=== PATIENT | female | born 1995 | race Caucasian/White ===

== ENCOUNTER → 2023-02-12 | Outpatient (CLI) | payer SELFPAY ==
[2023-02-15 07:08] LABS: Chlamydia By Nucleic Acid AMP Negative (Negative); Gonococcus By Nucleic Acid AMP Negative (Negative)
[2023-02-16 18:15] LABS: HPV Reflexed? NOT INDICATED
== END | disposition home or self-care (01) ==
LOC: LABSPEC 16:51
PROVIDERS: Referring Provider Obstetrics & Gynecology; Visit Provider Obstetrics & Gynecology
DX: Z34.90 Encounter for supervision of normal pregnancy, unspecified, unspecified trimester (principal)
CPT/HCPCS: 87086; 87491; 87591; 88175; G0145

== ENCOUNTER → 2023-03-12 | Outpatient (CLI) | payer OTHER, SELFPAY ==
[2023-03-12 15:38] LABS: Absolute Lymphocyte Count 2.58 X10^3/uL (0.83-4.51); Absolute Neutrophil Count 7.9 X10^3/uL (2.0-7.7); Basophil# 0.04 X10^3/uL; Basophil% 0.4 % (0-1); Eosinophil# 0.06 X10^3/uL; Eosinophils% 0.5 % (0-5); Hematocrit 39.5 % (37-47); Hemoglobin 12.2 g/dL (12.0-15.0); Lymphocyte # 2.58 X10^3/ul (0.83-4.51); Lymphocyte % 22.8 % (19-41); Mean Corp Hgb Conc 30.9 g/dL (32-36); Mean Corpuscular Hgb 27.2 pg (27.0-32.0); Monocyte# 0.75 X10^3/uL; Monocyte% 6.6 % (0-10); NRBC Flagged by Analyzer 0 % (0-5); Neutrophil # 7.85 X10^3/uL (2.7-7.7); Neutrophil % 69.3 % (47-70); Platelet Count 292 K/mm3 (150-450); RBC Distribution Width CV 13.4 % (11.6-14.6); RBC Distribution Width SD 43.5 fl (35.1-43.9); Red Blood Count 4.49 M/mm3 (4.2-5.4); White Blood Count 11.3 K/mm3 (4.4-11.0)
[2023-03-12 15:50] LABS: Glucose Challenge Gest 1H 50g 74 mg/dL (70-140)
[2023-03-12 17:15] LABS: HIV - WCH Non-Reactive (Nonreactive); Hepatitis B Surface Antigen Non-Reactive (Nonreactive); Hepatitis C Antibody Non-Reactive (Nonreactive); Rubella IgG Reactive (Nonreactive); Syphilis Antibodies Non-reactive
== END | disposition home or self-care (01) ==
PROVIDERS: PCP Family Medicine; Referring Provider Obstetrics & Gynecology; Visit Provider Obstetrics & Gynecology
DX: Z34.90 Encounter for supervision of normal pregnancy, unspecified, unspecified trimester (principal)
CPT/HCPCS: 36415; 82950; 85025; 86703; 86762; 86780; 86803; 86850; 86900; 86901; 87340

== ENCOUNTER → 2023-05-07 | Outpatient (CLI) | payer OTHER, SELFPAY ==
--- NOTE | 2023-05-07 15:15 | US_ITS ---
STUDY: SECOND AND THIRD TRIMESTER OBSTETRICAL ULTRASOUND REASON FOR EXAM: Female, 27 years old 20 wk anatomy LMP: Unknown. TECHNIQUE: Transabdominal TECHNICAL QUALITY: Adequate. PRIOR ULTRASOUND: None. FINDINGS: There is a single intrauterine fetus. The fetus is in a breech presentation. There is demonstrated cardiac activity with a heart rate of 141 bpm. There is a normal amniotic fluid volume. The largest amniotic fluid pocket measures 5.9 cm. The placenta is anterior in location and is not low lying. There are Grade 0 placental changes. The cervix measures 5.4 cm in length. The cervix is closed. The bilateral adnexal regions are normal. BIOMETRY: BPD: 5.01 cm: 21 weeks, 1 days HC: 18.67 cm: 21 weeks, 0 days AC: 17.24 cm: 22 weeks, 1 days FL: 3.3 cm: 20 weeks, 2 days CI: 77.02 FL/BPD: 65.85 FL/HC: 17.67 FL/AC: 19.13 HC/AC: 1.08 age by current US: 21 weeks, 2 days. MARIANA by current US: 09/17/2023. Estimated weight: 420 grams, +/- 63 grams, 72 %. age by prior US: No prior ultrasound. Age by LMP: 20 weeks, 6 days. MARIANA by LMP: 09/18/2023. ANATOMY: Gender: Male Cranium: Normal lateral ventricles. Normal choroid plexus. Normal cerebellum. Normal cisterna magna. Normal face, nose and lips. Chest: Normal 4-chamber heart. Abdomen/Pelvis: Normal diaphragm. Normal stomach. Normal abdominal wall. Normal cord insertion. Normal 3 vessel cord. Normal kidneys. Normal bladder. Spine: Limited visualization of the spine in axial plane with no gross dysraphism seen. Extremities: Normal visualized bilateral upper extremities. Normal visualized bilateral lower extremities. US/OB Anatomy Scan IMPRESSION: Single intrauterine with ultrasound age of 21 weeks and 2 days and estimated date of delivery of 09/17/2023. Breech presentation. Anterior placenta with no previa. Normal amniotic fluid. Normal cardiac activity. Limited anatomy with no gross anomaly. Electronically Signed: Heather Briscoe MD at 23:28 EST ,
== END | disposition home or self-care (01) ==
LOC: OPUS 15:14
PROVIDERS: PCP Family Medicine; Referring Provider Obstetrics & Gynecology; Visit Provider Obstetrics & Gynecology
DX: O32.1XX0 Maternal care for breech presentation, not applicable or unspecified (principal); Z3A.17 17 weeks gestation of pregnancy
CPT/HCPCS: 76805

== ENCOUNTER → 2023-05-14 | Outpatient (CLI) | payer OTHER, SELFPAY | END | disposition home or self-care (01) | PROVIDERS: PCP Family Medicine; Referring Provider Registered Nurse; Visit Provider Registered Nurse | DX: Z34.90 Encounter for supervision of normal pregnancy, unspecified, unspecified trimester (principal) | CPT/HCPCS: 36415 ==

== ENCOUNTER → 2023-06-12 | Outpatient (CLI) | payer BC, SELFPAY | END | disposition home or self-care (01) | PROVIDERS: PCP Family Medicine; Visit Provider Nurse Practitioner Women's Health | DX: O26.839 Pregnancy related renal disease, unspecified trimester (principal); N20.0 Calculus of kidney; O99.891 Other specified diseases and conditions complicating pregnancy; Z3A.00 Weeks of gestation of pregnancy not specified | CPT/HCPCS: 87086; 87088 ==

== ENCOUNTER → 2023-06-21 | Outpatient (CLI) | payer BC, SELFPAY ==
--- NOTE | 2023-06-21 12:25 | US_ITS ---
EXAM: US RETROPERITONEAL LIMITED, RENAL CLINICAL INDICATION: history of kidney stone TECHNIQUE: Limited grayscale and color Doppler sonographic evaluation of the retroperitoneum was performed. COMPARISON: No relevant prior studies available. FINDINGS: RIGHT KIDNEY: The right kidney measures 12.4 cm in length. No hydronephrosis. No shadowing calculus. No perinephric collection is demonstrated. LEFT KIDNEY: The left kidney measures 11.9 cm in length. No hydronephrosis. No shadowing calculus. No perinephric collection is demonstrated. BLADDER: The bilateral ureteral jets are visualized. US/Kidney and Bladder IMPRESSION: No acute renal pathology is identified. No nephrolithiasis is identified. Electronically Signed: Geovanny Cobb DO at 17:28 EST ,
--- OUTSIDE RECORDS SUMMARY | 2023-06-21 12:43 | XMS RPT_ITS | CCD ---
Author Name Unknown Address [address] [place] [address] Organization [facility] Care Team Providers Care Dump Operator Name Role Phone Veda Philip Unavailable Blanco Jeronimo O Unavailable Unavailable Blanco Jeronimo O Unavailable Unavailable Veda Philip Primary Care Provider Unavaila Veda Escobar Primary Care Provider Veda Philip Primary Care Provider [phone] Veda Philip Primary Care Provider [phone] Makayla Juarez Heather Unavailable Tamera PORTER, Veda Case Primary Care Provider Larry HUGHES, Makayla Heather Unavailable Veda Philip MD Primary Care Provider [phone] Larry HUGHES, Makayla Heather Unavailable VEDA PHILIP Primary Care Unavailabl e PHILIP, VEDA URSZULA Primary Care Unavailabl e LETA AYALA Admitting Unavailable LETA AYALA Referring Unavailable VEDA PHILIP URSZULA Primary Care Unavailabl e PHILIP, VEDA URSZULA Primary Care Unavailabl e PHILIP, VEDA URSZULA Primary Care Unavailabl e PHILIP, VEDA URSZULA Primary Care Unavailabl e PHILIP, VEDARICARDO ALTAMIRANOE Primary Care Unavailabl e PHILIP, VEDA URSZULA Primary Care Unavailabl e PHILIP, VEDA URSZULA Primary Care Unavailabl e PHILIP, [facility] Primary Care Unavailabl e PHILIP, [facility] Primary Care Unavailabl e PHILIP, [facility] Primary Care Unavailabl e PHILIP, [facility] Primary Care Unavailabl e PHILIP, [facility] Primary Care Unavailabl e PHILIP, [facility] Primary Care Unavailabl e PHILIP, [facility] Primary Care Unavailabl e PHILIP, [facility] Primary Care Unavailabl e CARMEN, BRIDGETTE Admitting Unavailable CARMEN, BRIDGETTE Referring Unavailable PHILIP, [facility] Primary Care Unavailabl e CARMEN, BRIDGETTE Admitting Unavailable CARMEN, BRIDGETTE Referring Unavailable PHILIP, [facility] Primary Care Unavailabl e CARMEN, BRIDGETTE Referring Unavailable PHILIP, [facility] Primary Care Unavailabl e CARMEN, BRIDGETTE Admitting Unavailable PHILIP, [facility] Primary Care Unavailabl e PHILIP, [facility] Primary Care Unavailabl e PHILIP, [facility] Primary Care Unavailabl e PHILIP, [facility] Primary Care Unavailabl e PHILIP, [facility] Primary Care Unavailabl e CROUCH, RHONDA VELASQUEZ Admitting Unavailab le CRORHONDA CAMPO Referring Unavailab le PHILIP, [facility] Unavailabl e UMANG THURMAN Attending Unavailable TAMERA, [facility] Primary Care Unavailabl e JEREMY VARGAS Attending Unavailabl e Tamera PORTER, [facility] Primary Care Provider Tamera PORTER, [facility] Primary Care Provider [facility], [facility] Heather Unavailable TAMERA [facility] Primary Care Unavailabl e ISA MESSIAlejandro HOLDER Attending Unavailable Tamera PORTER, [facility] Primary Care Provider Tamera PORTER, [facility] Primary Care Provider [facility], [facility] Heather Unavailable TAMERA [facility] Unavailabl e MYLA FALK. Attending Unavailable Tamera PORTER, [facility] Primary Care Provider MYLA HOPPER Attending Unavailable MYLA HOPPER Referring Unavailable TAMERA [facility] Primary Care Unavailable JAYITMYLA Admitting Unavailable SELF, SELF Referring Unavailable TAMERA VEDA Zhu Primary Care Unavailable VEDA PHILIP Attending Unavailable Allergies Allergy Classification Reported Allergen(s) Allergy Type Date of Onset Reaction(s) Facility Bee/Wasp/Ant Venom (4 sources) bee venom Substance Allergy Swelling [facility] (20 sources) BEE VENOM PROTEIN (HONEY BEE); Translations: [BEE VENOM PROTEIN (HONEY BEE)] Propensity to adverse reactions to drug Swelling [facility] Work Phone: Medications Current Medications Medication Drug Class(es) Dates Sig (Normalized) Sig (Original) [id number] 200 actuat albuterol 0.09 mg/actuat metered dose inhaler (3 sources) beta2-Adrenergic Agonist Start: 11-27-2021 End: 12-04-2021 take 2 puff(s) by inhalation four times daily albuterol 90 mcg/actuation inhaler Indications: Bronchitis Inhale 2 (two) puffs 4 (four) times a day for 7 days . 18 g 0 11/27/2021 Active amoxicillin 875 mg / clavulanate 125 mg oral tablet (5 sources) Penicillin-class Antibacterial Start: 08-04-2019 End: 08-14-2019 take 1 tablet by mouth twice daily amoxicillin-clavu lanate (Augmentin) 875-125 mg per tablet Indications: Acute frontal sinusitis, recurrence not specified , Lower respiratory infection (e.g., bronchitis, pneumonia, pneumonitis, pulmonitis) Take 1 (one) tablet by mouth 2 (two) times a day for 10 days . 20 tablet 0 08/04/2019 08/14/2019 Active Completed/Discontinued Medications Medication Drug Class(es) Dates Sig (Normalized) Sig (Original) acetaminophen 325 mg oral tablet (5 sources) Start: 03-20-2019 End: 03-20-2019 acetaminophen (TYLENOL) 325 MG tablet - ADS Override Pull Problems Active Problems Problem Classification Problem Date Documented Date Episodic/Chronic Abdominal pain (2 sources) Right lower quadrant pain; Translations: [Right lower quadrant pain] Episodic Acute and chronic tonsillitis (1 source) Chronic disease of tonsils AND/OR adenoids Chronic Anxiety disorders (20 sources) Generalized anxiety disorder; Translations: [Generalized anxiety disorder] Onset: 05-26-2019 06-20-2019 Chronic Chronic obstructive pulmonary disease and bronchiectasis (2 sources) Bronchitis; Translations: [Bronchitis, not specified as acute or chronic] Episodic Fever of unknown origin (4 sources) Fever; Translations: [Fever, unspecified] Onset: 06-03-2023 06-03-2023 Episodic Headache; including migraine (20 sources) Migraine without aura, not refractory ; Translations: [Refractory migraine with aura] Onset: 12-23-2019 12-23-2019 Chronic Headache; including migraine (1 source) Acute headache; Translations: [Acute nonintractable headache, unspecified headache type] Episodic Immunizations and screening for infectious disease (11 sources) Patient encounter status; Translations: [Encounter for screening for infectious and parasitic diseases, unspecified] Episodic Influenza (1 source) Influenza; Translations: [Influenza] Episodic Malaise and fatigue (1 source) Fatigue; Translations: [Other fatigue] Episodic Nutritional deficiencies (1 source) Vitamin D deficiency; Translations: [Vitamin D deficiency, unspecified] Chronic Other connective tissue disease (7 sources) Pain in left foot; Translations: [Pain in left foot] 01-16-2017 Other lower respiratory disease (1 source) Lower respiratory tract infection; Translations: [Lower respiratory infection (e.g., bronchitis, pneumonia, pneumonitis, pulmonitis)] Episodic Other lower respiratory disease (1 source) Dyspnea; Translations: [Shortness of breath] Episodic Other nervous system disorders (1 source) Acute postoperative pain; Translations: [Acute post-operative pain] Episodic Other nervous system disorders (1 source) Loss of sense of smell; Translations: [Anosmia] Episodic Other nutritional; endocrine; and metabolic disorders (20 sources) Morbid obesity; Translations: [Morbid (severe) obesity due to excess calories] Onset: 05-05-2021 01-16-2017 Chronic Other nutritional; endocrine; and metabolic disorders (1 source) Body mass index 40+ - severely obese; Translations: [BMI 45.0-49.9, adult] Chronic Other nutritional; endocrine; and metabolic disorders (2 sources) Obesity caused by energy imbalance; Translations: [Morbid (severe) obesity due to excess calories] Onset: 05-05-2021 05-05-2021 Chronic Other upper respiratory infections (6 sources) Viral upper respiratory tract infection; Translations: [Acute frontal sinusitis] Onset: 06-03-2023 Episodic Residual codes; unclassified (1 source) Influenza-like symptoms; Translations: [Flu-like symptoms] Episodic Residual codes; unclassified (1 source) Needs influenza immunization; Translations: [Need for influenza vaccination] Episodic Residual codes; unclassified (1 source) Generalized aches and pains; Translations: [Pain, unspecified] Episodic Spondylosis; intervertebral disc disorders; other back problems (2 sources) Backache; Translations: [Back Pain] Onset: 06-06-2023 Episodic Unclassified (1 source) Contusion of left foot; Translations: [Contusion of left foot, initial encounter] Unclassified (1 source) Injury of toe of left foot; Translations: [Injury of toe on left foot, initial encounter] Unclassified (1 source) Injury of left foot; Translations: [Injury of left foot, subsequent encounter] Unclassified (1 source) Contact with and (suspected) exposure to covid-19; Translations: [Contact with and (suspected) exposure to covid-19] Onset: 06-03-2023 Past or Other Problems Problem Classification Problem Date Documented Date Episodic/Chronic Calculus of urinary tract (20 sources) Calculus of kidney and ureter ; Translations: [Calculus of kidney with calculus of ureter] Onset: 03-11-2018 03-18-2018 Episodic Complications of surgical procedures or medical care (12 sources) Dehiscence of wound of skin; Translations: [Other complications of procedures, not elsewhere classified, initial encounter] Onset: 04-03-2019 04-03-2019 Episodic Genitourinary symptoms and ill-defined conditions (20 sources) Increased frequency of urination; Translations: [Frequency of micturition] Onset: 05-05-2021 01-16-2017 Episodic Miscellaneous mental health disorders (20 sources) depression; Translations: [Other mental disorders complicating the puerperium] Onset: 05-14-2019 06-20-2019 Episodic Other connective tissue disease (17 sources) Pain in left foot; Translations: [Pain in left foot] Onset: 05-05-2021 01-16-2017 Episodic Other injuries and conditions due to external causes (1 source) Open wound; Translations: [Wound drainage] Episodic Other lower respiratory disease (1 source) Snoring Episodic Other lower respiratory disease (13 sources) Cough; Translations: [Cough] Onset: 08-04-2019 08-04-2019 Episodic Other non-traumatic joint disorders (20 sources) Arthralgia of the ankle and/or foot; Translations: [Pain in left ankle and joints of left foot] Onset: 05-05-2021 01-16-2017 Episodic Poisoning by nonmedicinal substances (20 sources) Toxic reaction to hornets, wasps and bees; Translations: [Poisoning due to insect venom] Onset: 05-05-2021 01-16-2017 Episodic Residual codes; unclassified (15 sources) Gestation period, 39 weeks; Translations: [39 weeks gestation of ] Onset: 03-20-2019 03-20-2019 Episodic Unclassified (1 source) Enlarged tonsils Unclassified (1 source) Contact with and (suspected) exposure to covid-19; Translations: [Contact with and (suspected) exposure to covid-19] Onset: 06-03-2023 NEGATED: Highlighted row has been ruled out!Unclassified (5 sources) No known active problems Results Test Name Value Interpretation Reference Range Facil ity Vital Signs Date Time Vital Sign Value Performing Clinician Facility 06-06-2023 01:40-0500 Body temperature 96.91 [degF] Myla Hopper MD Work Phone: [facility] 06-06-2023 01:40-0500 Diastolic blood pressure 70 mm[Hg] Myla Hopper MD Work Phone: [facility] 06-06-2023 01:40-0500 Heart rate 93 /min Myla Hopper MD Work Phone: [facility] 06-06-2023 01:40-0500 Respiratory rate 22 /min Myla Hopper MD Work Phone: [facility] 06-06-2023 01:40-0500 SaO2% (BldA) [Mass fraction] 98 % Myla Hopper MD Work Phone: [facility] 06-06-2023 01:40-0500 Systolic blood pressure 122 mm[Hg] Myla Hopper MD Work Phone: [facility] 06-06-2023 01:32-0500 Body height 160 cm Myla Hopper MD Work Phone: [facility] 06-06-2023 01:32-0500 Body mass index (BMI) [Ratio] 52.82 kg/m2 Myla Hopper MD Work Phone: [facility] 06-06-2023 01:32-0500 Body weight 135.26 kg Myla Hopper MD Work Phone: [facility] 06-03-2023 20:16-0500 Body height 162.6 cm Myla Falk DO Work Phone: [facility] 06-03-2023 20:16-0500 Body mass index (BMI) [Ratio] 50.64 kg/m2 Myla Falk DO Work Phone: [facility] 06-03-2023 20:16-0500 Body temperature 98.1 [degF] Myla Falk DO Work Phone: [facility] 06-03-2023 20:16-0500 Body weight 133.81 kg Myla Falk DO Work Phone: [facility] 06-03-2023 20:16-0500 Diastolic blood pressure 79 mm[Hg] Myla Falk DO Work Phone: [facility] 06-03-2023 20:16-0500 Heart rate 99 /min Myla Falk DO Work Phone: [facility] 06-03-2023 20:16-0500 Respiratory rate 18 /min Myla Falk DO Work Phone: [facility] 06-03-2023 20:16-0500 SaO2% (BldA) [Mass fraction] 98 % Myla Mckenziegiovanni DO Work Phone: [facility] 06-03-2023 20:16-0500 Systolic blood pressure 116 mm[Hg] Myla Falk DO Work Phone: [facility] 04-03-2022 09:34-0400 Body height 160 cm Cathy Gunderson 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 Work Phone: [facility] 04-03-2022 09:34-0400 Body mass index (BMI) [Ratio] 51 kg/m2 Cathy Gunderson APRN-INSTRUMENTATION CONTROLS ENGINEER Work Phone: [facility] [facility] 04-03-2022 09:34-0400 Body weight 130.59 kg Cathy Gunderson APRN-INSTRUMENTATION CONTROLS ENGINEER Work Phone: [facility] 04-03-2022 09:34-0400 Diastolic blood pressure 78 mm[Hg] Cathy Gunderson APRN-INSTRUMENTATION CONTROLS ENGINEER Work Phone: [facility] 04-03-2022 09:34-0400 Heart rate 98 /min Cathy Gunderson APRN-INSTRUMENTATION CONTROLS ENGINEER Work Phone: [facility] 04-03-2022 09:34-0400 Systolic blood pressure 114 mm[Hg] Cathy Gunderson APRN-INSTRUMENTATION CONTROLS ENGINEER Work Phone: [facility] 11-27-2021 16:30-0400 Body height 160 cm Myla Falk Work Phone: [facility] 11-27-2021 16:30-0400 Body mass index (BMI) [Ratio] 48.18 kg/m2 Myla Falk Work Phone: [facility] 11-27-2021 16:30-0400 Body temperature 98.4 [degF] Myla Falk DO Work Phone: [facility] 11-27-2021 16:30-0400 Body weight 123.38 kg Myla Falk Work Phone: [facility] 11-27-2021 16:30-0400 Diastolic blood pressure 87 mm[Hg] Myla Falk DO Work Phone: [facility] 11-27-2021 16:30-0400 Heart rate 95 /min Myla Falk DO Work Phone: [facility] 11-27-2021 16:30-0400 Respiratory rate 20 /min Myla Falk DO Work Phone: [facility] 11-27-2021 16:30-0400 SaO2% (BldA) [Mass fraction] 98 % Myla Falk DO Work Phone: [facility] 11-27-2021 16:30-0400 Systolic blood pressure 121 mm[Hg] Myla Falk DO Work Phone: [facility] 08-25-2021 11:06-0500 Body mass index (BMI) [Ratio] 49.7 kg/m2 Veda Philip MD Work Phone: [facility] 08-25-2021 11:06-0500 Body weight 130.77 kg Veda Philip MD Work Phone: [facility] 08-25-2021 11:06-0500 Diastolic blood pressure 80 mm[Hg] Veda Philip MD Work Phone: [facility] 08-25-2021 11:06-0500 Heart rate 64 /min Veda Philip MD Work Phone: [facility] 08-25-2021 11:06-0500 SaO2% (BldA) [Mass fraction] 98 % Veda Philip MD Work Phone: [facility] 08-25-2021 11:06-0500 Systolic blood pressure 118 mm[Hg] Veda Philip MD Work Phone: [facility] 05-05-2021 09:55-0500 Body height 160 cm Germania Lamport PA-C Work Phone: [facility] 05-05-2021 09:55-0500 Body mass index (BMI) [Ratio] 51.37 kg/m2 Germania Lamport PA-C Work Phone: [facility] 05-05-2021 09:55-0500 Body temperature 97.59 [degF] Germania Lamport PA-C Work Phone: [facility] 05-05-2021 09:55-0500 Body weight 131.54 kg Germania Lamport PA-C Work Phone: [facility] 05-05-2021 09:55-0500 Diastolic blood pressure 85 mm[Hg] Germania Lamport PA-C Work Phone: [facility] 05-05-2021 09:55-0500 Heart rate 93 /min Germania Lamport PA-C Work Phone: [facility] 05-05-2021 09:55-0500 Respiratory rate 18 /min Germania Lamport PA-C Work Phone: [facility] 05-05-2021 09:55-0500 SaO2% (BldA) [Mass fraction] 98 % Germania Lamport PA-C Work Phone: [facility] 05-05-2021 09:55-0500 Systolic blood pressure 122 mm[Hg] Germania Lamport PA-C Work Phone: [facility] 02-04-2021 09:11-0400 Body mass index (BMI) [Ratio] 49.67 kg/m2 Veda Philip MD Work Phone: [facility] 02-04-2021 09:11-0400 Body weight 130.68 kg Veda Philip MD Work Phone: [facility] 02-04-2021 09:11-0400 Diastolic blood pressure 68 mm[Hg] Veda Philip MD Work Phone: [facility] 02-04-2021 09:11-0400 Heart rate 77 /min Veda Philip MD Work Phone: [facility] 02-04-2021 09:11-0400 SaO2% (BldA) [Mass fraction] 98 % Veda Philip MD Work Phone: [employer] [facility] 02-04-2021 09:11-0400 Systolic blood pressure 106 mm[Hg] Veda Philip MD Work Phone: [facility] 12-30-2020 11:00-0400 Body height 162.2 cm Pinky PADILLA Work Phone: [facility] 12-30-2020 11:00-0400 Body mass index (BMI) [Ratio] 48.48 kg/m2 Pinky Resendezt 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 Work Phone: [facility] 12-30-2020 11:00-0400 Body weight 127.55 kg Pinky Portillo 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 Work Phone: [facility] 12-30-2020 11:00-0400 Diastolic blood pressure 74 mm[Hg] Pinky Janghart 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 Work Phone: [facility] 12-30-2020 11:00-0400 Heart rate 88 /min Pinky Resendezt 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 Work Phone: [facility] 12-30-2020 11:00-0400 SaO2% (BldA) [Mass fraction] 98 % Pinky Portillo 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 Work Phone: [facility] 12-30-2020 11:00-0400 Systolic blood pressure 118 mm[Hg] Pinky Janghart 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 Work Phone: [facility] 11-25-2020 09:32-0400 Body height 162.2 cm Veda Philip MD Work Phone: [facility] 11-25-2020 09:32-0400 Body mass index (BMI) [Ratio] 49.05 kg/m2 Veda Philip MD Work Phone: [facility] 11-25-2020 09:32-0400 Body weight 129.05 kg Veda Philip MD Work Phone: [facility] 11-25-2020 09:32-0400 Diastolic blood pressure 57 mm[Hg] Veda Philip MD Work Phone: [facility] 11-25-2020 09:32-0400 Heart rate 65 /min Vead Philip MD Work Phone: [facility] 11-25-2020 09:32-0400 Systolic blood pressure 99 mm[Hg] Veda Philip MD Work Phone: [facility] 08-20-2020 10:52-0500 BMI (Body Mass Index) 49.66 kg/m2 Veda [facility] 08-20-2020 10:52-0500 Body weight 131.23 kg Veda [facility] 08-20-2020 10:52-0500 BP Diastolic 77 mm[Hg] Veda [facility] 08-20-2020 10:52-0500 BP Systolic 122 mm[Hg] [facility] 08-20-2020 10:52-0500 Height 162.6 cm Veda [facility] 08-20-2020 10:52-0500 Pulse (Heart Rate) 63 /min [facility] 08-16-2020 21:22-0500 BMI (Body Mass Index) 48.75 kg/m2 [facility] 08-16-2020 21:22-0500 Body weight 128.82 kg [facility] 08-16-2020 21:22-0500 Height 162.6 cm [facility] 08-16-2020 21:19-0500 Body Temperature 98.1 [degF] [facility] 08-16-2020 21:19-0500 BP Diastolic 74 mm[Hg] [facility] 08-16-2020 21:19-0500 BP Systolic 171 mm[Hg] [facility] 08-16-2020 21:19-0500 Pulse (Heart Rate) 77 /min [facility] 08-16-2020 21:19-0500 Pulse Oximetry 97 % [facility] 08-16-2020 21:19-0500 Respiratory Rate 18 /min [facility] 05-17-2020 13:43-0500 BMI (Body Mass Index) 49.86 kg/m2 [facility] 05-17-2020 13:43-0500 Body weight 131.[address] [facility] 05-17-2020 13:43-0500 BP Diastolic 78 mm[Hg] [facility] 05-17-2020 13:43-0500 BP Systolic 133 mm[Hg] [facility] 05-17-2020 13:43-[address] [facility] 05-17-2020 13:43-0500 Pulse (Heart Rate) 71 /min [facility] 04-22-2020 13:14-0400 BMI (Body Mass Index) 49.74 kg/m2 [facility] 04-22-2020 13:14-0400 Body weight 131.[address] [facility] 04-22-2020 13:14-0400 BP Diastolic 80 mm[Hg] [facility] 04-22-2020 13:14-0400 BP Systolic 125 mm[Hg] [facility] 04-22-2020 13:14-[address] [facility] 04-22-2020 13:14-0400 Pulse (Heart Rate) 79 /min [facility] 12-23-2019 14:53-0400 BMI (Body Mass Index) 48.65 kg/m2 [facility] 12-23-2019 14:53-0400 Body weight 128.55 kg [facility] 12-23-2019 14:53-0400 BP Diastolic 61 mm[Hg] [facility] 12-23-2019 14:53-0400 BP Systolic 121 mm[Hg] [facility] 12-23-2019 14:53-0400 Height 162.6 cm [facility] 12-23-2019 14:53-0400 Pulse (Heart Rate) 78 /min [facility] 12-23-2019 14:53-0400 Pulse Oximetry 97 % [facility] 12-23-2019 14:53-0400 Respiratory Rate 18 /min [facility] 12-19-2019 13:20-0400 Body height 162.6 cm Veda Philip MD Work Phone: [facility] 12-19-2019 13:20-0400 Body mass index (BMI) [Ratio] 48.44 kg/m2 Veda Philip MD Work Phone: [facility] [employer] 12-19-2019 13:20-0400 Body weight 128 kg Veda Philip MD Work Phone: [facility] 12-19-2019 13:20-0400 Diastolic blood pressure 76 mm[Hg] Veda Philip MD Work Phone: [facility] 12-19-2019 13:20-0400 Heart rate 69 /min Veda Philip MD [facility] 12-19-2019 13:20-0400 Systolic blood pressure 108 mm[Hg] Veda Philip MD Work Phone: [facility] 08-04-2019 15:05-0500 Pulse (Heart Rate) 102 /min Agustina Simms [facility] Encounters Encounter Date Encounter Type Care Provider Facility Start: 06-06-2023 End: 06-06-2023 ambulatory MYLA HOPPER [facility] Start: 06-06-2023 End: 06-06-2023 Subsequent hospital visit by physician Myla Hopper MD Work Phone: [facility] Start: 06-03-2023 End: 06-03-2023 ambulatory VEDA PHILIP [facility] Start: 06-03-2023 End: 06-03-2023 Office outpatient visit 15 minutes Myla Falk DO Work Phone: [facility] Procedures Date Procedure Procedure Detail Performing Clinician Start: 06-06-2023 Culture bacterial qu anttative colony count urine Myla Hopper MD Work Phone: Start: 06-06-2023 Urinalysis, reagent strip without microscopy Myla Hopper MD Work Phone: Start: 06-03-2023 Infectious agent dna /rna influenza 1st 2 types Myla Falk DO Work Phone: Start: 06-03-2023 Sars-cov-2 detection by dna/rna Myla Falk DO Work Phone: Start: 11-27-2021 Sars-cov-2 detection by dna/rna Myla Falk DO Work Phone: Start: 05-05-2021 Sars-cov-2 detection by dna/rna Germaniamarjorie Vargas PA-C Work Phone: Start: 12-08-2020 Skin test tuberculos is intradermal Veda Philip MD Work Phone: Start: 11-29-2020 Skin test tuberculos is intradermal Veda Philip MD Work Phone: Start: 08-16-2020 X-ray of left foot Manjula Blackman Work Phone: Start: 01-13-2020 Microscopic observat ion [Identifier] in Cervix by Cyto stain Messi Blackman Start: 08-04-2019 Standard chest X-ray Heber Simms Work Phone: Start: 08-04-2019 Influenza virus B an tigen assay Agustina Simms Work Phone: Start: 08-04-2019 Influenza virus A an tigen assay Agustina Simms Work Phone: Start: 03-30-2019 Ct abdomen & pelvis w/contrast material Hank Mark Work Phone: Start: 03-29-2019 Urinalysis Hank Suareze l Work Phone: Start: 03-29-2019 Basic metabolic 2000 panel - Serum or Plasma Hank Fowler Work Phone: Start: 03-29-2019 Complete blood count with white cell differential, automated Hank Fowler Work Phone: Start: 03-29-2019 Complete blood count with white cell differential, manual Hank Fowler Work Phone: Start: 03-22-2019 Complete blood count (hemogram) panel - Blood by Automated count Irais Rucker Work Phone: Start: 03-21-2019 End: 03-21-2019 section Irais Linda Chaim Work Phone: Start: 03-19-2019 Blood group typing Yumiko Rucker Work Phone: Start: 03-19-2019 Blood type and Indir ect antibody screen panel - Blood Irais Rucker Work Phone: Start: 03-19-2019 Complete blood count (hemogram) panel - Blood by Automated count Irais Mckeon Chaim Work Phone: Start: 03-10-2019 Activated partial thromboplastin time ratio Irais Rucker Work Phone: Start: 03-10-2019 aPTT in Blood by Coa gulation assay Irais Rucker Work Phone: Start: 03-10-2019 Complete blood count with white cell differential, automated Irais Rucker Work Phone: Start: 03-10-2019 Complete blood count with white cell differential, manual Irais Rucker Work Phone: Start: 03-10-2019 Comprehensive metabo lic 2000 panel - Serum or Plasma Irais Rucker Work Phone: Start: 03-10-2019 D-dimer assay, quantitative Irais Mckeon Chaim Work Phone: Start: 03-10-2019 Fibrinogen [Mass/vol ume] in Platelet poor plasma by Coagulation assay Irais Rucker Work Phone: Start: 03-10-2019 INR in Platelet poor plasma by Coagulation assay rIais Mckeon Chaim Work Phone: Start: 03-10-2019 Urate [Mass/volume] in Serum or Plasma Irais Rucker Work Phone: Start: 03-10-2019 Urinalysis Irais espinoza Chaim Work Phone: Start: 03-07-2019 Protein/Creatinine [ Ratio] in Urine Mike Logan Work Phone: Start: 03-07-2019 Urinalysis Mike Logan Work Phone: Start: 03-07-2019 aPTT in Blood by Coa gulation assay Mike Logan Work Phone: Start: 03-07-2019 Complete blood count (hemogram) panel - Blood by Automated count Mike Logan Work Phone: Start: 03-07-2019 Comprehensive metabo lic 2000 panel - Serum or Plasma Mike Logan Work Phone: Start: 03-07-2019 D-dimer assay, quantitative Mike Logan Work Phone: Start: 03-07-2019 Fibrinogen [Mass/vol ume] in Platelet poor plasma by Coagulation assay Mike Logan Work Phone: Start: 03-07-2019 INR in Platelet poor plasma by Coagulation assay Mike Logan Work Phone: Start: 03-07-2019 Urate [Mass/volume] in Serum or Plasma Mike Logan Work Phone: Start: 01-20-2019 Ultrasonography of retroperitoneum Mike Logan Work Phone: Start: 01-20-2019 Complete blood count with white cell differential, automated Mike Logan Work Phone: Start: 01-20-2019 Complete blood count with white cell differential, manual Mike Logan Work Phone: Start: 01-20-2019 Urinalysis Mike Logan Work Phone: Start: 01-20-2019 ULTRASOUND (OUTSIDE) Ut patric Philip Work Phone: Start: 12-16-2018 Microscopic observat ion [Identifier] in Cervix by Cyto stain Mike Logan Start: 09-13-2018 Blood type and Indir ect antibody screen panel - Blood Historical Provider Start: 09-13-2018 Hepatitis B surface antigen measurement Historical Provider Start: 09-13-2018 Human immunodeficien cy virus test Historical Provider Start: 09-13-2018 Rubella IgG measurement Historical Provider Plan of Treatment Date Care Activity Detail Author Start: 09-29-2024 Tetanus vaccination [facility] Start: 09-28-2024 Tetanus vaccination [facility] Work Phone: Start: 02-23-2023 COVID-19 Vaccine ( season) COVID-19 Vaccine () [facility] Start: 01-12-2023 Screening for malignant neoplasm of cervix Pap Smear [facility] Start: 09-12-2022 End: 09-12-2022 Patient encounter procedure 09/12/2022 Office Visit Family Medicine Veda Philip MD [address] [place] [id number] [facility] Start: 02-21-2022 End: 02-21-2022 Patient encounter procedure 02/21/2022 Office Visit Family Medicine Veda Philip MD [address] [place] [id number] [facility] Start: 12-20-2021 COVID-19 Vaccine (3 - Booster for Pfizer series) COVID-19 Vaccine (3 - Booster for Pfizer series) [facility] Start: 12-16-2021 Screening for malignant neoplasm of cervix PAP SMEAR [facility] Start: 11-25-2021 GONORRHEA SCREEN GONORRHEA SCREEN [facility] Start: 11-25-2021 History and physical examination, annual for health maintenance Wellness Visit [facility] Start: 11-25-2021 Screening for Chlamydia trachomatis CHLAMYDIA SCREEN [facility] Start: 11-19-2021 COVID-19 VACCINE (3 - Booster for Pfizer series) COVID-19 VACCINE (3 - Booster for Pfizer series) [facility] Start: 08-16-2021 COVID-19 VACCINE (3 - Booster for Pfizer series) COVID-19 VACCINE (3 - Booster for Pfizer series) [facility] Start: 06-21-2021 End: 06-21-2021 ambulatory 06/21/2021 Immunization Primary Care CrandallRhonda MD [address] [place] [address] [facility] [place] [facility] Start: 06-18-2021 COVID-19 Vaccine (2 - Pfizer 2-dose series) COVID-19 Vaccine (2 - Pfizer 2-dose series) [facility] Start: 05-16-2021 End: 05-16-2021 Patient encounter procedure 05/16/2021 Office Visit Obstetrics and Gynecology Irais Rucker MD [address] [place] [id number] [facility] STEP FINISHER - [facility] Start: 03-30-2021 End: 03-30-2021 Patient encounter procedure 03/30/2021 Office Visit Obstetrics and Gynecology Mike Logan MD [address] [facility] [address] [address] [facility] Start: 03-29-2021 End: 03-29-2021 Patient encounter procedure 03/29/2021 Office Visit Family Medicine Veda Philip MD [address] [place] [phone] [facility] Start: 02-23-2021 Influenza vaccination [facility] Start: 01-12-2021 History and physical examination, annual for health maintenance Wellness Visit [facility] Start: 12-10-2020 End: 12-21-2020 POCT PPD READING POCT PPD READING Point of Care Testing Routine Need for tuberculosis vaccination Expected: 12/10/2020, Expires: 12/21/2020 [facility] Immunizations Immunization Date Immunization Notes Care Provider Mary mercyone [facility] 03-20-2022 influenza, injectabl e, quadrivalent, preservative free Cathy Gunderson 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 Work Phone: [facility] 06-21-2021 Pfizer SARS-CoV-2 Vaccination Umang Thurman RN [facility] 05-28-2021 Pfizer SARS-CoV-2 Vaccination Jeremy Vargas RN [facility] 03-29-2021 influenza, injectabl e, quadrivalent, contains preservative Myla Falk DO Work Phone: [facility] 03-29-2021 influenza, injectabl e, quadrivalent, preservative free Germania Lamport PA-C Work Phone: [facility] 12-08-2020 PPD (Mantoux Test) Darren Philip [facility] 12-08-2020 tuberculin skin test ; purified protein derivative solution, intradermal Germania Lamport PA-C Work Phone: [facility] 11-29-2020 PPD (Mantoux Test) Darren Philip [facility] 11-29-2020 tuberculin skin test ; purified protein derivative solution, intradermal Germania Lamport PA-C Work Phone: [facility] 04-22-2020 influenza, injectabl e, quadrivalent, contains preservative Myla Falk DO Work Phone: [facility] 04-22-2020 influenza, injectabl e, quadrivalent, preservative free [facility] 04-22-2020 influenza quad vacci ne 0.5 ML Suspension Prefilled Syringe [facility] 04-22-2020 influenza virus vaccine, unspecified formulation; Translations: [HC INFLUENZA VIRUS VACCINE QUADRIVALENT SPLIT VIRUS PRESERVATIVE FREE 3+ YEARS INTRAMUSCULAR] [facility] 03-23-2019 influenza, injectabl e, quadrivalent, preservative free [facility] 03-21-2019 varicella zoster imm une globulin [facility] 03-21-2019 diphtheria, tetanus toxoids and acellular pertussis vaccine, unspecified formulation [facility] 03-21-2019 measles, mumps and rubella virus vaccine [facility] 04-29-2015 influenza, injectabl e, quadrivalent, contains preservative Ronda Payan [facility] Work Phone: 04-29-2015 influenza, injectabl e, quadrivalent, preservative free Agustina Simms [facility] 04-29-2015 meningococcal ACWY vaccine, unspecified formulation Agustina Simms [facility] 04-29-2015 influenza virus vaccine, unspecified formulation Ronda Payan [facility] Work Phone: 09-29-2014 tetanus toxoid, redu charles diphtheria toxoid, and acellular pertussis vaccine, adsorbed Agustina Simms [facility] 09-28-2014 tetanus toxoid, redu charles diphtheria toxoid, and acellular pertussis vaccine, adsorbed [facility] Payers Date Payer Category Payer Unknown [id number] 2022 Private Health Insurance AETNA AETNA [id number] 2022-Present [address] [id number] 2022 Private Health Insurance [id number] 2018 Unknown [id number] [id number] .7.3.661435.315 2018 Unknown [id number] 2018 Unknown [id number]. 1.13.385.2 .7.3.238438.315 2018 Unknown [employer] M [employer] xxxxxxxxxxxx 2018-Present [id number] [id number] .7.3.244986.315 2017 Unknown xxxxxxxxx 1.2.840.569623.1.13.385.2 .7.3.054080.315 1994 Unknown [id number] 2.16.840.1.065770.3.579.2 .356 1994 Unknown [id number] 2.16.840.1.032551.3.579.2 .900 1994 Unknown [id number] 2.16.840.1.022556.3.579.2 .900 1994 Unknown [id number] 2.16.840.1.467173.3.579.2 .1994 Unknown [id number] 2.16.840.1.296070.3.579.2 .900 1994 Unknown [id number] 2.16.840.1.923010.3.579.2 .1994 Unknown [id number] 2.16.840.1.983741.3.579.2 .1994 Unknown [id number] 2.16.840.1.020927.3.579.2 .1994 Unknown [id number] 2.16.840.1.804037.3.579.2 .1994 Unknown [id number] 2.16.840.1.450211.3.579.2 .1994 Unknown [id number] 2.16.840.1.400879.3.579.2 .1994 Unknown [id number] 2.16.840.1.684513.3.579.2 .1994 Unknown [id number] 2.16.840.1.311492.3.579.2 .1994 Unknown [id number] 2.16.840.1.438436.3.579.2 .1994 Unknown [id number] 2.16.840.1.728301.3.579.2 .1994 Unknown [id number] 2.16.840.1.481641.3.579.2 .1994 Unknown [id number] 2.16.840.1.325553.3.579.2 .900 1994 Unknown [id number] 2.16.840.1.898255.3.579.2 .1994 Unknown [id number] 2.16.840.1.931880.3.579.2 .1994 Unknown [id number] 2.16.840.1.853574.3.579.2 .1994 Unknown [id number] 2.16.840.1.598394.3.579.2 .900 1994 Unknown [id number] 2.16.840.1.664436.3.579.2 .900 1994 Unknown [id number] 2.16.840.1.750544.3.579.2 .900 1994 Unknown [id number] 2.16.840.1.173667.3.579.2 .900 1994 Unknown [id number] 2.16.840.1.035272.3.579.2 .900 1994 Unknown [id number] 2.16.840.1.831719.3.579.2 .900 1994 Unknown [id number] 2.16.840.1.455457.3.579.2 .903 1994 Unknown [id number] 2.16.840.1.496426.3.579.2 .903 1994 Unknown [id number] 2.16.840.1.121140.3.579.2 .903 1994 Unknown [id number] 2.16.840.1.353626.3.579.2 .903 1994 Unknown [id number] 2.16.840.1.110450.3.579.2 .983 Unknown [id number] 2.16.840.1.591287.3.249.1 3 Unknown [id number] Social History Date Type Detail Facility Start: 10-10-2017 End: 04-03-2022 Tobacco smoking status KSIS Never smoker [employer] Work Phone: Start: 1995 Sex Assigned At Not on file [employer] Work Phone: Start: 07-03-2018 [facility] Start: 01-16-2017 Alcohol Comment Occasionally [facility] [employer] Start: 02-21-2019 End: 06-03-2023 Alcohol intake Ex-drinker (finding) [facility] Start: 06-20-2019 End: 06-06-2023 Alcohol intake Current drinker of alcohol (finding) [facility] Start: 04-22-2020 End: 04-03-2022 Tobacco use and exposure Never used [facility] Start: 08-15-2021 End: 04-03-2022 Exposure to SARS-CoV-2 (event) Not sure [facility] Start: 01-16-2017 Alcohol Comment Occasionally [facility] Start: 11-17-2021 End: 11-27-2021 Exposure to SARS-CoV-2 (event) Yes [facility] Start: 11-27-2021 End: 06-06-2023 Cigarette pack-years [facility] Start: 06-03-2023 End: 06-06-2023 Tobacco use panel [facility] PHQ-2 Score 23 [facility] Start: 01-15-2017 Gender identity Identifies as female gender (finding) [facility] Start: 08-27-2017 Sexual orientation Heterosexual (finding) [facility] Clinical Notes 12-19-2019 to 06-06-2023 Nursing Notes - Josué Mcginnis RN - 06/06/2023 2:55 AM ESTNursing Notes - Josué Mcginnis RN - 06/06/2023 2:44 AM ESTNursing Notes - Josué Mcginnis RN - 06/06/2023 2:30 AM ESTAttachments Note Date & Type Note Facility 06-06-2023 Miscellaneous Notes Formattin g of this note might be different from the original. Pt and significant other ambulate off of unit, undelivered. Consult to urology placed. AVS printed and given to pt. Denies any questions at this time. Dr Hopper called unit, updated on pt complaints and UA results. Dr Hopper states to have pt follow up with urology, take tylenol and hydrate with lots of water. Pt can be discharged at this time. Dr Hopper called at this time. Left voicemail Heat packs provided for pt comfort Urine obtained via straight cath and sent to lab. Pt arrives to triage via wheelchair and significant other with complaints of back pain, difficulty urinating and burning with urination. Pt is experiencing nausea due to being in so much pain. Rating pain 9/10. Constant pain, nothing relieves pain. Pt states she has been taking mucinex for a week due to upper respiratory symptoms. documented in this encounter [facility] 06-06-2023 Nurse Note Pt and significant other ambulate off of unit, undelivered. [facility] 06-06-2023 Nurse Note Consult to urology placed. AVS printed and given to pt. Denies any questions at this time. [facility] 06-06-2023 Hospital Discharg e instructions Josué Mcginnis RN - 06/06/2023 2:38 AM EST Follow up with urology. Hydrate- LOTS OF WATER! Tylenol as needed. Consult to urology: Dr Pierre [phone] The following attachments cannot be sent through Care Everywhere.Preventing Kidney Stones ([facility]) (Citizen Of [place])Preventing Kidney Stones with Fluids and Citric Acid ([facility]) (Citizen Of [place])documented in this encounter [facility] 06-06-[address] Hopper called unit, updated on pt complaints and UA results. Dr Hopper states to have pt follow up with urology, take tylenol and hydrate with lots of water. Pt can be discharged at this time. [facility] 06-06-[address] Hopper called at this time. Left voicemail [facility] 06-06-2023 Nurse Note Heat packs provided for pt comfort [facility] 06-06-2023 Nurse Note Urine obtained via straight cath and sent to lab. [facility] 06-06-2023 Nurse Note Pt arrives to triage via wheelchair and significant other with complaints of back pain, difficulty urinating and burning with urination. Pt is experiencing nausea due to being in so much pain. Rating pain 9/10. Constant pain, nothing relieves pain. Pt states she has been taking mucinex for a week due to upper respiratory symptoms. [facility] 06-03-2023 Instructions Myla Falk DO - 06/03/2023 9:20 PM EST You may continue plain Mucinex and add dextromethorphan. Dextromethorphan can be found in isolated form and a product made by [employer]. Generics are also available. Make sure that you are not taking a combination product that contains phenylephrine or pseudoephedrine. The following attachments cannot be sent through Care Everywhere.URI (Upper Respiratory Infection) (Citizen Of [place])documented in this encounter [facility] 06-03-2023 History of Presen t illness Narrative PATIENT NAME: Vishal Child [facility] [id number] [facility] [id number] DATE OF VISIT: 06/03/2023 DATE OF : 1995 SS: [id number] PROVIDER: Myla Falk DO SUBJECTIVE 27 y.o. female to the clinic for complaint of Chief Complaint Patient presents with URI C/O cough, fever, diarrhea, fatigue and weakness x 3 weeks. Pt reports 24 weeks HPI: To clarify the above history, the current symptoms been present for 1 week. She had a previous respiratory illness 2 weeks prior which just about resolved completely before the onset of the current symptoms. Current symptoms include prominent cough, headache, myalgia, rhinorrhea, fatigue, generalized weakness. Loose stool started today only. For a few days, she has been awakening at night (including last night) with sweats and has might be having fevers. She is 24 weeks . ROS: Constitutional: See HPI above. Head/Ear/Nose/Throat: Denies ear pain or sore throat. Respiratory: Denies shortness of breath. Cardiovascular: Denies chest pain. Gastrointestinal: Denies abdominal pain, nausea, vomiting. Musculoskeletal: Admits to generalized myalgia. Neurological: Denies focal neuro symptoms. Social History Socioeconomic History Marital status: Tobacco Use Smoking status: Never Smokeless tobacco: Never Vaping Use Vaping Use: Never used Substance and Sexual Activity Alcohol use: Not Currently Drug use: Never Sexual activity: Yes Partners: Male Past Medical History: Diagnosis Date Calculus of kidney with calculus of ureter 03/11/2018 Mental disorder anxiety Migraines Family History Problem Relation Age of Onset Meniere's disease Mother Cancer Maternal Grandmother Diabetes Maternal Grandmother Hyperlipidemia Maternal Grandmother Hypertension Maternal Grandfather Diabetes Maternal Grandfather Hyperlipidemia Maternal Grandfather COPD Maternal Grandfather Heart disease Maternal Grandfather Diabetes Paternal Grandfather Current Outpatient Medications on File Prior to Visit Medication Sig Dispense Refill busPIRone (BUSPAR) 5 MG tablet Take 1 (one) tablet (5 mg total) by mouth 3 (three) times a day . citalopram (CELEXA) 20 MG tablet Take 1 (one) tablet (20 mg total) by mouth . ondansetron (ZOFRAN) 4 MG tablet 1 po q 8 hours prn nausea albuterol 90 mcg/actuation inhaler Inhale 2 (two) puffs 4 (four) times a day for 7 days . 18 g 0 cyanocobalamin (B-12) 100 MCG tablet Take 100 mcg by mouth daily . desvenlafaxine succinate (PRISTIQ) 50 MG 24 hr tablet Take 50 mg by mouth daily . desvenlafaxine succinate (PRISTIQ) 50 MG 24 hr tablet Emgality Pen 120 mg/mL Pen INJECT 120MG BY SUBCUTANEOUS ROUTE EVERY 30 DAYS, START 30 DAYS AFTER LOADING DOSE OF 240 MG etonogestrel (NEXPLANON) 68 mg Impl subdermal implant 68 mg by Subdermal route once . folic acid (FOLVITE) 1 MG tablet Take 1 mg by mouth daily . magnesium 30 mg tablet Take 30 mg by mouth 2 (two) times a day . magnesium oxide (MAG-OX) 400 mg (241.3 mg magnesium) tablet Take 400 mg by mouth daily . mecobalamin (B12 ACTIVE ORAL) Take by mouth . norethindrone-ethinyl estradiol-iron (MICROGESTIN FE1.5/30) 1.5 mg-30 mcg (21)/75 mg (7) tablet Take 1 (one) tablet by mouth daily . 28 tablet 11 rizatriptan (MAXALT) 10 MG tablet No current facility-administered medications on file prior to visit. Allergies Allergen Reactions Bee Venom Protein (Honey Bee) Swelling EXAM: BP 116/79 (BP Location: Right arm, Patient Position: Sitting, BP Cuff Size: X-large Adult) Pulse 99 Temp 98.1 F (36.7 C) (Oral) Resp 18 Ht 5' 4 Wt 133.8 kg (295 lb) SpO2 98% BMI 50.64 kg/m Constitutional: Vital signs reviewed. Well-appearing. No distress. Psychiatric: Mental status is appropriate. Normal affect. Skin: Warm and dry. No rash noted. Eyes: Conjunctiva clear. No photophobia. HENT: No hoarseness, drooling, trismus or stridor. No tonsil enlargement or exudate. No abscess. Tympanic membranes are normal. Thorax/ Respiratory: Respiratory effort non-labored. Speaks in full sentences without dyspnea. Lungs are clear to auscultation. Frequent nonproductive cough noted during exam. Cardiovascular: Good peripheral circulation. H RRR with no murmurs or ectopy. Musculoskeletal: No gross abnormalities. Neck has normal ROM without hesitation or pain response. Neurologic: Alert and appropriately conversant. No ataxia. No dysarthria. No gross facial motor asymmetry. PROCEDURE Procedures RESULTS Recent Results (from the past 168 hour(s)) POC Influenza A/B, Molecular Collection Time: 06/03/23 8:51 PM Result Value Ref Range Influenza A, Molecular Negative Negative Influenza B, Molecular Negative Negative COVID-19, Molecular Collection Time: 06/03/23 8:51 PM Specimen: Nasopharyngeal; Swab Result Value Ref Range SARS-CoV-2 Not Detected Not Detected Diagnosis: The primary encounter diagnosis was Acute nasopharyngitis. Diagnoses of Suspected COVID-19 virus infection and Fever, unspecified fever cause were also pertinent to this visit. Plan: 1. Acute nasopharyngitis 2. Suspected COVID-19 virus infection COVID-19, Molecular 3. Fever, unspecified fever cause POC Influenza A/B, Molecular No follow-ups on file. ADDITIONAL CLINICAL COMMENTS / MEDICAL DECISION MAKING / PLAN: Test for COVID-19 and influenza were negative. Discussed probability of self-limiting viral upper respiratory infection that has been present for a week. Clarified that her previous illness is likely unrelated to the current illness. Counseled on nonprescription medications that she can take in the context of her current . Provided appropriate work note. ORDERS PLACED THIS VISIT Orders Placed This Encounter Procedures POC Influenza A/B, Molecular COVID-19, Molecular MEDICATION LIST AT END OF VISIT Current Outpatient Medications Medication Sig Dispense Refill busPIRone (BUSPAR) 5 MG tablet Take 1 (one) tablet (5 mg total) by mouth 3 (three) times a day . citalopram (CELEXA) 20 MG tablet Take 1 (one) tablet (20 mg total) by mouth . ondansetron (ZOFRAN) 4 MG tablet 1 po q 8 hours prn nausea albuterol 90 mcg/actuation inhaler Inhale 2 (two) puffs 4 (four) times a day for 7 days . 18 g 0 cyanocobalamin (B-12) 100 MCG tablet Take 100 mcg by mouth daily . desvenlafaxine succinate (PRISTIQ) 50 MG 24 hr tablet Take 50 mg by mouth daily . desvenlafaxine succinate (PRISTIQ) 50 MG 24 hr tablet Emgality Pen 120 mg/mL Pen INJECT 120MG BY SUBCUTANEOUS ROUTE EVERY 30 DAYS, START 30 DAYS AFTER LOADING DOSE OF 240 MG etonogestrel (NEXPLANON) 68 mg Impl subdermal implant 68 mg by Subdermal route once . folic acid (FOLVITE) 1 MG tablet Take 1 mg by mouth daily . magnesium 30 mg tablet Take 30 mg by mouth 2 (two) times a day . magnesium oxide (MAG-OX) 400 mg (241.3 mg magnesium) tablet Take 400 mg by mouth daily . mecobalamin (B12 ACTIVE ORAL) Take by mouth . norethindrone-ethinyl estradiol-iron (MICROGESTIN FE1.5/30) 1.5 mg-30 mcg (21)/75 mg (7) tablet Take 1 (one) tablet by mouth daily . 28 tablet 11 rizatriptan (MAXALT) 10 MG tablet No current facility-administered medications for this visit. Myla Falk documented in this encounter [facility] 04-03-2022 History of Presen t illness Narrative Nurse Note: Review of Systems Constitutional: Positive for fatigue and fever. HENT: Positive for sore throat. Negative for congestion and ear pain. Eyes: Negative for pain and redness. Respiratory: Negative for cough and shortness of breath. Cardiovascular: Negative for chest pain and palpitations. Gastrointestinal: Positive for abdominal pain, nausea and vomiting. Negative for constipation and diarrhea. Genitourinary: Negative for difficulty urinating and dysuria. Musculoskeletal: Positive for myalgias. Negative for arthralgias. Skin: Positive for rash. Negative for wound. Neurological: Positive for dizziness, weakness and light-headedness. Negative for headaches. All other systems reviewed and are negative. Chief Complaint Patient presents with Fatigue Patients states that all of her symptoms started about a week ago, been taking Zofran for migraines along with tylenol but ends up vomiting everything back up. Abdominal Pain Pain starts in the center of abdomin then goes down, very dull feeling. Vomiting Nausea Patient states that when she eats anything her pain becomes worse, ends up becoming sick. Pt states she has hardly had anything to eat in the past three days. Fever Low grade fever, never got past 100 Dizziness Patient states while standing she becomes light headed frequently. She's not dizzy all the time but especially when she stands too quickly it's worse. Rash Pt states a few days ago she had a bad rash under her right eye, she's been using eye drop and it seems to have cleared up. Urinary Frequency Patient says she has the urgency but when she tries to go she can't, more of a trickle. HPI: Regarding Abominal Pain: Suleiman pineda 26 y.o. female who presents today for complaints of Abdominal Pain. Location - upper abdomen then travels to lower abdomen. Duration - one week ago. Quality of pain - dull starting in the upper abdomen and then travels to lower abdomen. Treatments tried - cold medicine and Tums without relief. Exacerbating/Alleviating Factors- eating makes the discomfort worse and then leads to N/V. Has there been similar problems in the past - No Significant Medical Conditions- see list. She was started on buspirone on 03/20, however, states she has only taken this medication once total. Took it yesterday and it helped with her anxiety and did not make abdominal pain symptoms worse. For females, last menstrual period or status - took test this week and was negative Fever - Yes: low grade around 99. Stool black or bloody - no Vomiting blood or coffee grounds - no Persistent nausea, vomiting, or diarrhea - No; N/V only after eating. Mental status changes - no Additional comments: dizziness/light headedness in the past week. She is s/p cholecystectomy. She reports a + h/o kidney stones. Regarding Urinary Frequency: Denies dysuria, however, states she has been trying to urinate frequently with little output. Denies blood in urine, dark color or foul odor. 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 No worse than usual. ROS: Constitutional: Positive for fatigue and fever. HENT: Positive for sore throat (she believes due to vomiting). Negative for congestion and ear pain. Eyes: Negative for pain and redness. Respiratory: Negative for cough and shortness of breath. Cardiovascular: Negative for chest pain and palpitations. Gastrointestinal: Positive for abdominal pain, nausea and vomiting. Negative for constipation and diarrhea. Genitourinary: Negative for difficulty urinating and dysuria. Musculoskeletal: Positive for myalgias. Negative for arthralgias. Skin: Positive for rash. Negative for wound. Neurological: Positive for dizziness, weakness and light-headedness. Negative for headaches. All other systems reviewed and are negative. Physical Exam: BP 114/78 Pulse 98 Ht 1.6 m (5' 3 ) Wt 130.6 kg (287 lb 14.4 oz) BMI 51.00 kg/m Smoking Status Never Body mass index is 51 kg/m . Physical Exam Vitals and nursing note reviewed. Constitutional: General: She is not in acute distress. Appearance: Normal appearance. She is obese. HENT: Head: Normocephalic and atraumatic. Right Ear: Tympanic membrane, ear canal and external ear normal. Left Ear: Tympanic membrane, ear canal and external ear normal. Nose: Right Sinus: No maxillary sinus tenderness or frontal sinus tenderness. Left Sinus: No maxillary sinus tenderness or frontal sinus tenderness. Mouth/Throat: Lips: [place]. Mouth: Mucous membranes are moist. Pharynx: Oropharynx is clear. Eyes: Pupils: Pupils are equal, round, and reactive to light. Cardiovascular: Rate and Rhythm: Normal rate and regular rhythm. Heart sounds: Normal heart sounds. Pulmonary: Effort: Pulmonary effort is normal. Breath sounds: Normal breath sounds. Abdominal: General: Bowel sounds are decreased. There is no distension. Palpations: Abdomen is soft. Tenderness: There is abdominal tenderness in the right upper quadrant. There is no guarding or rebound. Musculoskeletal: General: Normal range of motion. Cervical back: Normal range of motion. Lymphadenopathy: Cervical: No cervical adenopathy. Skin: General: Skin is warm and dry. Neurological: Mental Status: She is alert and oriented to person, place, and time. Psychiatric: Mood and Affect: Mood normal. Behavior: Behavior normal. Assessment/Plan: 1. Right lower quadrant abdominal pain -Urine is normal today. -Take omeprazole daily x 2-4 weeks. -Stick to bland foods and small portion sizes presently. -Continue zofran as needed. -Update CBC to rule out infectious process and abdominal xrays to evaluate for renal stones and bowel status. - POCT URINALYSIS DIPSTICK NON AUTOMATED - CBC, EDIF, PLATELET; Future - XR ACUTE ABDOMINAL SERIES; Future - omeprazole [address] capsule; Take 1 capsule by mouth daily. Dispense: 30 capsule; Refill: 0 - COMPREHENSIVE METABOLIC PANEL; Future 2. Vitamin D deficiency -Update labs as last vitamin D result was 12. - VITAMIN D (25-HYDROXY,TOTAL); Future Orders and follow up as documented in patient record; Patient was advised to call with any questions or concerns. If symptoms worsen patient was advised to follow up in our office or the Emergency Dept. Benefits, Risks, Contraindications, and Complications of recommended treatments were explained the patient understands and agrees to proceed with plan. RANDY Partida 04/03/2022 documented in this encounter [facility] 04-03-2022 Instructions RANDY Partida - 04/03/2022 9:20 AM EDT Update labs today. Abd xray. Start omeprazole daily x 2 weeks up to one month. Patient was advised to call with any questions or concerns. If symptoms worsen patient was advised to follow up in our office or the Emergency Dept. Benefits, Risks, Contraindications, and Complications of recommended treatments were explained the patient understands and agrees to proceed with plan. documented in this encounter [facility] 11-27-2021 Instructions Myla Falk DO - 11/27/2021 6:20 PM EDT As we discussed, you have bronchospasm from acute bronchitis. I have prescribed albuterol and prednisone for that condition. If you feel that you are significantly more short of breath, he should go to emergency department for further evaluation and treatment. There is a possibility that you are in early phases of bacterial pneumonia. It is too early to check with chest x-ray. Seek reevaluation in 2 to 3 days if not improving. In addition of the Tessalon Perles to help reduce cough, you may use a product that contains dextromethorphan-test such as Delsym or Mucinex DM. The following attachments cannot be sent through Care Everywhere.Bronchitis (Citizen Of [place])documented in this encounter [facility] 11-27-2021 History of Presen t illness Narrative PATIENT NAME: Vishal Child [facility]: [id number] [facility] [id number] DATE OF VISIT: 11/27/2021 DATE OF : 1995 SS: [id number] PROVIDER: Myla Falk DO SUBJECTIVE 26 y.o. female to the clinic for complaint of Chief Complaint Patient presents with Shortness of Breath C/o SOB, chest tightness and congestion since HPI: 3-day history of nasal congestion, rhinorrhea, postnasal drainage, cough, dyspnea, chest tightness. Cough has been productive at times. She has also had febrile symptoms of being intermittently cold and warm and sweaty. She had a negative home COVID test today. 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 All of her exposures have been partially protected with masks. No loss of taste or smell. She has never had bronchospasm before and has never required use of inhaler. Answers submitted by the patient for this visit: Shortness of Breath Questionnaire (Submitted on 11/27/2021) Chief Complaint: Shortness of breath Chronicity: new Onset: in the past 7 days Frequency: every few minutes Progression since onset: waxing and waning Episode duration: 10 minutes abdominal pain: Yes chest pain: Yes claudication: No coryza: Yes ear pain: Yes fever: Yes headaches: No hemoptysis: No leg pain: No leg swelling: No neck pain: No orthopnea: Yes PND: No rash: No rhinorrhea: Yes sore throat: Yes sputum production: Yes swollen glands: Yes syncope: No vomiting: No wheezing: Yes Aggravating factors: emotional upset, smoke, exercise, URIs, any activity, eating, lying flat ROS: Constitutional: She has not measured temperature. Febrile symptoms as described above. Head/Ear/Nose/Throat: See HPI above. Respiratory: See HPI above. Cardiovascular: Denies chest pain. Gastrointestinal: Denies diarrhea, abdominal pain, nausea, vomiting. Musculoskeletal: Denies arthralgia, myalgia. Neurological: Denies focal neuro symptoms. Social History Socioeconomic History Marital status: Tobacco Use Smoking status: Never Smokeless tobacco: Never Vaping Use Vaping Use: Never used Substance and Sexual Activity Alcohol use: Not Currently Drug use: Never Sexual activity: Yes Partners: Male Past Medical History: Diagnosis Date Calculus of kidney with calculus of ureter 03/11/2018 Mental disorder anxiety Migraines Family History Problem Relation Age of Onset Meniere's disease Mother Cancer Maternal Grandmother Diabetes Maternal Grandmother Hyperlipidemia Maternal Grandmother Hypertension Maternal Grandfather Diabetes Maternal Grandfather Hyperlipidemia Maternal Grandfather COPD Maternal Grandfather Heart disease Maternal Grandfather Diabetes Paternal Grandfather Current Outpatient Medications on File Prior to Visit Medication Sig Dispense Refill cyanocobalamin (B-12) 100 MCG tablet Take 100 mcg by mouth daily . desvenlafaxine succinate (PRISTIQ) 50 MG 24 hr tablet Take 50 mg by mouth daily . desvenlafaxine succinate (PRISTIQ) 50 MG 24 hr tablet Emgality Pen 120 mg/mL Pen INJECT 120MG BY SUBCUTANEOUS ROUTE EVERY 30 DAYS, START 30 DAYS AFTER LOADING DOSE OF 240 MG folic acid (FOLVITE) 1 MG tablet Take 1 mg by mouth daily . magnesium 30 mg tablet Take 30 mg by mouth 2 (two) times a day . magnesium oxide (MAG-OX) 400 mg (241.3 mg magnesium) tablet Take 400 mg by mouth daily . mecobalamin (B12 ACTIVE ORAL) Take by mouth . norethindrone-ethinyl estradiol-iron (MICROGESTIN FE1.5/30) 1.5 mg-30 mcg (21)/75 mg (7) tablet Take 1 (one) tablet by mouth daily . 28 tablet 11 ondansetron (ZOFRAN) 4 MG tablet 1 po q 8 hours prn nausea rizatriptan (MAXALT) 10 MG tablet etonogestrel (NEXPLANON) 68 mg Impl subdermal implant 68 mg by Subdermal route once . No current facility-administered medications on file prior to visit. Allergies Allergen Reactions Bee Venom Protein (Honey Bee) Swelling EXAM: BP 121/87 Pulse 95 Temp 98.4 F (36.9 C) (Infrared) Resp (!) 20 Ht 5' 3 Wt 123.4 kg (272 lb) LMP 11/13/2021 SpO2 98% BMI 48.18 kg/m Constitutional: Vital signs reviewed. Well-appearing. No distress. Psychiatric: Mental status is appropriate. Normal affect. Skin: Warm and dry. No rash noted. Eyes: Conjunctiva clear. No photophobia. HENT: No hoarseness, drooling, trismus or stridor. No tonsil enlargement or exudate. No abscess. Postnasal drainage is present. Tympanic membranes are normal. Thorax/ Respiratory: Respiratory effort slightly labored. Speaks in full sentences with slight urgency. Lungs are clear to auscultation, however breath sounds are diminished and she feels that she is not getting a full breath when she tries to breathe deeply. Cardiovascular: Good peripheral circulation. H RRR with no murmurs or ectopy. Musculoskeletal: No gross abnormalities. Neck has normal ROM without hesitation or pain response. Neurologic: Alert and appropriately conversant. No ataxia. No dysarthria. No gross facial motor asymmetry. PROCEDURE Procedures RESULTS Recent Results (from the past 168 hour(s)) COVID-19, Molecular Collection Time: 11/27/21 5:21 PM Specimen: Nasopharyngeal; Swab Result Value Ref Range SARS-CoV-2 Not Detected Not Detected Diagnosis: The primary encounter diagnosis was Bronchitis. A diagnosis of Suspected COVID-19 virus infection was also pertinent to this visit. Plan: 1. Bronchitis ipratropium-albuteroL (DUO-NEB) 0.5-2.5 mg/3 ml nebulizer solution 3 mL COVID-19, Molecular albuterol 90 mcg/actuation inhaler benzonatate (Tessalon Perles) 100 MG capsule predniSONE (DELTASONE) 20 MG tablet 2. Suspected COVID-19 virus infection COVID-19, Molecular No follow-ups on file. ADDITIONAL CLINICAL COMMENTS / MEDICAL DECISION MAKING / PLAN: COVID-19 test was negative in urgent care today. Differential diagnosis also includes acute bronchitis possibly early pneumonia. Influenza with complication of bronchospasm is a possibility also. We are no longer testing for influenza and the febrile symptoms of not been quite as intense as 1 would expect. With only 3 days of symptoms, it is likely too early for a bacterial pneumonia to show up on chest x-ray and I have lower suspicion of that disease. I did tell Vishal about possibility of her having early pneumonia. Advised her to go to emergency department if she feels that her dyspnea is worse. Advised to be reevaluated in 2 to 3 days if not improving. Chest x-ray may be indicated later depending on clinical course. She was treated with DuoNeb aerosol treatment in the emergency department. She felt somewhat better and her air movement was improved following the treatment. She has access to nebulizer and albuterol at home. I prescribed inhaler for her to use when she is not home. Provided note for being off work for the next few days. ORDERS PLACED THIS VISIT Orders Placed This Encounter Procedures COVID-19, Molecular MEDICATION LIST AT END OF VISIT Current Outpatient Medications Medication Sig Dispense Refill cyanocobalamin (B-12) 100 MCG tablet Take 100 mcg by mouth daily . desvenlafaxine succinate (PRISTIQ) 50 MG 24 hr tablet Take 50 mg by mouth daily . desvenlafaxine succinate (PRISTIQ) 50 MG 24 hr tablet Emgality Pen 120 mg/mL Pen INJECT 120MG BY SUBCUTANEOUS ROUTE EVERY 30 DAYS, START 30 DAYS AFTER LOADING DOSE OF 240 MG folic acid (FOLVITE) 1 MG tablet Take 1 mg by mouth daily . magnesium 30 mg tablet Take 30 mg by mouth 2 (two) times a day . magnesium oxide (MAG-OX) 400 mg (241.3 mg magnesium) tablet Take 400 mg by mouth daily . mecobalamin (B12 ACTIVE ORAL) Take by mouth . norethindrone-ethinyl estradiol-iron (MICROGESTIN FE1.5/30) 1.5 mg-30 mcg (21)/75 mg (7) tablet Take 1 (one) tablet by mouth daily . 28 tablet 11 ondansetron (ZOFRAN) 4 MG tablet 1 po q 8 hours prn nausea rizatriptan (MAXALT) 10 MG tablet albuterol 90 mcg/actuation inhaler Inhale 2 (two) puffs 4 (four) times a day for 7 days . 18 g 0 benzonatate (Tessalon Perles) 100 MG capsule Take 1 (one) capsule (100 mg total) by mouth every 6 (six) hours as needed for cough . 30 capsule 1 etonogestrel (NEXPLANON) 68 mg Impl subdermal implant 68 mg by Subdermal route once . predniSONE (DELTASONE) 20 MG tablet Take 2 (two) tablets (40 mg total) by mouth daily for 5 days . 10 tablet 0 No current facility-administered medications for this visit. Myla Falk documented in this encounter [facility] 08-25-2021 History of Presen t illness Narrative Chief Complaint Patient presents with Migraine Anxiety HPI: Regarding Anxiety/Depression: Vishal presents with the complaint of anxiety/depression which is currently under good control. She reports the following triggers: stress, Other symptoms include: no concerns Current treatment includes: Pristiq Significant medical conditions: see problem list Migraine: has been off of medication for a period of time due to financial constraints. ROS: Review of Systems Nurse Note: Review of Systems Constitutional: Negative for chills, fatigue, fever and unexpected weight change. HENT: Negative for congestion, ear pain, sinus pressure, sinus pain and sore throat. Eyes: Negative for pain, redness and itching. Respiratory: Negative for cough, chest tightness, shortness of breath and wheezing. Cardiovascular: Negative for chest pain, palpitations and leg swelling. Gastrointestinal: Negative for abdominal pain, constipation, diarrhea, nausea and vomiting. Genitourinary: Negative for difficulty urinating, frequency and urgency. Musculoskeletal: Negative for back pain and neck pain. Skin: Negative for rash and wound. Allergic/Immunologic: Negative for environmental allergies. Neurological: Negative for dizziness, weakness, light-headedness and headaches. Psychiatric/Behavioral: Negative for confusion and sleep disturbance. The patient is not nervous/anxious. All other systems reviewed and are negative. Past medical/family/social history: reviewed and updated, see documented in patient's chart. Physical Exam: BP 118/80 (BP Location: Left arm, BP Position: Sitting) Pulse 64 Wt 130.8 kg (288 lb 4.8 oz) SpO2 98% BMI 49.70 kg/m Smoking Status Never Smoker Body mass index is 49.7 kg/m . Physical Exam Assessment/Plan: 1. Generalized anxiety disorder Chronic stable, continue same therapy - Desvenlafaxine Succinate (Pristiq) 100 MG Tab SR 24 HR; Take 1 tablet by mouth daily. Dispense: 90 tablet; Refill: 1 2. Intractable migraine with aura with status migrainosus Restart Emgality - ondansetron 4 MG tablet; 1 po q 8 hours prn nausea Dispense: 15 tablet; Refill: 2 - Galcanezumab-gnlm (Emgality) 120 MG/ML Solution Auto-injector; Inject 240 mg under the skin every 30 days. Dispense: 3 mL; Refill: 1 Orders and follow up as documented in patient record; Medications Discontinued During This Encounter Medication Reason ondansetron 4 MG tablet Reorder Galcanezumab-gnlm (Emgality) 120 MG/ML Solution Auto-injector Reorder Desvenlafaxine Succinate (Pristiq) 100 MG Tab SR 24 HR Reorder Requested Prescriptions Signed Prescriptions Disp Refills Desvenlafaxine Succinate (Pristiq) 100 MG Tab SR 24 HR 90 tablet 1 Sig: Take 1 tablet by mouth daily. ondansetron 4 MG tablet 15 tablet 2 Si po q 8 hours prn nausea Galcanezumab-gnlm (Emgality) 120 MG/ML Solution Auto-injector 3 mL 1 Sig: Inject 240 mg under the skin every 30 days. Patient was advised to call with any questions or concerns. If symptoms worsen patient was advised to follow up in our office or the Emergency Dept. Benefits, Risks, Contraindications, and Complications of recommended treatments were explained the patient understands and agrees to proceed with plan. Veda Philip MD 08/25/2021 Nurse Note: Review of Systems Constitutional: Negative for chills, fatigue, fever and unexpected weight change. HENT: Negative for congestion, ear pain, sinus pressure, sinus pain and sore throat. Eyes: Negative for pain, redness and itching. Respiratory: Negative for cough, chest tightness, shortness of breath and wheezing. Cardiovascular: Negative for chest pain, palpitations and leg swelling. Gastrointestinal: Negative for abdominal pain, constipation, diarrhea, nausea and vomiting. Genitourinary: Negative for difficulty urinating, frequency and urgency. Musculoskeletal: Negative for back pain and neck pain. Skin: Negative for rash and wound. Allergic/Immunologic: Negative for environmental allergies. Neurological: Negative for dizziness, weakness, light-headedness and headaches. Psychiatric/Behavioral: Negative for confusion and sleep disturbance. The patient is not nervous/anxious. All other systems reviewed and are negative. documented in this encounter [facility] 05-05-2021 Instructions Germania Vargas PA-C - 05/05/2021 10:50 AM EST Vishal, Thank you for choosing [facility] for your healthcare needs today. [facility] COVID-19 Post-swabbing Instructions Your rapid covid test is NEG today. Follow-up with your primary provider (or return to clinic if your do not have a primary care provider) if not better in 5 to 7 days or earlier if condition worsens. OTC COLD/COUGH MEDS, HONEY, FLUIDS, REST. VIT D3, C, ZINC encouraged. GRAB A HOME TEST AND REPEAT TEST IN 3-5 DAYS UNLESS [facility] WANTS A PCR. FOLLOW THEIR INSTRUCTIONS ON TESTING FROM HERE. If you test NEGATIVE for COVID-19: Symptomatic for COVID-19 If you have COVID-19 symptoms (symptomatic) and you are under a 14 day quarantine because of significant exposure (which is defined as close contact with someone that has a laboratory confirmed infection from COVID-19 or a person that was diagnosed by a medical professional), then a negative COVID-19 test does not clear you from the 14 day quarantine. You were likely not clinically infectious at the time of the test. This does not mean that you will not get sick and develop symptoms. It is possible that you were in the early phase of the infection at the time of your test and you could be positive later. For these reasons: 1) If the test was due to having symptoms WITH significant exposure, you should remain in quarantine: - for the full 14 days AND - you have been without a fever (100.4 F) for at least 24 hours without the use of fever reducing medication AND - your symptoms are improving If you are unable to separate yourself completely from the COVID-19 positive person (i.e. parent caring for a child), CDC guidelines recommend you quarantine for 24 days (10 days from symptom onset of the COVID positive person PLUS 14 additional days). 2) If the test was due to symptoms WITHOUT significant exposure, you may return to work/school if: - you have been without a fever (100.4 F) for at least 24 hours without the use of fever reducing medication AND - your symptoms are improving Asymptomatic for COVID-19 If you do not have any COVID-19 symptoms (asymptomatic): 1) you and your provider may have decided together not to do asymptomatic COVID-19 testing at this time (or your test is still pending). Your quarantine may end after 10 days if: - you remain without symptoms (without symptoms reducing medications) for the full 10 days since your last exposure to a known COVID-19 positive person - you continue to monitor symptoms for the full 14 days after exposure. If symptoms develop at any time during these 14 days, please self-isolate and contact your health care provider for further instructions as you may need further testing. 2) you and your provider may have decided together to do asymptomatic COVID-19 testing at this time. Your quarantine may end after 7 days if: - your COVID-19 test is done after day 5 (post exposure) - your COVID-19 test is negative (not detected) - you remain without symptoms (without symptom reducing medications) during your quarantine - you continue to monitor symptoms for the full 14 days after exposure. If symptoms develop at any time during these 14 days, please self-isolate and contact your health care provider for further instructions as you may need further testing. When Do I Self-Quarantine? You should quarantine if you have had a significant exposure which is defined as having been in close contact (as defined below) with someone that has a laboratory confirmed infection from COVID-19 or that person was diagnosed by a medical professional. This includes contact within 48 hours prior to when the COVID-19 positive person developed symptoms. - Quarantine is used to keep someone who might have been exposed to COVID-19 away from others. - Quarantine helps prevent spread of disease that can occur before a person knows they are sick or if they are infected with the virus without feeling symptoms. - People in quarantine should stay home, separate themselves from others, monitor their health, and follow directions from their state or local health department. What counts as close contact? - You were within 6 feet of someone who has COVID-19 for at least 15 minutes - You provided care at home to someone who is sick with COVID-19 - You had direct physical contact with the person (touched, hugged, or kissed them) - You shared eating or drinking utensils - They sneezed, coughed, or somehow got respiratory droplets on you When and How Will I Get Results? Tests performed in the clinic will be available within 15-20 minutes from initiation of test. If your test was sent out to the lab for testing, it could take anywhere from 1-5 days after your specimen is collected. The provider/practice who placed the order for your test will notify you of your results. - If you have an active [employer] account, and your COVID-19 test is negative (not detected), then you will be notified through your [employer] account. You should call the urgent care if you have any further questions. - If your COVID-19 test is positive (detected), you will receive a phone call to discuss your results and answer any questions you might have at that time. Please make sure [facility] has your updated phone number so we can contact you. [facility] will notify the [place] [facility] of any positive results to comply with state regulations. What Happens After I Get Tested if I Develop Worsening COVID-19 Symptoms? All patients should self-quarantine at home until they receive their test results. While self-quarantining, contact your PCP or return to the urgent care if you develop any of the following: - A fever of 103 degrees F (39.4 C) or higher - A fever that lasts more than 3 days without medication - A fever that returns after being gone for more than 24 hours - Chest pain or difficulty breathing - A worsening of current symptoms For work concerns, please contact your employer's HR department. How Do I Self-Quarantine? - Stay home until 14 days after last exposure and maintain social distance (at least 6 feet) from others at all times - Avoid contact with people at higher risk for severe illness from COVID-19 - Self-monitor for symptoms: - Check temperature twice a day - Watch for fever (100.4F or higher), cough, shortness of breath, or other CDC recognized symptoms of COVID-19 If I test positive, what about those with which I have had close contact (household members, partners, close friends, etc)? Anyone with close contact (as defined above) within 48 hours prior to when the COVID-19 positive person developed symptoms should self-quarantine. This includes during the 10 day quarantine period. So, if your family is unable to isolate from you - they must wait your 10 days, plus additional quarantine as described below. If they develop symptoms - they should quarantine for the entire 14 days from their exposure to you. A negative test, while having symptoms, does not change this recommendation. If they do not develop symptoms and are no longer exposed to you: Without testing, quarantine can end after 10 days from the last exposure to a known positive COVID person. If they test negative, and their test was done at least 5 days from their last known COVID exposure, their quarantine can end after 7 days. They must continue to monitor symptoms daily for all 14 days. However, if at any time during those 14 days they develop symptoms you must self-isolate and follow up for further evaluation. What Do I Do If I am Sick? Stay Home: If you are sick, stay home from work, school, public places, and social gatherings Social Distance: maintain 6 feet of distance from other people. Monitor Your Symptoms: If you develop fever, shortness of breath, confusion, or any respiratory symptoms, please notify your doctor immediately Cover Your Cough: Cough and sneeze into your shirt sleeve or inner elbow. Do not cough into your hands or into the air. If available, cough into a tissue and throw it into a trash can. Wash Your Hands: Wash hands often with soap and warm water and/or alcohol based hand political organizer, scrubbing your hands for at least 20 seconds. Wash your hands after sneezing or coughing, after going to the bathroom, and before eating or drinking. Wear a Mask: Wear a face mask when around others. Always wear a face mask (if able) if you have to leave your home Don't Touch: avoid touching your eyes, nose, and mouth Don't Share: avoid sharing items with others as they can spread infection Call First: If you do need to seek urgent medical care, call the facility first to let them know you are on your way If you test positive to COVID and have mild to moderate symptoms and you meet certain criteria - you may qualify for monoclonal antibody therapy. To learn more, go to the [facility] website: [email or web address]. If you still have questions about monoclonal antibody infusion treatment, you can call , Sunday - Sunday 8 am - 4 pm. -400 Other COVID Questions? CDC - https://www.cdc.gov/coronavirus/ncov/index.html - https://www.cdc.gov/coronavirus/nco/ci-hxf-ovq-sick/quarantine .html [facility] [place] [facility] - Website: https://coronavirus.[place].gov/wps/p ortal/gov/covid-19/home - Hotline: 389-5-NFA-OD (675-557-3262) [facility]: [email or web address]-[email or web address]/ documented in this encounter [facility] 05-05-2021 History of Presen t illness Narrative Images from the original note were not included. 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 Suspected COVID-19 virus infection COVID-19, Molecular 2. Lab test negative for COVID-19 virus 3. Acute nonintractable headache, unspecified headache type 4. Body aches 5. Fatigue, unspecified type 6. Loss of smell 7. Upper respiratory tract infection, unspecified type 8. Cough No follow-ups on file. 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 Any worsening symptoms, return for recheck or go to the ER if we are closed. Exposure to Sx onset 05/04; pos yesterday with home test Works for [employer] Advised to repeat poc test in 3-5 days; take home test when leaving from [place]. Still under 14 day quarantine from 05/03/2021 due to pos direct contact/exp Pt is nontoxic, afebrile, w/o ams and verbalized good understanding and agreement. Flu vaccine completed 03/29/21 Additional Clinical Comments Discussed over the counter medications for symptomatic management and side effects of medications. Recommended taking all medications with food and to stop medications if they develop any signs of an allergic reaction. Educated patient and/or guardian about signs and symptoms that would warrant further immediate evaluation. Recommended that they should return to urgent care, make an appointment with their family physician, or go to the emergency room if symptoms persist or get acutely worse. Recommended follow up within the next week with their PCP or to get established with a PCP soon in order to follow up appropriately. Subjective 25 y.o. 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[employer]) HPI Review Of Systems Review of Systems Medical History Past Medical History: Diagnosis Date Calculus of kidney with calculus of ureter 03/11/2018 Mental disorder anxiety Migraines Past Surgical History: Procedure Laterality Date ADENOIDECTOMY 06/19/2017 SECTION N/A 03/20/2019 Procedure: SECTION; Surgeon: Irais Rucker MD; Location: [facility] OR; Service: OBGYN CHOLECYSTECTOMY CHOLECYSTECTOMY COLPOSCOPY TONSILLECTOMY 06/19/2017 TYMPANOSTOMY TUBE PLACEMENT WISDOM TOOTH EXTRACTION Patient Active Problem List Diagnosis 39 weeks gestation of Delayed surgical wound healing Post depression Generalized anxiety disorder Cough Calculus of kidney with calculus of ureter Frequency of micturition Intractable migraine with aura with status migrainosus Morbid (severe) obesity due to excess calories (HCC) Pain in left ankle and joints of left foot Pain in left foot Sting from hornet, wasp, or bee Social History Social History Tobacco Use Smoking status: Never Smoker Smokeless tobacco: Never Used Vaping Use Vaping Use: Never used Substance Use Topics Alcohol use: Not Currently Drug use: Never Family History Family History Problem Relation Age of Onset Meniere's disease Mother Cancer Maternal Grandmother Diabetes Maternal Grandmother Hyperlipidemia Maternal Grandmother Hypertension Maternal Grandfather Diabetes Maternal Grandfather Hyperlipidemia Maternal Grandfather COPD Maternal Grandfather Heart disease Maternal Grandfather Diabetes Paternal Grandfather Objective Physical Exam BP 122/85 (BP Location: Left arm, Patient Position: Sitting, BP Cuff Size: Adult) Pulse 93 Temp 97.6 F (36.4 C) (Infrared) Resp 18 Ht 5' 3 Wt 131.5 kg (290 lb) SpO2 98% No BMI 51.37 kg/m Vision/Hearing Exam:No exam data present Physical Exam Vitals and nursing note reviewed. Constitutional: General: She is not in acute distress. Appearance: Normal appearance. She is ill-appearing. She is not toxic-appearing or diaphoretic. HENT: Head: Normocephalic and atraumatic. Right Ear: Hearing, ear canal and external ear normal. A middle ear effusion is present. There is no impacted cerumen. Left Ear: Hearing, ear canal and external ear normal. A middle ear effusion is present. There is no impacted cerumen. Nose: Septal deviation, mucosal edema, congestion and rhinorrhea present. Right Nostril: No foreign body, epistaxis, septal hematoma or occlusion. Left Nostril: No foreign body, epistaxis, septal hematoma or occlusion. Right Turbinates: Enlarged and swollen. Not pale. Left Turbinates: Enlarged and swollen. Not pale. Right Sinus: Maxillary sinus tenderness present. No frontal sinus tenderness. Left Sinus: Maxillary sinus tenderness present. No frontal sinus tenderness. Mouth/Throat: Lips: [place]. No lesions. Mouth: Mucous membranes are moist. No injury, lacerations, oral lesions or angioedema. Dentition: Normal dentition. Does not have dentures. No dental tenderness, gingival swelling, dental caries, dental abscesses or gum lesions. Tongue: No lesions. Tongue does not deviate from midline. Palate: No mass and lesions. Pharynx: Uvula midline. Posterior oropharyngeal erythema present. No pharyngeal swelling, oropharyngeal exudate or uvula swelling. Tonsils: No tonsillar exudate or tonsillar abscesses. Comments: The patient handles her own oral secretions well; no drooling, tripoding, stridor, trismus, speech dyspnea, painful or abnormal respirations. Uvula and tongue are midline without edema. Lips and fingertips acyanotic. Eyes: General: No scleral icterus. Right eye: No discharge. Left eye: No discharge. Extraocular Movements: Extraocular movements intact. Conjunctiva/sclera: Conjunctivae normal. Cardiovascular: Rate and Rhythm: Normal rate and regular rhythm. Pulses: Normal pulses. Heart sounds: Normal heart sounds. No murmur heard. No friction rub. No gallop. Pulmonary: Effort: Pulmonary effort is normal. No respiratory distress. Breath sounds: Normal breath sounds. No stridor. No wheezing, rhonchi or rales. Comments: NO CHEST WALL TTP OR CREPITUS. NO PAINFUL OR ABNL RESPS. Chest: Chest wall: No tenderness. Abdominal: General: Bowel sounds are normal. There is no distension. Palpations: Abdomen is soft. Tenderness: There is no abdominal tenderness. There is no guarding. Musculoskeletal: General: No swelling, tenderness, deformity or signs of injury. Normal range of motion. Cervical back: Normal range of motion and neck supple. No rigidity. No muscular tenderness. Right lower leg: No edema. Left lower leg: No edema. Lymphadenopathy: Cervical: No cervical adenopathy. Skin: General: Skin is warm and dry. Capillary Refill: Capillary refill takes 2 to 3 seconds. Coloration: Skin is not jaundiced or pale. Findings: No bruising, erythema, lesion or rash. Neurological: General: No focal deficit present. Mental Status: She is alert and oriented to person, place, and time. Mental status is at baseline. Cranial Nerves: No cranial nerve deficit. Motor: No weakness. Gait: Gait normal. Psychiatric: Mood and Affect: Mood normal. Behavior: Behavior normal. Thought Content: Thought content normal. Judgment: Judgment normal. Procedure Notes Procedures Results Recent Results (from the past 168 hour(s)) COVID-19, Molecular Collection Time: 04/28/21 2:06 PM Specimen: Oropharyngeal; Swab Result Value Ref Range SARS-CoV-2 RNA Not Detected Not Detected COVID-19, Molecular Collection Time: 05/05/21 10:17 AM Specimen: Nasopharyngeal; Swab Result Value Ref Range SARS-CoV-2 Not Detected Not Detected No orders to display Orders Placed This Visit Orders Placed This Encounter Procedures COVID-19, Molecular Medication List At End Of Visit Current Outpatient Medications Medication Sig Dispense Refill desvenlafaxine succinate (PRISTIQ) 50 MG 24 hr tablet Take 50 mg by mouth daily . folic acid (FOLVITE) 1 MG tablet Take 1 mg by mouth daily . magnesium 30 mg tablet Take 30 mg by mouth 2 (two) times a day . mecobalamin (B12 ACTIVE ORAL) Take by mouth . norethindrone-ethinyl estradiol-iron (MICROGESTIN FE1.5/30) 1.5 mg-30 mcg (21)/75 mg (7) tablet Take 1 (one) tablet by mouth daily . 28 tablet 11 etonogestrel (NEXPLANON) 68 mg Impl subdermal implant 68 mg by Subdermal route once . No current facility-administered medications for this visit. Patient Instructions Vishal, Thank you for choosing [facility] for your healthcare needs today. [facility] COVID-19 Post-swabbing Instructions Your rapid covid test is NEG today. Follow-up with your primary provider (or return to clinic if your do not have a primary care provider) if not better in 5 to 7 days or earlier if condition worsens. OTC COLD/COUGH MEDS, HONEY, FLUIDS, REST. VIT D3, C, ZINC encouraged. GRAB A HOME TEST AND REPEAT TEST IN 3-5 DAYS UNLESS [facility] WANTS A PCR. FOLLOW THEIR INSTRUCTIONS ON TESTING FROM HERE. If you test NEGATIVE for COVID-19: Symptomatic for COVID-19 If you have COVID-19 symptoms (symptomatic) and you are under a 14 day quarantine because of significant exposure (which is defined as close contact with someone that has a laboratory confirmed infection from COVID-19 or a person that was diagnosed by a medical professional), then a negative COVID-19 test does not clear you from the 14 day quarantine. You were likely not clinically infectious at the time of the test. This does not mean that you will not get sick and develop symptoms. It is possible that you were in the early phase of the infection at the time of your test and you could be positive later. For these reasons: 1) If the test was due to having symptoms WITH significant exposure, you should remain in quarantine: - for the full 14 days AND - you have been without a fever (100.4 F) for at least 24 hours without the use of fever reducing medication AND - your symptoms are improving If you are unable to separate yourself completely from the COVID-19 positive person (i.e. parent caring for a child), CDC guidelines recommend you quarantine for 24 days (10 days from symptom onset of the COVID positive person PLUS 14 additional days). 2) If the test was due to symptoms WITHOUT significant exposure, you may return to work/school if: - you have been without a fever (100.4 F) for at least 24 hours without the use of fever reducing medication AND - your symptoms are improving Asymptomatic for COVID-19 If you do not have any COVID-19 symptoms (asymptomatic): 1) you and your provider may have decided together not to do asymptomatic COVID-19 testing at this time (or your test is still pending). Your quarantine may end after 10 days if: - you remain without symptoms (without symptoms reducing medications) for the full 10 days since your last exposure to a known COVID-19 positive person - you continue to monitor symptoms for the full 14 days after exposure. If symptoms develop at any time during these 14 days, please self-isolate and contact your health care provider for further instructions as you may need further testing. 2) you and your provider may have decided together to do asymptomatic COVID-19 testing at this time. Your quarantine may end after 7 days if: - your COVID-19 test is done after day 5 (post exposure) - your COVID-19 test is negative (not detected) - you remain without symptoms (without symptom reducing medications) during your quarantine - you continue to monitor symptoms for the full 14 days after exposure. If symptoms develop at any time during these 14 days, please self-isolate and contact your health care provider for further instructions as you may need further testing. When Do I Self-Quarantine? You should quarantine if you have had a significant exposure which is defined as having been in close contact (as defined below) with someone that has a laboratory confirmed infection from COVID-19 or that person was diagnosed by a medical professional. This includes contact within 48 hours prior to when the COVID-19 positive person developed symptoms. - Quarantine is used to keep someone who might have been exposed to COVID-19 away from others. - Quarantine helps prevent spread of disease that can occur before a person knows they are sick or if they are infected with the virus without feeling symptoms. - People in quarantine should stay home, separate themselves from others, monitor their health, and follow directions from their state or local health department. What counts as close contact? - You were within 6 feet of someone who has COVID-19 for at least 15 minutes - You provided care at home to someone who is sick with COVID-19 - You had direct physical contact with the person (touched, hugged, or kissed them) - You shared eating or drinking utensils - They sneezed, coughed, or somehow got respiratory droplets on you When and How Will I Get Results? Tests performed in the clinic will be available within 15-20 minutes from initiation of test. If your test was sent out to the lab for testing, it could take anywhere from 1-5 days after your specimen is collected. The provider/practice who placed the order for your test will notify you of your results. - If you have an active [employer] account, and your COVID-19 test is negative (not detected), then you will be notified through your [employer] account. You should call the urgent care if you have any further questions. - If your COVID-19 test is positive (detected), you will receive a phone call to discuss your results and answer any questions you might have at that time. Please make sure [facility] has your updated phone number so we can contact you. [facility] will notify the [place] [facility] of any positive results to comply with state regulations. What Happens After I Get Tested if I Develop Worsening COVID-19 Symptoms? All patients should self-quarantine at home until they receive their test results. While self-quarantining, contact your PCP or return to the urgent care if you develop any of the following: - A fever of 103 degrees F (39.4 C) or higher - A fever that lasts more than 3 days without medication - A fever that returns after being gone for more than 24 hours - Chest pain or difficulty breathing - A worsening of current symptoms For work concerns, please contact your employer's HR department. How Do I Self-Quarantine? - Stay home until 14 days after last exposure and maintain social distance (at least 6 feet) from others at all times - Avoid contact with people at higher risk for severe illness from COVID-19 - Self-monitor for symptoms: - Check temperature twice a day - Watch for fever (100.4F or higher), cough, shortness of breath, or other CDC recognized symptoms of COVID-19 If I test positive, what about those with which I have had close contact (household members, partners, close friends, etc)? Anyone with close contact (as defined above) within 48 hours prior to when the COVID-19 positive person developed symptoms should self-quarantine. This includes during the 10 day quarantine period. So, if your family is unable to isolate from you - they must wait your 10 days, plus additional quarantine as described below. If they develop symptoms - they should quarantine for the entire 14 days from their exposure to you. A negative test, while having symptoms, does not change this recommendation. If they do not develop symptoms and are no longer exposed to you: Without testing, quarantine can end after 10 days from the last exposure to a known positive COVID person. If they test negative, and their test was done at least 5 days from their last known COVID exposure, their quarantine can end after 7 days. They must continue to monitor symptoms daily for all 14 days. However, if at any time during those 14 days they develop symptoms you must self-isolate and follow up for further evaluation. What Do I Do If I am Sick? Stay Home: If you are sick, stay home from work, school, public places, and social gatherings Social Distance: maintain 6 feet of distance from other people. Monitor Your Symptoms: If you develop fever, shortness of breath, confusion, or any respiratory symptoms, please notify your doctor immediately Cover Your Cough: Cough and sneeze into your shirt sleeve or inner elbow. Do not cough into your hands or into the air. If available, cough into a tissue and throw it into a trash can. Wash Your Hands: Wash hands often with soap and warm water and/or alcohol based hand political organizer, scrubbing your hands for at least 20 seconds. Wash your hands after sneezing or coughing, after going to the bathroom, and before eating or drinking. Wear a Mask: Wear a face mask when around others. Always wear a face mask (if able) if you have to leave your home Don't Touch: avoid touching your eyes, nose, and mouth Don't Share: avoid sharing items with others as they can spread infection Call First: If you do need to seek urgent medical care, call the facility first to let them know you are on your way If you test positive to COVID and have mild to moderate symptoms and you meet certain criteria - you may qualify for monoclonal antibody therapy. To learn more, go to the [facility] website: [email or web address]. If you still have questions about monoclonal antibody infusion treatment, you can call , Sunday - Sunday 8 am - 4 pm. -400 Other COVID Questions? 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 She is not reporting any symptoms. documented in this encounter [facility] 03-14-2021 History of Presen t illness Narrative COVID testing for job. documented in this encounter [facility] 02-04-2021 History of Presen t illness Narrative Chief Complaint Patient presents with Depression States anxiety has been getting worse. States she had a panic attack for the first time the other day. Migraine Patient states Topiramate helps only a small bit. HPI: Regarding Anxiety/Depression: Vishal presents with the complaint of anxiety/depression which is currently under suboptimal control. She reports the following triggers: stress, Other symptoms include: panic attack the other day, tearful, increased anxiety recently, Current treatment includes: Pristiq Significant medical conditions: see problem list Migraines: still gets some headaches, 15 days of the month she has a headache but it is dull, Maxalt does help the headache pain but causes sedation. She has never attempted to increase the topiramate. She is on magnesium and B complex. ROS: Review of Systems Nurse Note: Review of Systems Constitutional: Negative for fatigue and fever. HENT: Negative for congestion, ear pain and sore throat. Eyes: Negative for pain and redness. Respiratory: Negative for cough and shortness of breath. Cardiovascular: Negative for chest pain and palpitations. Gastrointestinal: Negative for abdominal pain, constipation, diarrhea, nausea and vomiting. Genitourinary: Negative for difficulty urinating and dysuria. Musculoskeletal: Negative for arthralgias and myalgias. Skin: Negative for rash and wound. Neurological: Positive for headaches. Negative for dizziness. All other systems reviewed and are negative. Past medical/family/social history: reviewed and updated, see documented in patient's chart. Physical Exam: BP 106/68 Pulse 77 Wt 130.7 kg (288 lb 1.6 oz) SpO2 98% BMI 49.67 kg/m Smoking Status Never Smoker Body mass index is 49.67 kg/m . Physical Exam Assessment/Plan: 1. Post depression Increase dose - desvenlafaxine succinate (Pristiq) 50 MG Tab SR 24 HR; Take 1 tablet by mouth daily. Dispense: 30 tablet; Refill: 5 2. Intractable migraine with aura with status migrainosus Titrate up the dose to max of 100mg BID - topiramate 25 MG tablet; Take 1 tablet by mouth 2 times daily. Dispense: 60 tablet; Refill: 2 Orders and follow up as documented in patient record; Medications Discontinued During This Encounter Medication Reason tuberculin 5 UNIT/0.1ML Solution dexAMETHasone 2 MG tablet Requested Prescriptions Pending Prescriptions Disp Refills Desvenlafaxine Succinate (Pristiq) 100 MG Tab SR 24 HR 30 tablet 1 Sig: Take 1 tablet by mouth daily. topiramate 25 MG tablet 360 tablet 2 Sig: Take 1 tablet by mouth 2 times daily. Patient to titrate dose weekly to goal of 100mg BID Patient was advised to call with any questions or concerns. If symptoms worsen patient was advised to follow up in our office or the Emergency Dept. Benefits, Risks, Contraindications, and Complications of recommended treatments were explained the patient understands and agrees to proceed with plan. Veda Philip MD 02/04/2021 Nurse Note: Review of Systems Constitutional: Negative for fatigue and fever. HENT: Negative for congestion, ear pain and sore throat. Eyes: Negative for pain and redness. Respiratory: Negative for cough and shortness of breath. Cardiovascular: Negative for chest pain and palpitations. Gastrointestinal: Negative for abdominal pain, constipation, diarrhea, nausea and vomiting. Genitourinary: Negative for difficulty urinating and dysuria. Musculoskeletal: Negative for arthralgias and myalgias. Skin: Negative for rash and wound. Neurological: Positive for headaches. Negative for dizziness. All other systems reviewed and are negative. documented in this encounter [facility] 12-30-2020 History of Presen t illness Narrative Chief Complaint Patient presents with Cough Chest Congestion HPI: Cough/chest congestion: symptoms started five days ago with cough, she has been coughing up yellow phlegm, shortness of breath, rhinorrhea, congestion, nausea, has been throwing up about 3 times a day, has been taking zofran for this which is helping, also with diarrhea, headaches but this is normal for her, fatigue, sinus pressure/pain, is not vaccinated for Covid but gets tested for Covid weekly through work and it was negative on Sunday, her son also has the same symptoms and had a send out done and tested negative for Covid, she was running fevers for a couple of days but stopped checking herself, she has been chilling like she has fevers though, shortness of breath is the biggest issue, cannot walk down her hallway without getting winded. ROS: Constitutional: Positive for fatigue and fever. HENT: Positive for congestion, postnasal drip, sinus pressure, sinus pain, sneezing and sore throat. Negative for ear pain. Eyes: Positive for pain. Negative for redness. Respiratory: Positive for cough, chest tightness and shortness of breath. Negative for wheezing. Cardiovascular: Positive for chest pain. Negative for palpitations. Gastrointestinal: Positive for diarrhea and nausea. Negative for abdominal pain and constipation. Genitourinary: Negative for difficulty urinating and dysuria. Musculoskeletal: Negative for arthralgias and myalgias. Skin: Negative for rash and wound. Neurological: Positive for dizziness. Negative for headaches. All other systems reviewed and are negative. Past medical/family/social history: reviewed and updated, see documented in patient's chart. Physical Exam: BP 118/74 (BP Location: Right arm) Pulse 88 Ht 1.622 m (5' 3.86 ) Wt 127.6 kg (281 lb 3.2 oz) SpO2 98% BMI 48.48 kg/m Smoking Status Never Smoker Body mass index is 48.48 kg/m . Physical Exam HENT: Head: Normocephalic and atraumatic. Eyes: Conjunctiva/sclera: Conjunctivae normal. Pupils: Pupils are equal, round, and reactive to light. Cardiovascular: Rate and Rhythm: Normal rate and regular rhythm. Heart sounds: Normal heart sounds. No murmur heard. Pulmonary: Effort: Pulmonary effort is normal. Breath sounds: Examination of the right-lower field reveals decreased breath sounds. Examination of the left-lower field reveals decreased breath sounds. Decreased breath sounds present. Musculoskeletal: Cervical back: Normal range of motion and neck supple. Skin: General: Skin is warm and dry. Neurological: Mental Status: She is alert and oriented to person, place, and time. Assessment/Plan: 1. Screening for viral disease Update. - NOVEL CORONAVIRUS; Future 2. Shortness of breath Obtain x-ray to rule out disease process, start steroid for shortness of breath, continue with symptom management, will send antibiotics if indicated. - XR CHEST PA AND LATERAL; Future - dexAMETHasone 2 MG tablet; Take 3 tablets by mouth daily for 5 days. Dispense: 15 tablet; Refill: 0 Orders and follow up as documented in patient record; We reviewed medications and possible side effects. All questions were answered; Patient was advised to call with any questions or concerns. If symptoms worsen patient was advised to follow up in our office or the Emergency Dept. Benefits, Risks, Contraindications, and Complications of recommended treatments were explained the patient understands and agrees to proceed with plan. RANDY Nicolas 12/30/2020 Nurse Note: Review of Systems Constitutional: Positive for fatigue and fever. HENT: Positive for congestion, postnasal drip, sinus pressure, sinus pain, sneezing and sore throat. Negative for ear pain. Eyes: Positive for pain. Negative for redness. Respiratory: Positive for cough, chest tightness and shortness of breath. Negative for wheezing. Cardiovascular: Positive for chest pain. Negative for palpitations. Gastrointestinal: Positive for diarrhea and nausea. Negative for abdominal pain and constipation. Genitourinary: Negative for difficulty urinating and dysuria. Musculoskeletal: Negative for arthralgias and myalgias. Skin: Negative for rash and wound. Neurological: Positive for dizziness. Negative for headaches. All other systems reviewed and are negative. documented in this encounter [facility] 11-25-2020 History of Presen t illness Narrative Chief Complaint Patient presents with Physical What are your overall health/wellness concerns: none Diet/Exercise Habits: improving, using GBOMBS, small meals, walking 30 minutes per day Regular use of seatbelt: Yes History of cardiovascular disease: No Family history of early onset cardiovascular disease: No Respiratory symptoms/concerns: No Change in bowel habits: Yes, has IBS-has improved with eating better Colonoscopy up to date (if indicated): Yes-normal, 2016 [place] Urinary concerns: No Sexually active: Yes Concerns: No menses are heavy on OCPs History of physical/emotional or sexual abuse: No Normal Amount of stress: Yes Normal amount of sleep: Yes Memory concerns: No Health Maintenance: vaccines, screening testing up to date: Yes Nurse Note: Review of Systems Constitutional: Negative for fatigue and fever. HENT: Negative for congestion, ear pain and sore throat. Eyes: Negative for pain and redness. Respiratory: Negative for cough and shortness of breath. Cardiovascular: Negative for chest pain and palpitations. Gastrointestinal: Negative for abdominal pain, constipation, diarrhea, nausea and vomiting. Genitourinary: Negative for difficulty urinating and dysuria. Musculoskeletal: Negative for arthralgias and myalgias. Skin: Negative for rash and wound. Neurological: Negative for dizziness and headaches. All other systems reviewed and are negative. Physical Exam Blood pressure 99/57, pulse 65, height 1.622 m (5' 3.86 ), weight 129 kg (284 lb 8 oz), not currently . Body mass index is 49.05 kg/m . Physical Exam Constitutional: Appearance: She is morbidly obese. HENT: Head: Normocephalic and atraumatic. Eyes: Pupils: Pupils are equal, round, and reactive to light. Cardiovascular: Rate and Rhythm: Normal rate and regular rhythm. Heart sounds: Normal heart sounds. Pulmonary: Effort: Pulmonary effort is normal. Breath sounds: Normal breath sounds. Abdominal: Palpations: Abdomen is soft. Musculoskeletal: Cervical back: Normal range of motion and neck supple. Skin: General: Skin is warm and dry. Neurological: Mental Status: She is alert and oriented to person, place, and time. 1. Encounter for well adult exam without abnormal findings begin progressive daily aerobic exercise program, attempt to lose weight and return for routine annual checkups Veda Philip MD 11/25/2020 Nurse Note: Review of Systems Constitutional: Negative for fatigue and fever. HENT: Negative for congestion, ear pain and sore throat. Eyes: Negative for pain and redness. Respiratory: Negative for cough and shortness of breath. Cardiovascular: Negative for chest pain and palpitations. Gastrointestinal: Negative for abdominal pain, constipation, diarrhea, nausea and vomiting. Genitourinary: Negative for difficulty urinating and dysuria. Musculoskeletal: Negative for arthralgias and myalgias. Skin: Negative for rash and wound. Neurological: Negative for dizziness and headaches. All other systems reviewed and are negative. 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 She is not reporting any symptoms. documented in this encounter [facility] 12-19-2019 History of Presen t illness Narrative Patient given one sample of Emgality 120mg/ml lot#[id number] exp 01/12. Chief Complaint Patient presents with Migraine States medication is not working. Sumatripton caused dizziness and vomitting. HPI: Migraine headache: has been on therapy for topiramate and Imitrex for her headaches. Imitrex caused nausea and she felt terrible after taking it, she tried it twice. She has continued the topiramate but is getting migraines 3-4 times per week. ROS: Review of Systems Nurse Note: Review of Systems Constitutional: Negative for fatigue and fever. HENT: Negative for congestion, ear pain and sore throat. Eyes: Negative for pain and redness. Respiratory: Negative for cough and shortness of breath. Cardiovascular: Negative for chest pain and palpitations. Gastrointestinal: Negative for abdominal pain, constipation, diarrhea, nausea and vomiting. Genitourinary: Negative for difficulty urinating and dysuria. Musculoskeletal: Negative for arthralgias and myalgias. Skin: Negative for rash and wound. Neurological: Positive for headaches. Negative for dizziness. All other systems reviewed and are negative. Past medical/family/social history: reviewed and updated, see documented in patient's chart. Physical Exam: BP 108/76 Pulse 69 Ht 1.626 m (5' 4 ) Wt 128 kg (282 lb 3.2 oz) BMI 48.44 kg/m Smoking Status Never Smoker Body mass index is 48.44 kg/m . Physical Exam Constitutional: Appearance: She is morbidly obese. HENT: Head: Normocephalic and atraumatic. Eyes: Pupils: Pupils are equal, round, and reactive to light. Neck: Musculoskeletal: Normal range of motion and neck supple. Cardiovascular: Rate and Rhythm: Normal rate and regular rhythm. Heart sounds: Normal heart sounds. Pulmonary: Effort: Pulmonary effort is normal. Breath sounds: Normal breath sounds. Abdominal: Palpations: Abdomen is soft. Skin: General: Skin is warm and dry. Neurological: Mental Status: She is alert and oriented to person, place, and time. Assessment/Plan: 1. Migraine without aura and without status migrainosus, not intractable Samples given for Emgality, advised patient to try it and if effective can discuss with neuro - Galcanezumab-gnlm (Emgality) 120 MG/ML Solution Auto-injector; Inject 240 mg under the skin every 30 days. Dispense: 2 mL; Refill: 0 Orders and follow up as documented in patient record; There are no discontinued medications. Requested Prescriptions Signed Prescriptions Disp Refills Galcanezumab-gnlm (Emgality) 120 MG/ML Solution Auto-injector 2 mL 0 Sig: Inject 240 mg under the skin every 30 days. Patient was advised to call with any questions or concerns. If symptoms worsen patient was advised to follow up in our office or the Emergency Dept. Benefits, Risks, Contraindications, and Complications of recommended treatments were explained the patient understands and agrees to proceed with plan. Veda Philip MD 12/19/2019 Nurse Note: Review of Systems Constitutional: Negative for fatigue and fever. HENT: Negative for congestion, ear pain and sore throat. Eyes: Negative for pain and redness. Respiratory: Negative for cough and shortness of breath. Cardiovascular: Negative for chest pain and palpitations. Gastrointestinal: Negative for abdominal pain, constipation, diarrhea, nausea and vomiting. Genitourinary: Negative for difficulty urinating and dysuria. Musculoskeletal: Negative for arthralgias and myalgias. Skin: Negative for rash and wound. Neurological: Positive for headaches. Negative for dizziness. All other systems reviewed and are negative. documented in this encounter [facility] Encounter for well adult exam without abnormal findings- Primary [facility] Need for tuberculosis vaccination- Primary Need for prophylactic vaccination with tuberculosis (BCG) vaccine [facility] [place] [facility] Diagnosis Need for tuberculosis vaccination- Primary Need for prophylactic vaccination with tuberculosis (BCG) vaccine [facility] [place] [facility] Diagnosis Screening for viral disease- Primary Special screening examination for unspecified viral disease Shortness of breath [facility] [place] [facility]* Diagnosis Screening examination for infectious disease- Primary Screening examination for unspecified infectious disease [facility] Diagnosis Screening examination for infectious disease- Primary Screening examination for unspecified infectious disease [facility] Diagnosis Suspected COVID-19 virus infection- Primary Lab test negative for COVID-19 virus Acute nonintractable headache, unspecified headache type Body aches Generalized pain Fatigue, unspecified type Loss of smell Disturbances of sensation of smell and taste Upper respiratory tract infection, unspecified type Cough [facility] Diagnosis Migraine without aura and without status migrainosus, not intractable Migraine without aura, without mention of intractable migraine without mention of status migrainosus documented in this encounter [facility]* Diagnosis Generalized anxiety disorder Intractable migraine with aura with status migrainosus Migraine with aura, with intractable migraine, so stated, with status migrainosus [facility] this [facility] [place] [facility]* 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, complicating , childbirth, or the puerperium, unspecified as to episode of care Intractable migraine with aura with status migrainosus Migraine with aura, with intractable migraine, so stated, with status migrainosus [facility] [place] [facility] Diagnosis Bronchitis- Primary Bronchitis, not specified as acute or chronic Suspected COVID-19 virus infection [facility] Diagnosis Right lower quadrant abdominal pain Abdominal pain, right lower quadrant [facility] [place] [facility] Diagnosis Right lower quadrant abdominal pain- Primary Abdominal pain, right lower quadrant Vitamin D deficiency Unspecified vitamin D deficiency Right lower quadrant abdominal pain Abdominal pain, right lower quadrant [facility] [place] [facility] Diagnosis Acute nasopharyngitis- Primary Acute nasopharyngitis (common cold) Suspected COVID-19 virus infection Fever, unspecified fever cause documented [facility] this [facility] Diagnosis S/P tonsillectomy and adenoi dectomy - Primary Other postprocedural status Sleep-disordered breathing Other sleep disturbances Diagnosis S/P tonsillectomy and adenoi dectomy - Primary Other postprocedural status Diagnosis Chronic tonsillitis and taylor oiditis - Primary Sleep-disordered breathing Other sleep disturbances Diagnosis Viral URI with cough- Primary Acute upper respiratory infections of unspecified site Diagnosis Chronic tonsillitis and taylro oiditis - Primary Enlarged tonsils Hypertrophy of tonsils alone Snoring Other dyspnea and respiratory abnormality Diagnosis Acute post-operative pain- Primary Postoperative dehiscence of skin wound, initial encounter Diagnosis Post depression- Primary Mental disorders of mother, complicating , childbirth, or the puerperium, unspecified as to episode of care Migraine without aura and without status migrainosus, not intractable Migraine without aura, without mention of intractable migraine without mention of status migrainosus 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, complicating , childbirth, or the puerperium, unspecified as to episode of care Migraine without aura and without status migrainosus, not intractable Migraine without aura, without mention of intractable migraine without mention of status migrainosus Diagnosis Flu-like symptoms Influenza Influenza with other respiratory manifestations Cough Fever, unspecified fever cause Acute frontal sinusitis, recurrence not specified Lower respiratory infection (e.g., bronchitis, pneumonia, pneumonitis, pulmonitis) Diagnosis Need for influenza vaccination- Primary Need for prophylactic vaccination and inoculation against influenza Post depression Mental disorders of mother, complicating , childbirth, or the puerperium, unspecified as to episode of care Intractable migraine with aura with status migrainosus Migraine with aura, with intractable migraine, so stated, with status migrainosus Diagnosis Intractable migraine with aura with status migrainosus Migraine with aura, with intractable migraine, so stated, with status migrainosus Diagnosis Contusion of left foot, initial encounter- Primary Injury of toe on left foot, initial encounter Diagnosis Intractable migraine with aura with status migrainosus- Primary Migraine with aura, with intractable migraine, so stated, with status migrainosus Post depression Mental disorders of mother, complicating , childbirth, or the puerperium, unspecified as to episode of care Injury of left foot, subsequent encounter BMI 45.0-49.9, adult Body Mass Index 45.0-49.9, adult Diagnosis 39 weeks gestation of - Primary Diagnosis Wound drainage- Primary Diagnosis Generalized anxiety disorder Intractable migraine with aura with status migrainosus Migraine with aura, with intractable migraine, so stated, with status migrainosus Instructions * Patient Instructions - Jeronimo Simeon MD - 06/08/2017 6:54 PM EST Tonsillectomy: Before Your Surgery What is a tonsillectomy? A tonsillectomy is surgery to remove the tonsils. Sometimes the doctor will also take out the adenoids. These are above the tonsils and behind the nose. Your doctor will do the surgery through your mouth. You will be asleep. Most people go home that same day. Follow-up care is a ren part of your treatment and safety. Be sure to make and go to all appointments, and call your doctor if you are having problems. It's also a good idea to know your test resultsand keep a list of the medicines you take. What happens before surgery? Surgery can be stressful. This information will help you understand what you can expect. And it will help you safely prepare for surgery. Preparing for surgery Understand exactly what surgery is planned, along with the risks, benefits, and other options. Tell your doctors ALL the medicines, vitamins, supplements, and herbal remedies you take. Some of these can increase the risk of bleeding or interact with anesthesia. If you take blood thinners, such as warfarin (Coumadin), clopidogrel (Plavix), or aspirin, be sure to talk to your doctor. He or she will tell you if you should stop taking these medicines before your surgery. Make sure that you understand exactly what your doctor wants you to do. Your doctor will tell you which medicines to take or stop before your surgery. You may need to stoptaking certain medicines a week or more before surgery. So talk to your doctor as soon as you can. If you have an advance directive, let your doctor know. It may include a living will and a durable power of document review attorney for health care. Bring a copy to the hospital. If you don't have one, you may wantto prepare one. It lets your doctor and loved ones know your health care wishes. Doctors advise that everyone prepare these papers before any type of surgery or procedure. What happens on the day of surgery? Follow the instructions exactly about when to stop eating and drinking. If you don't, your surgery may be canceled. If your doctor told you to take your medicines on the day of surgery, take them with only a sip of water. Take a bath or shower before you come in for your surgery. Do not apply lotions, perfumes, deodorants, or nail kenyan. Take off all jewelry and piercings. And take out contact lenses, if you wear them. At the hospital or surgery center Bring a picture ID. The area for surgery is often marked to make sure there are no errors. You will be kept comfortable and safe by your anesthesia provider. You will be asleep during the surgery. The surgery will take less than an hour. Going home Be sure you have someone to drive you home. Anesthesia and pain medicine make it unsafe for you to drive. You will be given more specific instructions about recovering from your surgery. They will cover things like diet, wound care, follow-up care, driving, and getting back to your normal routine. When should you call your doctor? You have questions or concerns. You don't understand how to prepare for your surgery. You become ill before the surgery (such as fever, flu, or a cold). You need to reschedule or have changed your mind about having the surgery. Where can you learn more? Log into your personal health record on https://Knomot.[employer]iquity and enter S633 in the Education box to learn more about Tonsillectomy: Before Your Surgery. Current as of: January 21, 2016 Content Version: 11.2 0103-7717 [employer]. Care instructions adapted under license by your healthcare professional. If you have questions about a medical condition or this instruction, always ask your healthcare professional. [employer] disclaims any warranty or liability for your use of this information. in this encounter* Patient Instructions - Ronda Payan, CHRISTEN - 07/15/2018 11:35 AM EST Continue Dayquil & conservative treatments Start antibiotic in 48 hours if not improving, worsening symptoms or continued fever greater than 100. Continue all other medications as previously prescribed by other providers. Follow-up with Primary Care Provider or return to clinic in 5-7 days if not improving or worsening of symptoms Go to the nearest Emergency Department for any Chest Pain or Shortness of Breath Viral Upper Respiratory Illness (Adult) You have a viral upper respiratory illness (URI), which is another term for the common cold. This illness is contagious during the first few days. It is spread through the air by coughing and sneezing. It may also be spread by direct contact (touching the sick person and then touching your own eyes, nose, or mouth). Frequent handwashing will decrease risk of spread. Most viral illnesses go away within 7 to 10 days with rest and simple home remedies. Sometimes the illness may last for several weeks. Antibiotics will not kill a virus, and they are generally not prescribed for this condition. Home care If symptoms are severe, rest at home for the first 2 to 3 days. When you resume activity, don't letyourself get too tired. Avoid being exposed to cigarette smoke (yours or others ). You may use acetaminophen or ibuprofen to control pain and fever, unless another medicine was prescribed. If you have chronic liver or kidney disease, have ever had a stomach ulcer or gastrointestinal bleeding, or are taking blood-thinning medicines, talk with your healthcare provider before using these medicines. Aspirin should never be given to anyone under 18 years of age who is ill with a viral infection or fever. It may cause severe liver or brain damage. Your appetite may be poor, so a light diet is fine. Avoid dehydration by drinking 6 to 8 glasses offluids per day (water, soft drinks, juices, tea, or soup). Extra fluids will help loosen secretionsin the nose and lungs. Hugw-elr-jxqpegd cold medicines will not shorten the length of time you re sick, but they may be helpful for the following symptoms: cough, sore throat, and nasal and sinus congestion. (Note: Do not use decongestants if you have high blood pressure.) Follow-up care Follow up with your healthcare provider, or as advised. When to seek medical advice Call your healthcare provider right away if any of these occur: Cough with lots of colored sputum (mucus) Severe headache; face, neck, or ear pain Difficulty swallowing due to throat pain Fever of 100.4 F (38 C) or higher, or as directed by your healthcare provider Call 911 Call 911 if any of these occur: Chest pain, shortness of breath, wheezing, or difficulty breathing Coughing up blood Inability to swallow due to throat pain Date Last Reviewed: 03/07/201519991613-7652 [employer]. [address] [place] [address], [place] [address]. All rights reserved. This information is not intended as a substitute for professional medical care. Always follow yourhealthcare professional's instructions. in this encounter* Patient Instructions - Jeronimo Simeon MD - 03/07/2017 1:36 PM EDT Tonsillectomy: Before Your Surgery What is a tonsillectomy? A tonsillectomy is surgery to remove the tonsils. Sometimes the doctor will also take out the adenoids. These are above the tonsils and behind the nose. Your doctor will do the surgery through your mouth. You will be asleep. Most people go home that same day. Follow-up care is a ren part of your treatment and safety. Be sure to make and go to all appointments, and call your doctor if you are having problems. It's also a good idea to know your test resultsand keep a list of the medicines you take. What happens before surgery? Surgery can be stressful. This information will help you understand what you can expect. And it will help you safely prepare for surgery. Preparing for surgery Understand exactly what surgery is planned, along with the risks, benefits, and other options. Tell your doctors ALL the medicines, vitamins, supplements, and herbal remedies you take. Some of these can increase the risk of bleeding or interact with anesthesia. If you take blood thinners, such as warfarin (Coumadin), clopidogrel (Plavix), or aspirin, be sure to talk to your doctor. He or she will tell you if you should stop taking these medicines before your surgery. Make sure that you understand exactly what your doctor wants you to do. Your doctor will tell you which medicines to take or stop before your surgery. You may need to stoptaking certain medicines a week or more before surgery. So talk to your doctor as soon as you can. If you have an advance directive, let your doctor know. It may include a living will and a durable power of document review attorney for health care. Bring a copy to the hospital. If you don't have one, you may wantto prepare one. It lets your doctor and loved ones know your health care wishes. Doctors advise that everyone prepare these papers before any type of surgery or procedure. What happens on the day of surgery? Follow the instructions exactly about when to stop eating and drinking. If you don't, your surgery may be canceled. If your doctor told you to take your medicines on the day of surgery, take them with only a sip of water. Take a bath or shower before you come in for your surgery. Do not apply lotions, perfumes, deodorants, or nail kenyan. Take off all jewelry and piercings. And take out contact lenses, if you wear them. At the hospital or surgery center Bring a picture ID. The area for surgery is often marked to make sure there are no errors. You will be kept comfortable and safe by your anesthesia provider. You will be asleep during the surgery. The surgery will take less than an hour. Going home Be sure you have someone to drive you home. Anesthesia and pain medicine make it unsafe for you to drive. You will be given more specific instructions about recovering from your surgery. They will cover things like diet, wound care, follow-up care, driving, and getting back to your normal routine. When should you call your doctor? You have questions or concerns. You don't understand how to prepare for your surgery. You become ill before the surgery (such as fever, flu, or a cold). You need to reschedule or have changed your mind about having the surgery. Where can you learn more? Log into your personal health record on [email or web address]://Knomot.[employer] and enter S633 in the Education box to learn more about Tonsillectomy: Before Your Surgery. Current as of: January 21, 2016 Content Version: 11.2 9127-7901 [employer]. Care instructions adapted under license by your healthcare professional. If you have questions about a medical condition or this instruction, always ask your healthcare professional. [employer] disclaims any warranty or liability for your use of this information. in this encounter* Patient Instructions - Jeronimo Simeon MD - 03/07/2017 1:36 PM EDT Tonsillectomy: Before Your Surgery What is a tonsillectomy? A tonsillectomy is surgery to remove the tonsils. Sometimes the doctor will also take out the adenoids. These are above the tonsils and behind the nose. Your doctor will do the surgery through your mouth. You will be asleep. Most people go home that same day. Follow-up care is a ren part of your treatment and safety. Be sure to make and go to all appointments, and call your doctor if you are having problems. It's also a good idea to know your test resultsand keep a list of the medicines you take. What happens before surgery? Surgery can be stressful. This information will help you understand what you can expect. And it will help you safely prepare for surgery. Preparing for surgery Understand exactly what surgery is planned, along with the risks, benefits, and other options. Tell your doctors ALL the medicines, vitamins, supplements, and herbal remedies you take. Some of these can increase the risk of bleeding or interact with anesthesia. If you take blood thinners, such as warfarin (Coumadin), clopidogrel (Plavix), or aspirin, be sure to talk to your doctor. He or she will tell you if you should stop taking these medicines before your surgery. Make sure that you understand exactly what your doctor wants you to do. Your doctor will tell you which medicines to take or stop before your surgery. You may need to stoptaking certain medicines a week or more before surgery. So talk to your doctor as soon as you can. If you have an advance directive, let your doctor know. It may include a living will and a durable power of document review attorney for health care. Bring a copy to the hospital. If you don't have one, you may wantto prepare one. It lets your doctor and loved ones know your health care wishes. Doctors advise that everyone prepare these papers before any type of surgery or procedure. What happens on the day of surgery? Follow the instructions exactly about when to stop eating and drinking. If you don't, your surgery may be canceled. If your doctor told you to take your medicines on the day of surgery, take them with only a sip of water. Take a bath or shower before you come in for your surgery. Do not apply lotions, perfumes, deodorants, or nail kenyan. Take off all jewelry and piercings. And take out contact lenses, if you wear them. At the hospital or surgery center Bring a picture ID. The area for surgery is often marked to make sure there are no errors. You will be kept comfortable and safe by your anesthesia provider. You will be asleep during the surgery. The surgery will take less than an hour. Going home Be sure you have someone to drive you home. Anesthesia and pain medicine make it unsafe for you to drive. You will be given more specific instructions about recovering from your surgery. They will cover things like diet, wound care, follow-up care, driving, and getting back to your normal routine. When should you call your doctor? You have questions or concerns. You don't understand how to prepare for your surgery. You become ill before the surgery (such as fever, flu, or a cold). You need to reschedule or have changed your mind about having the surgery. Where can you learn more? Log into your personal health record on https://Vizimax.[employer] and enter S633 in the Education box to learn more about Tonsillectomy: Before Your Surgery. Current as of: January 21, 2016 Content Version: 11.2 4104-1022 [employer]. Care instructions adapted under license by your healthcare professional. If you have questions about a medical condition or this instruction, always ask your healthcare professional. [employer] disclaims any warranty or liability for your use of this information. in this encounter* Patient Instructions* Cathy Gunderson APRN-CNP - 07/16/2019 10:45 AM EST *Refills on Pristiq and Topamax.* Patient was advised to call with any questions or concerns. If symptoms worsen patient was advised to follow up in our office or the Emergency Dept. Benefits, Risks, Contraindications, and Complications of recommended treatments were explained the patient understands and agrees to proceed with plan. documented in this encounter* Patient Instructions* Agustina Simms CNP - 08/04/2019 3:09 PM EST We are treating you for the flu based on your symptoms. In addition we will treat you for a lower respiratory infection and sinusitis. Any difficulty breathing, go to the emergency room. Follow-up with your primary provider if not better in 4 to 5 days or earlier if condition worsens. Influenza (Flu): Care Instructions Your Care Instructions Influenza (flu) is an infection in the lungs and breathing passages. It is caused by the influenza virus. There are different strains, or types, of the flu virus from year to year. Unlike the common cold, the flu comes on suddenly and the symptoms, such as a cough, congestion, fever, chills, fatigue, aches, and pains, are more severe. These symptoms may last up to 10 days. Although the flu can make you feel very sick, it usually doesn't cause serious health problems. Home treatment is usually all you need for flu symptoms. But your doctor may prescribe antiviral medicine to prevent other health problems, such as pneumonia, from developing. Older people and those who have a long-term health condition, such as lung disease, are most at risk for having pneumonia or other health problems. Follow-up care is a ren part of your treatment and safety. Be sure to make and go to all appointments, and call your doctor if you are having problems. It's also a good idea to know your test resultsand keep a list of the medicines you take. How can you care for yourself at home? Get plenty of rest. Drink plenty of fluids, enough so that your urine is light yellow or clear like water. If you have kidney, heart, or liver disease and have to limit fluids, talk with your doctor before you increase the amount of fluids you drink. Take an vqvn-ntf-trzyimq pain medicine if needed, such as acetaminophen (Tylenol), ibuprofen (Advil, Motrin), or naproxen (Aleve), to relieve fever, headache, and muscle aches. Read and follow all instructions on the label. No one younger than 20 should take aspirin. It has been linked to Kathryn syndrome, a serious illness. Do not smoke. Smoking can make the flu worse. If you need help quitting, talk to your doctor about stop-smoking programs and medicines. These can increase your chances of quitting for good. Breathe moist air from a hot shower or from a sink filled with hot water to help clear a stuffy nose. Before you use cough and cold medicines, check the label. These medicines may not be safe for youngchildren or for people with certain health problems. If the skin around your nose and lips becomes sore, put some petroleum jelly on the area. To ease coughing: ? Drink fluids to soothe a scratchy throat. ? Suck on cough drops or plain hard candy. ? Take an rvwm-dko-jetoipl cough medicine that contains dextromethorphan to help you get some sleep. Read and follow all instructions on the label. ? Raise your head at night with an extra pillow. This may help you rest if coughing keeps you awake. Take any prescribed medicine exactly as directed. Call your doctor if you think you are having a problem with your medicine. To avoid spreading the flu Wash your hands regularly, and keep your hands away from your face. Stay home from school, work, and other public places until you are feeling better and your fever has been gone for at least 24 hours. The fever needs to have gone away on its own without the help of medicine. Ask people living with you to talk to their doctors about preventing the flu. They may get antiviral medicine to keep from getting the flu from you. To prevent the flu in the future, get a flu vaccine every fall. Encourage people living with you toget the vaccine. Cover your mouth when you cough or sneeze. When should you call for help? Call 911 anytime you think you may need emergency care. For example, call if: You have severe trouble breathing. Call your doctor now or seek immediate medical care if: You have new or worse trouble breathing. You seem to be getting much sicker. You feel very sleepy or confused. You have a new or higher fever. You get a new rash. Watch closely for changes in your health, and be sure to contact your doctor if: You begin to get better and then get worse. You are not getting better after 1 week. Where can you learn more? Log into your personal health record on https://Knomot.[employer] and enter L652 in the Education box to learn more about Influenza (Flu): Care Instructions. Current as of: December 01, 2018 Content Version: 12.3 1707-5787 [employer]. Care instructions adapted under license by your healthcare professional. If you have questions about a medical condition or this instruction, always ask your healthcare professional. [employer] disclaims any warranty or liability for your use of this information. documented in this encounter* Patient Instructions* Ruthie Archibald DO - 12/23/2019 2:20 PM EDT Magnesium and riboflavin Emgality 120 mg once a month Rizatriptan 10 mg 1/2 or 1 for a migraine Rebound- decrease OTC- only 2 x a week Walk 30 minutes a day Follow up 5 months Decrease to 1 cup of coffee a day Not better consider MRI documented in this encounter Summary Purpose Family History No Family History Records FoundNo Family History Records FoundNo Family History Records FoundNo Family History Records FoundNo Family History Records FoundNo Family History Records FoundNo Family History Records FoundNo Family History Records Found Advance Directives No Advanced Directives Records FoundDocuments on File Type Date Recorded Patient Nanotechnology Engineering Technologist Expl anation Advance Directives and Livin g Will 01/20/2019 3:56 PM Latest Code Status on File Code Status Date Activated Date Inactivated Comments Full Code 01/20/2019 3:53 PM Documents on File Type Date Recorded Patient Nanotechnology Engineering Technologist Expl anation Advance Directives and Livin g Will 02/21/2019 5:01 PM Latest Code Status on File Code Status Date Activated Date Inactivated Comments Full Code 01/20/2019 3:53 PM 02/21/2019 4:13 PM Documents on File Type Date Recorded Patient Nanotechnology Engineering Technologist Expl anation Advance Directives and Livin g Will 03/10/2019 5:09 PM Latest Code Status on File Code Status Date Activated Date Inactivated Comments Full Code 03/10/2019 4:56 PM Full Code 01/20/2019 3:53 PM 02/21/2019 4:13 PM Documents on File Type Date Recorded Patient Nanotechnology Engineering Technologist Expl anation Advance Directives and Livin g Will 03/29/2019 7:37 PM Latest Code Status on File Code Status Date Activated Date Inactivated Comments Full Code 03/21/2019 2:38 AM 03/29/2019 7:09 PM Full Code 03/20/2019 3:07 AM 03/21/2019 2:38 AM Full Code 03/19/2019 5:18 PM 03/20/2019 3:07 AM Full Code 03/10/2019 4:56 PM 03/19/2019 5:01 PM Documents on File Type Date Recorded Patient Nanotechnology Engineering Technologist Expl anation Advance Directives and Livin g Will 03/30/2019 9:20 PM Documents on File Type Date Recorded Patient Nanotechnology Engineering Technologist Expl anation Advance Directives and Livin g Will 08/16/2020 9:33 PM Documents on File Type Date Recorded Patient Nanotechnology Engineering Technologist Expl anation Advance Directives and Livin g Will 03/19/2019 5:14 PM Latest Code Status on File Code Status Date Activated Date Inactivated Comments Full Code 03/21/2019 2:38 AM Documents on File Type Date Recorded Patient Nanotechnology Engineering Technologist Expl anation Advance Directives and Livin g Will 03/07/2019 1:33 PM Latest Code Status on File Code Status Date Activated Date Inactivated Comments Full Code 03/21/2019 2:38 AM 03/29/2019 7:09 PM Code Status History Code Status Date Activated Date Inactivated Comments Full Code 03/20/2019 3:07 AM 03/21/2019 2:38 AM Full Code 03/19/2019 5:18 PM 03/20/2019 3:07 AM Full Code 03/10/2019 4:56 PM 03/19/2019 5:01 PM Full Code 01/20/2019 3:53 PM 02/21/2019 4:13 PM History of Present Illness * Ronda Payan, INSTRUMENTATION CONTROLS ENGINEER - 07/15/2018 11:20 AM EST Formatting of this note may be different from the original. URGENT CARE eNCOUnter CHIEF COMPLAINT Cough and Sinus Congestion HPI Vishal Seals is a 23 y.o. female who presents today for sinus congestion, cough, fever x 3 days that she is taking Dayquil for. She is a non smoker & denies hx of asthma. She states that her employer recommended that she be seen. She denies rash or ill contacts. She did receive her Flu Vacc this season REVIEW OF SYSTEMS Review of Systems Constitutional: Positive for fever. HENT: Positive for congestion and sore throat. Negative for ear pain. Respiratory: Positive for cough. Cardiovascular: Negative for chest pain. Skin: Negative for rash. Neurological: Negative for headaches. PAST MEDICAL HISTORY Past Medical History: Diagnosis Date Frequency of micturition Morbid (severe) obesity due to excess calories Pain in left ankle and joints of left foot Pain in left foot Sting from hornet, wasp, or bee SURGICAL HISTORY Past Surgical History: Procedure Laterality Date TONSILLECTOMY 06/19/2017 WISDOM TEETH EXTRACTION 11/2016 GALL BLADDER SURGERY 10/2013 INSERTION EAR TUBE 18 Months old CURRENT MEDICATIONS Current Outpatient Prescriptions Medication Sig Dispense Refill Norgestimate-Ethinyl Estradiol 0.18/0.215/0.25 MG-35 MCG Tab tablet Take 1 tablet by mouth daily. 28 tablet 11 topiramate 25 MG Tab tablet Take 1 tablet by mouth daily. 90 tablet 1 No current facility-administered medications for this visit. ALLERGIES Allergies Allergen Reactions Bee Venom Swelling FAMILY HISTORY Family History Problem Relation Age of Onset Depression Mother Arthritis - Osteo Father Cataract Father Depression Brother SOCIAL HISTORY Social History Social History Marital status: Single Spouse name: N/A Number of children: N/A Years of education: N/A Occupational History Not on file. Social History Main Topics Smoking status: Never Smoker Smokeless tobacco: Never Used Alcohol use Yes Comment: Occasionally Drug use: No Sexual activity: Yes Partners: Male control/ protection: Pill Other Topics Concern Domestic Violence No Social History Narrative No narrative on file PHYSICAL EXAM Blood pressure 141/80, pulse 100, temperature 99.3 F (37.4 C), temperature source Temporal, resp. rate 16, height 1.626 m (5' 4 ), weight 120.7 kg (266 lb 3.2 oz), SpO2 98 %, not currently . Physical Exam Constitutional: She is oriented to person, place, and time. She appears well- developed and well-nourished. HENT: Right Ear: Tympanic membrane normal. Left Ear: Tympanic membrane normal. Mouth/Throat: Oropharynx is clear and moist. Neck: Normal range of motion. Cardiovascular: Normal rate and regular rhythm. Murmur heard. Pulmonary/Chest: Effort normal and breath sounds normal. Moist cough Neurological: She is alert and oriented to person, place, and time. Skin: Skin is warm and dry. Psychiatric: She has a normal mood and affect. Her behavior is normal. Nursing note and vitals reviewed. Diagnosis, Assessment & Plan: Vishal was seen today for cough and sinus congestion. Diagnoses and all orders for this visit: Viral URI with cough Continue Dayquil & conservative treatments Start antibiotic in 48 hours if not improving, worsening symptoms or continued fever greater than 100. Continue all other medications as previously prescribed by other providers. Follow-up with Primary Care Provider or return to clinic in 5-7 days if not improving or worsening of symptoms Go to the nearest Emergency Department for any Chest Pain or Shortness of Breath Ronda Payan CNP 07/15/2018 in this encounter* Jeronimo Simeon MD - 03/07/2017 1:36 PM EDT Formatting of this note may be different from the original. Subjective: Patient ID: Vishal Seals is a 21 y.o. female. 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 Reportedly, she continued to be symptomatic with constant sore throat regional lymphadenopathy, halitosis, snoring with without witnessed evidence of obstructive sleep apnea despite of adequate medical management by primary care physician. Patient was offered tonsillectomy and adenoidectomy since childhood and is willing to proceed with surgery The following portions of the patient's history were reviewed and updated as appropriate: allergies, current medications, past family history, past medical history, past social history, past surgicalhistory and problem list. Review of Systems Constitutional: Positive for activity change, appetite change and fatigue. Negative for chills, diaphoresis, fever and unexpected weight change. HENT: Positive for congestion, ear pain, sore throat and trouble swallowing. Negative for dental problem, drooling, ear discharge, facial swelling, hearing loss, mouth sores, nosebleeds, postnasal drip, rhinorrhea, sinus pressure, sneezing, tinnitus and voice change. Respiratory: Positive for apnea, cough and choking. Negative for chest tightness, shortness of breath, wheezing and stridor. Objective:BP 114/82 Pulse (!) 100 Wt (!) 163 kg (359 lb 6.4 oz) SpO2 99% Physical Exam Constitutional: She appears well-developed and well-nourished. No distress. HENT: Head: Normocephalic and atraumatic. Right Ear: Hearing, tympanic membrane, external ear and ear canal normal. Left Ear: Hearing, tympanic membrane, external ear and ear canal normal. Nose: Mucosal edema and rhinorrhea present. No nose lacerations, sinus tenderness, nasal deformity,septal deviation or nasal septal hematoma. No epistaxis. No foreign bodies. Right sinus exhibits nomaxillary sinus tenderness and no frontal sinus tenderness. Left sinus exhibits no maxillary sinus t enderness and no frontal sinus tenderness. Mouth/Throat: Uvula is midline and mucous membranes are normal. She does not have dentures. No orallesions. No trismus in the jaw. Normal dentition. No dental abscesses, uvula swelling, lacerations or dental caries. Oropharyngeal exudate, posterior oropharyngeal edema and posterior oropharyngeal erythema present. No tonsillar abscesses (Symmetric palatine tonsils stage 3+ hypertrophy with tonsillar stones in the criptic pockets). Eyes: Conjunctivae and EOM are normal. Pupils are equal, round, and reactive to light. Neck: Trachea normal and normal range of motion. Neck supple. No JVD present. No tracheal deviationpresent. No thyroid mass present. Pulmonary/Chest: No stridor. Lymphadenopathy: Head (right side): Tonsillar adenopathy present. No submental, no submandibular, no preauricular, no posterior auricular and no occipital adenopathy present. Head (left side): Tonsillar adenopathy present. No submental, no submandibular, no preauricular, noposterior auricular and no occipital adenopathy present. She has cervical adenopathy. Skin: She is not diaphoretic. Assessment/Plan: Consider tonsillectomy possible adenoidectomy if no improvement on suggested management with oral hygiene and [id number] nasal steroids. SNOMED CT(R) 1. Chronic tonsillitis and adenoiditis CHRONIC DISEASE OF TONSILS AND/OR ADENOIDS 2. Enlarged tonsils ENLARGED TONSIL Ambulatory referral to ENT 3. Snoring SNORING Ambulatory referral to ENT No orders of the defined types were placed in this encounter. in this encounter* Jeronimo Simeon MD - 03/07/2017 1:36 PM EDT Formatting of this note may be different from the original. Subjective: Patient ID: Vishal Seals is a 21 y.o. female. 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 Reportedly, she continued to be symptomatic with constant sore throat regional lymphadenopathy, halitosis, snoring with without witnessed evidence of obstructive sleep apnea despite of adequate medical management by primary care physician. Patient was offered tonsillectomy and adenoidectomy since childhood and is willing to proceed with surgery The following portions of the patient's history were reviewed and updated as appropriate: allergies, current medications, past family history, past medical history, past social history, past surgicalhistory and problem list. Review of Systems Constitutional: Positive for activity change, appetite change and fatigue. Negative for chills, diaphoresis, fever and unexpected weight change. HENT: Positive for congestion, ear pain, sore throat and trouble swallowing. Negative for dental problem, drooling, ear discharge, facial swelling, hearing loss, mouth sores, nosebleeds, postnasal drip, rhinorrhea, sinus pressure, sneezing, tinnitus and voice change. Respiratory: Positive for apnea, cough and choking. Negative for chest tightness, shortness of breath, wheezing and stridor. Objective:BP 114/82 Pulse (!) 100 Wt (!) 163 kg (359 lb 6.4 oz) SpO2 99% Physical Exam Constitutional: She appears well-developed and well-nourished. No distress. HENT: Head: Normocephalic and atraumatic. Right Ear: Hearing, tympanic membrane, external ear and ear canal normal. Left Ear: Hearing, tympanic membrane, external ear and ear canal normal. Nose: Mucosal edema and rhinorrhea present. No nose lacerations, sinus tenderness, nasal deformity,septal deviation or nasal septal hematoma. No epistaxis. No foreign bodies. Right sinus exhibits nomaxillary sinus tenderness and no frontal sinus tenderness. Left sinus exhibits no maxillary sinus t enderness and no frontal sinus tenderness. Mouth/Throat: Uvula is midline and mucous membranes are normal. She does not have dentures. No orallesions. No trismus in the jaw. Normal dentition. No dental abscesses, uvula swelling, lacerations or dental caries. Oropharyngeal exudate, posterior oropharyngeal edema and posterior oropharyngeal erythema present. No tonsillar abscesses (Symmetric palatine tonsils stage 3+ hypertrophy with tonsillar stones in the criptic pockets). Eyes: Conjunctivae and EOM are normal. Pupils are equal, round, and reactive to light. Neck: Trachea normal and normal range of motion. Neck supple. No JVD present. No tracheal deviationpresent. No thyroid mass present. Pulmonary/Chest: No stridor. Lymphadenopathy: Head (right side): Tonsillar adenopathy present. No submental, no submandibular, no preauricular, no posterior auricular and no occipital adenopathy present. Head (left side): Tonsillar adenopathy present. No submental, no submandibular, no preauricular, noposterior auricular and no occipital adenopathy present. She has cervical adenopathy. Skin: She is not diaphoretic. Assessment/Plan: Consider tonsillectomy possible adenoidectomy if no improvement on suggested management with oral hygiene and [id number]-[id number] nasal steroids. SNOMED CT(R) 1. Chronic tonsillitis and adenoiditis CHRONIC DISEASE OF TONSILS AND/OR ADENOIDS 2. Enlarged tonsils ENLARGED TONSIL Ambulatory referral to ENT 3. Snoring SNORING Ambulatory referral to ENT No orders of the defined types were placed in this encounter. in this encounter* Paul Dodd MD - 01/21/2019 12:58 PM EDT Overall it appears that the patient is doing better today. She was coming by with Tylenol. Discussed with the patient later on with Dr. Logan. We will keep her n.p.o. for work we will proceed with placement of the stent today as she is improving. Patient can have something to eat tonight and then be n.p.o. after midnight. Reevaluate tomorrow regarding possible discharge. If she gets worse we canstill place a stent tomorrow. documented in this encounter* Veda Philip MD - 06/20/2019 9:45 AM EST Chief Complaint Patient presents with Anxiety Was put on Zoloft by OBGYN. Having hallcinations, Some dizziness and nausea with it. Migraine Since baby was born she had some topiramate tablets left and they don't seem to help as good as they did before baby. Hallucinations HPI: Regarding Anxiety/Depression: Vishal presents with the complaint of anxiety/depression which is currently under suboptimal control. She reports the following triggers: stress, Other symptoms include: post- depression, was started on Zoloft by assembler wet wash, having hallucinations, dizziness, Current treatment includes: Zoloft, has not been on anything else, she was referred for counseling.Seeing [facility]. Significant medical conditions: see problem list Headaches: topiramate worked prior to but she has restarted the med and it isn't working as well now. ROS: Review of Systems Nurse Note: Review of Systems Constitutional: Positive for fatigue. Negative for fever. HENT: Negative for congestion, ear pain and sinus pain. Eyes: Negative for pain and redness. Respiratory: Positive for cough. Negative for shortness of breath. Cardiovascular: Negative for chest pain and palpitations. Gastrointestinal: Positive for abdominal pain, constipation, diarrhea and nausea. Negative for vomiting. Genitourinary: Negative for difficulty urinating, dysuria and frequency. Musculoskeletal: Positive for back pain. Negative for arthralgias and myalgias. Skin: Negative for rash and wound. Neurological: Positive for dizziness, light-headedness and headaches. Psychiatric/Behavioral: Positive for hallucinations. The patient is nervous/anxious. All other systems reviewed and are negative. Past medical/family/social history: reviewed and updated, see documented in patient's chart. Physical Exam: Blood pressure 108/72, pulse 66, height 1.626 m (5' 4 ), weight 115.6 kg (254 lb 14.4 oz), not currently . Body mass index is 43.75 kg/m . Physical Exam Assessment/Plan: 1. Post depression Start Pristiq, discussed stress reducing techniques, discussed communication with her , - desvenlafaxine succinate (PRISTIQ) 50 MG Tab SR 24 HR; Take 1 tablet by mouth daily. Dispense: 30tablet; Refill: 1 2. Migraine without aura and without status migrainosus, not intractable Will hold off on changing medication until we see how her headaches do with anti-depressant change Greater than 25 minutes was spent with the patient, greater than 50% discussing her care, counseling her on the appropriate decisions in her care,etc. All of her questions were answered to her satisfaction. Orders and follow up as documented in patient record; Patient was advised to call with any questions or concerns. If symptoms worsen patient was advised to follow up in our office or the Emergency Dept. Benefits, Risks, Contraindications, and Complications of recommended treatments were explained the patient understands and agrees to proceed with plan. Veda Philip MD 06/20/2019 * Vishal Martin - 06/20/2019 9:45 AM EST Nurse Note: Review of Systems Constitutional: Positive for fatigue. Negative for fever. HENT: Negative for congestion, ear pain and sinus pain. Eyes: Negative for pain and redness. Respiratory: Positive for cough. Negative for shortness of breath. Cardiovascular: Negative for chest pain and palpitations. Gastrointestinal: Positive for abdominal pain, constipation, diarrhea and nausea. Negative for vomiting. Genitourinary: Negative for difficulty urinating, dysuria and frequency. Musculoskeletal: Positive for back pain. Negative for arthralgias and myalgias. Skin: Negative for rash and wound. Neurological: Positive for dizziness, light-headedness and headaches. Psychiatric/Behavioral: Positive for hallucinations. The patient is nervous/anxious. All other systems reviewed and are negative. documented in this encounter* Misa Kruse - 07/16/2019 10:45 AM EST Nurse Note: Review of Systems Constitutional: Negative for fatigue and fever. HENT: Positive for congestion. Negative for ear pain and sore throat. Eyes: Negative for pain and redness. Respiratory: Negative for cough and shortness of breath. Cardiovascular: Negative for chest pain and palpitations. Gastrointestinal: Negative for abdominal pain, constipation, diarrhea, nausea and vomiting. Genitourinary: Negative for difficulty urinating and dysuria. Musculoskeletal: Negative for arthralgias and myalgias. Skin: Negative for rash and wound. Neurological: Positive for dizziness and headaches. All other systems reviewed and are negative. * Cathy Gunderson APRN-INSTRUMENTATION CONTROLS ENGINEER - 07/16/2019 10:45 AM EST Chief Complaint Patient presents with Depression Pt states she is liking Pristiq. Pt states it helps her sleep so she takes it at night time Migraine HPI: Regarding Anxiety/Depression: Vishal presents with the complaint of anxiety/depression which is currently under improving. She reports the following triggers: stress, Feels improvement with Pristiq and is able to better communicate with her . Sleeping better and able to wake up without problems if her baby awakens. Other symptoms include: post- depression, was started on Zoloft by assembler wet wash, had hallucinations, dizziness. Current treatment includes: Pristiq at bedtime. Previous treatment: Zoloft, has not been on anything else, she was referred for counseling. Seeing [facility]. Significant medical conditions: see problem list Headaches: topiramate worked prior to . States she takes ibuprofen and/or tylenol everydayto help with headache relief. Now that anxiety is better controlled, she would like to try low dosetopiramate again. ROS: Constitutional: Negative for fatigue and fever. HENT: Positive for congestion. Negative for ear pain and sore throat. Eyes: Negative for pain and redness. Respiratory: Negative for cough and shortness of breath. Cardiovascular: Negative for chest pain and palpitations. Gastrointestinal: Negative for abdominal pain, constipation, diarrhea, nausea and vomiting. Genitourinary: Negative for difficulty urinating and dysuria. Musculoskeletal: Negative for arthralgias and myalgias. Skin: Negative for rash and wound. Neurological: Positive for dizziness and headaches. All other systems reviewed and are negative. Physical Exam: Blood pressure 124/77, pulse 83, height 1.626 m (5' 4 ), weight 120.4 kg (265 lb 6.4 oz), not currently . Body mass index is 45.56 kg/m . Physical Exam Constitutional: Appearance: Normal appearance. She is obese. Eyes: Conjunctiva/sclera: Conjunctivae normal. Pupils: Pupils are equal, round, and reactive to light. Neck: Musculoskeletal: Normal range of motion. Pulmonary: Effort: Pulmonary effort is normal. Musculoskeletal: Normal range of motion. Neurological: Mental Status: She is alert and oriented to person, place, and time. Psychiatric: Mood and Affect: Mood normal. Behavior: Behavior normal. Thought Content: Thought content normal. Judgment: Judgment normal. Assessment/Plan: 1. Post depression Continue Pristiq. Pt is doing much better on this medication. - desvenlafaxine succinate (PRISTIQ) 50 MG Tab SR 24 HR; Take 1 tablet by mouth daily. Dispense: 30tablet; Refill: 1 2. Migraine without aura and without status migrainosus, not intractable Start back on low dose topiramate. Pt had been on BID dosing in the past and had tingling of her hands and feet. -Will evaluate effectiveness in 3 months. *Follow up in 3 months.* Orders and follow up as documented in patient record; Patient was advised to call with any questions or concerns. If symptoms worsen patient was advised to follow up in our office or the Emergency Dept. Benefits, Risks, Contraindications, and Complications of recommended treatments were explained the patient understands and agrees to proceed with plan. RANDY Partida 07/16/2019 documented in this encounter* Agustina Simms CNP - 08/04/2019 2:32 PM EST PATIENT NAME: Vishal Child [facility] [address] [facility] [id number] : 1995 DATE OF VISIT: 08/04/2019 #: [id number] PROVIDER: Agustina Simms CNP Chief Complaint Patient presents with Cough cough since May, worse x 2 days. Pain in back with breathing, SOB and fever SUBJECTIVE 24 y.o. female presents Cough (cough since May, worse x 2 days. Pain in back with breathing, SOB and fever ) Has had a slight cough since May. It went away and then got worse. Son had the flu in May. Hard to get a deep breath and gets sharp pains in the middle of back on both sides. Get short ofbreath just talking. Fever 100.5 at work today and was sent home, having muscles aches everything hurts . 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 Cough This is a new problem. Episode onset: 5 days. The problem has been rapidly worsening. The problem occurs every few minutes. The cough is productive of sputum. Associated symptoms include chest pain, a fever (started today), headaches (has migraines), myalgias, nasal congestion, a sore throat and ana maria rtness of breath. Pertinent negatives include no chills, ear pain, rash, rhinorrhea or wheezing. Exacerbated by: walking and talking. Risk factors: no recent travel. Treatments tried: tyelnol. The treatment provided mild relief. There is no history of asthma, bronchitis, environmental allergies or pneumonia. MEDICAL ISSUES Past Medical History: Diagnosis Date Mental disorder anxiety Migraines Patient Active Problem List Diagnosis 39 weeks gestation of Delayed surgical wound healing Post depression Generalized anxiety disorder Cough SOCIAL HISTORY Social History Socioeconomic History Marital status: Spouse name: Not on file Number of children: Not on file Years of education: Not on file Highest education level: Not on file Occupational History Not on file Social Needs Financial resource strain: Not on file Food insecurity Worry: Not on file Inability: Not on file Transportation needs Medical: Not on file Non-medical: Not on file Tobacco Use Smoking status: Never Smoker Smokeless tobacco: Never Used Substance and Sexual Activity Alcohol use: Not Currently Drug use: Never Sexual activity: Yes Partners: Male Lifestyle Physical activity Days per week: Not on file Minutes per session: Not on file Stress: Not on file Relationships Social connections Talks on phone: Not on file Gets together: Not on file Attends restoration service: Not on file Active member of club or organization: Not on file Attends meetings of clubs or organizations: Not on file Relationship status: Not on file Other Topics Concern Not on file Social History Narrative Not on file FAMILY HISTORY Family History Problem Relation Age of Onset Meniere's disease Mother Cancer Maternal Grandmother Diabetes Maternal Grandmother Hyperlipidemia Maternal Grandmother Hypertension Maternal Grandfather Diabetes Maternal Grandfather Hyperlipidemia Maternal Grandfather COPD Maternal Grandfather Heart disease Maternal Grandfather Diabetes Paternal Grandfather REVIEW OF SYSTEMS Review of Systems Constitutional: Positive for fever (started today). Negative for chills. HENT: Positive for sore throat. Negative for congestion, ear pain, rhinorrhea, sinus pressure and sinus pain. Eyes: Negative for discharge and itching. Respiratory: Positive for cough and shortness of breath. Negative for wheezing. Cardiovascular: Positive for chest pain. Negative for palpitations. Gastrointestinal: Positive for nausea. Negative for abdominal pain, diarrhea and vomiting. Musculoskeletal: Positive for myalgias. Skin: Negative for rash. Allergic/Immunologic: Negative for environmental allergies. Neurological: Positive for headaches (has migraines). MEDICATIONS PRIOR TO VISIT Current Outpatient Medications on File Prior to Visit Medication Sig Dispense Refill desvenlafaxine succinate (PRISTIQ) 50 MG 24 hr tablet Take 50 mg by mouth daily . etonogestrel (NEXPLANON) 68 mg Impl subdermal implant 68 mg by Subdermal route once . folic acid (FOLVITE) 1 MG tablet Take 1 mg by mouth daily . topiramate (TOPAMAX) 25 MG tablet Take 25 mg by mouth daily . sertraline (Zoloft) 100 MG tablet Take 1 (one) tablet (100 mg total) by mouth daily . (Patient not taking: Reported on 08/04/2019 .) 30 tablet 2 No current facility-administered medications on file prior to visit. ALLERGIES/INTOLERANCES Allergies Allergen Reactions Bee Venom Protein (Honey Bee) Swelling OBJECTIVE Vitals: 08/04/19 1424 08/04/19 1505 BP: 126/84 Temp: 98.8 F (37.1 C) Pulse: (!) 110 (!) 102 Resp: (!) 22 (!) 19 SpO2: 99% 99% Body mass index is 45.83 kg/m . 121.1 kg (267 lb) 5' 4 No LMP recorded. Patient has had an implant. The patient is not currently . Physical Exam Constitutional: She is oriented to person, place, and time. She appears well- developed and well-nourished. HENT: Right Ear: Tympanic membrane and ear canal normal. Left Ear: Tympanic membrane and ear canal normal. Nose: No mucosal edema or rhinorrhea. Right sinus exhibits frontal sinus tenderness. Right sinus exhibits no maxillary sinus tenderness. Left sinus exhibits frontal sinus tenderness. Left sinus exhibits no maxillary sinus tenderness. Mouth/Throat: Oropharynx is clear and moist and mucous membranes are normal. No posterior oropharyngeal edema or posterior oropharyngeal erythema. Eyes: Conjunctivae are normal. Cardiovascular: Normal rate and regular rhythm. Pulmonary/Chest: Effort normal and breath sounds normal. No accessory muscle usage. No respiratory distress. Musculoskeletal: Arms: Comments: Mid back pain. Lymphadenopathy: She has no cervical adenopathy. Neurological: She is alert and oriented to person, place, and time. Skin: Skin is warm and dry. Psychiatric: She has a normal mood and affect. Nursing note and vitals reviewed. PROCEDURE Procedures Results Recent Results (from the past 168 hour(s)) POC Influenza A Collection Time: 08/04/19 3:02 PM Result Value Ref Range Rapid Influenza A Ag Negative Negative POC Influenza B Collection Time: 08/04/19 3:03 PM Result Value Ref Range Rapid Influenza B Ag Negative Negative ASSESSMENT/PLAN (expressed as patient instructions): 1. Lower respiratory infection (e.g., bronchitis, pneumonia, pneumonitis, pulmonitis) amoxicillin-clavulanate (Augmentin) 875-125 mg per tablet predniSONE (DELTASONE) 20 MG tablet 2. Flu-like symptoms POC Influenza A POC Influenza B 3. Influenza oseltamivir (Tamiflu) 75 MG capsule 4. Cough XR Chest AP/PA and LAT 5. Fever, unspecified fever cause XR Chest AP/PA and LAT 6. Acute frontal sinusitis, recurrence not specified amoxicillin-clavulanate (Augmentin) 875-125 mgper tablet predniSONE (DELTASONE) 20 MG tablet No follow-ups on file. ADDITIONAL CLINICAL COMMENTS Chest x-ray is read as normal. Questionable right side infiltrates. Has had cough since May. She presents very much flu like although her flu tests were negative. 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 Would like to be covered for the flu. I am going to treat her for a lower resp infection/sinusitis as well. ORDERS PLACED THIS VISIT Orders Placed This Encounter Procedures XR Chest AP/PA and LAT POC Influenza A POC Influenza B MEDICATION LIST AT END OF VISIT Current Outpatient Medications Medication Sig Dispense Refill desvenlafaxine succinate (PRISTIQ) 50 MG 24 hr tablet Take 50 mg by mouth daily . etonogestrel (NEXPLANON) 68 mg Impl subdermal implant 68 mg by Subdermal route once . folic acid (FOLVITE) 1 MG tablet Take 1 mg by mouth daily . topiramate (TOPAMAX) 25 MG tablet Take 25 mg by mouth daily . amoxicillin-clavulanate (Augmentin) 875-125 mg per tablet Take 1 (one) tablet by mouth 2 (two) times a day for 10 days . 20 tablet 0 oseltamivir (Tamiflu) 75 MG capsule Take 1 (one) capsule (75 mg total) by mouth 2 (two) times a dayfor 5 days . 10 capsule 0 predniSONE (DELTASONE) 20 MG tablet Take 2 tabs daily x 5 days . 10 tablet 0 sertraline (Zoloft) 100 MG tablet Take 1 (one) tablet (100 mg total) by mouth daily . (Patient not taking: Reported on 08/04/2019 .) 30 tablet 2 No current facility-administered medications for this visit. documented in this encounter* Veda Philip MD - 04/22/2020 1:30 PM EDT Chief Complaint Patient presents with Depression Migraine Patient states she is not having luck with Migraine medicine. Dr. Archibald sent in Emgality and her insurance wont cover it. Fatigue Patient states since being taken off Topamax she gained 20lbs, hasn't been able to sleep HPI: Migraine: she is having a lot of headache trouble and hasn't been able to get her medication. Regarding Anxiety/Depression: Vishal presents with the complaint of anxiety/depression which is currently under good control. She reports the following triggers: stress, Other symptoms include: none Current treatment includes: Pristiq Significant medical conditions: see problem list ROS: Review of Systems fluarNurse Note: Review of Systems Constitutional: Negative for fatigue and fever. HENT: Negative for congestion, ear pain and sore throat. Eyes: Negative for pain and redness. Respiratory: Negative for cough and shortness of breath. Cardiovascular: Negative for chest pain and palpitations. Gastrointestinal: Negative for abdominal pain, constipation, diarrhea, nausea and vomiting. Genitourinary: Negative for difficulty urinating and dysuria. Musculoskeletal: Negative for arthralgias and myalgias. Skin: Negative for rash and wound. Neurological: Positive for headaches. Negative for dizziness. All other systems reviewed and are negative. Past medical/family/social history: reviewed and updated, see documented in patient's chart. Physical Exam: BP 125/80 Pulse 79 Ht 1.626 m (5' 4 ) Wt 131.5 kg (289 lb 12.8 oz) BMI 49.74 kg/m SmokingStatus Never Smoker Body mass index is 49.74 kg/m . Physical Exam Constitutional: Appearance: She is morbidly obese. HENT: Head: Normocephalic and atraumatic. Eyes: Pupils: Pupils are equal, round, and reactive to light. Neck: Musculoskeletal: Normal range of motion and neck supple. Cardiovascular: Rate and Rhythm: Normal rate and regular rhythm. Heart sounds: Normal heart sounds. Pulmonary: Effort: Pulmonary effort is normal. Breath sounds: Normal breath sounds. Abdominal: Palpations: Abdomen is soft. Skin: General: Skin is warm and dry. Neurological: Mental Status: She is alert and oriented to person, place, and time. Assessment/Plan: 1. Post depression Chronic stable, continue same therapy - desvenlafaxine succinate (Pristiq) 50 MG Tab SR 24 HR; Take 1 tablet by mouth daily. Dispense: 30tablet; Refill: 5 2. Need for influenza vaccination update - influenza quad vaccine 0.5 ML Suspension Prefilled Syringe; Inject 0.5 mL intramuscularly Once (In Clinic) for 1 dose. Dispense: 0.5 mL; Refill: 0 - FLU VACCINE SINGLE DOSE QUADRIVALENT 3. Intractable migraine with aura with status migrainosus Restart topiramate and add beta william - topiramate 25 MG tablet; Take 1 tablet by mouth 2 times daily. Dispense: 60 tablet; Refill: 2 - propranolol 10 MG tablet; Take 1 tablet by mouth 3 times daily. Dispense: 90 tablet; Refill: 0 Orders and follow up as documented in patient record; We reviewed diet, exercise and weight control; Medications Discontinued During This Encounter Medication Reason topiramate 25 MG tablet Galcanezumab-gnlm (Emgality) 120 MG/ML Solution Auto-injector Galcanezumab-gnlm (Emgality) 120 MG/ML Solution Auto-injector Requested Prescriptions Pending Prescriptions Disp Refills desvenlafaxine succinate (Pristiq) 50 MG Tab SR 24 HR 30 tablet 5 Sig: Take 1 tablet by mouth daily. influenza quad vaccine 0.5 ML Suspension Prefilled Syringe 0.5 mL 0 Sig: Inject 0.5 mL intramuscularly Once (In Clinic) for 1 dose. Patient was advised to call with any questions or concerns. If symptoms worsen patient was advised to follow up in our office or the Emergency Dept. Benefits, Risks, Contraindications, and Complications of recommended treatments were explained the patient understands and agrees to proceed with plan. Veda Philip MD 04/22/2020 * Misa Kruse - 04/22/2020 1:30 PM EDT fluarNurse Note: Review of Systems Constitutional: Negative for fatigue and fever. HENT: Negative for congestion, ear pain and sore throat. Eyes: Negative for pain and redness. Respiratory: Negative for cough and shortness of breath. Cardiovascular: Negative for chest pain and palpitations. Gastrointestinal: Negative for abdominal pain, constipation, diarrhea, nausea and vomiting. Genitourinary: Negative for difficulty urinating and dysuria. Musculoskeletal: Negative for arthralgias and myalgias. Skin: Negative for rash and wound. Neurological: Positive for headaches. Negative for dizziness. All other systems reviewed and are negative. documented in this encounter* Veda Philip MD - 05/17/2020 1:45 PM EST Chief Complaint Patient presents with Migraine Patient states she was put on topiramate and propranonlol and last visit and states the migraines are the same. HPI: Migraine headache: has been on therapy for topiramate and Imitrex for her headaches. Imitrex causednausea and she felt terrible after taking it, she tried it twice. She has continued the topiramate but is getting migraines 3-4 times per week. Kept a headache log this last month and had 15 days with headache, had to take the Maxalt 12 times which works for pain but makes her sleepy, ROS: Review of Systems Nurse Note: Review of Systems Constitutional: Negative for fatigue and fever. HENT: Negative for congestion, ear pain and sore throat. Eyes: Negative for pain and redness. Respiratory: Positive for cough. Negative for shortness of breath. Cardiovascular: Negative for chest pain and palpitations. Gastrointestinal: Negative for abdominal pain, constipation, diarrhea, nausea and vomiting. Genitourinary: Negative for difficulty urinating and dysuria. Musculoskeletal: Negative for arthralgias and myalgias. Skin: Negative for rash and wound. Neurological: Positive for headaches. Negative for dizziness. All other systems reviewed and are negative. Past medical/family/social history: reviewed and updated, see documented in patient's chart. Physical Exam: BP 133/78 Pulse 71 Ht 1.626 m (5' 4 ) Wt 131.8 kg (290 lb 8 oz) BMI 49.86 kg/m Smoking Status Never Smoker Body mass index is 49.86 kg/m . Physical Exam Constitutional: Appearance: She is morbidly obese. HENT: Head: Normocephalic and atraumatic. Eyes: Pupils: Pupils are equal, round, and reactive to light. Neck: Musculoskeletal: Normal range of motion and neck supple. Cardiovascular: Rate and Rhythm: Normal rate and regular rhythm. Heart sounds: Normal heart sounds. Pulmonary: Effort: Pulmonary effort is normal. Breath sounds: Normal breath sounds. Abdominal: Palpations: Abdomen is soft. Skin: General: Skin is warm and dry. Neurological: Mental Status: She is alert and oriented to person, place, and time. Assessment/Plan: 1. Intractable migraine with aura with status migrainosus Will attempt to get patient Emgality through insurance again - propranolol 10 MG tablet; Take 1 tablet by mouth 3 times daily. Dispense: 90 tablet; Refill: 2 - Galcanezumab-gnlm (Emgality) 120 MG/ML Solution Auto-injector; Inject 1 Syringe under the skin every 30 days. Dispense: 1 mL; Refill: 2 Orders and follow up as documented in patient record; Medications Discontinued During This Encounter Medication Reason propranolol 10 MG tablet Reorder Requested Prescriptions Signed Prescriptions Disp Refills propranolol 10 MG tablet 90 tablet 2 Sig: Take 1 tablet by mouth 3 times daily. Galcanezumab-gnlm (Emgality) 120 MG/ML Solution Auto-injector 1 mL 2 Sig: Inject 1 Syringe under the skin every 30 days. Patient was advised to call with any questions or concerns. If symptoms worsen patient was advised to follow up in our office or the Emergency Dept. Benefits, Risks, Contraindications, and Complications of recommended treatments were explained the patient understands and agrees to proceed with plan. Veda Philip MD 05/17/2020 * Misa Kruse - 05/17/2020 1:45 PM EST Nurse Note: Review of Systems Constitutional: Negative for fatigue and fever. HENT: Negative for congestion, ear pain and sore throat. Eyes: Negative for pain and redness. Respiratory: Positive for cough. Negative for shortness of breath. Cardiovascular: Negative for chest pain and palpitations. Gastrointestinal: Negative for abdominal pain, constipation, diarrhea, nausea and vomiting. Genitourinary: Negative for difficulty urinating and dysuria. Musculoskeletal: Negative for arthralgias and myalgias. Skin: Negative for rash and wound. Neurological: Positive for headaches. Negative for dizziness. All other systems reviewed and are negative. documented in this encounter* Veda Philip MD - 08/20/2020 10:15 AM EST Chief Complaint Patient presents with Migraine Normally gets samples from Dr. Payan's office due to insurance not covering it Aimovig and hasn't made it over to [facility] Foot Injury Dropped a 5 lb weight on foot. ER doc wanted pt to see PCP to see if she can go back to work or if any f/u XR are needed Weight Gain Would like to go see a Staffing Account Manager. HPI: Migraines: she was getting samples of Aimovig, insurance won't cover it, she has been using Maxalt and Nurtec, she was on imitrex in the past but did not tolerated it due to side effects, She does tolerate the maxalt. She wants to go back on the topiramate because the insurance fight is exhausting and she continues to get her headaches. She states the Aimovig did work much better for her but she just wants something to help reduce her headaches some. Regarding Anxiety/Depression: Vishal presents with the complaint of anxiety/depression which is currently under good control. She reports the following triggers: stress, Other symptoms include: occasional anxiety Current treatment includes: Pristiq Significant medical conditions: see problem list Foot injury: dropped a kettle ball on her foot, hit the lateral edge of her foot but the xray was read as an injury to the great toe and second toe so they were corinna taped together, she states this has caused them to be more sore. She has no swelling and she also reports plantar fasciitis symptomsin this foot for the past month. Weight gain: she has made some diet changes and hasn't lost, she started some exercise in the past month. She is interested in seeing a counter tacker, following an kenny on her phone, following calories, stopped caffeine, walking 1 mile three times per week. She is eating 2000 calories per day, most of the time she is more likely to do [id number]. Eating a lot of steamed veggies, grilled chicken, shelikes pasta a lot, she has been going by serving sizes and going by carb count, trying to stay lessthan 100 per day. She started all of this 2 months ago. She has lost 7 lbs. ROS: Review of Systems Nurse Note: Review of Systems Constitutional: Negative for fatigue and fever. HENT: Negative for congestion, ear pain and sinus pain. Eyes: Negative for pain and redness. Respiratory: Negative for cough and shortness of breath. Cardiovascular: Negative for chest pain and palpitations. Gastrointestinal: Negative for abdominal pain, constipation, diarrhea, nausea and vomiting. Genitourinary: Negative for difficulty urinating and dysuria. Musculoskeletal: Negative for arthralgias and myalgias. Skin: Negative for rash and wound. Neurological: Positive for headaches. Negative for dizziness. All other systems reviewed and are negative. Past medical/family/social history: reviewed and updated, see documented in patient's chart. Physical Exam: BP 122/77 Pulse 63 Ht 1.626 m (5' 4 ) Wt 131.2 kg (289 lb 4.8 oz) BMI 49.66 kg/m Smoking Status Never Smoker Body mass index is 49.66 kg/m . Physical Exam Constitutional: Appearance: She is morbidly obese. HENT: Head: Normocephalic and atraumatic. Eyes: Pupils: Pupils are equal, round, and reactive to light. Cardiovascular: Rate and Rhythm: Normal rate and regular rhythm. Heart sounds: Normal heart sounds. Pulmonary: Effort: Pulmonary effort is normal. Breath sounds: Normal breath sounds. Abdominal: Palpations: Abdomen is soft. Musculoskeletal: Cervical back: Normal range of motion and neck supple. Feet: Skin: General: Skin is warm and dry. Neurological: Mental Status: She is alert and oriented to person, place, and time. Assessment/Plan: 1. Intractable migraine with aura with status migrainosus Continue topiramate, can discuss adjustment in therapy if headaches worsen or abortive medications are not effective - topiramate 25 MG tablet; Take 1 tablet by mouth 2 times daily. Dispense: 60 tablet; Refill: 2 2. Post depression Chronic stable, continue same therapy - desvenlafaxine succinate (Pristiq) 50 MG Tab SR 24 HR; Take 1 tablet by mouth daily. Dispense: 30tablet; Refill: 5 3. Injury of left foot, subsequent encounter Recommend supportive shoe, activity as tolerated 4. BMI 45.0-49.9, adult Reviewed diet changes, activity level, recommend GBOMBS, Orders and follow up as documented in patient record; Time spent: 30 (LVL3=20, LVL4=30, LVL5=40) On preparation for patient visit (reviewing previous chart, current medical records, previous history, exam, testing, procedures, and medications). Face to face encounter obtaining history from patient/family/caregiver, independent interpreting of results (tests, labs, procedures, imaging), and communicating and explaining results. Coordination of care, preparing and printing discharge instructions, and any educational material. Documenting clinical information in the electronic health record, reviewing OARRS as needed. Medications Discontinued During This Encounter Medication Reason desvenlafaxine succinate (Pristiq) 50 MG Tab SR 24 HR Reorder topiramate 25 MG tablet Reorder Requested Prescriptions Signed Prescriptions Disp Refills topiramate 25 MG tablet 60 tablet 2 Sig: Take 1 tablet by mouth 2 times daily. desvenlafaxine succinate (Pristiq) 50 MG Tab SR 24 HR 30 tablet 5 Sig: Take 1 tablet by mouth daily. Patient was advised to call with any questions or concerns. If symptoms worsen patient was advised to follow up in our office or the Emergency Dept. Benefits, Risks, Contraindications, and Complications of recommended treatments were explained the patient understands and agrees to proceed with plan. Veda Philip MD 08/21/2020 * Vishal Martin - 08/20/2020 10:15 AM EST Nurse Note: Review of Systems Constitutional: Negative for fatigue and fever. HENT: Negative for congestion, ear pain and sinus pain. Eyes: Negative for pain and redness. Respiratory: Negative for cough and shortness of breath. Cardiovascular: Negative for chest pain and palpitations. Gastrointestinal: Negative for abdominal pain, constipation, diarrhea, nausea and vomiting. Genitourinary: Negative for difficulty urinating and dysuria. Musculoskeletal: Negative for arthralgias and myalgias. Skin: Negative for rash and wound. Neurological: Positive for headaches. Negative for dizziness. All other systems reviewed and are negative. documented in this encounter* Irais Rucker MD - 03/23/2019 9:28 AM EDT Section Progress Note Assessment/Plan: Status post section: Doing well postoperatively. Discharge home with standard precautions and return to office in 4-6 weeks. Subjective: Day 3: Delivery The patient feels well. The patient denies emotional concerns. Pain is well controlled with currentmedications. Urinary output is adequate. The patient is ambulating well. The patient is tolerating a normal diet. Patient reports flatus yes. The baby is well Baby is feeding via Information for the patient's : Codie Seals [[id number]] Feeding Type: Formula Objective: Vital signs in last 24 hours: Temp: [97.4 F (36.3 C)-98.7 F (37.1 C)] 97.5 F (36.4 C) Heart Rate: [72-85] 73 Resp: [14] 14 BP: (109-131)/(57-84) 123/81 General: alert, appears stated age and cooperative Cardiac Eval: regular rate and rhythm Lung Eval: lungs clear to auscultation Bowel Sounds: active Lochia: appropriate Uterine Fundus: firm Incision: healing well, no significant drainage, no dehiscence, no significant erythema DVT Evaluation: No evidence of DVT seen on physical exam. * Irais Rucker MD - 03/22/2019 8:48 AM EDT Section Progress Note Assessment/Plan: Status post section: Doing well postoperatively. Continue current care. Subjective: Day 2: Delivery The patient feels well. The patient denies emotional concerns. Pain is well controlled with currentmedications. Urinary output is adequate. The patient is ambulating well. The patient is tolerating a normal diet. Patient reports flatus yes. The baby is well Baby is feeding via Information for the patient's : Codie Seals [[id number]] Feeding Type: Formula Objective: Vital signs in last 24 hours: Temp: [97.4 F (36.3 C)-97.8 F (36.6 C)] 97.7 F (36.5 C) Heart Rate: [76-98] 98 Resp: [14-18] 14 BP: (105-117)/(69-76) 115/76 General: alert, appears stated age and cooperative Cardiac Eval: regular rate and rhythm Lung Eval: lungs clear to auscultation Bowel Sounds: active Lochia: appropriate Uterine Fundus: firm Incision: healing well, no significant drainage, no dehiscence, no significant erythema DVT Evaluation: No evidence of DVT seen on physical exam. * Irais Rucker MD - 03/21/2019 7:56 AM EDT Section Progress Note Assessment/Plan: Status post section: Doing well postoperatively. Continue current care. Subjective: Day 1: Delivery The patient feels well. The patient denies emotional concerns. Pain is well controlled with currentmedications. Urinary output is adequate. The patient is ambulating well. The patient is tolerating a normal diet. Patient reports flatus yes. The baby is well Baby is feeding via Information for the patient's : Codie Seals [[id number]] Feeding Type: Formula Objective: Vital signs in last 24 hours: Temp: [97.7 F (36.5 C)-101.3 F (38.5 C)] 97.8 F (36.6 C) Heart Rate: [49-160] 49 Resp: [14-18] 14 BP: (100-146)/(47-97) 118/78 General: alert, appears stated age and cooperative Cardiac Eval: regular rate and rhythm Lung Eval: lungs clear to auscultation Bowel Sounds: active Lochia: appropriate Uterine Fundus: firm Incision: healing well, no significant drainage, no dehiscence, no significant erythema DVT Evaluation: No evidence of DVT seen on physical exam. * Jo Carlos RN - 03/21/2019 2:41 AM EDT Admit from birthing suite via bed in stable condition. Review POC for pm shift. White board updatedand IP phone number provided. Oriented to room and call light. Instructed to not get out of bed, verbalizes understanding. Ice water provided. Infant placed in crib at bedside to allow mom a nap. Call light in reach. documented in this encounter* Ruthie Archibald Bertha, DO - 12/23/2019 2:20 PM EDT Vishal Child 24 y.o. female CHIEF COMPLAINT: Headache HISTORY OF PRESENT ILLNESS: Vishal was evaluated on 12/23/2019. Thank you for your referral on this pleasant 24-year-old right-handed woman with chronic migraine with aura. Her headaches began at age 17, and there is a family history of migraine. Her headaches increased in frequency and severity over the years, and exacerbated . Topamax helped her headaches initially, however the effect wore off. She did experience some side effects ofparesthesia. She had a loading dose of Emgality 240 mg 5 days ago and has been headache free. Age at headache onset:17 Family history of headache: mom Duration/Location of headache: right side and holocranial / 6 hours Frequency of headache: were 5/ week Aura: 20 minutes Miss work/activities:stays at work Triggers: tool little sleep Nausea/Vomiting/Photo/Sono:+/-/+/+ Neuro symptoms associated:none OTC medication frequency: Tylenol and Ibuprofen 3+3 and could stay at work Prescribed preventive meds:tried Topamax /tried Emgality x 1 month / Prescribed abortive meds:sumatriptan -nausea and dizzy Evaluation(scans): Laboratory investigations:lab in March normal CBC and lytes PMHx: depression-kidney stones are listed on her chart thought she denies PSHx: hernan Medications:Emgality x 1 month-see list, Nexplanon has not increased the frequency of her headaches. Pristiq has not affected the frequency of her headaches. 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 REVIEW OF SYSTEMS: [employer] school Baby 9 months old Sleep:not very good Caffeine:3 cups of coffee Head trauma: none Water consumption: gallon Missed meals: Exercise:none Depression: 6 months /zoloft first / ALLERGIES: Allergies Allergen Reactions Bee Venom Swelling PAST MEDICAL HISTORY: Past Medical History: Diagnosis Date Anxiety Frequency of micturition Morbid (severe) obesity due to excess calories Pain in left ankle and joints of left foot Pain in left foot Post depression Sting from hornet, wasp, or bee SOCIAL HISTORY: Social History Socioeconomic History Marital status: Spouse name: Not on file Number of children: Not on file Years of education: Not on file Highest education level: Not on file Occupational History Not on file Social Needs Financial resource strain: Not on file Food insecurity Worry: Not on file Inability: Not on file Transportation needs Medical: Not on file Non-medical: Not on file Tobacco Use Smoking status: Never Smoker Smokeless tobacco: Never Used Substance and Sexual Activity Alcohol use: Yes Comment: Occasionally Drug use: No Sexual activity: Yes Partners: Male control/protection: Pill Lifestyle Physical activity Days per week: Not on file Minutes per session: Not on file Stress: Not on file Relationships Social connections Talks on phone: Not on file Gets together: Not on file Attends restoration service: Not on file Active member of club or organization: Not on file Attends meetings of clubs or organizations: Not on file Relationship status: Not on file Intimate partner violence Fear of current or ex partner: Not on file Emotionally abused: Not on file Physically abused: Not on file Forced sexual activity: Not on file Other Topics Concern Service Not Asked Blood Transfusions Not Asked Caffeine Concern Not Asked Occupational Exposure Not Asked Hobby Hazards Not Asked Sleep Concern Not Asked Stress Concern Not Asked Weight Concern Not Asked Special Diet Not Asked Back Care Not Asked Exercise Not Asked Bike Helmet Not Asked Seat Belt Not Asked Domestic Violence No Social History Narrative Not on file 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 [place] OUTPATIENT MEDICATIONS PRIOR TO VISIT: Current Outpatient Medications: desvenlafaxine succinate (Pristiq) 50 MG Tab SR 24 HR, Take 1 tablet by mouth daily., Disp: 30 tablet, Rfl: 5 Etonogestrel 68 MG SC implant, Inject 68 mg under the skin., Disp: , Rfl: folic acid 1 MG tablet, Take 1 mg by mouth daily., Disp: , Rfl: Galcanezumab-gnlm (Emgality) 120 MG/ML Solution Auto-injector, Inject 240 mg under the skin every 30 days., Disp: 2 mL, Rfl: 0 Galcanezumab-gnlm (Emgality) 120 MG/ML Solution Auto-injector, 1 sub q dos monthly, Disp: 1 mL, Rfl: 6 rizatriptan (Maxalt) 10 MG tablet, 1/2 - 1 for a migraineMay repeat in 2 hours if needed, Disp: 12 tablet, Rfl: 3 topiramate 25 MG tablet, Take 1 tablet by mouth 2 times daily. (Patient not taking: Reported on 12/23/2019), Disp: 60 tablet, Rfl: 1 PHYSICAL EXAM: Blood pressure 121/61, pulse 78, resp. rate 18, height 1.626 m (5' 4 ), weight 128.5 kg (283 lb 6.4oz), SpO2 97 %, not currently . Body mass index is 48.65 kg/m . Her speech is fluent without dysarthria or dysphasia. Pupils are round reactive to light and accommodation. Extract her muscles are full. Disc margins are sharp and flat with spontaneous venous pulsations. Devlin are full. There is no evidence of TMD. Hearing intact bilaterally to spoken word. Minimal tenderness in the occipital and posterior cervical region. Deep tendon reflexes are 2+ and symmetric. Gait and station normal. Romberg testing negative. No evidence of tremor. Heart regular rate rhythm without murmur or ectopy. Lungs clear to auscultation without rales or rhonchi. No bruits auscultated carotids. ASSESSMENT/IMPRESSION: Problem List Items Addressed This Visit Cardiovascular Intractable migraine with aura with status migrainosus Behavioral Health Generalized anxiety disorder - Primary PLAN: She will taper topiramate Emgality 120 mg subcutaneous monthly side effects discussed with patient and the fact that long-term side effects are unknown, she knows not to become on this medication Rizatriptan 10 mg for moderate headache Continue magnesium and riboflavin If headaches persist, consideration imaging studies Laboratory investigations have been complete Thank you very much for allowing me to participate in the care of your patient Ruthie Archibald DO documented in this encounter Reason for Referral Status Reason Specialty Diagnoses / Procedures Referred By Contact Referred To Contact Closed Otolaryngology Diagnoses Enlarged tonsils Snoring Veda Philip MD [address] [place] [address] Jeronimo Simeon MD [address] [address] Hospital Course * Lucho Tamayo MD - 01/22/2019 9:02 AM EDT DISCHARGE SUMMARY Patient: Vishal Seals Date of : 1995 Site: [facility] Family Provider: Veda Philip MD Admit Date: 01/20/2019 Discharge Date/Time: 01/22/2019 Disposition: home Clinical Summary Hospital Course: Vishal Seals is a 23 y.o. female patient of Veda Philip MD with a history of Right flank pain with Rt hydronephrosis noted on U/S. No distinct obstruction identified. Discharge Diagnoses: Rt flank pain w/ Rt hydronephrosis 31 wk gestation. Surgeries: None Consults: Procedures Inpatient consult to Urology Allergies: Bee venom protein (honey bee) Discharge Diet: Condition: stable Discharge Medications: Current Discharge Medication List CONTINUE these medications which have NOT CHANGED Details PNV no.95/ferrous fum/folic ac ( ORAL) Take by mouth . busPIRone (BUSPAR) 5 MG tablet Take 5 mg by mouth as needed (MAY TAKE UP TO 3X A DAY) . STOP taking these medications topiramate (TOPAMAX) 25 MG tablet Comments: Reason for Stopping: Physician(s) Family Provider: Veda Philip MD, Address: [address] [place] [id number] Follow Up: Veda Philip MD [address] [place], [place] [id number] Additional Information: Pt's pain symptoms much improved this AM. Will d/c home, encourage copious fluids and f/u with office visit per routine. Patient instructions, including activity, were given to the patient/family at discharge. Please seethe After Visit Summary in the electronic medical record for details. Time spent on discharge: < 30 minutes Completed by: Lucho Tamayo MD on 01/22/19, 9:02 AM documented in this encounter* Irais Rucker MD - 03/23/2019 9:26 AM EDT DISCHARGE SUMMARY Patient: Vishal Seals Date of : 1995 Site: [facility] Provider: Veda Philip MD Admit Date: 03/19/2019 Discharge Date/Time: 03/23/19 Morning Disposition: Home Clinical Summary Hospital Course: Vishal Seals is a 23 y.o. female patient of Veda Philip MD with a history of macrosomia s/p primary for arrest in second stage. Discharge Diagnoses: S/p primary section Surgeries: 03/20/19 SECTION Consults: No orders of the defined types were placed in this encounter. Allergies: Bee venom protein (honey bee) Discharge Diet: Resume home diet Condition: Good Discharge Medications: Current Discharge Medication List START taking these medications Details HYDROcodone-acetaminophen (NORCO) 5-325 mg per tablet Take 1 (one) tablet to 2 (two) tablets by mouth every 4 (four) hours as needed (Days supply per fill: 5) . Qty: 30 tablet, Refills: 0 Associated Diagnoses: 39 weeks gestation of ibuprofen (ADVIL,MOTRIN) 800 MG tablet Take 1 (one) tablet (800 mg total) by mouth every 6 (six) hours as needed for pain . Qty: 30 tablet, Refills: 0 CONTINUE these medications which have NOT CHANGED Details ferrous sulfate (IRON ORAL) Take by mouth . PNV no.95/ferrous fum/folic ac ( ORAL) Take by mouth . Physician(s) Family Provider: Veda Philip MD, Address: [address] [place], [place] [id number] Follow Up: Irais Rucker MD [address] [place], [place] [address]pedro luis [place] [id number] Follow up in 1 week(s) Additional Information: instructions given regarding fever, incisional care, activity and bleeding.Rx given for Motrin and Emmett. F/U 1 week for incision check Patient instructions, including activity, were given to the patient/family at discharge. Please seethe After Visit Summary in the electronic medical record for details. Time spent on discharge: < 30 minutes Completed by: Irais Rucker MD on 03/23/19, 9:26 AM documented in this encounter Discharge Instructions * Attachments The following attachments cannot be sent through Care Everywhere. * Hydronephrosis: General Info (Citizen Of [place]) documented in this encounter* Attachments The following attachments cannot be sent through Care Everywhere. * : [place] Chong Contractions (Citizen [place]) * : Weeks 34 to 36 (Citizen Of [place]) * : When to Call (After 20 Weeks): General Info (Citizen [place]) documented in this encounter* Attachments The following attachments cannot be sent through Care Everywhere. * : High Blood Pressure (Citizen Of [place]) * : Kick Counts (Citizen Of [place]) * : Week 37 (Citizen [place]) * : When to Call (After 20 Weeks): General Info (Citizen [place]) documented in this encounter* Attachments The following attachments cannot be sent through Care Everywhere. * Cellulitis (Citizen [place]) documented in this encounter* Attachments The following attachments cannot be sent through Care Everywhere. * Contusion (Citizen Of [place]) * Toe Fracture (Citizen [place]) documented in this encounter* Discharge Instr - Other Orders* Pelaez, Bere, RN - 03/23/2019 9:41 AM EDT A guide to Caring for Yourself and Your Baby was given to and reviewed with patient. Patient encouraged to reference book when she gets home. * Additional Instructions* Bere Pelaez RN - 03/20/2019 Post Instructions After delivery you may experience some symptoms which may cause concern but are not serious. Some examples include: nausea, abdominal discomfort, breast tenderness or engorgement, vaginal discharge or spotting, fatigue, swelling or blues. You should contact our office however if you experience any of the following: - Fever >100.5 F - Persistent vomiting - Pain/redness with swelling in either leg - Worsening abdominal pain - Difficulty breathing or chest pain - Heavy vaginal bleeding - Difficulty urinating - Severe depression - Localized breast pain/redness - Persistent constipation - Foul smelling vaginal discharge - Swelling, redness, or fluid leakage from an incision - Separation of skin edges with drainage or excessive bleeding from a tubal ligation or incision. Some points to keep in mind: - Take a nap while the baby is sleeping. Get as much rest as possible! - You should place nothing in the vagina for a least 6 weeks. - No tub bathing or swimming for 4 weeks. - You may climb stairs cautiously! - Walking is great exercise within limits! - Avoid constipation maintain a regular diet with plenty of fiber and fluids. Use a stool softener and Milk of Mag if you need a laxative. - Continue taking your vitamins for at least 3 months - Use [id number] meds for pain. You may have been prescribed medications to use if necessary. If you had a vaginal delivery: - Use the sitz bath frequently for comfort. Cleanse the vagina/perineum with plain water after urinating/bowel movements, using the squirt bottle. If you had a section: - Do not lift anything in excess of 20 lbs for the first 2 weeks post operatively. - Do not drive for at least 2 weeks - Wash the incision daily while showering. After showering, the incision should be thoroughly driedand kept dry. Use a mathematics department chair (on cool) after showing if necessary Call soon to schedule an office follow up visit in 5 to 7 days to remove external chichi. If you don t have visible chichi, schedule a follow up appointment in 7 to 10 days post operatively for an incision check. Remove steri-strips one week post operatively after showering. Feel free to call the office at any time with questions. documented in this encounter* Instructions* Leta Morgan RN - 03/07/2019 Keep next office appt. Use count the kick sheet, return if any further problems * Attachments The following attachments cannot be sent through Care Everywhere. * : KICK COUNTS ([place]) * : HIGH BLOOD PRESSURE ([place]DI[place]) documented in this encounter Additional Source Comments INFORMATION SOURCE (unrecogn ized section and content) DATE CREATED AUTHOR AUTHOR'S ORGANIZ ATION 09/15/2018 [facility] DATE CREATED AUTHOR AUTHOR'S ORGANIZ ATION 11/13/2018 [facility] DATE CREATED AUTHOR AUTHOR'S ORGANIZ ATION 05/24/2021 [facility] DATE CREATED AUTHOR AUTHOR'S ORGANIZ ATION 06/21/2021 [facility] DATE CREATED AUTHOR AUTHOR'S ORGANIZ ATION 11/27/2021 [facility] DATE CREATED AUTHOR AUTHOR'S ORGANIZ ATION 06/05/2023 [facility] DATE CREATED AUTHOR AUTHOR'S ORGANIZ ATION 06/12/2023 [facility] Reason for Visit (unrecogniz ed section and content) Reason Comments Sore Throat NEW PATIENT-enlarged tonsils and snoring Status Reason Specialty Diagnoses / Procedures Referred By Contact Referred To Contact Closed Otolaryngology Diagnoses Enlarged tonsils Snoring Veda Philip MD [address] [place] [address] Jeronimo Simeon MD [address] [place] [id number] Reason Comments Morning Sickness pt vomiting since 02 00 Reason Comments Abdominal Cramping Reason Comments Hypertension increased BP at offi ce, feeling dizzy and seeing spots at work. Headache Reason Comments Wound Check Reason Comments Anxiety Was put on Zoloft by OBGYN. Having hallcinations, Some dizziness and nausea with it. Migraine Since baby was born she had some topiramate tablets left and they don't seem to help as good as they did before baby. Hallucinations Reason Comments Depression Pt states she is lik ing Pristiq. Pt states it helps her sleep so she takes it at night time Migraine Reason Comments Cough cough since May , worse x 2 days. Pain in back with breathing, SOB and fever Reason Comments Depression Migraine Patient states she i s not having luck with Migraine medicine. Dr. Archibald sent in Emgality and her insurance wont cover it. Fatigue Patient states since being taken off Topamax she gained 20lbs, hasn't been able to sleep Reason Comments Migraine Patient states she w as put on topiramate and propranonlol and last visit and states the migraines are the same. Reason Comments Foot Injury Reason Comments Migraine Normally gets sample s from Dr. Payan's office due to insurance not covering it [employer] and hasn't made it over to [facility] Foot Injury Dropped a 5 lb weigh t on foot. ER doc wanted pt to see PCP to see if she can go back to work or if any f/u XR are needed Weight Gain Would like to go see a Staffing Account Manager. 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 Sumatripton caused dizziness and vomitting. Reason Comments Migraine Anxiety Reason Comments Depression States anxiety has b een getting worse. States she had a panic attack for the first time the other day. Migraine Patient states Topir amate helps only a small bit. Reason Comments Shortness of Breath C/o SOB, chest tight ness and congestion since Reason Comments Fatigue Patients states that all of her symptoms started about a week ago, been taking Zofran for migraines along with tylenol but ends up vomiting everything back up. Abdominal Pain Pain starts in the c enter of abdomin then goes down, very dull feeling. Vomiting Nausea Patient states that when she eats anything her pain becomes worse, ends up becoming sick. Pt states she has hardly had anything to eat in the past three days. Fever Low grade fever, nev er got past 100 Dizziness Patient states while standing she becomes light headed frequently. She's not dizzy all the time but especially when she stands too quickly it's worse. Urinary Frequency Patient says she has the urgency but when she tries to go she can't, more of a trickle. Reason Comments URI C/O cough, fever, di arrhea, fatigue and weakness x 3 weeks. Pt reports 24 weeks Reason Comments Back Pain Left lower back pain Mike Logan MD - 01/21/2019 2:46 PM PAULINETChIrais posada MD - 03/20/2019 10:51 PM EDT H&P Notes (unrecognized sect ion and content) Obstetrics Inpatient H&P 01/21/2019 Mike Logan MD [facility] Patient: Vishal Seals Date of : 1995 (23 y.o.) PCP: Veda Philip MD ASSESSMENT/PLAN: Vishal Seals 23 y.o. female 1 para 0 who presented through triage in labor and delivery with extreme back pain. She was having nausea and vomiting and an ultrasound revealed partial hydronephrosis on the right side. She was given antiemetics and pain medication. She was admitted for urologic consultation and possible placement of a stent. SUBJECTIVE: Chief Complaint/Reason for Visit: Severe back pain with nausea and vomiting History of Present Illness: Vishal Seals is a 23 y.o. female 1 para 0. She is now at approximately 31 weeks gestation. She presented through triage in labor and delivery with extreme back pain nausea and vomiting. Urinalysis revealed many red blood cells and an ultrasound was done for obstruction versus kidney stone. Stone was not visualized however there was some obstruction on the right. Stent placement was offered by Dr. Lobo who was consulted however the patient decided to wait and see if she would get better over the course of the morning. Review of Systems: Unremarkable Past Medical History: Diagnosis Date Migraines Past Surgical History: Procedure Laterality Date ADENOIDECTOMY 06/19/2017 CHOLECYSTECTOMY CHOLECYSTECTOMY TONSILLECTOMY 06/19/2017 TYMPANOSTOMY TUBE PLACEMENT WISDOM TOOTH EXTRACTION Family History Problem Relation Age of Onset Meniere's disease Mother Cancer Maternal Grandmother Diabetes Maternal Grandmother Hypertension Maternal Grandfather Social History Tobacco Use Smoking Status Never Smoker Smokeless Tobacco Never Used Additional History Comments: None Allergies: Bee venom protein (honey bee) vitamins OBJECTIVE: Physical Examination: BP 103/64 (BP Location: Left arm, Patient Position: Lying) Pulse 68 Temp 97.8 F (36.6 C) (Oral) Resp 14 Ht 5' 4 Wt 121.1 kg (267 lb) LMP 06/19/2018 SpO2 96% BMI 45.83 kg/m Laboratory and Additional Data Reviewed: Reviewed 01/21/19 2:46 PM: Urinalysis revealed moderate blood with 110 RBCs and rare bacteria. The ultrasound of her kidneys revealed partial obstruction on the right side. documented in this encounter HISTORY AND PHYSICAL Assessment/Plan: Active Problems: 39 weeks gestation of Risks, benefits, alternatives and possible complications have been discussed in detail with the patient. Pre-admission, admission, and post admission procedures and expectations were discussed in detail. All questions answered, all appropriate consents will be signed at the Hospital. Admission is for Anticipate vaginal delivery.. Subjective: Chief Complaint Patient presents with Scheduled Induction Vishal Seals is a 23 y.o. female with Estimated Date of Delivery: 03/26/19 at 39w1d gestation who is being admitted for induction of labor. Her current obstetrical history is significant for macrosomic fetus . Patient reports no complaints. Movement: normal. History: Past Medical History: Diagnosis Date Mental disorder anxiety Migraines Past Surgical History: Procedure Laterality Date ADENOIDECTOMY 06/19/2017 CHOLECYSTECTOMY CHOLECYSTECTOMY COLPOSCOPY TONSILLECTOMY 06/19/2017 TYMPANOSTOMY TUBE PLACEMENT WISDOM TOOTH EXTRACTION Family History Problem Relation Age of Onset Meniere's disease Mother Cancer Maternal Grandmother Diabetes Maternal Grandmother Hyperlipidemia Maternal Grandmother Hypertension Maternal Grandfather Diabetes Maternal Grandfather Hyperlipidemia Maternal Grandfather COPD Maternal Grandfather Heart disease Maternal Grandfather Diabetes Paternal Grandfather Social History Socioeconomic History Marital status: Spouse name: Not on file Number of children: Not on file Years of education: Not on file Highest education level: Not on file Occupational History Not on file Social Needs Financial resource strain: Not on file Food insecurity: Worry: Not on file Inability: Not on file Transportation needs: Medical: Not on file Non-medical: Not on file Tobacco Use Smoking status: Never Smoker Smokeless tobacco: Never Used Substance and Sexual Activity Alcohol use: Not Currently Drug use: Never Sexual activity: Yes Partners: Male Lifestyle Physical activity: Days per week: Not on file Minutes per session: Not on file Stress: Not on file Relationships Social connections: Talks on phone: Not on file Gets together: Not on file Attends restoration service: Not on file Active member of club or organization: Not on file Attends meetings of clubs or organizations: Not on file Relationship status: Not on file Other Topics Concern Not on file Social History Narrative Not on file Allergy Information: I have reviewed the patient's allergies. Bee venom protein (honey bee) Home Medications: Outpatient Medications as of 03/20/2019 Medication Sig PNV no.95/ferrous fum/folic ac ( ORAL) Take by mouth . Objective: Vital signs in last 24 hours: Temp: [97.9 F (36.6 C)-101.3 F (38.5 C)] 100.8 F (38.2 C) Heart Rate: [67-160] 137 Resp: [16-18] 16 BP: (76-157)/(39-97) 136/70 Abdomen: gravid Pelvis: closed, soft, post FHT: 140 BPM Uterine Size: size greater than dates Consistency: firm Laboratory and Additional Data Reviewed: Laboratory 03/20/19 10:52 PM documented in this encounter Paul Dodd MD - 01/20/2019 7:38 PM EDT Consult Notes (unrecognized section and content) PATIENT NAME: Vishal Seals : 1995 ADMITTED: [id number] CSN: [id number] REFERRING PROVIDER: Mike Logan MD PCP Veda Philip MD REASON FOR CONSULTATION : R flank pain PAST UROLOGIC HISTORY: Kidney stone spontaneous passage couple years ago Past Medical History: Diagnosis Date Migraines Past Surgical History: Procedure Laterality Date ADENOIDECTOMY 06/19/2017 CHOLECYSTECTOMY CHOLECYSTECTOMY TONSILLECTOMY 06/19/2017 TYMPANOSTOMY TUBE PLACEMENT WISDOM TOOTH EXTRACTION Family History Problem Relation Age of Onset Meniere's disease Mother Cancer Maternal Grandmother Diabetes Maternal Grandmother Hypertension Maternal Grandfather Social History Socioeconomic History Marital status: Spouse name: Not on file Number of children: Not on file Years of education: Not on file Highest education level: Not on file Occupational History Not on file Social Needs Financial resource strain: Not on file Food insecurity: Worry: Not on file Inability: Not on file Transportation needs: Medical: Not on file Non-medical: Not on file Tobacco Use Smoking status: Never Smoker Smokeless tobacco: Never Used Substance and Sexual Activity Alcohol use: Not Currently Drug use: Never Sexual activity: Yes Partners: Male Lifestyle Physical activity: Days per week: Not on file Minutes per session: Not on file Stress: Not on file Relationships Social connections: Talks on phone: Not on file Gets together: Not on file Attends restoration service: Not on file Active member of club or organization: Not on file Attends meetings of clubs or organizations: Not on file Relationship status: Not on file Other Topics Concern Not on file Social History Narrative Not on file SOCIAL HISTORY: Reviewed. Nothing relevant to the current urologic problem ALLERGIES: Allergies reviewed Bee venom protein (honey bee) HOME MEDICATIONS: Outpatient Medications as of 01/20/2019 Medication Sig PNV no.95/ferrous fum/folic ac ( ORAL) Take by mouth . topiramate (TOPAMAX) 25 MG tablet Take 25 mg by mouth . REVIEW OF SYSTEMS: Reviewed. Nothing relevant to the current urologic problem VITAL SIGNS: BP 118/79 Pulse 79 Temp 97 F (36.1 C) Resp 16 Ht 5' 4 Wt 121.1 kg (267 lb) LMP 06/19/2018 SpO2 97% BMI 45.83 kg/m PHYSICAL EXAMINATION: General Appearance: Alert and oriented x 3, In no apparent distress HEENT: Head: Normocephalic, no lesions, without obvious abnormality. Neck: full range of motion Respiratory: clear to auscultation bilaterally, no wheezes or crackles, no tachypnea or accessory muscle use Cardiovascular: regular rate and rhythm, no murmur, brisk capillary refill Abdominal: soft, nontender, nondistended, no hepatosplenomegaly, no mass, normal bowel sounds Skin: no rashes, no jaundice. Normal coloration and turgor. No rashes. Neurological: Grossly normal motor and sensory exam. No focal deficits. Musculoskeletal: No joint tenderness, deformity or swelling. Psychiatric: Alert, oriented x 3. Normal mood and affect. REVIEW OF IMAGING STUDIES / LABORATORY DATA: Ultrasound exam have been reviewed noting definitively suggestive of stone in the kidney ureteral stone could not be ruled out. Mild hydronephrosis on the right side could be related to the itself. ASSESSMENT AND RECOMMENDATIONS: Vishal Seals is a 23 y.o. y/o female presenting with with right flank pain. Patient has history of urinary calculi of spontaneous passage. Urologic consultation was requested to address the issue of the right flank pain with consideration of placement of the double-J stent. Findings have been discussed with the patient. She had right-sided flank pain however it is not clear if this is secondary to the dilatation of the ureter secondary to the or stone. There is no firm evidence of the presence of the stone. I told the patient theoretically is a possible to place right ureteral stent however the stents also have their side effects and possible complications. My recommendation right now is to continue with observation. If her symptoms are getting better I will definitively not put the stent. On the other hand if her symptoms are worse we may place the stent to relieve the pain either because of obstructive stone which we cannot clearly identified or relief of hydronephrosis related to the . Numerous questions have been answered. Patient is agreeable we will keep her n.p.o. and reevaluate tomorrow. PAUL DODD MD Veda Philip MD documented in this encounter Quick Note - Perlita Boston RN - 01/22/2019 10:35 AM EDTPlan of Care - Perlita Boston RN - 01/22/2019 8:33 AM EDTQuick Note - Raquel Delgado RN - 01/21/2019 7:45 PM EDT Miscellaneous Notes (unrecog nized section and content) Discharge instructions given. Discharged to car with support person. POC updated Pt inquiring about diet. Primary RN notified, states pt is to be NPO starting at midnight. Pt updated. Understanding verbalized. POC updated Pt resting quietly in bed, up to void, medicated with IV demerol per dr baird d/t NPO status. Pt had 2 emesis within 10 min of admin, cool washcloth provided for comfort. Significant other at bedside, attentive to pt. Denies needs. documented in this encounter Ambulatory to car. Patient discharged to home with Baby boy. Reviewed discharge instructions with patient. Prescriptions given. Patient denies questions. Patient preparing babe for discharge Plan of care reviewed. Discharge education complete. Patient afebrile without signs and symptoms of infection. Pain well controlled with Vicodin and Motrin. Patient caring for self and babe independently. Patient plans to be discharged to home with babe today. POC reviewed. Pain goal and plan set with patient. Pt taking motrin and vicodin for pain management. Pt involved in infant care. Education ongoing. POC Reviewed Problem: Infection - Risk of, Surgical Site Infection Goal: Absence of infection signs and symptoms Outcome: Partially Met Problem: Pain Goal: Manage acute pain Outcome: Partially Met Problem: Plan for Discharge Goal: Knowledge of discharge plan and instructions Outcome: Partially Met Review and continue POC. . and self teaching ongoing. PO motrin and vicodin effective for pain. No signs or symptoms of abd incisional infection, afebrile. Tolerating regular diet well. Progressing well toward discharge home. Problem: Pain Goal: Reduced pain sensation Outcome: Partially Met Problem: Infection - Risk of, Surgical Site Infection Goal: Absence of infection signs and symptoms Outcome: Partially Met Problem: Plan for Discharge Goal: Knowledge of discharge plan and instructions Outcome: Partially Met Initiate POC and discharge education. . and self teaching ongoing. Duramorph and IV toradol effective for pain. No signs or symptoms of abd incisional infection, afebrile. Brief Post Operative Note Patient Name: Vishal Seals : 1995 (23 y.o.) Date of Service: 03/20/2019 - 03/21/2019 CSN: [id number] Procedure(s): SECTION Pre-Operative Diagnoses: * Failure to progress in labor [O62.2] Post-Operative Diagnoses: * Failure to progress in labor [O62.2] Surgeon(s) and Role: * Irais Rucker MD - Primary * Alexander Lind MD CERAMIST: Kike Morgan CRNA Tour Operator: Dede Nuñez RN Scrub Person: Raquel Delgado RN; Annette Dunbar LPN Nursery Nurse: Carmen Damon RN Operative findings: viable male Intra and immediate post-operative complications: none Type of anesthesia used: Epidural Estimated blood loss: 500 mL Estimated urine output: 100 mL Specimen(s): * No specimens in log * Implant(s): * No implants in log * Drain(s): Urethral Catheter Non-latex 16 Fr. (Active) Reassessment Unchd 03/20/2019 7:00 PM Site Assessment Clean;Intact 03/20/2019 8:00 AM Collection Container Standard drainage bag 03/20/2019 8:00 AM Reason for Continuing Urinary Catheterization past POD [address] 03/20/2019 8:00 AM Output (mL) 1000 mL 03/20/2019 2:00 PM Wound(s): * No LDAs found * Irais Rucker MD 03/21/2019 12:15 AM Section Delivery Note Diagnosis: Active Problems: 39 weeks gestation of Codie Seals [[id number]] Delivery Anesthesia Method: Epidural Operative Delivery Forceps attempted?: No [place] Presentation Presentation: Vertex [place] Information date/time: 03/20/19 234 Gender: Male Delivery type: , Low Transverse Delivery location: OB Unit Initial disposition: NICU/SCN Details: categorization: Primary priority: Unscheduled Delivery Providers Delivering clinician: Irais Rucker MD Other personnel: Provider Role Covering Attending Resident Healthcare Administrator Delivery Nurse Registered Nurse Delivery Assist Nurse Practitioner Cord No data filed Placenta No data filed [place] Apgars No data filed [place] Measurements Weight: 8 lb 14.9 oz (4050 g) Length: 20.866 Head Circumference: 14.37 Lacerations No data filed Other Procedures No data filed documented in this encounter Vasiliy Ochoa - 03/29/2019 9:18 PM Germania Taylor RN - 03/29/2019 9:05 PM Germania Taylor RN - 03/29/2019 9:01 PM Germania Taylor RN - 03/29/2019 8:50 PM EDT ED Notes (unrecognized secti on and content) PAGED DR. LOGAN. DR. FOWLER SPEAKING TO HIM NOW. Updated on POC, aware of timeframe for CT results. Denies further needs at this time, call light in reach, at side. Return to room from CT To CT via cart Denies needs at this time, call light in reach. Urine specimen collected per KHALIDA France, sent to lab [facility] ED Attending Note: NAME: Vishal Child 23 y.o. CSN: [id number] PCP: Veda Philip MD History: Chief Complaint: Wound Check HPI: The history was obtained from the patient. Vishal is a 23 y.o. female who presents with a chief complaint of Wound Check. Patient was on 03/20/2019, doing well, but yesterday removed Steri- Strips, and since then she has been having increasing sticky mixed colored drainage, along with some worsening abdominal pain, and mild redness around the wound. No fevers or chills, no nausea vomiting or diarrhea, Called her STEP FINISHER who recommended she come in for Steri-Strip replacement PMHx: Past Medical History: Diagnosis Date Mental disorder anxiety Migraines PMSx: Past Surgical History: Procedure Laterality Date ADENOIDECTOMY 06/19/2017 SECTION N/A 03/20/2019 Procedure: SECTION; Surgeon: Irais Rucker MD; Location: OB OR; Service: OBGYN CHOLECYSTECTOMY CHOLECYSTECTOMY COLPOSCOPY TONSILLECTOMY 06/19/2017 TYMPANOSTOMY TUBE PLACEMENT WISDOM TOOTH EXTRACTION FAM. Hx: Family History Problem Relation Age of Onset Meniere's disease Mother Cancer Maternal Grandmother Diabetes Maternal Grandmother Hyperlipidemia Maternal Grandmother Hypertension Maternal Grandfather Diabetes Maternal Grandfather Hyperlipidemia Maternal Grandfather COPD Maternal Grandfather Heart disease Maternal Grandfather Diabetes Paternal Grandfather SOC. Hx: Social History Socioeconomic History Marital status: Spouse name: Not on file Number of children: Not on file Years of education: Not on file Highest education level: Not on file Occupational History Not on file Social Needs Financial resource strain: Not on file Food insecurity: Worry: Not on file Inability: Not on file Transportation needs: Medical: Not on file Non-medical: Not on file Tobacco Use Smoking status: Never Smoker Smokeless tobacco: Never Used Substance and Sexual Activity Alcohol use: Not Currently Drug use: Never Sexual activity: Yes Partners: Male Lifestyle Physical activity: Days per week: Not on file Minutes per session: Not on file Stress: Not on file Relationships Social connections: Talks on phone: Not on file Gets together: Not on file Attends restoration service: Not on file Active member of club or organization: Not on file Attends meetings of clubs or organizations: Not on file Relationship status: Not on file Other Topics Concern Not on file Social History Narrative Not on file MEDs: Previous Medications Medication Sig ferrous sulfate (IRON ORAL) Take by mouth . HYDROcodone-acetaminophen (NORCO) 5-325 mg per tablet Take 1 (one) tablet to 2 (two) tablets by mouth every 4 (four) hours as needed (Days supply per fill: 5) . ibuprofen (ADVIL,MOTRIN) 800 MG tablet Take 1 (one) tablet (800 mg total) by mouth every 6 (six) hours as needed for pain . PNV no.95/ferrous fum/folic ac ( ORAL) Take by mouth . ALL: Allergies Allergen Reactions Bee Venom Protein (Honey Bee) Swelling PACU Vitals 03/29/19 2106 BP: 128/65 Pulse: 63 Resp: 14 Temp: SpO2: 99% Review of Systems Constitutional: Negative for activity change and appetite change. HENT: Negative for congestion and sinus pain. Eyes: Negative for pain and visual disturbance. Respiratory: Negative for cough, chest tightness, shortness of breath and wheezing. Cardiovascular: Negative for chest pain and leg swelling. Gastrointestinal: Positive for abdominal pain. Negative for diarrhea, nausea and vomiting. Genitourinary: Negative for dysuria. Musculoskeletal: Negative for joint swelling. Skin: Negative for rash. Neurological: Negative for dizziness, weakness and numbness. All other systems reviewed and are negative. Physical Exam Constitutional: Appearance: Normal appearance. She is not diaphoretic. HENT: Head: Normocephalic and atraumatic. Right Ear: External ear normal. Left Ear: External ear normal. Nose: Nose normal. Mouth/Throat: Mouth: Mucous membranes are moist. Eyes: General: No scleral icterus. Extraocular Movements: Extraocular movements intact. Pupils: Pupils are equal, round, and reactive to light. Neck: Musculoskeletal: Neck supple. Cardiovascular: Rate and Rhythm: Normal rate. Pulses: Normal pulses. Heart sounds: Normal heart sounds. No murmur. No gallop. Pulmonary: Effort: Pulmonary effort is normal. No respiratory distress. Breath sounds: No stridor. No wheezing or rales. Abdominal: Comments: The remainder the abdomen is soft and nontender without guarding Musculoskeletal: Normal range of motion. Skin: General: Skin is warm. Neurological: General: No focal deficit present. Mental Status: She is alert and oriented to person, place, and time. Mental status is at baseline. Psychiatric: Mood and Affect: Mood normal. Laboratory & Radiological Imaging (if done): Recent Results (from the past 24 hour(s)) BMP Collection Time: 03/29/19 7:26 PM Result Value Ref Range Sodium 140 135 - 145 mmol/L Potassium 3.9 3.5 - 5.1 mmol/L Chloride 108 98 - 108 mmol/L Bicarbonate 25 21 - 32 mmol/L Anion Gap 11 10 - 20 mmol/L Glucose 89 65 - 99 mg/dL BUN 19 8 - 25 mg/dL Creatinine 0.89 0.40 - 1.10 mg/dL eGFR 91 >=60 mL/min/1.73 m2 BUN/Creatinine Ratio 21.3 (H) 10.0 - 20.0 Calcium 8.5 8.4 - 10.2 mg/dL CBC Auto Differential Collection Time: 03/29/19 7:26 PM Result Value Ref Range WBC 11.34 (H) 4.50 - 11.00 K/mcL RBC 4.28 4.00 - 5.20 M/mcL Hemoglobin 11.2 (L) 12.0 - 16.0 g/dL Hematocrit 35.5 (L) 36.0 - 46.0 % MCV 82.9 80.0 - 100.0 fL MCH 26.2 26.0 - 34.0 pg MCHC 31.5 31.0 - 37.0 g/dL Platelets 385 150 - 400 K/mcL RDW - CV 15.4 (H) 11.6 - 14.8 % MPV 9.0 9.0 - 15.5 fL Neutrophils 67.3 % Lymphocytes 24.8 % Monocytes 6.3 % Eosinophils 0.7 % Basophils 0.4 % IG Percent 0.50 % Neutrophils Abs 7.63 (H) 1.70 - 7.00 K/mcL Lymphocytes Abs 2.81 0.90 - 4.00 K/mcL Monocytes Abs 0.72 0.30 - 0.90 K/mcL Eosinophils Abs 0.08 0.00 - 0.50 K/mcL Basophils Abs 0.04 0.00 - 0.30 K/mcL IG Absolute 0.06 0.00 - 0.30 K/mcL Nucleated RBC 0.0 % Nucleated RBC Abs 0.00 0.00 - 0.00 K/mcL Urinalysis Collection Time: 03/29/19 7:52 PM Result Value Ref Range Color, Urine Yellow Colorless, Yellow Clarity, Urine Hazy (A) Clear Specific [place] 1.023 1.005 - 1.025 pH, Urine 6.0 5.0 - 7.0 Protein, Urine Negative Negative mg/dL Glucose, Urine Negative Negative mg/dL Ketones, Urine Negative Negative mg/dL Bilirubin, Urine Negative Negative Urobilinogen, Urine <2.0 <2.0 mg/dL Blood, Urine Large (A) Negative Nitrite, Urine Negative Negative Leukocyte Esterase, Urine Large (A) Negative WBCs, Urine 55 (H) 0 - 5 /hpf RBCs, Urine 16 (H) 0 - 3 /hpf Bacteria, Urine Rare (A) None Seen /hpf Squamous Epithelial 1 0 - 4 /hpf Mucus, Urine Few (A) None Seen, Rare /lpf CT Abdomen Pelvis With IV Contrast Only Preliminary Result Anterior abdominal wall fluid collection noted measuring up to 20 x 2 x 2 cm on image 121, series 2. Consider seroma versus developing abscess. Additional fluid collection noted on image 113, series 2, favoring seroma at this time. Recommend close clinical and imaging followup until resolution. Fluid collection also noted at the anterior aspect of the uterus which may represent resolving hematoma. Attention on the followup exam. Cystitis of the urinary bladder. uterus. This can be further evaluated with pelvic ultrasound exam. Indeterminate hepatic lesions can be further evaluated with outpatient contrast-enhanced MRI. [employer] Workstation ID: [id number] ED Course / Medical Decision Making: Patient with increased abdominal pain 1-1/2 weeks after initial surgery, with some erythema around wound site. Will get CT abdomen pelvis lab work, urinalysis Urinalysis was mildly elevated white blood cell count, but improved from prior, CT scan shows 20 x 2 x 2 seroma versus abscess, and urine has some blood plus white blood cells. Spoke with Dr. Ross regarding exam and CT findings, and he recommended Augmentin twice daily and follow-up on Sunday for repeat exam. Given that the patient's vitals are stable, she overall appears well, this appears appropriate, I will give her strict return precautions, but otherwise she is safe for discharge. Suspect more likely mild soft tissue infection rather than abscess at this time Clinical Impression: 1. Acute post-operative pain 2. Postoperative dehiscence of skin wound, initial encounter Hank Fowler MD [facility] (Please note that portions of this note have been completed with a voice recognition software. Efforts were made to correct any errors, but occasionally words are mis-transcribed.) Hank Fowler MD 03/29/192121 Hank Fowler MD 03/29/192124 States has C Section approx 1 1/2 weeks ago. Steri strips came off last PM, states increase in drainage and pain to abdomen. States pain is sharp stabbing like. documented in this encounter APPLIED CORINNA TAPE TO L BIG TOE AND SECOND TOE, POSTOP SHOE APPLIED, PT TOLERATED WELL, STATED NEEDS MET, AT BEDSIDE [facility] PCP - Veda Philip MD Please excuse grammar and misspelling secondary to Dragon dictation use Chief Complaint Patient presents with Foot Injury HPI Chief complaint I dropped a weight on my foot This is a 25-year-old female who states that she has some bruising and tenderness on her foot when she dropped her dumbbell/weight onto her left foot. Patient denies any loss of consciousness no nausea or vomiting no numbness tingling patient did take ibuprofen prior to arrival she is able ambulate pain is worse with weightbearing. Patient denies any additional injuries. There is no associated injury to the toe no laceration pain is on the left foot occurring at home around 815 MEDICAL DECISION MAKING This is a 25-year-old female who dropped a weight onto her foot x-ray is negative for acute metatarsal fracture however there was concern for toe injuries potential fracture of the first and second toe. Clinically she is only mildly tender in this area. I do not suspect acute fracture however she is recommended corinna taping and repeat x-ray in 10 days if she is still sore and painful over the toe. 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 Return if worsening problems other concerns. The patient has been informed that they may have pre-hypertension or hypertension based on a blood pressure reading in the Emergency Department. I recommend that the patient call the primary care provider listed on their discharge instructions or a physician of their choice as soon as possible to arrange follow-up in the next 4 weeks for further evaluation of possible pre-hypertension or hypertension. . No results found for this visit on 08/16/20. Radiographic Imaging (if any) During ED Visit All Radiographic Imaging (if any) were read by Radiologist and reviewed and viewed by myself I have also reviewed narcotic score prior to giving any narcotic pain medications XR Foot Left 3+ Views (Standard) Final Result 1. Possible nondisplaced fractures involving the heads of the proximal 1st and 2nd phalanges as above. Recommend correlation for point tenderness. Workstation ID: [id number] Medications Ordered/Given During ED Visit Medications - No data to display Procedures Review of Systems Review of Systems Constitutional: Negative for appetite change, chills and fever. HENT: Negative for ear pain and sore throat. Eyes: Negative for visual disturbance. Respiratory: Negative for shortness of breath. Cardiovascular: Negative for chest pain, palpitations and leg swelling. Gastrointestinal: Negative for abdominal pain, constipation, diarrhea, nausea and vomiting. Endocrine: Negative for polyuria. Genitourinary: Negative for difficulty urinating and dysuria. Musculoskeletal: Negative for arthralgias, back pain, myalgias and neck stiffness. Skin: Negative for color change and rash. Neurological: Negative for dizziness, weakness and light-headedness. Psychiatric/Behavioral: Negative for confusion, hallucinations and suicidal ideas. The patient is not nervous/anxious. All other systems reviewed and are negative. All systems reviewed negative except as mentioned above. Physical Exam Vital Signs During ED Visit (as charted by nursing) Patient Vitals for the past 24 hrs: BP Temp Pulse Resp SpO2 Height Weight 08/16/20 2122 5' 4 128.8 kg (284 lb) 08/16/202118 (!) 171/74 98.1 F (36.7 C) 77 18 97 % Physical Exam HENT: Head: Normocephalic and atraumatic. Nose: Nose normal. Cardiovascular: Rate and Rhythm: Normal rate. Rhythm irregular. Musculoskeletal: Left ankle: Normal. Feet: Comments: Tenderness noted on palpation dorsum foot no bony tenderness 1+ dorsalis and posterior tibial pulses. Patient first and second toe specifically has no bruising swelling no evidence of trauma some minor tenderness on palpation no crepitance or deformity of the first and second toe Skin: Capillary Refill: Capillary refill takes less than 2 seconds. Neurological: Mental Status: She is alert and oriented to person, place, and time. Past Medical History Past Medical History: Diagnosis Date Mental disorder anxiety Migraines Past Surgical History Past Surgical History: Procedure Laterality Date ADENOIDECTOMY 06/19/2017 SECTION N/A 03/20/2019 Procedure: SECTION; Surgeon: Irais Rucker MD; Location: [facility] OR; Service: OBGYN CHOLECYSTECTOMY CHOLECYSTECTOMY COLPOSCOPY TONSILLECTOMY 06/19/2017 TYMPANOSTOMY TUBE PLACEMENT WISDOM TOOTH EXTRACTION Family History Family History Problem Relation Age of Onset Meniere's disease Mother Cancer Maternal Grandmother Diabetes Maternal Grandmother Hyperlipidemia Maternal Grandmother Hypertension Maternal Grandfather Diabetes Maternal Grandfather Hyperlipidemia Maternal Grandfather COPD Maternal Grandfather Heart disease Maternal Grandfather Diabetes Paternal Grandfather Social History Social History Socioeconomic History Marital status: Spouse name: Not on file Number of children: Not on file Years of education: Not on file Highest education level: Not on file Occupational History Not on file Social Needs Financial resource strain: Not on file Food insecurity Worry: Not on file Inability: Not on file Transportation needs Medical: Not on file Non-medical: Not on file Tobacco Use Smoking status: Never Smoker Smokeless tobacco: Never Used Substance and Sexual Activity Alcohol use: Not Currently Drug use: Never Sexual activity: Yes Partners: Male Lifestyle Physical activity Days per week: Not on file Minutes per session: Not on file Stress: Not on file Relationships Social connections Talks on phone: Not on file Gets together: Not on file Attends restoration service: Not on file Active member of club or organization: Not on file Attends meetings of clubs or organizations: Not on file Relationship status: Not on file Other Topics Concern Not on file Social History Narrative Not on file Allergies Allergies Allergen Reactions Bee Venom Protein (Honey Bee) Swelling Medications Patient's Medications New Prescriptions No medications on file Previous Medications DESVENLAFAXINE SUCCINATE (PRISTIQ) 50 MG 24 HR TABLET Take 50 mg by mouth daily . ETONOGESTREL (NEXPLANON) 68 MG IMPL SUBDERMAL IMPLANT 68 mg by Subdermal route once . FOLIC ACID (FOLVITE) 1 MG TABLET Take 1 mg by mouth daily . MAGNESIUM 30 MG TABLET Take 30 mg by mouth 2 (two) times a day . MECOBALAMIN (B12 ACTIVE ORAL) Take by mouth . Modified Medications No medications on file Discontinued Medications GALCANEZUMAB-GNLM (EMGALITY SYRINGE) 120 MG/ML SYRG Inject 120 mg under the skin every 28 days . Messi Blackman MD 08/16/202213 Xray cartside PATIENT STATES SHE WAS PICKING UP A 5 LB KETTLE KEE AND IT DROPPED ON L FOOT, PT STATES TINGLING AND NUMBNESS TO TOES Bed: 33 Expected date: Expected time: Means of arrival: Comments: NEXT PT documented in this encounter This RN applied antibiotic ointment and ABD pad to patient's incision site. Bleeding is controlled. Minimal sanguinous drainage noted. Patient given extra ABD pads, antibiotic ointment, and tape to go home with per Dr. Fowler. [facility] ED Attending Note: NAME: Vishal Child 23 y.o. CSN: [id number] PCP: Veda Philip MD History: Chief Complaint: Post-op Problem HPI: The history was obtained from the patient. Vishal is a 23 y.o. female who presents with a chief complaint of Post-op Problem. Presents for wound check. Patient's wound has reopened today, I saw her yesterday, wound, with questionable infection, started on antibiotics, the area of dehiscence that previously was seen is opened up and started draining serous bloody fluid. Spoke with patient's STEP FINISHER Phan on-call who sent the patient in prior to me seeing her. He recommended packing the wound PMHx: Past Medical History: Diagnosis Date Mental disorder anxiety Migraines PMSx: Past Surgical History: Procedure Laterality Date ADENOIDECTOMY 06/19/2017 SECTION N/A 03/20/2019 Procedure: SECTION; Surgeon: Irais Rucker MD; Location: [facility] OR; Service: OBGYN CHOLECYSTECTOMY CHOLECYSTECTOMY COLPOSCOPY TONSILLECTOMY 06/19/2017 TYMPANOSTOMY TUBE PLACEMENT WISDOM TOOTH EXTRACTION FAM. Hx: Family History Problem Relation Age of Onset Meniere's disease Mother Cancer Maternal Grandmother Diabetes Maternal Grandmother Hyperlipidemia Maternal Grandmother Hypertension Maternal Grandfather Diabetes Maternal Grandfather Hyperlipidemia Maternal Grandfather COPD Maternal Grandfather Heart disease Maternal Grandfather Diabetes Paternal Grandfather SOC. Hx: Social History Socioeconomic History Marital status: Spouse name: Not on file Number of children: Not on file Years of education: Not on file Highest education level: Not on file Occupational History Not on file Social Needs Financial resource strain: Not on file Food insecurity: Worry: Not on file Inability: Not on file Transportation needs: Medical: Not on file Non-medical: Not on file Tobacco Use Smoking status: Never Smoker Smokeless tobacco: Never Used Substance and Sexual Activity Alcohol use: Not Currently Drug use: Never Sexual activity: Yes Partners: Male Lifestyle Physical activity: Days per week: Not on file Minutes per session: Not on file Stress: Not on file Relationships Social connections: Talks on phone: Not on file Gets together: Not on file Attends restoration service: Not on file Active member of club or organization: Not on file Attends meetings of clubs or organizations: Not on file Relationship status: Not on file Other Topics Concern Not on file Social History Narrative Not on file MEDs: Previous Medications Medication Sig amoxicillin-clavulanate (AUGMENTIN) 875-125 mg per tablet Take 1 (one) tablet by mouth 2 (two) times a day for 7 days . ferrous sulfate (IRON ORAL) Take by mouth . HYDROcodone-acetaminophen (NORCO) 5-325 mg per tablet Take 1 (one) tablet to 2 (two) tablets by mouth every 4 (four) hours as needed (Days supply per fill: 5) . ibuprofen (ADVIL,MOTRIN) 800 MG tablet Take 1 (one) tablet (800 mg total) by mouth every 6 (six) hours as needed for pain . PNV no.95/ferrous fum/folic ac ( ORAL) Take by mouth . ALL: Allergies Allergen Reactions Bee Venom Protein (Honey Bee) Swelling PACU Vitals 03/30/199 BP: 139/68 Pulse: 66 Resp: 16 Temp: 97.6 F (36.4 C) SpO2: 99% Review of Systems Constitutional: Negative for activity change and appetite change. HENT: Negative for congestion and sinus pain. Eyes: Negative for pain and visual disturbance. Respiratory: Negative for cough, chest tightness, shortness of breath and wheezing. Cardiovascular: Negative for chest pain and leg swelling. Gastrointestinal: Positive for abdominal pain. Negative for diarrhea, nausea and vomiting. Genitourinary: Negative for dysuria. Musculoskeletal: Negative for joint swelling. Skin: Positive for wound. Negative for rash. Neurological: Negative for dizziness, weakness and numbness. All other systems reviewed and are negative. Physical Exam Vitals signs and nursing note reviewed. Constitutional: Appearance: Normal appearance. She is not diaphoretic. HENT: Head: Normocephalic and atraumatic. Right Ear: External ear normal. Left Ear: External ear normal. Nose: Nose normal. Mouth/Throat: Mouth: Mucous membranes are moist. Eyes: General: No scleral icterus. Extraocular Movements: Extraocular movements intact. Pupils: Pupils are equal, round, and reactive to light. Neck: Musculoskeletal: Neck supple. Cardiovascular: Rate and Rhythm: Normal rate. Pulses: Normal pulses. Heart sounds: Normal heart sounds. No murmur. No gallop. Pulmonary: Effort: Pulmonary effort is normal. No respiratory distress. Breath sounds: No stridor. No wheezing or rales. Abdominal: General: There is no distension. Tenderness: There is tenderness. Comments: wound, with 1 cm area, with mild bloody serous drainage, minimal surrounding erythema, mild tenderness palpation Musculoskeletal: Normal range of motion. Skin: General: Skin is warm. Neurological: General: No focal deficit present. Mental Status: She is alert and oriented to person, place, and time. Mental status is at baseline. Psychiatric: Mood and Affect: Mood normal. ED Course / Medical Decision Making: Patient with small amount of wound dehiscence, draining serous bloody fluid. Packed with iodoform gauze, to keep wound open per instructions from [facility], otherwise safe for discharge, will discharge home, abdominal pads given, she is to follow-up with her STEP FINISHER tomorrow, they are expecting her Clinical Impression: 1. Wound drainage Hank Fowler MD [facility] (Please note that portions of this note have been completed with a voice recognition software. Efforts were made to correct any errors, but occasionally words are mis-transcribed.) Hank Fowler MD 03/30/192127 Patient states, I had a 10 days ago. I came in yesterday with drainage and pain. Patient states, I was told of I have a UTI and an infection in my incision site and was prescribed antibiotics. Patient states, I came back in today because my incision has opened up more and it's draining and going down my legs. Patient states, the drainage doesn't have a smell to it, but it looks bloody. Patient was advised by Dr. Logan to come to have incision site re-evaluated. Bed: 16 Expected date: Expected time: Means of arrival: Comments: Next Pt. 1 documented in this encounter Care Teams (unrecognized sec tion and content) Dump Operator Relationship Specialty Start Date End Date Veda Philip MD [address] [place] [address] PCP - General Family Medicine 01/23/17 Makayla Juarez, ELLEN [address] [place] [address] Healthcare Administrator Obstetrics/Gynecology 05/30/19 Dump Operator Relationship Specialty Start Date End Date Veda Philip MD [address] [place] [address], [place] [address] PCP - General Family Medicine 01/23/17 Makayla Juarez, [facility] [address] [place] [address] Healthcare Administrator Obstetrics/Gynecology 05/30/19 Dump Operator Relationship Specialty Start Date End Date Veda Philip MD [address] [place] [address], [place] [address] PCP - General Family Medicine 01/23/17 Makayla Juarez, EUGENE [address] [place] [address] Healthcare Administrator Obstetrics/Gynecology 05/30/19 Dump Operator Relationship Specialty Start Date End Date Veda Philip MD PCP - General Family Medicine 01/23/17 Dump Operator Relationship Specialty Start Date End Date Veda Philip MD PCP - General Family Medicine 01/23/17 Dump Operator Relationship Specialty Start Date End Date Veda Philip MD [address] [place] [address], [place] [address] PCP - General Family Medicine 01/23/17 Makayla Juarez, EUGENE [address] [place] [address] Healthcare Administrator Obstetrics/Gynecology 05/30/19 Dump Operator Relationship Specialty Start Date End Date Veda Philip MD PCP - General Family Medicine 01/23/17 Dump Operator Relationship Specialty Start Date End Date Veda Philip MD PCP - General Family Medicine 01/23/17 Dump Operator Relationship Specialty Start Date End Date Veda Philip MD [address] [place] [address] PCP - General Family Medicine 01/23/17 Makayla Juarez CNM [address] [place] [address] [address] Healthcare Administrator Obstetrics/Gynecology 05/30/19 Dump Operator Relationship Specialty Start Date End Date Veda Philip MD PCP - General Family Medicine 01/23/17 FOR RECORDS PERTAINING TO PATIENTS WHO ARE OR HAVE BEEN ENROLLED IN A CHEMICAL DEPENDENCY/SUBSTANCEABUSE PROGRAM, SOME INFORMATION MAY BE OMITTED. This clinical summary was aggregated from multiple sources. Caution should be exercised in using it in the provision of clinical care. This summary normalizes information from multiple sources, and as a consequence, information in this document may materially change the coding, format and clinical context of patient data. In addition, data may be omitted in some cases. CLINICAL DECISIONS SHOULD BE BASED ON THE PRIMARY CLINICAL RECORDS. [employer] provides no warranty or guarantee of the accuracy or completeness of information in this document.
== END | disposition home or self-care (01) ==
LOC: US 12:25
PROVIDERS: PCP Family Medicine; Referring Provider Nurse Practitioner Women's Health; Visit Provider Nurse Practitioner Women's Health
DX: O26.839 Pregnancy related renal disease, unspecified trimester (principal); N20.0 Calculus of kidney; Z3A.00 Weeks of gestation of pregnancy not specified
CPT/HCPCS: 76770

== ENCOUNTER → 2023-06-28 | Outpatient (CLI) | payer BC, SELFPAY ==
[2023-06-28 11:41] LABS: Absolute Lymphocyte Count 1.93 X10^3/uL (0.83-4.51); Absolute Neutrophil Count 10.4 X10^3/uL (2.0-7.7); Basophil# 0.02 X10^3/uL; Basophil% 0.2 % (0-1); Eosinophil# 0.05 X10^3/uL; Eosinophils% 0.4 % (0-5); Hemoglobin 11.2 g/dL (12.0-15.0); Lymphocyte # 1.93 X10^3/ul (0.83-4.51); Lymphocyte % 14.8 % (19-41); Mean Corp Hgb Conc 31.1 g/dL (32-36); Mean Corpuscular Hgb 26.9 pg (27.0-32.0); Mean Corpuscular Volume 86.3 fL (81-99); Mean Platelet Vol. 9.4 fl (6.2-12.0); Monocyte# 0.51 X10^3/uL; Monocyte% 3.9 % (0-10); NRBC Flagged by Analyzer 0 % (0-5); Neutrophil # 10.43 X10^3/uL (2.7-7.7); Neutrophil % 80.1 % (47-70); Platelet Count 302 K/mm3 (150-450); RBC Distribution Width CV 13.4 % (11.6-14.6); RBC Distribution Width SD 41.9 fl (35.1-43.9); Red Blood Count 4.17 M/mm3 (4.2-5.4)
[2023-06-28 11:52] LABS: Glucose Challenge Gest 1H 50g 117 mg/dL (70-140)
[2023-06-28 12:27] LABS: HIV - WCH Non-Reactive (Nonreactive); Syphilis Antibodies Non-reactive
== END | disposition home or self-care (01) ==
PROVIDERS: PCP Family Medicine; Referring Provider Obstetrics & Gynecology; Visit Provider Obstetrics & Gynecology
DX: Z34.92 Encounter for supervision of normal pregnancy, unspecified, second trimester (principal)
CPT/HCPCS: 36415; 82950; 85025; 86703; 86780

== ENCOUNTER → 2023-07-23 | Outpatient (CLI) | payer OTHER, SELFPAY ==
--- NOTE | 2023-07-23 18:36 | US_ITS ---
EXAM: US , LIMITED CLINICAL INDICATION: GROWTH TECHNIQUE: Real-time limited ultrasound of the maternal uterus with image documentation. COMPARISON: 05/07/2023. FINDINGS: FETUS: Estimated age: 32 weeks, 5 days versus 31 weeks, 6 days by LMP. MARIANA: 09/12/2023. EFW: Estimated weight: 2022 g (65%). BPD: 8.30 cm. HC: 31.87 cm. AC: 29.18 cm. FL: 5.94 cm. POSITION: Breech presentation. HEART RATE: heart rate is 127 bpm. PLACENTA: Anterior placenta. AMNIOTIC FLUID: Amniotic fluid volume is 15.5 cm with largest pocket 5.7 cm. CERVIX: The cervix is closed measuring 3.8 cm. US/OB Limited With Biometrics IMPRESSION: Viable IUP measuring approximately 32 weeks, 5 days with a weight of 2022 g (65%). No acute findings with limited anatomic assessment due to the gestational age. Electronically Signed: Geovanny Cobb DO at 23:09 EST ,
--- OUTSIDE RECORDS SUMMARY | 2023-07-23 18:39 | XMS RPT_ITS | CCD ---
Author Name Unknown Address [address] [facility] [address] [place] [address] Organization [facility] Care Team Providers Care Acid Plant Helper Name Role Phone Veda Philip Unavailable Prykhodko, Jeronimo O Unavailable Unavailable Markykhoroscoe, Jeronimo O Unavailable Unavailable Veda Philip Primary Care Provider Unavaila Veda Escobar Primary Care Provider Veda Philip Primary Care Provider [phone] Veda Philip Primary Care Provider [phone] Larry, Makayla Heather Unavailable Veda Philip MD Primary Care Provider Larry CN, Makayla Heather Unavailable Veda Philip MD Primary Care Provider Larry CN, Makayla Heather Unavailable RHONDA QUICK Admitting Unavailab RHONDA Sow Referring Unavailab VEDA Graham Primary Care Unavailabl UMANG Nance Attending Unavailable VEDA PHILIP Primary Care UnavailJEREMY Irizarry Attending Unavailenid Philip MD, Veda Zhu Primary Care Provider [phone] Veda Philip MD Primary Care Provider Larry HUGHES, Makayla Heather Unavailable VEDA PHILIP Primary Care UnavailMESSI Dumont Attending Unavailable Veda Philip MD Primary Care Provider [phone] Veda Philip MD Primary Care Provider LarryKelsy espinoza CNMbasil Romero Unavailable Veda Philip MD Primary Care Provider KONG, MYLA Hartley Attending Unavailable JAYIT, MYLA Hartley Referring Unavailable VEDA PHILIP Primary Care Unavailable MYLA HOPPER Admitting Unavailable SELF, SELF Referring Unavailable VEDA PHILIP Primary Care Unavailable VEDA PHILIP Attending Unavailable VEDA PHILIP Primary Care UnavailCHINYERE Day Attending Unavail able VEDA PHILIP Primary [facility] UnavailANTONIO Matias Attending Unavail able VEDA PHILIP Primary [facility] UnavailMYLA Marie. Attending Unavailable Allergies Allergy Classification Reported Allergen(s) Allergy Type Date of Onset Reaction(s) Facility Bee/Wasp/Ant Venom (4 sources) bee venom Substance Allergy Swelling [facility] (20 sources) BEE VENOM PROTEIN (HONEY BEE); Translations: [BEE VENOM PROTEIN (HONEY BEE)] Propensity to adverse reactions to drug Swelling [facility] Work Phone: Medications Current Medications Medication Drug Class(es) Dates Sig (Normalized) Sig (Original) [id number] actuat albuterol 0.09 mg/actuat metered dose inhaler (5 sources) beta2-Adrenergic Agonist Start: 07-21-2023 take 2 puff(s) by inhalation every six hours as needed albuterol 90 mcg/actuation inhaler Indications: SOB (shortness of breath) Inhale 2 (two) puffs every 6 (six) hours as needed . 6.7 g 0 07/21/2023 Active Completed/Discontinued Medications Medication Drug Class(es) Dates [...] pneumonitis, pulmonitis)] Episodic Other lower respiratory disease (15 sources) Cough; Translations: [Cough] Onset: 08-04-2019 08-04-2019 Episodic Other lower respiratory disease (3 sources) Dyspnea; Translations: [Shortness of breath] Onset: 07-21-2023 Episodic Other lower respiratory disease (1 source) Shortness of breath; Translations: [Shortness of breath] Onset: 07-21-2023 Episodic Other nervous system disorders (1 source) [...] Chronic Other nutritional; endocrine; and metabolic disorders (3 sources) Obesity caused by energy imbalance; Translations: [...] left foot, subsequent encounter] Unclassified (1 source) Acute cough; Translations: [Acute cough] Onset: 08-04-2019 Unclassified (1 source) Contact with and (suspected) exposure to covid-19; Translations: [Contact with and (suspected) exposure to covid-19] Onset: 06-03-2023 Past or Other Problems Problem Classification Problem Date Documented Date Episodic/Chronic Calculus of urinary tract (20 sources) Calculus of kidney and ureter ; Translations: [Calculus of kidney with calculus of ureter] Onset: 03-11-2018 03-18-2018 Episodic Complications of surgical procedures or medical care (13 sources) Dehiscence of wound of skin; Translations: [Other complications of procedures, not elsewhere classified, initial encounter] Onset: 04-03-2019 04-03-2019 Episodic Genitourinary symptoms and ill-defined conditions (20 sources) Increased frequency of urination; Translations: [Frequency of micturition] Onset: 05-05-2021 01-16-2017 Episodic Miscellaneous mental health disorders (20 sources) depression; Translations: [Other mental disorders complicating the puerperium] Onset: 05-14-2019 06-20-2019 Episodic Other connective tissue disease (18 sources) Pain in left foot; Translations: [Pain in left foot] Onset: 05-05-2021 01-16-2017 Episodic Other injuries and conditions due to external causes (1 source) Open wound; Translations: [Wound drainage] Episodic Other lower respiratory disease (1 source) Snoring Episodic Other non-traumatic joint disorders (20 sources) Arthralgia of the ankle and/or foot; Translations: [Pain in left ankle and joints of left foot] Onset: 05-05-2021 01-16-2017 Episodic Poisoning by nonmedicinal substances (20 sources) Toxic reaction to hornets, wasps and bees; Translations: [Poisoning due to insect venom] Onset: 05-05-2021 01-16-2017 Episodic Residual codes; unclassified (16 sources) Gestation period, 39 weeks; Translations: [39 weeks gestation of ] Onset: 03-20-2019 03-20-2019 Episodic Unclassified (1 source) Enlarged tonsils Unclassified (1 source) Acute cough; Translations: [Acute cough] Onset: 07-21-2023 Unclassified (1 source) Contact with and (suspected) exposure to covid-19; Translations: [Contact with and (suspected) exposure to covid-19] Onset: 06-03-2023 NEGATED: Highlighted row has been ruled out!Unclassified (5 sources) No known active problems Results Test Name Value Interpretation Reference Range Facil ity Vital Signs Date Time Vital Sign Value Performing Clinician Facility 07-21-2023 20:31-0500 Body height 162.6 cm Antonio Dru [facility] Work Phone: [facility] 07-21-2023 20:31-0500 Body mass index (BMI) [Ratio] 51.49 kg/m2 Antonio Gonsales [facility] Work Phone: [facility] 07-21-2023 20:31-0500 Body temperature 97.7 [degF] Antonio Gonsales [facility] Work Phone: [facility] 07-21-2023 20:31-0500 Body weight 136.08 kg Antonio Gonsales FURNACE OPERATOR [employer] Work Phone: [facility] 07-21-2023 20:31-0500 Diastolic blood pressure 83 mm[Hg] Antonio Gonsales FURNACE OPERATOR [employer] Work Phone: [facility] 07-21-2023 20:31-0500 Heart rate 98 /min Antonio Gonsales FURNACE O[employer] Work Phone: [facility] 07-21-2023 20:31-0500 Respiratory rate 18 /min Antonio Gonsales FURNACE OPERATOR [employer] Work Phone: [facility] 07-21-2023 20:31-0500 SaO2% (BldA) [Mass fraction] 96 % Antonio Gonsales FURNACE OPERATOR [employer] Work Phone: [facility] 07-21-2023 20:31-0500 Systolic blood pressure 120 mm[Hg] Antonio Gonsales FURNACE OPERATOR [employer] Work Phone: [facility] 06-06-2023 01:40-0500 Body temperature 96.91 [degF] Myla Hopper MD [facility] Phone: [facility] 06-06-2023 01:40-0500 Diastolic blood pressure 70 mm[Hg] Myla Hopper MD Work Phone: [facility] 06-06-2023 01:40-0500 Heart rate 93 /min Myla Hopper MD Work Phone: [facility] 06-06-2023 01:40-0500 Respiratory rate 22 /min Myla Hopper MD Work Phone: [facility] 06-06-2023 01:40-0500 SaO2% (BldA) [Mass fraction] 98 % Myla Hopper MD Work Phone: [facility] 06-06-2023 01:40-0500 Systolic blood pressure 122 mm[Hg] Myla Hopper MD Work Phone: [facility] 06-06-2023 01:32-0500 Body height 160 cm Myla Hopper MD Work Phone: [facility] 06-06-2023 01:32-0500 Body mass index (BMI) [Ratio] 52.82 kg/m2 Myla Hopper MD Work Phone: [facility] 06-06-2023 01:32-0500 Body weight 135.26 kg Myla Hopper MD Work Phone: [facility] 06-03-2023 20:16-0500 Body height 162.6 cm Myla Campbell DO Work Phone: [facility] 06-03-2023 20:16-0500 Body mass index (BMI) [Ratio] 50.64 kg/m2 Myla Campbell DO Work Phone: [facility] 06-03-2023 20:16-0500 Body temperature 98.1 [degF] Myla Campbell DO Work Phone: [facility] 06-03-2023 20:16-0500 Body weight 133.81 kg Myla Campbell DO Work Phone: [facility] 06-03-2023 20:16-0500 Diastolic blood pressure 79 mm[Hg] Myla Campbell DO Work Phone: [facility] 06-03-2023 20:16-0500 Heart rate 99 /min Myla Campbell DO Work Phone: [facility] 06-03-2023 20:16-0500 Respiratory rate 18 /min Myla Campbell DO Work Phone: [facility] 06-03-2023 20:16-0500 SaO2% (BldA) [Mass fraction] 98 % Myla Campbell DO Work Phone: [facility] 06-03-2023 20:16-0500 Systolic blood pressure 116 mm[Hg] Myla Campbell DO Work Phone: [facility] 04-03-2022 09:34-0400 Body height 160 cm Cathy PADILLA Work Phone: [facility] 04-03-2022 09:34-0400 Body mass index (BMI) [Ratio] 51 kg/m2 Cathy Gunderson APRN-FURNACE OPERATOR [employer] Work Phone: [email or web address] 04-03-2022 09:34-0400 Body weight 130.59 kg Cathy Gunderson APRN-FURNACE OPERATOR [employer] Work Phone: [facility] 04-03-2022 09:34-0400 Diastolic blood pressure 78 mm[Hg] Cathy Gunderson APRN-FURNACE OPERATOR [employer] Work Phone: [facility] 04-03-2022 09:34-0400 Heart rate 98 /min Cathy Gunderson APRN-FURNACE OPERATOR [employer] Work Phone: [facility] 04-03-2022 09:34-0400 Systolic blood pressure 114 mm[Hg] Cathy Gunderson APRN-FURNACE OPERATOR [employer] Work Phone: [facility] 11-27-2021 16:30-0400 Body height 160 cm Myla Campbell DO Work Phone: [facility] 11-27-2021 16:30-0400 Body mass index (BMI) [Ratio] 48.18 kg/m2 Myla Campbell DO Work Phone: [facility] 11-27-2021 16:30-0400 Body temperature 98.4 [degF] Myla Campbell DO Work Phone: [facility] 11-27-2021 16:30-0400 Body weight 123.38 kg Myla Campbell DO Work Phone: [facility] 11-27-2021 16:30-0400 Diastolic blood pressure 87 mm[Hg] Myla Campbell DO Work Phone: [facility] 11-27-2021 16:30-0400 Heart rate 95 /min Myla Campbell DO Work Phone: [facility] 11-27-2021 16:30-0400 Respiratory rate 20 /min Myla Campbell DO Work Phone: [facility] 11-27-2021 16:30-0400 SaO2% (BldA) [Mass fraction] 98 % Myla Campbell DO Work Phone: [facility] 11-27-2021 16:30-0400 Systolic blood pressure 121 mm[Hg] Myla Campbell DO Work Phone: [facility] 08-25-2021 11:06-0500 Body mass index (BMI) [Ratio] 49.7 kg/m2 Veda Philip MD Work Phone: [facility] 08-25-2021 11:06-0500 Body weight 130.77 kg Veda Philip MD Work Phone: [facility] 08-25-2021 11:06-0500 Diastolic blood pressure 80 mm[Hg] Veda Philip MD Work Phone: [facility] 08-25-2021 11:06-0500 Heart rate 64 /min Veda Philip MD Work Phone: [facility] 08-25-2021 11:06-0500 SaO2% (BldA) [Mass fraction] 98 % Veda Philip MD Work Phone: [facility] 08-25-2021 11:06-0500 Systolic blood pressure 118 mm[Hg] Veda Philip MD Work Phone: [facility] 05-05-2021 09:55-0500 Body height 160 cm Germania Lamport PA-C Work Phone: [facility] 05-05-2021 09:55-0500 Body mass index (BMI) [Ratio] 51.37 kg/m2 Germania Lamport PA-C Work Phone: [facility] 05-05-2021 09:55-0500 Body temperature 97.59 [degF] Germania Lamport PA-C Work Phone: [facility] 05-05-2021 09:55-0500 Body weight 131.54 kg Germania Lamport PA-C Work Phone: [facility] 05-05-2021 09:55-0500 Diastolic blood pressure 85 mm[Hg] Germania Lamport PA-C Work Phone: [facility] 05-05-2021 09:55-0500 Heart rate 93 /min Germania Lamport PA-C Work Phone: [facility] 05-05-2021 09:55-0500 Respiratory rate 18 /min Germania Lamport PA-C Work Phone: [facility] 05-05-2021 09:55-0500 SaO2% (BldA) [Mass fraction] 98 % Germania Lamport PA-C Work Phone: [facility] 05-05-2021 09:55-0500 Systolic blood pressure 122 mm[Hg] Germania Lamport PA-C Work Phone: [facility] 02-04-2021 09:11-0400 Body mass index (BMI) [Ratio] 49.67 kg/m2 Veda Philip MD Work Phone: [email or web address] 02-04-2021 09:11-0400 Body weight 130.68 kg Veda Philip MD Work Phone: [email or web address] 02-04-2021 09:11-0400 Diastolic blood pressure 68 mm[Hg] Veda Philip MD Work Phone: [email or web address] 02-04-2021 09:11-0400 Heart rate 77 /min Veda Philip MD Work Phone: [email or web address] 02-04-2021 09:11-0400 SaO2% (BldA) [Mass fraction] 98 % Veda Philip MD Work Phone: [email or web address] 02-04-2021 09:11-0400 Systolic blood pressure 106 mm[Hg] Veda Philip MD Work Phone: [facility] 12-30-2020 11:00-0400 Body height 162.2 cm Pinky PADILLA Work Phone: [facility] 12-30-2020 11:00-0400 Body mass index (BMI) [Ratio] 48.48 kg/m2 Pinky Resendezt CAPACITY PLANNING ENGINEER-FURNACE OPERATOR [employer] Work Phone: [facility] 12-30-2020 11:00-0400 Body weight 127.55 kg Pinky Portillo CAPACITY PLANNING ENGINEER-FURNACE OPERATOR [employer] Work Phone: [facility] 12-30-2020 11:00-0400 Diastolic blood pressure 74 mm[Hg] Pinky Janghart CAPACITY PLANNING ENGINEER-FURNACE OPERATOR [employer] Work Phone: [facility] 12-30-2020 11:00-0400 Heart rate 88 /min Pinky Resendezt CAPACITY PLANNING ENGINEER-FURNACE OPERATOR [employer] Work Phone: [facility] 12-30-2020 11:00-0400 SaO2% (BldA) [Mass fraction] 98 % Pinky Resendezt CAPACITY PLANNING ENGINEER-FURNACE OPERATOR [employer] Work Phone: [facility] 12-30-2020 11:00-0400 Systolic blood pressure 118 mm[Hg] Pinky Janghart CAPACITY PLANNING ENGINEER-FURNACE OPERATOR [employer] Work Phone: [facility] 11-25-2020 09:32-0400 Body height 162.2 cm Veda Philip MD Work Phone: [facility] 11-25-2020 09:32-0400 Body mass index (BMI) [Ratio] 49.05 kg/m2 Veda Philip MD Work Phone: [facility] 11-25-2020 09:32-0400 Body weight 129.05 kg Veda Philip MD Work Phone: [facility] 11-25-2020 09:32-0400 Diastolic blood pressure 57 mm[Hg] Veda Philip MD Work Phone: [facility] 11-25-2020 09:32-0400 Heart rate 65 /min Veda Philip MD Work Phone: [facility] 11-25-2020 09:32-0400 Systolic blood pressure 99 mm[Hg] Veda Philip MD Work Phone: [facility] 08-20-2020 10:52-0500 BMI (Body Mass Index) 49.66 kg/m2 Veda [facility] 08-20-2020 10:52-0500 Body weight 131.23 kg Veda [facility] 08-20-2020 10:52-0500 BP Diastolic 77 mm[Hg] Veda [facility] 08-20-2020 10:52-0500 BP Systolic 122 mm[Hg] [facility] 08-20-2020 10:52-0500 Height 162.6 cm Veda [facility] 08-20-2020 10:52-0500 Pulse (Heart Rate) 63 /min Veda [facility] 08-16-2020 21:22-0500 BMI (Body Mass Index) 48.75 kg/m2 [facility] 08-16-2020 21:22-0500 Body weight 128.82 kg [facility] 08-16-2020 21:22-0500 Height 162.6 cm [facility] 08-16-2020 21:19-0500 Body Temperature 98.1 [degF] [facility] 08-16-2020 21:19-0500 BP Diastolic 74 mm[Hg] [facility] 08-16-2020 21:19-0500 BP Systolic 171 mm[Hg] [facility] 08-16-2020 21:19-0500 Pulse (Heart Rate) 77 /min [facility] 08-16-2020 21:19-0500 Pulse Oximetry 97 % [facility] 08-16-2020 21:19-0500 Respiratory Rate 18 /min [facility] 05-17-2020 13:43-0500 BMI (Body Mass Index) 49.86 kg/m2 Veda [facility] 05-17-2020 13:43-0500 Body weight 131.77 kg Veda [facility] 05-17-2020 13:43-0500 BP Diastolic 78 mm[Hg] [facility] 05-17-2020 13:43-0500 BP Systolic 133 mm[Hg] [facility] 05-17-2020 13:43-0500 Height 162.6 cm [facility] 05-17-2020 13:43-0500 Pulse (Heart Rate) 71 /min [facility] 04-22-2020 13:14-0400 BMI (Body Mass Index) 49.74 kg/m2 [facility] 04-22-2020 13:14-0400 Body weight 131.45 kg [facility] 04-22-2020 13:14-0400 BP Diastolic 80 mm[Hg] [facility] 04-22-2020 13:14-0400 BP Systolic 125 mm[Hg] [facility] 04-22-2020 13:14-0400 Height 162.6 cm [facility] 04-22-2020 13:14-0400 Pulse (Heart Rate) 79 /min [facility] 12-23-2019 14:53-0400 BMI (Body Mass Index) 48.65 kg/m2 [facility] 12-23-2019 14:53-0400 Body weight 128.55 kg [facility] 12-23-2019 14:53-0400 BP Diastolic 61 mm[Hg] [facility] 12-23-2019 14:53-0400 BP Systolic 121 mm[Hg] [facility] 12-23-2019 14:53-0400 Height 162.6 cm [facility] 12-23-2019 14:53-0400 Pulse (Heart Rate) 78 /min [facility] 12-23-2019 14:53-0400 Pulse Oximetry 97 % [facility] 12-23-2019 14:53-0400 Respiratory Rate 18 /min [facility] 12-19-2019 13:20-0400 Body height 162.6 cm Veda Philip MD Work Phone: [facility] 12-19-2019 13:20-0400 Body mass index (BMI) [Ratio] 48.44 kg/m2 Veda Philip MD Work Phone: [facility] 12-19-2019 13:20-0400 Body weight 128 kg Veda Philip MD Work Phone: [facility] 12-19-2019 13:20-0400 Diastolic blood pressure 76 mm[Hg] Veda Philip MD Work Phone: [facility] 12-19-2019 13:20-0400 Heart rate 69 /min Veda Philip MD Work Phone: [facility] 12-19-2019 13:20-0400 Systolic blood pressure 108 mm[Hg] Veda Philip MD Work Phone: [facility] 08-04-2019 15:05-0500 Pulse (Heart Rate) 102 /min Agustina Simms [facility] Encounters Encounter Date Encounter Type Care Provider Facility Start: 07-21-2023 End: 07-21-2023 ambulatory VEDA PHILIP [facility] Start: 07-21-2023 End: 07-21-2023 Office outpatient visit 15 minutes Antonio Gonsales CNP Work Phone: [facility] [place] Procedures Date Procedure Procedure Detail Performing Clinician Start: 06-06-2023 Culture bacterial qu anttative colony count urine Myla Hopper MD Work Phone: Start: 06-06-2023 Urinalysis, reagent strip without microscopy Myla Hopper MD Work Phone: Start: 06-03-2023 Infectious agent dna /rna influenza 1st 2 types Myla Campbell DO Work Phone: Start: 06-03-2023 Sars-cov-2 detection by dna/rna Myla Campbell DO Work Phone: Start: 11-27-2021 Sars-cov-2 detection by dna/rna Myla Campbell DO Work Phone: Start: 05-05-2021 Sars-cov-2 detection by dna/rna Germania Vargas PA-C Work Phone: Start: 12-08-2020 Skin test tuberculos is intradermal Veda Philip MD Work Phone: Start: 11-29-2020 Skin test tuberculos is intradermal Veda Philip MD Work Phone: Start: 08-16-2020 X-ray of left foot Manjula Blackman Work Phone: Start: 01-13-2020 Microscopic observat ion [Identifier] in Cervix by Cyto stain Messi Blackman Start: 08-04-2019 Standard chest X-ray Heber claytonmarjorie Rosene Mendez Work Phone: Start: 08-04-2019 Influenza virus B an tigen assay Agustina Simms Work Phone: Start: 08-04-2019 Influenza virus A an tigen assay Agustina Simms Work Phone: Start: 03-30-2019 Ct abdomen & pelvis w/contrast material Hank Fowler Work Phone: Start: 03-29-2019 Urinalysis Hank Pineda l Work Phone: Start: 03-29-2019 Basic metabolic 2000 panel - Serum or Plasma Hank Mark Work Phone: Start: 03-29-2019 Complete blood count with white cell differential, automated Hank Fowler Work Phone: Start: 03-29-2019 Complete blood count with white cell differential, manual Hank Fowler Work Phone: Start: 03-22-2019 Complete blood count (hemogram) panel - Blood by Automated count Irais Rucker Work Phone: Start: 03-21-2019 End: 03-21-2019 section Irais Rucker Work Phone: Start: 03-19-2019 Blood group typing Yumiko Rucker Work Phone: Start: 03-19-2019 Blood type and Indir ect antibody screen panel - Blood Irais Mckeon Chaim Work Phone: Start: 03-19-2019 Complete blood count (hemogram) panel - Blood by Automated count Irais Mckeon Chaim Work Phone: Start: 03-10-2019 Activated partial thromboplastin time ratio Irais Mckeon Chaim Work Phone: Start: 03-10-2019 aPTT in Blood by Coa gulation assay Irais Mckeon Chaim Work Phone: Start: 03-10-2019 Complete blood count with white cell differential, automated Irais Mckeon Chaim Work Phone: Start: 03-10-2019 Complete blood count with white cell differential, manual Irais Mckeon Chaim Work Phone: Start: 03-10-2019 Comprehensive metabo lic 2000 panel - Serum or Plasma Irais Mckeon Chaim Work Phone: Start: 03-10-2019 D-dimer assay, quantitative Irais Mckeon Chaim Work Phone: Start: 03-10-2019 Fibrinogen [Mass/vol ume] in Platelet poor plasma by Coagulation assay Irais Mckeon Chaim Work Phone: Start: 03-10-2019 INR in Platelet poor plasma by Coagulation assay Irais Mckeon Chaim Work Phone: Start: 03-10-2019 Urate [Mass/volume] in Serum or Plasma Irais Mckeon Chaim Work Phone: Start: 03-10-2019 Urinalysis Irais espinoza [...] Logan Work Phone: Start: 01-20-2019 ULTRASOUND (OUTSIDE) Mo patric M Philip Work Phone: Start: 12-16-2018 Microscopic observat [...] Treatment Date Care Activity Detail Author Start: 06-28-2033 Tetanus vaccination Tetanus: Every 10yrs [facility] Start: 09-29-2024 Tetanus vaccination [facility] Start: 09-28-2024 Tetanus vaccination [facility] Work Phone: Start: 02-23-2023 COVID-19 Vaccine () COVID-19 Vaccine ( season) [facility] Start: 01-12-2023 Screening for malignant neoplasm of cervix Pap Smear [facility] Start: 09-12-2022 End: 09-12-2022 Patient encounter procedure 09/12/2022 Office Visit Family Medicine Veda Philip MD [address] [place] [id number] [facility] Start: 02-21-2022 End: 02-21-2022 Patient encounter procedure 02/21/2022 Office Visit Family Medicine Veda Philip MD [address] [place] [id number] [facility] Start: 12-20-2021 COVID-19 Vaccine (3 - Booster for Pfizer series) COVID-19 Vaccine (3 - Booster for Pfizer series) [facility] Start: 12-16-2021 Screening for malignant neoplasm of cervix PAP SMEAR [facility] Start: 11-25-2021 GONORRHEA SCREEN GONORRHEA SCREEN [facility] Start: 11-25-2021 History and physical examination, annual for health maintenance Wellness Visit [facility] Start: 11-25-2021 Screening for Chlamydia trachomatis CHLAMYDIA SCREEN [facility] Start: 11-19-2021 COVID-19 VACCINE (3 - Booster for Pfizer series) COVID-19 VACCINE (3 - Booster for Pfizer series) [facility] Start: 08-16-2021 COVID-19 VACCINE (3 - Booster for Pfizer series) COVID-19 VACCINE (3 - Booster for Pfizer series) [facility] Start: 06-21-2021 End: 06-21-2021 ambulatory 06/21/2021 Immunization Primary Care GwinnerRhonda panchal MD [address] [place] [id number] [facility] [place] [facility] Start: 06-18-2021 COVID-19 Vaccine (2 - Pfizer 2-dose series) COVID-19 Vaccine (2 - Pfizer 2-dose series) [facility] Start: 05-16-2021 End: 05-16-2021 Patient encounter procedure 05/16/2021 Office Visit Obstetrics and Gynecology Irais Rucker MD [address] [place] [id number] [facility] ESL PROFESSOR - An Affiliate of [facility] Start: 03-30-2021 End: 03-30-2021 Patient encounter procedure 03/30/2021 Office Visit Obstetrics and Gynecology Mike oLgan MD [address] [address] [facility] ESL PROFESSOR - An Affiliate of [facility] Start: 03-29-2021 End: 03-29-2021 Patient encounter procedure 03/29/2021 Office Visit Family Medicine Veda Philip MD [address] [place] [id number] [facility] Start: 02-23-2021 Influenza vaccination [facility] Start: 01-12-2021 History and physical examination, annual for health maintenance Wellness Visit [facility] Start: 12-10-2020 End: 12-21-2020 POCT PPD READING POCT PPD READING Point of Care Testing Routine Need for tuberculosis vaccination Expected: 12/10/2020, Expires: 12/21/2020 [facility] Immunizations Immunization Date Immunization Notes Care Provider [facility] 03-20-2022 influenza, injectabl e, quadrivalent, preservative free Cathy PADILLA Work Phone: [facility] 06-21-2021 Pfizer SARS-CoV-2 Vaccination Umang Thurman RN [facility] 05-28-2021 Pfizer SARS-CoV-2 Vaccination Jeremy Medina RN [facility] 03-29-2021 influenza, injectabl e, quadrivalent, contains preservative Myla Campbell DO Work Phone: [facility] 03-29-2021 influenza, injectabl e, quadrivalent, preservative free Germania Vargas PA-C Work Phone: [facility] 12-08-2020 PPD (Mantoux Test) [facility] 12-08-2020 tuberculin skin test ; purified protein derivative solution, intradermal Germania Lamport PA-C Work Phone: [facility] 11-29-2020 PPD (Mantoux Test) [facility] 11-29-2020 tuberculin skin test ; purified protein derivative solution, intradermal Germania Lamport PA-C Work Phone: [facility] 04-22-2020 influenza, injectabl e, quadrivalent, contains preservative Myla Campbell DO Work Phone: [facility] 04-22-2020 influenza, injectabl e, quadrivalent, preservative free [facility] 04-22-2020 influenza quad vacci ne 0.5 ML Suspension Prefilled Syringe [facility] 04-22-2020 influenza virus vaccine, unspecified formulation; Translations: [HC INFLUENZA VIRUS VACCINE QUADRIVALENT SPLIT VIRUS PRESERVATIVE FREE 3+ YEARS INTRAMUSCULAR] [facility] 03-23-2019 influenza, injectabl e, quadrivalent, preservative free [facility] 03-21-2019 varicella zoster imm une globulin [facility] 03-21-2019 diphtheria, tetanus toxoids and acellular pertussis vaccine, unspecified formulation [facility] 03-21-2019 measles, mumps and rubella virus vaccine [facility] 04-29-2015 influenza, injectabl e, quadrivalent, contains preservative [facility] Work Phone: 04-29-2015 influenza, injectabl e, quadrivalent, preservative free Agustina Mendez [facility] 04-29-2015 meningococcal ACWY vaccine, unspecified formulation Agustina Mendez [facility] 04-29-2015 influenza virus vaccine, unspecified formulation Ronda [facility] Work Phone: 09-29-2014 tetanus toxoid, redu charles diphtheria toxoid, and acellular pertussis vaccine, adsorbed Agustina Mendez [facility] 09-28-2014 tetanus toxoid, redu charles diphtheria toxoid, and acellular pertussis vaccine, adsorbed Ronda Darnellfer [facility] Payers Date Payer Category Payer Unknown [id number] 2022 Private Health Insurance [employer]ET[employer] AETNA [id number] 2022-Present [address] [place] [address] [id number] 2022 Private Health Insurance [id number] 2021 Unknown [id number] 2018 Unknown [id number] 2018 Unknown [id number] 2018 Unknown [id number] 2018 Unknown [employer] xxxxxxxxxxxx 2018-Present [id number] 2017 Unknown xxxxxxxxx [id number] 2016 Unknown [id number] [id number] 3 1994 Unknown [id number] 1994 Unknown [id number] 1994 Unknown [id number] [id number] 1994 Unknown [id number] [id number] 1994 Unknown [id number] [id number] [id number] 1994 Unknown [id number] 1994 Unknown [id number] Unknown [id number] Social History Date Type Detail Facility Start: 10-10-2017 End: 11-27-2021 Tobacco smoking status NHIS Never smoker [facility] Work Phone: Start: 1995 Sex Assigned At Not on file [facility] Work Phone: Start: 07-03-2018 [facility] Start: 01-16-2017 Alcohol Comment Occasionally [facility] Start: 02-21-2019 End: 07-21-2023 Alcohol intake Ex-drinker (finding) [facility] Start: 06-20-2019 End: 06-06-2023 Alcohol intake Current drinker of alcohol (finding) [facility] Start: 04-22-2020 End: 11-27-2021 Tobacco use and exposure Never used [facility] Start: 08-15-2021 End: 04-03-2022 Exposure to SARS-CoV-2 (event) Not sure [facility] Start: 01-16-2017 Alcohol Comment Occasionally [facility] Start: 11-17-2021 End: 11-27-2021 Exposure to SARS-CoV-2 (event) Yes [facility] Start: 05-14-2019 End: 11-27-2021 Cigarette pack-years [facility] Start: 05-14-2019 End: 06-03-2023 Tobacco use panel [facility] PHQ-2 Score 23 [facility] Start: 01-15-2017 Gender identity Identifies as female gender (finding) [facility] Start: 08-27-2017 Sexual orientation Heterosexual (finding) [facility] Clinical Notes 12-19-2019 to 07-21-2023 Patient InstructionsAttachmentsConAntonio espinoza CNP - 07/21/2023 8:35 PM ESTNursing Notes - Josué Mcginnis RN - 06/06/2023 2:55 AM ESTDischarge Instr - DMEAttachmentsPatient Instructions Note Date & Type Note Facility 07-21-2023 Instructions Antonio Gonsales CNP - 07/21/2023 8:44 PM EST Thank you for choosing [facility] for your healthcare needs today. Follow up persistent/worsening of symptoms as needed. The following attachments cannot be sent through Care Everywhere.Cough (Venezuelan)Metered-Dose Inhalers With a Spacer (Venezuelan)documented in this encounter [facility] 07-21-2023 History of Presen t illness Narrative Images from the original note were not included. Patient Name: [facility] Ur[facility] Care Location: Vishal Child [address] [place] [phone] Date Of : Date Of Visit: 1995 07/21/2023 MRN# Provider: [id number] Antonio Gonsales CNP Chief Complaint Patient presents with URI Cough, sob, x 1.5 months not getting better Assessment & Plan 1. Acute cough azithromycin (Zithromax Z-Dago) 250 MG tablet dextromethorphan-guaiFENesin 10-100 mg/5 mL Liqd 2. SOB (shortness of breath) albuterol 90 mcg/actuation inhaler inhalational spacing device inhaler No follow-ups on file. Medical Decision Making Client is pleasant, non-toxic in NAD with cough/SOB x 6 weeks. Purulent nasal drainage and sputum. 31 weeks . Reviewed allergies. Flu vac is completed. Non-smoker. See H&P Sinus/Cough/SOB - Zithromax, Albuterol with spacer, Robitussin DM No work note needed. Additional Clinical Comments See AVS Subjective 28 y.o. female presents with URI (Cough, sob, x 1.5 months not getting better) Client with cough and SOB x 6 weeks. URI This is a new problem. The current episode started more than 1 month ago. The problem has been waxing and waning. There has been no fever. Associated symptoms include congestion and coughing. Pertinent negatives include no rhinorrhea, sore throat or wheezing. Review Of Systems Review of Systems Constitutional: Negative for chills and fever. HENT: Positive for congestion, postnasal drip and sinus pressure. Negative for rhinorrhea and sore throat. Purulent nasal drainage. Respiratory: Positive for cough and shortness of breath. Negative for wheezing. Purulent sputum. Medical History Past Medical History: Diagnosis Date [...] Social History Tobacco Use Smoking status: Never Smokeless tobacco: [...] Diabetes Paternal Grandfather Objective Physical Exam BP 120/83 (BP Location: Left arm, Patient Position: Sitting) Pulse 98 Temp 97.7 F (36.5 C) Resp 18 Ht 5' 4 Wt 136.1 kg (300 lb) SpO2 96% BMI 51.49 kg/m Vision/Hearing Exam:No results found. Physical Exam Vitals and nursing note reviewed. Constitutional: General: She is not in acute distress. Appearance: Normal appearance. She is not ill-appearing, toxic-appearing or diaphoretic. HENT: Head: Normocephalic and atraumatic. Right Ear: Tympanic membrane, ear canal and external ear normal. Left Ear: Tympanic membrane, ear canal and external ear normal. Nose: Congestion present. Mouth/Throat: Mouth: Mucous membranes are moist. Pharynx: Oropharynx is clear. Cardiovascular: Rate and Rhythm: Normal rate and regular rhythm. Heart sounds: Normal heart sounds. Pulmonary: Effort: Pulmonary effort is normal. No respiratory distress. Breath sounds: Normal breath sounds. No wheezing or rales. Comments: Frequent, harsh, moist cough. Clear throughout. Skin: General: Skin is warm and dry. Neurological: Mental Status: She is alert. Psychiatric: Mood and Affect: Mood normal. Behavior: Behavior normal. Procedure Notes Procedures Results No results found for this or any previous visit (from the past 168 hour(s)). No orders to display Orders Placed This Visit No orders of the defined types were placed in this encounter. Medication List At End Of Visit Current [...] for 7 days . 18 g 0 albuterol 90 mcg/actuation inhaler Inhale 2 (two) puffs every 6 (six) hours as needed . 6.7 g 0 azithromycin (Zithromax Z-Dago) 250 MG tablet Take 2 tablets on day one and 1 tablet on days 2 through 5. . 6 tablet 0 cyanocobalamin (B-12) 100 MCG tablet Take 100 mcg by mouth daily . desvenlafaxine succinate (PRISTIQ) 50 MG 24 hr tablet Take 50 mg by mouth daily . desvenlafaxine succinate (PRISTIQ) 50 MG 24 hr tablet dextromethorphan-guaiFENesin 10-100 mg/5 mL Liqd Take 5 mL by mouth every 4 (four) hours for 7 days . 236 mL 0 Emgality Pen 120 mg/mL Pen INJECT 120MG BY SUBCUTANEOUS ROUTE EVERY 30 DAYS, START 30 DAYS AFTER LOADING DOSE OF 240 MG etonogestrel (NEXPLANON) 68 mg Impl subdermal implant 68 mg by Subdermal route once . folic acid (FOLVITE) 1 MG tablet Take 1 mg by mouth daily . inhalational spacing device inhaler Use as instructed . 1 each 2 magnesium 30 mg tablet Take 30 mg [...] facility-administered medications for this visit. Patient Instructions Thank you for choosing [facility] for your healthcare needs today. Follow up persistent/worsening of symptoms as needed. documented in this encounter [facility] 06-06-2023 Miscellaneous Notes Formattin g of this [...] upper respiratory symptoms. documented in this encounter [facility] 06-06-2023 Nurse Note Pt and significant other ambulate off of unit, undelivered. [facility] 06-06-2023 Nurse Note Consult to urology placed. AVS printed and given to pt. Denies any questions at this time. [facility] 06-06-2023 Hospital Discharg e instructions Josué Mcginnis RN - 06/06/2023 2:38 AM EST Follow up with urology. Hydrate- LOTS OF WATER! Tylenol as needed. Consult to urology: Dr Pierre [phone] The following attachments cannot be sent through Care Everywhere.Preventing Kidney Stones ([facility]) ([place]enezuelan)Preventing Kidney Stones with Fluids and Citric Acid ([facility]) (Venezuelan)documented in this encounter [facility] 06-06-[address] Hopper called unit, updated on pt complaints and UA results. Dr Hopper states to have pt follow up with urology, take tylenol and hydrate with lots of water. Pt can be discharged at this time. [facility] 06-06-[address] Hopper called at this time. Left voicemail [facility] 06-06-2023 Nurse Note Heat packs provided for pt comfort [facility] 06-06-2023 Nurse Note Urine obtained via straight cath and sent to lab. [facility] 06-06-2023 Nurse Note Pt arrives to triage via wheelchair and significant other with complaints of back pain, difficulty urinating and burning with urination. Pt is experiencing nausea due to being in so much pain. Rating pain 9/10. Constant pain, nothing relieves pain. Pt states she has been taking mucinex for a week due to upper respiratory symptoms. [facility] 06-03-2023 Instructions Myla Campbell DO - 06/03/2023 9:20 PM EST You may continue plain Mucinex and add dextromethorphan. Dextromethorphan can be found in isolated form and a product made by [employer]. Generics are also available. Make sure that you are not taking a combination product that contains phenylephrine or pseudoephedrine. The following attachments cannot be sent through Care Everywhere.URI (Upper Respiratory Infection) (Venezuelan)documented in this encounter [facility] 06-03-2023 History of Presen t illness Narrative PATIENT NAME: Vishal Child [facility]: [address] [facility] [phone] DATE OF VISIT: 06/03/2023 DATE OF : 1995 SS: [id number] PROVIDER: Myla Campbell, SUBJECTIVE 27 y.o. female to the clinic [...] current facility-administered medications for this visit. Myla Campbell documented in this encounter [facility] 04-03-2022 History of Presen t illness [...] tenderness or frontal sinus tenderness. Mouth/Throat: Lips: [place]. Mouth: Mucous membranes are moist. Pharynx: Oropharynx [...] RANDY Partida 04/03/2022 documented in this encounter [facility] 04-03-2022 Instructions RANDY Partida - 04/03/2022 9:20 [...] proceed with plan. documented in this encounter [facility] 11-27-2021 Instructions Myla Campbell DO - 11/27/2021 6:20 PM EDT As [...] attachments cannot be sent through Care Everywhere.Bronchitis (Venezuelan)documented in this encounter [facility] 11-27-2021 History of Presen t illness Narrative PATIENT NAME: Vishal Child [facility]: [address] [facility] [id number] DATE OF VISIT: 11/27/2021 DATE OF : 1995 SS: [id number] PROVIDER: Myla Campbell DO SUBJECTIVE 26 y.o. 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 All of her exposures have been [...] current facility-administered medications for this visit. Myla Campbell documented in this encounter [facility] 08-25-2021 History of Presen t illness [...] and are negative. documented in this encounter [facility] 05-05-2021 Instructions Germania Vargas PA-C - 05/05/2021 10:50 AM EST Vishal, Thank you for choosing [facility] for your healthcare needs today. [facility] COVID-19 Post-swabbing Instructions Your [...] AND REPEAT TEST IN 3-[address] [facility] WANTS A PCR. FOLLOW THEIR INSTRUCTIONS ON [...] results. - If you have an active [employer] account, and your COVID-19 test is negative (not detected), then you will be notified through your [employer] account. You should call the urgent care if you have any further questions. - If your COVID-19 test is positive (detected), you will receive a phone call to discuss your results and answer any questions you might have at that time. Please make sure [facility] has your updated phone number so we can contact you. [facility] will notify the [facility] of any positive results to comply [...] and warm water and/or alcohol based hand student accounts manager, scrubbing your hands for at least 20 [...] therapy. To learn more, go to the [employer] website: Pixel[employer]/covidinfusion. If you still have questions about monoclonal antibody infusion treatment, you can call , Sunday - Sunday 8 am - 4 pm. -400 Other COVID Questions? CDC - https://www.cdc.gov/coronavirus/-ncov/index.html - https://www.cdc.gov/coronavirus/20 19-ncov/kg-rav-kgl-sick/quarantine .html [place] [facility] - Website: https://coronavirus.[place].gov/wps/p ortal/gov/covid-19/home - Hotline: 114-5-VVJ-ODH (191-505-2957) [facility]: [email or web address]://blog.[employer]/series /[email or web address]-cfzurjduhzx-toolkit/ documented in this encounter [facility] 05-05-2021 History of Presen t illness Narrative Images from the original note were not included. 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 Suspected COVID-19 virus infection COVID-19, Molecular 2. Lab test negative for COVID-19 virus 3. Acute nonintractable headache, unspecified headache type 4. Body aches 5. Fatigue, unspecified type 6. Loss of smell 7. Upper respiratory tract infection, unspecified type 8. Cough No follow-ups on file. Medical Decision Making POC COVID CORN MILLER - NEG Supportive care and treatment encouraged. Any worsening symptoms, return for recheck or go to the ER if we are closed. Exposure to Sx onset 05/04; pos yesterday with home test Works for [place] [employer] Advised to repeat poc test in 3-5 days; take home test when leaving from regist[place]. Still under 14 day quarantine from 05/03/2021 due to pos direct contact/exp Pt is nontoxic, afebrile, w/o ams and verbalized good understanding and agreement. 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 No frontal sinus tenderness. Mouth/Throat: Lips: [place]. No lesions. Mouth: Mucous membranes are moist. [...] Instructions Vishal, Thank you for choosing [facility] Urgent [facility] for your healthcare needs today. [facility] COVID-19 Post-swabbing Instructions Your [...] AND REPEAT TEST IN 3-[address] [facility] WANTS A PCR. FOLLOW THEIR INSTRUCTIONS ON [...] results. - If you have an active [employer] account, and your COVID-19 test is negative (not detected), then you will be notified through your [employer] account. You should call the urgent care if you have any further questions. - If your COVID-19 test is positive (detected), you will receive a phone call to discuss your results and answer any questions you might have at that time. Please make sure [facility] has your updated phone number so we can contact you. [facility] will notify the [facility] of any positive results to comply [...] and warm water and/or alcohol based hand student accounts manager, scrubbing your hands for at least 20 [...] therapy. To learn more, go to the [employer] website: [employer]/covidinfusion. If you still have questions about monoclonal antibody infusion treatment, you can call , Sunday - Sunday 8 am - 4 pm. -400 Other COVID Questions? 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 She is not reporting any symptoms. documented in this encounter [facility] 03-14-2021 History of Presen t illness Narrative COVID testing for job. documented in this encounter [facility] 02-04-2021 History of Presen t illness [...] and are negative. documented in this encounter [facility] 12-30-2020 History of Presen t illness Narrative [...] and are negative. documented in this encounter [facility] 11-25-2020 History of Presen t illness Narrative [...] and are negative. 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 She is not reporting any symptoms. documented in this encounter [facility] 12-19-2019 History of Presen t illness Narrative Patient given one sample of Emgality 120mg/ml lot#[id number] exp 01/12. Chief Complaint Patient presents with [...] if effective can discuss with neuro - [facility] (Emgality) 120 MG/ML Solution Auto-injector; Inject 240 [...] and are negative. documented in this encounter [facility] documented in this encounter [facility] note* Diagnosis Encounter for well adult exam without abnormal findings- Primary [facility] Diagnosis Need for tuberculosis vaccination- Primary Need for prophylactic vaccination with tuberculosis (BCG) vaccine [facility] Diagnosis Need for tuberculosis vaccination- Primary Need for prophylactic vaccination with tuberculosis (BCG) vaccine [facility] Diagnosis Screening for viral disease- Primary Special screening examination for unspecified viral disease Shortness of breath [facility] Diagnosis Screening examination for infectious disease- Primary Screening examination for unspecified infectious disease documented in this encounter [facility] note* Diagnosis Screening examination for infectious disease- Primary Screening examination for unspecified infectious disease [facility] Diagnosis Suspected COVID-19 virus infection- Primary Lab test negative for COVID-19 virus Acute nonintractable headache, unspecified headache type Body aches Generalized pain Fatigue, unspecified type Loss of smell Disturbances of sensation of smell and taste Upper respiratory tract infection, unspecified type Cough [facility] Diagnosis Migraine without aura and without status migrainosus, not intractable Migraine without aura, without mention of intractable migraine without mention of status migrainosus documented in this encounter [facility] note* Diagnosis Generalized anxiety disorder Intractable migraine with aura with status migrainosus Migraine with aura, with intractable migraine, so stated, with status migrainosus documented in this encounter [facility] note* 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, complicating , childbirth, or the puerperium, unspecified as to episode of care Intractable migraine with aura with status migrainosus Migraine with aura, with intractable migraine, so stated, with status migrainosus documented in this encounter [facility] note* Diagnosis Bronchitis- Primary Bronchitis, not specified as acute or chronic Suspected COVID-19 virus infection [facility] Diagnosis Right lower quadrant abdominal pain Abdominal pain, right lower quadrant [facility] Diagnosis Right lower quadrant abdominal pain- Primary Abdominal pain, right lower quadrant Vitamin D deficiency Unspecified vitamin D deficiency Right lower quadrant abdominal pain Abdominal pain, right lower quadrant documented in this encounter [facility] note* Diagnosis Acute nasopharyngitis- Primary Acute nasopharyngitis (common cold) Suspected COVID-19 virus infection Fever, unspecified fever cause [facility] Diagnosis Acute cough- Primary SOB (shortness of breath) Shortness of breath documented in this encounter [facility] Diagnosis S/P tonsillectomy and adenoi dectomy - Primary Other postprocedural status Sleep-disordered breathing Other sleep disturbances Diagnosis S/P tonsillectomy and adenoi dectomy - Primary Other postprocedural status Diagnosis Chronic tonsillitis and taylor oiditis - Primary Sleep-disordered breathing Other sleep disturbances Diagnosis Viral URI with cough- Primary Acute upper respiratory infections of unspecified site Diagnosis Chronic tonsillitis and taylor oiditis - Primary Enlarged tonsils Hypertrophy of [...] living will and a durable power of civil rights attorney for health care. Bring a copy [...] not apply lotions, perfumes, deodorants, or nail mozambican. Take off all jewelry and piercings. And [...] Log into your personal health record on [email or web address] and enter S633 in the Education box to learn more about Tonsillectomy: Before Your Surgery. Current as of: January 21, 2016 Content Version: 11.2 2289-3940 [employer]. Care instructions adapted under license by your healthcare professional. If you have questions about a medical condition or this instruction, always ask your healthcare professional. [employer] disclaims any warranty or liability for your [...] help loosen secretionsin the nose and lungs. Kukg-mam-iyemsqj cold medicines will not shorten the length [...] due to throat pain Date Last Reviewed: 03/07/201519998397-9526 [employer]. [address] [place] [address]. All rights reserved. This information is not [...] living will and a durable power of civil rights attorney for health care. Bring a copy [...] not apply lotions, perfumes, deodorants, or nail mozambican. Take off all jewelry and piercings. And [...] Log into your personal health record on [email or web address] and enter S633 in the Education box to learn more about Tonsillectomy: Before Your Surgery. Current as of: January 21, 2016 Content Version: 11.2 2391-1501 [employer]. Care instructions adapted under license by your healthcare professional. If you have questions about a medical condition or this instruction, always ask your healthcare professional. [employer] disclaims any warranty or liability for your [...] living will and a durable power of civil rights attorney for health care. Bring a copy [...] not apply lotions, perfumes, deodorants, or nail mozambican. Take off all jewelry and piercings. And [...] Log into your personal health record on [email or web address] and enter S633 in the Education box to learn more about Tonsillectomy: Before Your Surgery. Current as of: January 21, 2016 Content Version: 11.2 9075-0826 [employer]. Care instructions adapted under license by your healthcare professional. If you have questions about a medical condition or this instruction, always ask your healthcare professional. [employer] disclaims any warranty or liability for your [...] amount of fluids you drink. Take an tnpy-kkr-bwrwegl pain medicine if needed, such as acetaminophen [...] or plain hard candy. ? Take an uind-yyq-zghbnny cough medicine that contains dextromethorphan to help [...] Log into your personal health record on [email or web address] and enter L652 in the Education box to learn more about Influenza (Flu): Care Instructions. Current as of: December 01, 2018 Content Version: 12.3 9316-7190 [employer]. Care instructions adapted under license by your healthcare professional. If you have questions about a medical condition or this instruction, always ask your healthcare professional. [employer] disclaims any warranty or liability for your [...] FoundDocuments on File Type Date Recorded Patient Photographic Technician Expl anation Advance Directives and Livin g Will 01/20/2019 3:56 PM Latest Code Status on File Code Status Date Activated Date Inactivated Comments Full Code 01/20/2019 3:53 PM Documents on File Type Date Recorded Patient Photographic Technician Expl anation Advance Directives and Livin g Will 02/21/2019 5:01 PM Latest Code Status on File Code Status Date Activated Date Inactivated Comments Full Code 01/20/2019 3:53 PM 02/21/2019 4:13 PM Documents on File Type Date Recorded Patient Photographic Technician Expl anation Advance Directives and Livin g Will 03/10/2019 5:09 PM Latest Code Status on File Code Status Date Activated Date Inactivated Comments Full Code 03/10/2019 4:56 PM Full Code 01/20/2019 3:53 PM 02/21/2019 4:13 PM Documents on File Type Date Recorded Patient Photographic Technician Expl anation Advance Directives and Livin g Will 03/29/2019 7:37 PM Latest Code Status on File Code Status Date Activated Date Inactivated Comments Full Code 03/21/2019 2:38 AM 03/29/2019 7:09 PM Full Code 03/20/2019 3:07 AM 03/21/2019 2:38 AM Full Code 03/19/2019 5:18 PM 03/20/2019 3:07 AM Full Code 03/10/2019 4:56 PM 03/19/2019 5:01 PM Documents on File Type Date Recorded Patient Photographic Technician Expl anation Advance Directives and Livin g Will 03/30/2019 9:20 PM Documents on File Type Date Recorded Patient Photographic Technician Expl anation Advance Directives and Livin g Will 08/16/2020 9:33 PM Documents on File Type Date Recorded Patient Photographic Technician Expl anation Advance Directives and Livin g Will 03/19/2019 5:14 PM Latest Code Status on File Code Status Date Activated Date Inactivated Comments Full Code 03/21/2019 2:38 AM Documents on File Type Date Recorded Patient Photographic Technician Expl anation Advance Directives and Livin g [...] History of Present Illness * Ronda Payan, FURNACE OPERATOR OIL OR GAS - 07/15/2018 11:20 AM EST Formatting of [...] tonsils and snoring 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 SNOMED CT(R) 1. 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 SNOMED CT(R) 1. Chronic tonsillitis [...] post- depression, was started on Zoloft by mason liner, having hallucinations, dizziness, Current treatment includes: Zoloft, has not been on anything else, she was referred for counseling.Seeing [facility]. Significant medical conditions: see problem list Headaches: [...] with plan. Veda Philip MD 06/20/2019 * NicolásVishal moser - 06/20/2019 9:45 AM EST Nurse Note: [...] reviewed and are negative. * Cathy Gunderson CAPACITY PLANNING ENGINEER-FURNACE OPERATOR OIL OR GAS - 07/16/2019 10:45 AM EST Chief Complaint [...] post- depression, was started on Zoloft by mason liner, had hallucinations, dizziness. Current treatment includes: Pristiq at bedtime. Previous treatment: Zoloft, has not been on anything else, she was referred for counseling. Seeing [facility]. Significant medical conditions: see problem list Headaches: [...] RANDY Partida 07/16/2019 documented in this encounter* Mendez, Agustina Adenike, FURNACE OPERATOR OIL OR GAS - 08/04/2019 2:32 PM EST PATIENT NAME: Vishal Child [facility] [address] [id number] : 1995 DATE OF VISIT: 08/04/2019 #: [...] file Gets together: Not on file Attends anabaptist service: Not on file Active member of [...] [employer] and hasn't made it over to [facility] Foot Injury Dropped a 5 lb weight on foot. ER doc wanted pt to see PCP to see if she can go back to work or if any f/u XR are needed Weight Gain Would like to go see a Furnace Builder. HPI: Migraines: she was getting samples of [...] month. She is interested in seeing a explosives detonator, following an kenny on her phone, following calories, stopped caffeine, walking 1 mile three times per week. She is eating 2000 calories per day, most of the time she is more likely to do [id number]. Eating a lot of steamed veggies, grilled [...] Information for the patient's : Codie Seals [[id number]] Feeding Type: Formula Objective: Vital signs in [...] Information for the patient's : Codie Seals [[id number]] Feeding Type: Formula Objective: Vital signs in [...] Information for the patient's : Codie Seals [[id number]] Feeding Type: Formula Objective: Vital signs in [...] of bed, verbalizes understanding. Ice water provided. placed in crib at bedside to allow mom a nap. Call light in reach. documented in this encounter* Ruthie Archibald DO - 12/23/2019 2:20 PM EDT Vishal Rochaansley 24 y.o. female CHIEF COMPLAINT: Headache HISTORY [...] known Social: -/- 1 child works at [employer] OF SYSTEMS: [employer] Baby 9 months old Sleep:not very [...] file Gets together: Not on file Attends anabaptist service: Not on file Active member of [...] Enlarged tonsils Snoring Veda Philip MD [address] [place] [address] Jeronimo Simeon MD [address] [facility] [address] [address] Hospital Course * Lucho Tamayo MD - 01/22/2019 9:02 AM EDT DISCHARGE SUMMARY Patient: Vishal Seals Date of : 1995 Site: [facility] Family Provider: Veda Philip MD Admit Date: [...] Physician(s) Family Provider: Veda Philip MD, Address: [address] [place] [address] Follow Up: Veda Philip MD [address] [place] [address] Additional Information: Pt's pain symptoms much improved [...] Vishal Seals Date of : 1995 Site: [facility] Provider: Veda Philip MD Admit Date: 03/19/2019 [...] Physician(s) Family Provider: Veda Philip MD, Address: [address] [place] [address] Follow Up: Irais Rucker MD [address] [place] [facility] [address] Follow up in 1 week(s) Additional Information: instructions given regarding fever, incisional care, activity and bleeding.Rx given for Motrin and [place]. F/U 1 week for incision check Patient [...] through Care Everywhere. * Hydronephrosis: General Info (Venezuelan) documented in this encounter* Attachments The following attachments cannot be sent through Care Everywhere. * : Yalobusha Chong Contractions (Venezuelan) * : Weeks 34 to 36 (Venezuelan) * : When to Call (After 20 Weeks): General Info (Venezuelan) documented in this encounter* Attachments The following attachments cannot be sent through Care Everywhere. * : High Blood Pressure (Venezuelan) * : Kick Counts (Venezuelan) * : Week 37 (Venezuelan) * : When to Call (After 20 Weeks): General Info (Venezuelan) documented in this encounter* Attachments The following attachments cannot be sent through Care Everywhere. * Cellulitis (Venezuelan) documented in this encounter* Attachments The following attachments cannot be sent through Care Everywhere. * Contusion (Venezuelan) * Toe Fracture (Venezuelan) documented in this encounter* Discharge Instr - Other Orders* Bere Pelaez RN - 03/23/2019 9:41 AM EDT A [...] for at least 3 months - Use aqrp-qab-gcrkikv meds for pain. You may have been [...] be thoroughly driedand kept dry. Use a geography department chair (on cool) after showing if [...] through Care Everywhere. * : KICK COUNTS (PUERTO RICAN) * : HIGH BLOOD PRESSURE (PUERTO RICAN) documented in this encounter Additional Source Comments INFORMATION SOURCE (unrecogn ized section and content) DATE CREATED AUTHOR AUTHOR'S ORGANIZ ATION 09/15/2018 [facility] DATE CREATED AUTHOR AUTHOR'S ORGANIZ ATION 11/13/2018 [facility] DATE CREATED AUTHOR AUTHOR'S ORGANIZ ATION 06/21/2021 [facility] DATE CREATED AUTHOR AUTHOR'S ORGANIZ ATION 11/27/2021 [facility] DATE CREATED AUTHOR AUTHOR'S ORGANIZ ATION 06/12/2023 [facility] DATE CREATED AUTHOR AUTHOR'S ORGANIZ ATION 06/21/2023 [facility] DATE CREATED AUTHOR AUTHOR'S ORGANIZ ATION 07/22/2023 [facility] Reason for Visit (unrecogniz ed section and content) Reason Comments Sore Throat NEW PATIENT-enlarged tonsils and snoring Status Reason Specialty Diagnoses / Procedures Referred By Contact Referred To Contact Closed Otolaryngology Diagnoses Enlarged tonsils Snoring Veda Philip MD [address] [place] [address] Jeronimo Simeon MD [address] [address] Reason Comments Morning Sickness pt vomiting since 00 Reason Comments Abdominal Cramping Reason Comments [...] [employer] and hasn't made it over to [facility] Foot Injury Dropped a 5 lb weigh t on foot. ER doc wanted pt to see PCP to see if she can go back to work or if any f/u XR are needed Weight Gain Would like to go see a Furnace Builder. 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 -[employer] Reason Comments Migraine States medication is not [...] Comments Back Pain Left lower back pain Reason Comments URI Cough, sob, x 1.5 mo nths not getting better Mike Logan MD - 01/21/2019 2:46 PM EDTChambIrais hernandez MD - 03/20/2019 10:51 PM EDT H&P Notes (unrecognized sect ion and content) Obstetrics Inpatient H&P 01/21/2019 Mike Logan MD [facility] Patient: Vishal Seals Date of : 1995 [...] file Gets together: Not on file Attends anabaptist service: Not on file Active member of [...] PATIENT NAME: Vishal Seals : 1995 ADMITTED: [id number] CSN: [id number] REFERRING PROVIDER: Mike Logan MD PCP Veda [...] file Gets together: Not on file Attends anabaptist service: Not on file Active member of [...] n.p.o. and reevaluate tomorrow. PAUL DODD MD CC Veda Philip MD documented in this encounter [...] vicodin for pain management. Pt involved in care. Education ongoing. POC Reviewed Problem: Infection [...] Met Initiate POC and discharge education. . Infant and self teaching ongoing. Duramorph and IV toradol effective for pain. No signs or symptoms of abd incisional infection, afebrile. Brief Post Operative Note Patient Name: Vishal Seals : 1995 (23 y.o.) Date of Service: 03/20/2019 - 03/21/2019 CSN: [id number] Procedure(s): SECTION Pre-Operative Diagnoses: * Failure to progress in labor [O62.2] Post-Operative Diagnoses: * Failure to progress in labor [O62.2] Surgeon(s) and Role: * Irais Rucker MD - Primary * Alexander Lind MD METAL TESTER: Kike Morgan CRNA Salon Sales Consultant: Dede Nuñez RN Scrub Person: Raquel Delgado [...] Problems: 39 weeks gestation of Codie Seals [[id number]] Delivery Anesthesia Method: Epidural Operative Delivery Forceps attempted?: No Cossayuna Presentation Presentation: Vertex Cossayuna Information date/time: 03/20/192345 Gender: Male Delivery type: , Low Transverse Delivery location: OB Unit Initial disposition: NICU/SCN Details: categorization: Primary priority: Unscheduled Delivery Providers Delivering clinician: Irais Rucker MD Other personnel: Provider Role Covering Attending Resident In Home Sales Representative Delivery Nurse Registered Nurse Delivery Assist Nurse Practitioner Cord No data filed Placenta No data filed Cossayuna Apgars No data filed Cossayuna Measurements Weight: 8 lb 14.9 oz (4050 [...] collected per KHALIDA France, sent to lab [facility] ED Attending Note: NAME: Vishal Child 23 y.o. CSN: [id number] PCP: Veda Philip MD History: Chief Complaint: [...] no nausea vomiting or diarrhea, Called her ESL PROFESSOR who recommended she come in for Steri-Strip [...] file Gets together: Not on file Attends anabaptist service: Not on file Active member of [...] Yellow Clarity, Urine Hazy (A) Clear Specific [place] 1.023 1.005 - 1.025 pH, Urine 6.0 [...] be further evaluated with outpatient contrast-enhanced MRI. [facility] Workstation ID: [id number] ED Course / Medical [...] skin wound, initial encounter Hank Fowler MD [facility] Emergency Department (Please note that portions of [...] TOLERATED WELL, STATED NEEDS MET, AT BEDSIDE [facility] EMERGENCY DEPARTMENT PCP - Veda Philip MD [...] 2122 5' 4 128.8 kg (284 lb) 08/16/20 2119 (!) 171/74 98.1 F (36.7 C) 77 [...] file Gets together: Not on file Attends anabaptist service: Not on file Active member of [...] to go home with per Dr. Fowler. [facility] ED Attending Note: NAME: Vishal Child 23 y.o. CSN: [id number] PCP: Veda Philip MD History: Chief Complaint: [...] draining serous bloody fluid. Spoke with patient's ESL PROFESSOR Phan on-call who sent the patient in [...] file Gets together: Not on file Attends anabaptist service: Not on file Active member of [...] Venom Protein (Honey Bee) Swelling PACU Vitals 03/30/192058 BP: 139/68 Pulse: 66 Resp: 16 Temp: [...] to keep wound open per instructions from ESL PROFESSOR, otherwise safe for discharge, will discharge home, abdominal pads given, she is to follow-up with her ESL PROFESSOR tomorrow, they are expecting her Clinical Impression: 1. Wound drainage Hank Fowler MD [facility] Emergency Department (Please note that portions of [...] Care Teams (unrecognized sec tion and content) Acid Plant Helper Relationship Specialty Start Date End Date Veda Philip MD [address] [place] [address] PCP - General Family Medicine 01/23/17 Makayla Juarez CNM [address] [place] [address] In Home Sales Representative Obstetrics/Gynecology 05/30/19 Acid Plant Helper Relationship Specialty Start Date End Date Veda Philip MD [address] [place] [address] PCP - General Family Medicine 01/23/17 Makayla Juarez CNM [address] [place] [address] In Home Sales Representative Obstetrics/Gynecology 05/30/19 Acid Plant Helper Relationship Specialty Start Date End Date Veda Philip MD [address] [place] [address] PCP - General Family Medicine 01/23/17 Makayla Juarez, ELLEN [address] [facility] [place] [address] In Home Sales Representative Obstetrics/Gynecology 05/30/19 Acid Plant Helper Relationship Specialty Start Date End Date Veda Philip MD PCP - General Family Medicine 01/23/17 Acid Plant Helper Relationship Specialty Start Date End Date Veda Philip MD PCP - General Family Medicine 01/23/17 Acid Plant Helper Relationship Specialty Start Date End Date Veda Philip MD [address] [place] [address], [place] [address] PCP - General Family Medicine 01/23/17 Makayla Juarez, ELLEN [address] [facility] [place] [address] In Home Sales Representative Obstetrics/Gynecology 05/30/19 Acid Plant Helper Relationship Specialty Start Date End Date Veda Philip MD PCP - General Family Medicine 01/23/17 Acid Plant Helper Relationship Specialty Start Date End Date Veda Philip MD PCP - General Family Medicine 01/23/17 Acid Plant Helper Relationship Specialty Start Date End Date Veda Philip MD [address] [place] [address], [place] [address] PCP - [facility] Family Medicine 01/23/17 Makayla Juarez CNM [address] [place] [address] In Home Sales Representative Obstetrics/Gynecology 05/30/19 Acid Plant Helper Relationship Specialty Start Date End Date Veda Philip MD PCP - [facility] 01/23/17 Acid Plant Helper Relationship Specialty Start Date End Date Veda Philip MD [address] [place] [address] PCP - [facility] 01/23/17 Makayla Juarez CNM [address] [place] [address] In Home Sales Representative Obstetrics/Gynecology 05/30/19 FOR RECORDS PERTAINING TO PATIENTS WHO ARE [...] BE BASED ON THE PRIMARY CLINICAL RECORDS. [facility] [employer] [facility]. provides no warranty or guarantee of the accuracy or completeness of information in this document.
== END | disposition home or self-care (01) ==
LOC: US 18:36
PROVIDERS: PCP Family Medicine; Visit Provider Obstetrics & Gynecology
DX: Z34.90 Encounter for supervision of normal pregnancy, unspecified, unspecified trimester (principal)
CPT/HCPCS: 76816

== ENCOUNTER → 2023-07-27 | Outpatient (CLI) | payer OTHER, SELFPAY | END | disposition home or self-care (01) | LOC: LABSPEC 16:53 | PROVIDERS: PCP Family Medicine; Referring Provider Obstetrics & Gynecology; Visit Provider Obstetrics & Gynecology | DX: R31.9 Hematuria, unspecified (principal) | CPT/HCPCS: 87077; 87086; 87088; 87186 ==

== ENCOUNTER → 2023-08-09 | Outpatient (CLI) | payer OTHER, SELFPAY ==
--- NOTE | 2023-08-09 11:06 | US_ITS ---
STUDY: OBSTETRICAL ULTRASOUND - BIOPHYSICAL PROFILE REASON FOR EXAM: Female, 28 years old obesity affecting LMP: December 12, 2022. PRIOR ULTRASOUND: Comparison is made with prior study dated July 23, 2023. TECHNIQUE: Transabdominal TECHNICAL QUALITY: Adequate. FINDINGS: There is a single intrauterine fetus. The fetus is in a cephalic presentation. There is demonstrated cardiac activity with a heart rate of 143 bpm. There is increased amniotic fluid consistent with polyhydramnios. The largest amniotic fluid pocket measures 8.6 cm. The amniotic fluid index (ABE) is 25.07 cm. [address] the patient in the 95th percentile for amniotic fluid. The placenta is anterior in location and is not low lying. There are Grade 1 placental changes. Age by LMP: 34 weeks, 2 days. MARIANA by LMP: September 18, 2023. age by prior US: 35 weeks, 2 days. MARIANA by prior US: September 12, 2023. BIOPHYSICAL PROFILE: Breathing Movements (FBM): 2 Gross Body Movements (GBM): 2 Tone (FT): 2 Amniotic Fluid Volume (AFV): 2 TOTAL SCORE: 8 / 8 US/Biophysical Prof W/O Non Stres IMPRESSION: Normal biophysical profile of 8. The amniotic fluid index measures in the 95th percentile. Electronically Signed: Poncho Tony MD at 12:44 EST ,
== END | disposition home or self-care (01) ==
LOC: US 11:05
PROVIDERS: PCP Family Medicine; Referring Provider Obstetrics & Gynecology; Visit Provider Obstetrics & Gynecology
DX: O99.210 Obesity complicating pregnancy, unspecified trimester (principal); Z3A.00 Weeks of gestation of pregnancy not specified
CPT/HCPCS: 76819

== ENCOUNTER → 2023-08-16 | Outpatient (CLI) | payer OTHER, SELFPAY ==
--- NOTE | 2023-08-16 18:36 | US_ITS ---
EXAM: US BIOPHYSICAL PROFILE WITHOUT NON-STRESS TESTING CLINICAL INDICATION: Obesity affecting TECHNIQUE: Real-time ultrasound of the maternal pelvis for biophysical profile evaluation with image documentation. COMPARISON: 08/09/2023 FINDINGS: BREATHING MOVEMENTS: Present. Score 2/2. GROSS BODY MOVEMENTS: Present. Score 2/2. TONE: Present. Score 2/2. QUALITATIVE AMNIOTIC FLUID VOLUME: Within normal limits. Score 2/2. HEART RATE: heart rate: 152 bpm. PRESENTATION: Cephalic presentation. PLACENTA: Anterior placenta. ANATOMY: Amniotic fluid volume measurements of 2.6 cm, 5.1 cm, 8.5 cm, and 4.5 cm. Apparent umbilical cord within the 8.5 cm pocket. Subjectively, overall normal amniotic fluid volume. US/Biophysical Prof W/O Non Stres IMPRESSION: No acute findings. Normal biophysical profile with score of 8/8. Electronically Signed: Geovanny Cobb DO at 23:57 EST ,
--- OUTSIDE RECORDS SUMMARY | 2023-08-16 19:37 | XMS RPT_ITS | CCD ---
Author Name Unknown Address [id number] [place] [address] Organization [facility] Care Team Providers Care Group Therapist Name Role Phone Veda Philip Unavailable [phone] Prykhodko, Jeronimo O Unavailable Unavailable Markykhodko, Jeronimo O Unavailable Unavailable Veda Philip Primary Care Provider Unavaila Veda Escobar Primary Care Provider [phone] Veda Philip Primary Care Provider Veda Philip Primary Care Provider Larry, Makayla Heather Unavailable Veda Philip MD Primary Care Provider Larry KNIGHT, Makayla Heather Unavailable Veda Philip MD Primary Care Provider [phone] Larry KNIGHT, Makayla Heather Unavailable RHONDA QUICK Admitting Unavailab RHONDA Sow Referring Unavailab VEDA Graham Primary Care UnavailUMANG Brunson Attending Unavailable VEDA PHILIP Primary Care UnavailJEREMY Irizarry Attending Unavailenid Philip MD, Veda Zhu Primary Care Provider [phone] Veda Philip MD Primary Care Provider Larry HUGHES, Makayla Heather Unavailable VEDA PHILIP Primary Care Unavailabl e MESSI BLACKMAN Attending Unavailable Veda Philip MD Primary Care Provider [phone] Veda Philip MD Primary Care Provider Larry HUGHES Makayla Romero Unavailable Veda Philip MD Primary Care Provider MYLA HOPPER Attending Unavailable MYLA HOPPER Referring Unavailable VEDA PHILIP Primary Care Unavailable MYLA HOPPER Admitting Unavailable SELF, SELF Referring Unavailable VEDA PHILIP Primary Care Unavailable VEDA PHILIP Attending Unavailable MICHEL VEDARICARDO SEAMAN Primary [facility] Unavailabl e CHINYERE BEAULIEU Attending Unavail able MICHEL [facility] Unavailabl e ANTONIO GONSALES Attending Unavail able MICHEL [facility] Unavailabl e MYLA FALK. Attending Unavailable Allergies Allergy Classification Reported Allergen(s) Allergy Type Date of Onset Reaction(s) Facility Bee/Wasp/Ant Venom (4 sources) bee venom Substance Allergy Swelling [facility] (20 sources) BEE VENOM PROTEIN (HONEY BEE); Translations: [BEE VENOM PROTEIN (HONEY BEE)] Propensity to adverse reactions to drug Swelling [facility] Work Phone: Medications Current Medications Medication Drug Class(es) Dates Sig (Normalized) Sig (Original) [id number] 200 actuat albuterol 0.09 mg/actuat metered dose [...] 20:31-0500 Body height 162.6 cm Antonio Dru [facility] Work Phone: [facility] 07-21-2023 20:31-0500 Body mass index (BMI) [Ratio] 51.49 kg/m2 Antonio Gonsales [facility] Work Phone: [facility] 07-21-2023 20:31-0500 Body temperature 97.7 [degF] Antonio Gonsales [facility] Work Phone: [facility] 07-21-2023 20:31-0500 Body weight 136.08 kg Antonio Gonsales DIRECTOR OF LABOR AND DELIVERY Work Phone: [facility] 07-21-2023 20:31-0500 Diastolic blood pressure 83 mm[Hg] Antonio Gonsales DIRECTOR OF LABOR AND DELIVERY Work Phone: [facility] 07-21-2023 20:31-0500 Heart rate 98 /min Antonio Gonsales DIRECTOR OF LABOR AND DELIVERY Work Phone: [facility] 07-21-2023 20:31-0500 Respiratory rate 18 /min Antonio Gonsales DIRECTOR OF LABOR AND DELIVERY Work Phone: [facility] 07-21-2023 20:31-0500 SaO2% (BldA) [Mass fraction] 96 % Antonio Gonsales DIRECTOR OF LABOR AND DELIVERY Work Phone: [facility] 07-21-2023 20:31-0500 Systolic blood pressure 120 mm[Hg] Antonio Gonsales DIRECTOR OF LABOR AND DELIVERY Work Phone: [facility] 06-06-2023 01:40-0500 Body temperature 96.91 [degF] Myla Hopper MD [facility] Phone[facility] 06-06-2023 01:40-0500 Diastolic blood pressure 70 mm[Hg] Myla Hopper MD [facility]: [facility] 06-06-2023 01:40-0500 Heart rate 93 /min Myla Hopper MD Work Phone: [facility] 06-06-2023 01:40-0500 Respiratory rate 22 /min Myla Hopper MD Work Phone: [facility] 06-06-2023 01:40-0500 SaO2% (BldA) [Mass fraction] 98 % Myla Hopper MD [facility] Phone: [facility] 06-06-2023 01:40-0500 Systolic blood pressure 122 mm[Hg] Myla Hopper MD Work Phone: [facility] 06-06-2023 01:32-0500 Body height 160 cm Myla Hopper MD Work Phone: [facility] 06-06-2023 01:32-0500 Body mass index (BMI) [Ratio] 52.82 kg/m2 Myla Hopper MD Work Phone: [facility] 06-06-2023 01:32-0500 Body weight 135.26 kg Myla Hopper MD Work Phone: [facility] 06-03-2023 20:16-0500 Body height 162.6 cm Myla Falk DO Work Phone: [facility] 06-03-2023 20:16-0500 Body mass index (BMI) [Ratio] 50.64 kg/m2 Myla Falk DO Work Phone: [facility] 06-03-2023 20:16-0500 Body temperature 98.1 [degF] Myla Falk DO Work Phone: [facility] 06-03-2023 20:16-0500 Body weight 133.81 kg Myla Falk DO Work Phone: [facility] 06-03-2023 20:16-0500 Diastolic blood pressure 79 mm[Hg] Myla Falk DO Work Phone: [facility] 06-03-2023 20:16-0500 Heart rate 99 /min Myla Falk DO Work Phone: [facility] 06-03-2023 20:16-0500 Respiratory rate 18 /min Myla Falk DO Work Phone: [facility] 06-03-2023 20:16-0500 SaO2% (BldA) [Mass fraction] 98 % Myla Falk DO Work Phone: [facility] 06-03-2023 20:16-0500 Systolic blood pressure 116 mm[Hg] Myla Falk DO Work Phone: [facility] 04-03-2022 09:34-0400 Body height 160 cm Cathy PADILLA Work Phone: [facility] 04-03-2022 09:34-0400 Body mass index (BMI) [Ratio] 51 kg/m2 Cathy Gunderson STORE CONSULTANT-DIRECTOR OF LABOR AND DELIVERY Work Phone: [facility] 04-03-2022 09:34-0400 Body weight 130.59 kg Cathy Gunderson STORE CONSULTANT-DIRECTOR OF LABOR AND DELIVERY Work Phone: [facility] 04-03-2022 09:34-0400 Diastolic blood pressure 78 mm[Hg] Cathy Gunderson STORE CONSULTANT-DIRECTOR OF LABOR AND DELIVERY Work Phone: [facility] 04-03-2022 09:34-0400 Heart rate 98 /min Cathy Gunderson STORE CONSULTANT-DIRECTOR OF LABOR AND DELIVERY Work Phone: [facility] 04-03-2022 09:34-0400 Systolic blood pressure 114 mm[Hg] Cathy Gunderson APRN-DIRECTOR OF LABOR AND DELIVERY Work Phone: [facility] 11-27-2021 16:30-0400 Body height 160 cm Myla Falk DO Work Phone: [facility] 11-27-2021 16:30-0400 Body mass index (BMI) [Ratio] 48.18 kg/m2 Myla Falk DO Work Phone: [facility] 11-27-2021 16:30-0400 Body temperature 98.4 [degF] Myla Falk DO Work Phone: [facility] 11-27-2021 16:30-0400 Body weight 123.38 kg Myla Falk DO Work Phone: [facility] 11-27-2021 16:30-0400 Diastolic blood pressure 87 mm[Hg] Myla Falk DO Work Phone: [facility] 11-27-2021 16:30-0400 Heart rate 95 /min Myla Falk DO Work Phone: [facility] 11-27-2021 16:30-0400 Respiratory rate 20 /min Myla Falk DO Work Phone: [facility] 11-27-2021 16:30-0400 SaO2% (BldA) [Mass fraction] 98 % Myla Adrian ARSHAD Work Phone: [facility] 11-27-2021 16:30-0400 Systolic blood pressure 121 mm[Hg] Myla Jiménezheriberto ARSHAD Work Phone: [facility] 08-25-2021 11:06-0500 Body mass index (BMI) [Ratio] 49.7 kg/m2 Veda Philip MD Work Phone: [facility] 08-25-2021 11:06-0500 Body weight 130.77 kg Veda Philip MD Work Phone: [facility] 08-25-2021 11:06-0500 Diastolic blood pressure 80 mm[Hg] Veda Philip MD Work Phone: [facility] 08-25-2021 11:06-0500 Heart rate 64 /min Veda Philip MD Work Phone: [facility] 08-25-2021 11:06-0500 SaO2% (BldA) [Mass fraction] 98 % Veda Philip MD [facility]: [facility] 08-25-2021 11:06-0500 Systolic blood pressure 118 mm[Hg] Veda Philip MD Work Phone: [facility] 05-05-2021 09:55-0500 Body height 160 cm Germania Lamport PA-C Work Phone: [facility] 05-05-2021 09:55-0500 Body mass index (BMI) [Ratio] 51.37 kg/m2 Germania Lamport PA-C Work Phone: [facility] 05-05-2021 09:55-0500 Body temperature 97.59 [degF] Germania Lamport PA-C Work Phone: [facility] 05-05-2021 09:55-0500 Body weight 131.54 kg Germania Lamport PA-C Work Phone: [facility] 05-05-2021 09:55-0500 Diastolic blood pressure 85 mm[Hg] Germania Lamport PA-C Work Phone: [facility] 05-05-2021 09:55-0500 Heart rate 93 /min Germania Lamport PA-C Work Phone: [facility] 05-05-2021 09:55-0500 Respiratory rate 18 /min Germania Lamport PA-C Work Phone: [facility] 05-05-2021 09:55-0500 SaO2% (BldA) [Mass fraction] 98 % Germania Lamport PA-C Work Phone: [facility] 05-05-2021 09:55-0500 Systolic blood pressure 122 mm[Hg] Germania Lamport PA-C Work Phone: [facility] 02-04-2021 09:11-0400 Body mass index (BMI) [Ratio] 49.67 kg/m2 Veda Philip MD Work Phone: [facility] 02-04-2021 09:11-0400 Body weight 130.68 kg Veda Philip MD Work Phone: [facility] 02-04-2021 09:11-0400 Diastolic blood pressure 68 mm[Hg] Veda Philip MD Work Phone: [facility] 02-04-2021 09:11-0400 Heart rate 77 /min Veda Philip MD Work Phone: [facility] 02-04-2021 09:11-0400 SaO2% (BldA) [Mass fraction] 98 % Veda Philip MD Work Phone: [facility] 02-04-2021 09:11-0400 Systolic blood pressure 106 mm[Hg] Veda Philip MD Work Phone: [facility] 12-30-2020 11:00-0400 Body height 162.2 cm Pinky PADILLA Work Phone: [facility] 12-30-2020 11:00-0400 Body mass index (BMI) [Ratio] 48.48 kg/m2 Pinky Portillo STORE CONSULTANT-DIRECTOR OF LABOR AND DELIVERY Work Phone: [facility] 12-30-2020 11:00-0400 Body weight 127.55 kg Pinky Portillo STORE CONSULTANT-DIRECTOR OF LABOR AND DELIVERY Work Phone: [facility] 12-30-2020 11:00-0400 Diastolic blood pressure 74 mm[Hg] Pinky Portillo STORE CONSULTANT-DIRECTOR OF LABOR AND DELIVERY Work Phone: [facility] 12-30-2020 11:00-0400 Heart rate 88 /min Pinky Portillo STORE CONSULTANT-DIRECTOR OF LABOR AND DELIVERY Work Phone: [facility] 12-30-2020 11:00-0400 SaO2% (BldA) [Mass fraction] 98 % Pinky Portillo STORE CONSULTANT-DIRECTOR OF LABOR AND DELIVERY Work Phone: [facility] 12-30-2020 11:00-0400 Systolic blood pressure 118 mm[Hg] Pinky Portillo APRN-DIRECTOR OF LABOR AND DELIVERY Work Phone: [facility] 11-25-2020 09:32-0400 Body height 162.2 cm Veda Philip MD Work Phone: [facility] 11-25-2020 09:32-0400 Body mass index (BMI) [Ratio] 49.05 kg/m2 Veda Philip MD Work Phone: [facility] 11-25-2020 09:32-0400 Body weight 129.05 kg Veda Philip MD Work Phone: [facility] 11-25-2020 09:32-0400 Diastolic blood pressure 57 mm[Hg] Veda Philip MD Work Phone: [facility] 11-25-2020 09:32-0400 Heart rate 65 /min Veda Philip MD Work Phone: [facility] 11-25-2020 09:32-0400 Systolic blood pressure 99 mm[Hg] Veda Philip MD Work Phone: [facility] 08-20-2020 10:52-0500 BMI (Body Mass Index) 49.66 kg/m2 Veda [facility] 08-20-2020 10:52-0500 Body weight 131.23 kg Veda [facility] 08-20-2020 10:52-0500 BP Diastolic 77 mm[Hg] Veda [facility] 08-20-2020 10:52-0500 BP Systolic 122 mm[Hg] Veda [facility] 08-20-2020 10:52-0500 Height 162.6 cm Evda [facility] 08-20-2020 10:52-0500 Pulse (Heart Rate) 63 /min Veda [facility] 08-16-2020 21:22-0500 BMI (Body Mass Index) 48.75 kg/m2 [facility] 08-16-2020 21:22-0500 Body weight 128.82 kg [facility] 08-16-2020 21:22-0500 Height 162.6 cm [facility] 08-16-2020 21:19-0500 Body Temperature 98.1 [degF] [facility] 08-16-2020 21:19-0500 BP Diastolic 74 mm[Hg] [facility] 08-16-2020 21:19-0500 BP Systolic 171 mm[Hg] [facility] 08-16-2020 21:19-0500 Pulse (Heart Rate) 77 /min [facility] 08-16-2020 21:19-0500 Pulse Oximetry 97 % [facility] 08-16-2020 21:19-0500 Respiratory Rate 18 /min [facility] 05-17-2020 13:43-0500 BMI (Body Mass Index) 49.86 kg/m2 Veda [facility] 05-17-2020 13:43-0500 Body weight 131.77 kg Veda [facility] 05-17-2020 13:43-0500 BP Diastolic 78 mm[Hg] [facility] 05-17-2020 13:43-0500 BP Systolic 133 mm[Hg] [facility] 05-17-2020 13:43-0500 Height 162.6 cm [facility] 05-17-2020 13:43-0500 Pulse (Heart Rate) 71 /min [facility] 04-22-2020 13:14-0400 BMI (Body Mass Index) 49.74 kg/m2 [facility] 04-22-2020 13:14-0400 Body weight 131.45 kg [facility] 04-22-2020 13:14-0400 BP Diastolic 80 mm[Hg] [facility] 04-22-2020 13:14-0400 BP Systolic 125 mm[Hg] [facility] 04-22-2020 13:14-0400 Height 162.6 cm [facility] 04-22-2020 13:14-0400 Pulse (Heart Rate) 79 /min [facility] 12-23-2019 14:53-0400 BMI (Body Mass Index) 48.65 kg/m2 [facility] 12-23-2019 14:53-0400 Body weight 128.55 kg [facility] 12-23-2019 14:53-0400 BP Diastolic 61 mm[Hg] [facility] 12-23-2019 14:53-0400 BP Systolic 121 mm[Hg] [facility] 12-23-2019 14:53-0400 Height 162.6 cm [facility] 12-23-2019 14:53-0400 Pulse (Heart Rate) 78 /min [facility] 12-23-2019 14:53-0400 Pulse Oximetry 97 % [facility] 12-23-2019 14:53-0400 Respiratory Rate 18 /min [facility] 12-19-2019 13:20-0400 Body height 162.6 cm Veda Philip MD Work Phone: [facility] 12-19-2019 13:20-0400 Body mass index (BMI) [Ratio] 48.44 kg/m2 Veda Philip MD Work Phone: [facility] 12-19-2019 13:20-0400 Body weight 128 kg Veda Philip MD Work Phone: [facility] 12-19-2019 13:20-0400 Diastolic blood pressure 76 mm[Hg] Veda Philip MD Work Phone: [facility] 12-19-2019 13:20-0400 Heart rate 69 /min Veda Philip MD Work Phone: [facility] 12-19-2019 13:20-0400 Systolic blood pressure 108 mm[Hg] Veda Philip MD Work Phone: [facility] 08-04-2019 15:05-0500 Pulse (Heart Rate) 102 /min Agustina Simms [facility] Encounters Encounter Date Encounter Type Care Provider Facility Start: 07-21-2023 End: 07-21-2023 ambulatory VEDA PHILIP [facility] Start: 07-21-2023 End: 07-21-2023 Office outpatient visit 15 minutes Antonio Gonsales CNP Work Phone: [facility] Procedures Date Procedure Procedure Detail Performing Clinician [...] Start: 05-05-2021 Sars-cov-2 detection by dna/rna Germania Carmenalexis VELÁSQUEZ-Brigido Work Phone: Start: 12-08-2020 Skin test tuberculos [...] Influenza virus B an tigen assay Agustina Adenikeitalia Simms Work Phone: Start: 08-04-2019 Influenza virus A an tigen assay Agustnia Adenikeitalia Simms Work Phone: Start: 03-30-2019 Ct abdomen [...] 03-07-2019 Protein/Creatinine [ Ratio] in Urine Mike Vaca Phan Work Phone: Start: 03-07-2019 Urinalysis Mike luke Phan Work Phone: Start: 03-07-2019 aPTT in Blood by Coa gulation assay Mike Vaca Phan Work Phone: Start: 03-07-2019 Complete blood count [...] Phone: Start: 01-20-2019 ULTRASOUND (OUTSIDE) Mo patric Zhu Philip Work Phone: Start: 12-16-2018 Microscopic observat [...] Start: 06-28-2033 Tetanus vaccination Tetanus: Every 10yrs [facility] Start: 09-29-2024 Tetanus vaccination [facility] Start: 09-28-2024 Tetanus vaccination [facility] Work Phone: Start: 02-23-2023 COVID-19 Vaccine () COVID-19 Vaccine () [facility] Start: 01-12-2023 Screening for malignant neoplasm of cervix Pap Smear [facility] Start: 09-12-2022 End: 09-12-2022 Patient encounter procedure 09/12/2022 Office Visit Family Medicine Veda Philip MD [address] [place] [id number] [facility] Start: 02-21-2022 End: 02-21-2022 Patient encounter procedure 02/21/2022 Office Visit Family Medicine Veda Philip MD [address] [place] [phone] [facility] Start: 12-20-2021 COVID-19 Vaccine (3 - Booster for Pfizer series) COVID-19 Vaccine (3 - Booster for Pfizer series) [facility] Start: 12-16-2021 Screening for malignant neoplasm of cervix PAP SMEAR [facility] Start: 11-25-2021 GONORRHEA SCREEN GONORRHEA SCREEN [facility] Start: 11-25-2021 History and physical examination, annual for health maintenance Wellness Visit [facility] Start: 11-25-2021 Screening for Chlamydia trachomatis CHLAMYDIA SCREEN [facility] Start: 11-19-2021 COVID-19 VACCINE (3 - Booster for Pfizer series) COVID-19 VACCINE (3 - Booster for Pfizer series) [facility] Start: 08-16-2021 COVID-19 VACCINE (3 - Booster for Pfizer series) COVID-19 VACCINE (3 - Booster for Pfizer series) [facility] Start: 06-21-2021 End: 06-21-2021 ambulatory 06/21/2021 Immunization Primary Care HagamanRhonda MD [address] [place] [id number] [facility] Start: 06-18-2021 COVID-19 Vaccine (2 - Pfizer 2-dose series) COVID-19 Vaccine (2 - Pfizer 2-dose series) [facility] Start: 05-16-2021 End: 05-16-2021 Patient encounter procedure 05/16/2021 Office Visit Obstetrics and Gynecology Irais Rucker MD [address] [place] [phone] [facility] Start: 03-30-2021 End: 03-30-2021 Patient encounter procedure 03/30/2021 Office Visit Obstetrics and Gynecology Mike Logan MD [address] [facility] [address] [address] [facility] Start: 03-29-2021 End: 03-29-2021 Patient encounter procedure 03/29/2021 Office Visit Family Medicine Veda Philip MD [address] [place] [address] [facility] Start: 02-23-2021 Influenza vaccination [facility] Start: 01-12-2021 History and physical examination, annual for health maintenance Wellness Visit [facility] Start: 12-10-2020 End: 12-21-2020 POCT PPD READING POCT PPD READING Point of Care Testing Routine Need for tuberculosis vaccination Expected: 12/10/2020, Expires: 12/21/2020 [facility] Immunizations Immunization Date Immunization Notes Care Provider Mary [facility] 03-20-2022 influenza, injectabl e, quadrivalent, preservative free Cathy Gunderson APRN-CHRISTEN Work Phone: [facility] 06-21-2021 Pfizer SARS-CoV-2 Vaccination Umang Thurman RN [facility] 05-28-2021 Pfizer SARS-CoV-2 Vaccination Jeremy Medina RN [facility] 03-29-2021 influenza, injectabl e, quadrivalent, contains preservative Myla Falk DO Work Phone: [facility] 03-29-2021 influenza, injectabl e, quadrivalent, preservative free Germania Vargas PA-C Work Phone: [facility] 12-08-2020 PPD (Mantoux Test) [facility] 12-08-2020 tuberculin skin test ; purified protein derivative solution, intradermal Germania Lamport PA-C Work Phone: [facility] 11-29-2020 PPD (Mantoux Test) [facility]ren [facility] 11-29-2020 tuberculin skin test ; purified protein derivative solution, intradermal Germania Lamport PA-C Work Phone: [facility] 04-22-2020 influenza, injectabl e, quadrivalent, contains preservative Myla Falk DO Work Phone: [facility] 04-22-2020 influenza, injectabl e, quadrivalent, preservative free [facility] 04-22-2020 influenza quad vacci ne 0.5 ML Suspension Prefilled Syringe [facility] 04-22-2020 influenza virus vaccine, unspecified formulation; Translations: [HC INFLUENZA VIRUS VACCINE QUADRIVALENT SPLIT VIRUS PRESERVATIVE FREE 3+ YEARS INTRAMUSCULAR] [facility] 03-23-2019 influenza, injectabl e, quadrivalent, preservative free [facility] 03-21-2019 varicella zoster imm une globulin [facility] 03-21-2019 diphtheria, tetanus toxoids and acellular pertussis vaccine, unspecified formulation [facility] 03-21-2019 measles, mumps and rubella virus vaccine [facility] 04-29-2015 influenza, injectabl e, quadrivalent, [facility] 04-29-2015 influenza, injectabl e, quadrivalent, preservative free Agustina Mendez [facility] 04-29-2015 meningococcal ACWY vaccine, unspecified formulation Agustina Mendez [facility] 04-29-2015 influenza virus vaccine, unspecified formulation [facility] Work Phone: 09-29-2014 tetanus toxoid, redu charles diphtheria toxoid, and acellular pertussis vaccine, adsorbed Agustina Simms [facility] 09-28-2014 tetanus toxoid, redu charles diphtheria toxoid, and acellular pertussis vaccine, adsorbed Ronda Payan [facility] Payers Date Payer Category Payer Unknown [id number] 2022 Private Health Insurance [employer] [place] [id number] 2022-Present [address] [place] [address] [id number] 2022 Private Health Insurance [id number] 2021 Unknown [id number] 2018 Unknown [id number] 2018 Unknown [id number] 2018 Unknown [id number] 2018 Unknown [employer] M [employer] xxxxxxxxxxxx 2018-Present xxxxxxxxxxxx [id number] 2017 Unknown xxxxxxxxx [id number] 2016 Unknown [id number] 3 1994 Unknown [id number] 1994 Unknown [id number] 1994 Unknown [id number] 1994 Unknown [id number] 1994 Unknown [id number] 1994 Unknown [id number] 1994 Unknown [id number] Unknown [id number] Social History Date Type Detail Facility Start: 10-10-2017 End: 11-27-2021 Tobacco smoking status NHIS Never smoker [facility] Work Phone: Start: 1995 Sex Assigned At Not on file [facility] Work Phone: Start: 07-03-2018 [facility] Start: 01-16-2017 Alcohol Comment Occasionally [facility] Start: 02-21-2019 End: 07-21-2023 Alcohol intake Ex-drinker (finding) [facility] Start: 06-20-2019 End: 06-06-2023 Alcohol intake Current drinker of alcohol (finding) [facility] Start: 04-22-2020 End: 11-27-2021 Tobacco use and exposure Never used [facility] Start: 08-15-2021 End: 04-03-2022 Exposure to SARS-CoV-2 (event) Not sure [facility] Start: 01-16-2017 Alcohol Comment Occasionally [facility] Start: 11-17-2021 End: 11-27-2021 Exposure to SARS-CoV-2 (event) Yes [facility] Start: 05-14-2019 End: 11-27-2021 Cigarette pack-years [facility] Start: 05-14-2019 End: 06-03-2023 Tobacco use panel [facility] PHQ-2 Score 23 [facility] Start: 01-15-2017 Gender identity Identifies as female gender (finding) [facility] Start: 08-27-2017 Sexual orientation Heterosexual (finding) [facility] Clinical Notes 12-19-2019 to 07-21-2023 Patient InstructionsAttachAntonio North CNP - 07/21/2023 8:35 PM ESTNursing Notes - Josué Mcginnis RN - 06/06/2023 2:55 AM ESTDischarge Instr - DMEAttachmentsPatient Instructions Note Date & Type Note Facility 07-21-2023 Instructions Antonio Gonsales CNP - 07/21/2023 8:44 PM EST Thank you for choosing [facility] for your healthcare needs today. Follow up persistent/worsening of symptoms as needed. The following attachments cannot be sent through Care Everywhere.Cough (Albanian)Metered-Dose Inhalers With a Spacer (Albanian)documented in this encounter [facility] 07-21-2023 History of Presen t illness Narrative Images from the original note were not included. Patient Name: [facility] Location: Vishal Child [address] [place] [id number] Date Of : Date Of Visit: 1995 07/21/2023 MRN# Provider: [id number] Antonio Gonsales CNP Chief Complaint Patient presents [...] symptoms as needed. documented in this encounter [facility] 06-06-2023 Miscellaneous Notes Formattin g of [...] upper respiratory symptoms. documented in this encounter [facility] 06-06-2023 Nurse Note Pt and significant other ambulate off of unit, undelivered. [facility] 06-06-2023 Nurse Note Consult to urology placed. AVS printed and given to pt. Denies any questions at this time. [facility] 06-06-2023 Hospital Discharg e instructions Josué Mcginnis RN - 06/06/2023 2:38 AM EST Follow up with urology. Hydrate- LOTS OF WATER! Tylenol as needed. Consult to urology: Dr Pierre [phone] The following attachments cannot be sent through Care Everywhere.Preventing Kidney Stones ([facility]) (Albanian)Preventing Kidney Stones with Fluids and Citric Acid ([facility]) (Albanian)documented in this encounter [facility] 06-06-[address] Hopper called unit, updated on pt complaints and UA results. Dr Hopper states to have pt follow up with urology, take tylenol and hydrate with lots of water. Pt can be discharged at this time. [facility] 06-06-[address] Hopper called at this time. Left voicemail [facility] 06-06-2023 Nurse Note Heat packs provided for pt comfort [facility] 06-06-2023 Nurse Note Urine obtained via straight cath and sent to lab. [facility] 06-06-2023 Nurse Note Pt arrives to triage via wheelchair and significant other with complaints of back pain, difficulty urinating and burning with urination. Pt is experiencing nausea due to being in so much pain. Rating pain 9/10. Constant pain, nothing relieves pain. Pt states she has been taking mucinex for a week due to upper respiratory symptoms. [facility] 06-03-2023 Instructions Myla Falk DO - 06/03/2023 9:20 PM EST You may continue plain Mucinex and add dextromethorphan. Dextromethorphan can be found in isolated form and a product made by [employer]. Generics are also available. Make sure that you are not taking a combination product that contains phenylephrine or pseudoephedrine. The following attachments cannot be sent through Care Everywhere.URI (Upper Respiratory Infection) (Albanian)documented in this encounter [facility] 06-03-2023 History of Presen t illness Narrative PATIENT NAME: Vishal Child [facility]: [address] [facility] [id number] DATE OF VISIT: 06/03/2023 DATE OF : [...] visit. Myla Falk documented in this encounter [facility] 04-03-2022 History of Presen t illness [...] tenderness or frontal sinus tenderness. Mouth/Throat: Lips: [place]. Mouth: Mucous membranes are moist. Pharynx: Oropharynx [...] RANDY Partida 04/03/2022 documented in this encounter [facility] 04-03-2022 Instructions RANDY Partida - 04/03/2022 9:20 [...] proceed with plan. 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 All of her exposures have been [...] visit. Myla Falk documented in this encounter [facility] 08-25-2021 History of Presen t illness [...] and are negative. documented in this encounter [facility] 05-05-2021 Instructions Germania Vargas PA-C - 05/05/2021 10:50 AM EST Vishal, Thank you for choosing [facility] for your healthcare needs today. [facility] COVID-19 Post-swabbing Instructions Your [...] REPEAT TEST IN 3-[address] [facility] WANTS A PCR. FOLLOW THEIR INSTRUCTIONS ON [...] results. - If you have an active nDreams account, and your COVID-19 test is negative (not detected), then you will be notified through your [employer] account. You should call the urgent care if you have any further questions. - If your COVID-19 test is positive (detected), you will receive a phone call to discuss your results and answer any questions you might have at that time. Please make sure [facility] has your updated phone number so we can contact you. [facility] will notify the [facility] of any positive results to comply [...] and warm water and/or alcohol based hand food safety specialist, scrubbing your hands for at least 20 [...] therapy. To learn more, go to the [employer] website: ReliOn/covidinfusion. If you still have questions about monoclonal antibody infusion treatment, you can call , Sunday - Sunday 8 am - 4 pm. -400 Other COVID Questions? CDC - https://www.cdc.gov/coronavirus/v/index.html - https://www.cdc.gov/coronavirus/ncov/sw-mnk-stg-sick/quarantine .html [facility] - Website: https://coronavirus.[place].gov/wps/p ortal/gov/covid-19/home - Hotline: 105-3-NGX-ODH (573-191-3009) [facility]: https://blog.ReliOn/series /vpetl-53-xwompyjaffs-toolkit/ documented in this encounter [facility] 05-05-2021 History of Presen t illness Narrative Images from the original note were not included. 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 Suspected COVID-19 virus infection COVID-19, Molecular 2. Lab test negative for COVID-19 virus 3. Acute nonintractable headache, unspecified headache type 4. Body aches 5. Fatigue, unspecified type 6. Loss of smell 7. Upper respiratory tract infection, unspecified type 8. Cough No follow-ups on file. Medical Decision Making POC COVID SHREDDER PICKER - NEG Supportive care and treatment encouraged. Any worsening symptoms, return for recheck or go to the ER if we are closed. 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 No frontal sinus tenderness. Mouth/Throat: Lips: [place]. No lesions. Mouth: Mucous membranes are moist. [...] Patient Instructions Vishal, Thank you for choosing [facility] for your healthcare needs today. [facility] COVID-19 Post-swabbing Instructions Your [...] REPEAT TEST IN 3-[address] [facility] WANTS A PCR. FOLLOW THEIR INSTRUCTIONS ON [...] results. - If you have an active nDreams account, and your COVID-19 test is negative (not detected), then you will be notified through your nDreams account. You should call the urgent care if you have any further questions. - If your COVID-19 test is positive (detected), you will receive a phone call to discuss your results and answer any questions you might have at that time. Please make sure [facility] has your updated phone number so we can contact you. [facility] will notify the [facility] of any positive results to comply [...] and warm water and/or alcohol based hand food safety specialist, scrubbing your hands for at least 20 [...] therapy. To learn more, go to the [facility] website: ReliOn/covidinfusion. If you still have questions about monoclonal antibody infusion treatment, you can call , Sunday - Sunday 8 am - 4 pm. -400 Other COVID Questions? 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 She is not reporting any symptoms. documented in this encounter [facility] 03-14-2021 History of Presen t illness Narrative COVID testing for job. documented in this encounter [facility] 02-04-2021 History of Presen t illness [...] and are negative. documented in this encounter [facility] 12-30-2020 History of Presen t illness Narrative [...] and are negative. documented in this encounter [facility] 11-25-2020 History of Presen t illness Narrative [...] and are negative. 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 She is not reporting any symptoms. documented in this encounter [facility] 12-19-2019 History of Presen t illness Narrative Patient given one sample of Emgality 120mg/ml lot#[id number] exp 01/12. Chief Complaint Patient presents with [...] and are negative. documented in this encounter [facility] Encounter for well adult exam without abnormal findings- Primary [facility] Need for tuberculosis vaccination- Primary Need for prophylactic vaccination with tuberculosis (BCG) vaccine [facility] Diagnosis Need for tuberculosis vaccination- Primary Need for prophylactic vaccination with tuberculosis (BCG) vaccine [facility] Diagnosis Screening for viral disease- Primary Special screening examination for unspecified viral disease Shortness of breath [facility] Diagnosis Screening examination for infectious disease- Primary Screening examination for unspecified infectious disease documented [facility] Diagnosis Screening examination for infectious disease- Primary Screening examination for unspecified infectious disease documented [facility]* Diagnosis Suspected COVID-19 virus infection- Primary Lab test negative for COVID-19 virus Acute nonintractable headache, unspecified headache type Body aches Generalized pain Fatigue, unspecified type Loss of smell Disturbances of sensation of smell and taste Upper respiratory tract infection, unspecified type Cough documented [facility]* Diagnosis Migraine without aura and without status migrainosus, not intractable Migraine without aura, without mention of intractable migraine without mention of status migrainosus documented in this encounter [facility] note* Diagnosis Generalized anxiety disorder Intractable migraine with aura with status migrainosus Migraine with aura, with intractable migraine, so stated, with status migrainosus [facility]* 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, complicating , childbirth, or the puerperium, unspecified as to episode of care Intractable migraine with aura with status migrainosus Migraine with aura, with intractable migraine, so stated, with status migrainosus documented [facility] encounter [facility]* Diagnosis Bronchitis- Primary Bronchitis, not specified as acute or chronic Suspected COVID-19 virus infection documented [facility]* Diagnosis Right lower quadrant abdominal pain Abdominal pain, right lower quadrant documented in this encounter [facility]* Diagnosis Right lower quadrant abdominal pain- Primary Abdominal pain, right lower quadrant Vitamin D deficiency Unspecified vitamin D deficiency Right lower quadrant abdominal pain Abdominal pain, right lower quadrant documented in this encounter [facility]* Diagnosis Acute nasopharyngitis- Primary Acute nasopharyngitis (common cold) Suspected COVID-19 virus infection Fever, unspecified fever cause [facility] Acute cough- Primary SOB (shortness of breath) Shortness of breath documented in this encounter [facility] Diagnosis S/P tonsillectomy and adenoi dectomy - [...] migrainosus Instructions * Patient Instructions - Jeronimo Simeon, MD - 06/08/2017 6:54 PM EST Tonsillectomy: [...] living will and a durable power of etcher electrolytic for health care. Bring a copy to [...] not apply lotions, perfumes, deodorants, or nail marshallese. Take off all jewelry and piercings. And [...] Log into your personal health record on [email or web address] and enter S633 in the Education box to learn more about Tonsillectomy: Before Your Surgery. Current as of: January 21, 2016 Content Version: 11.2 8815-7541 [employer]. Care instructions adapted under license by your healthcare professional. If you have questions about a medical condition or this instruction, always ask your healthcare professional. [employer] disclaims any warranty or liability for your [...] help loosen secretionsin the nose and lungs. Lmnu-oyp-sezpegy cold medicines will not shorten the length [...] due to throat pain Date Last Reviewed: 03/07/201519998857-8857 [employer] [address] [place] [address], [place] [address]. All rights reserved. This information is not [...] living will and a durable power of etcher electrolytic for health care. Bring a copy to [...] not apply lotions, perfumes, deodorants, or nail marshallese. Take off all jewelry and piercings. And [...] Log into your personal health record on [email or web address] and enter S633 in the Education box to learn more about Tonsillectomy: Before Your Surgery. Current as of: January 21, 2016 Content Version: 11.2 7941-8557 [employer]. Care instructions adapted under license by your healthcare professional. If you have questions about a medical condition or this instruction, always ask your healthcare professional. [employer] disclaims any warranty or liability for your [...] living will and a durable power of etcher electrolytic for health care. Bring a copy to [...] not apply lotions, perfumes, deodorants, or nail marshallese. Take off all jewelry and piercings. And [...] Log into your personal health record on [email or web address] and enter S633 in the Education box to learn more about Tonsillectomy: Before Your Surgery. Current as of: January 21, 2016 Content Version: 11.2 7102-6556 [employer]. Care instructions adapted under license by your healthcare professional. If you have questions about a medical condition or this instruction, always ask your healthcare professional. [employer] disclaims any warranty or liability for your [...] amount of fluids you drink. Take an zdgd-dgk-drzgrez pain medicine if needed, such as acetaminophen [...] or plain hard candy. ? Take an tcje-lcf-lkbugkj cough medicine that contains dextromethorphan to help [...] Log into your personal health record on https://[email or web address].ReliOn and enter L652 in the Education box to learn more about Influenza (Flu): Care Instructions. Current as of: December 01, 2018 Content Version: 12.3 5551-3942 [employer]. Care instructions adapted under license by your healthcare professional. If you have questions about a medical condition or this instruction, always ask your healthcare professional. [employer] disclaims any warranty or liability for your [...] FoundDocuments on File Type Date Recorded Patient Market Research Consultant Expl anation Advance Directives and Livin g Will 01/20/2019 3:56 PM Latest Code Status on File Code Status Date Activated Date Inactivated Comments Full Code 01/20/2019 3:53 PM Documents on File Type Date Recorded Patient Market Research Consultant Expl anation Advance Directives and Livin g Will 02/21/2019 5:01 PM Latest Code Status on File Code Status Date Activated Date Inactivated Comments Full Code 01/20/2019 3:53 PM 02/21/2019 4:13 PM Documents on File Type Date Recorded Patient Market Research Consultant Expl anation Advance Directives and Livin g Will 03/10/2019 5:09 PM Latest Code Status on File Code Status Date Activated Date Inactivated Comments Full Code 03/10/2019 4:56 PM Full Code 01/20/2019 3:53 PM 02/21/2019 4:13 PM Documents on File Type Date Recorded Patient Market Research Consultant Expl anation Advance Directives and Livin g Will 03/29/2019 7:37 PM Latest Code Status on File Code Status Date Activated Date Inactivated Comments Full Code 03/21/2019 2:38 AM 03/29/2019 7:09 PM Full Code 03/20/2019 3:07 AM 03/21/2019 2:38 AM Full Code 03/19/2019 5:18 PM 03/20/2019 3:07 AM Full Code 03/10/2019 4:56 PM 03/19/2019 5:01 PM Documents on File Type Date Recorded Patient Market Research Consultant Expl anation Advance Directives and Livin g Will 03/30/2019 9:20 PM Documents on File Type Date Recorded Patient Market Research Consultant Expl anation Advance Directives and Livin g Will 08/16/2020 9:33 PM Documents on File Type Date Recorded Patient Market Research Consultant Expl anation Advance Directives and Livin g Will 03/19/2019 5:14 PM Latest Code Status on File Code Status Date Activated Date Inactivated Comments Full Code 03/21/2019 2:38 AM Documents on File Type Date Recorded Patient Market Research Consultant Expl anation Advance Directives and Livin g [...] History of Present Illness * Ronda Payan, DIRECTOR OF LABOR AND DELIVERY - 07/15/2018 11:20 AM EST Formatting of [...] tonsils and snoring 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 SNOMED CT(R) 1. 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 SNOMED CT(R) 1. Chronic tonsillitis [...] post- depression, was started on Zoloft by mercury cell cleaner, having hallucinations, dizziness, Current treatment includes: Zoloft, has not been on anything else, she was referred for counseling.Seeing [facility]. Significant medical conditions: see problem list Headaches: [...] systems reviewed and are negative. * Cathy Gunderson, BIRD-DIRECTOR OF LABOR AND DELIVERY - 07/16/2019 10:45 AM EST Chief Complaint [...] post- depression, was started on Zoloft by mercury cell cleaner, had hallucinations, dizziness. Current treatment includes: Pristiq at bedtime. Previous treatment: Zoloft, has not been on anything else, she was referred for counseling. Seeing [facility]. Significant medical conditions: see problem list Headaches: [...] 2:32 PM EST PATIENT NAME: Vishal Child [facility] [address] [facility] [id number] : 1995 DATE OF VISIT: 08/04/2019 #: [...] file Gets together: Not on file Attends worship service: Not on file Active member of [...] (Honey Bee) Swelling OBJECTIVE Vitals: 08/04/19 1424 02/10/20 1505 BP: 126/84 Temp: 98.8 F (37.1 [...] [employer] and hasn't made it over to [facility] Foot Injury Dropped a 5 lb weight on foot. ER doc wanted pt to see PCP to see if she can go back to work or if any f/u XR are needed Weight Gain Would like to go see a Solid State Tester. HPI: Migraines: she was getting samples of [...] month. She is interested in seeing a customer relations representative, following an kenny on her phone, following calories, stopped caffeine, walking 1 mile three times per week. She is eating 2000 calories per day, most of the time she is more likely to do 2654-5650. 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 Baby 9 months old Sleep:not very [...] file Gets together: Not on file Attends worship service: Not on file Active member of [...] Enlarged tonsils Snoring Veda Philip MD [address] [place] [address] Jeronimo Simeon MD [address] [address] Hospital Course * Lucho Tamayo MD - 01/22/2019 9:02 AM EDT DISCHARGE SUMMARY Patient: Vishal Seals Date of : 1995 Site: [facility] Family Provider: Veda Philip MD Admit Date: [...] Physician(s) Family Provider: Veda Philip MD, Address: [address] [place] [id number] Follow Up: Veda Philip MD [address] [place] [address] Additional Information: Pt's pain symptoms much improved [...] Vishal Seals Date of : 1995 Site: [facility] Provider: Veda Philip MD Admit Date: [...] Physician(s) Family Provider: Veda Philip MD, Address: [address] [place] [id number] Follow Up: Irais Rucker MD [address] [facility] [address] [id number] Follow up in 1 week(s) Additional Information: instructions given regarding fever, incisional care, activity and bleeding.Rx given for Motrin and [place]. F/U 1 week for incision check Patient [...] through Care Everywhere. * Hydronephrosis: General Info (Albanian) documented in this encounter* Attachments The following attachments cannot be sent through Care Everywhere. * : Logan Chong Contractions (Albanian) * : Weeks 34 to 36 (Albanian) * : When to Call (After 20 Weeks): General Info (Albanian) documented in this encounter* Attachments The following attachments cannot be sent through Care Everywhere. * : High Blood Pressure (Albanian) * : Kick Counts (Albanian) * : Week 37 (Albanian) * : When to Call (After 20 Weeks): General Info (Albanian) documented in this encounter* Attachments The following attachments cannot be sent through Care Everywhere. * Cellulitis (Albanian) documented in this encounter* Attachments The following attachments cannot be sent through Care Everywhere. * Contusion (Albanian) * Toe Fracture (Albanian) documented in this encounter* Discharge Instr - Other Orders* Bere Pelaez RN - 03/23/2019 9:41 AM EDT A guide to Caring for Yourself and Your Baby was given to and reviewed with patient. Patient encouraged to reference book when she gets home. * Additional Instructions* Bere Pelaez, STEPH - 03/20/2019 Post Instructions After delivery you [...] for at least 3 months - Use adpe-kuw-[id number] meds for pain. You may have been [...] be thoroughly driedand kept dry. Use a balance and hairspring assembler (on cool) after showing if necessary Call [...] questions. documented in this encounter* Instructions* Leta Morgan, RN - 03/07/2019 Keep next office appt. Use count the kick sheet, return if any further problems * Attachments The following attachments cannot be sent through Care Everywhere. * : KICK COUNTS (ITALIAN) * : HIGH BLOOD PRESSURE (ITALIAN) documented in this encounter Additional Source Comments INFORMATION SOURCE (unrecogn ized section and content) DATE CREATED AUTHOR AUTHOR'S ORGANIZ ATION 09/15/2018 [facility] DATE CREATED AUTHOR AUTHOR'S ORGANIZ ATION 11/13/2018 [facility] DATE CREATED AUTHOR AUTHOR'S ORGANIZ ATION 06/21/2021 [facility] DATE CREATED AUTHOR AUTHOR'S ORGANIZ ATION 11/27/2021 [facility] DATE CREATED AUTHOR AUTHOR'S ORGANIZ ATION 06/12/2023 [facility] DATE CREATED AUTHOR AUTHOR'S ORGANIZ ATION 06/21/2023 [facility] DATE CREATED AUTHOR AUTHOR'S ORGANIZ ATION 07/22/2023 [facility] Reason for Visit (unrecogniz ed section and content) Reason Comments Sore Throat NEW PATIENT-enlarged tonsils and snoring Status Reason Specialty Diagnoses / Procedures Referred By Contact Referred To Contact Closed Otolaryngology Diagnoses Enlarged tonsils Snoring Veda Philip MD [address] [place] [address] Jeronimo Simeon MD [address] [place] [phone] Reason Comments Morning Sickness pt vomiting since [...] [facility] and hasn't made it over to [facility] Foot Injury Dropped a 5 lb weigh t on foot. ER doc wanted pt to see PCP to see if she can go back to work or if any f/u XR are needed Weight Gain Would like to go see a Solid State Tester. 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 Pt had 2 emesis [...] Date of Service: 03/20/2019 - 03/21/2019 CSN: [id number] Procedure(s): SECTION Pre-Operative Diagnoses: * Failure to progress in labor [O62.2] Post-Operative Diagnoses: * Failure to progress in labor [O62.2] Surgeon(s) and Role: * Irais Rucker MD - Primary * Alexander Lind MD SPECIAL DELIVERY MESSENGER: Kike Morgan CRNA Hard Candy Spinner: Dede Nuñez RN Scrub Person: Raquel Delgado [...] Problems: 39 weeks gestation of Codie Seals [[id number]] Delivery Anesthesia Method: Epidural Operative Delivery Forceps attempted?: No [place] Presentation Presentation: Vertex Information date/time: 03/20/19 2346 Gender: Male Delivery type: , Low Transverse Delivery location: OB Unit Initial disposition: NICU/SCN Details: categorization: Primary priority: Unscheduled Delivery Providers Delivering clinician: Irais Rucker MD Other personnel: Provider Role Covering Attending Resident Legal Billing Specialist Delivery Nurse Registered Nurse Delivery Assist Nurse Practitioner Cord No data filed Placenta No data filed [place] Apgars No data filed Measurements Weight: 8 lb 14.9 oz (4050 [...] collected per KHALIDA France, sent to lab [facility] ED Attending Note: NAME: Vishal Child 23 y.o. CSN: [id number] PCP: Veda Philip MD History: Chief Complaint: [...] no nausea vomiting or diarrhea, Called her ROD STRAIGHTENER who recommended she come in for Steri-Strip [...] file Gets together: Not on file Attends worship service: Not on file Active member of [...] Yellow Clarity, Urine Hazy (A) Clear Specific [place] 1.023 1.005 - 1.025 pH, Urine 6.0 [...] be further evaluated with outpatient contrast-enhanced MRI. /SureVisit Workstation ID: [id number] ED Course / Medical [...] skin wound, initial encounter Hank Fowler MD [facility] Emergency Department (Please note that portions [...] TOLERATED WELL, STATED NEEDS MET, AT BEDSIDE [facility] EMERGENCY DEPARTMENT PCP - Veda Philip [...] file Gets together: Not on file Attends worship service: Not on file Active member of [...] to go home with per Dr. Fowler. [facility] ED Attending Note: NAME: Vishal Child 23 y.o. CSN: [id number] PCP: Veda Philip MD History: Chief Complaint: [...] draining serous bloody fluid. Spoke with patient's ROD STRAIGHTENER Phan on-call who sent the patient in [...] file Gets together: Not on file Attends worship service: Not on file Active member of [...] to keep wound open per instructions from ROD STRAIGHTENER, otherwise safe for discharge, will discharge home, abdominal pads given, she is to follow-up with her ROD STRAIGHTENER tomorrow, they are expecting her Clinical Impression: 1. Wound drainage aHnk Fowler MD [facility] Emergency Department (Please note that portions [...] Care Teams (unrecognized sec tion and content) Group Therapist Relationship Specialty Start Date End Date Veda Philip MD [address] [place] [id number] PCP - General Family Medicine 01/23/17 LarryMakayla espinoza [address] [place] [address] Legal Billing Specialist Obstetrics/Gynecology 05/30/19 Group Therapist Relationship Specialty Start Date End Date Veda Philip MD [address] [place] [id number] PCP - General Family Medicine 8/1/17 Makayla Juarez, [facility] [address] [place] [address] Legal Billing Specialist Obstetrics/Gynecology 05/30/19 Group Therapist Relationship Specialty Start Date End Date Veda Philip MD [address] [place] [address], [place] [address] PCP - General Family Medicine 01/23/17 Makayla Juarez, [facility] [address] [place] [address] Legal Billing Specialist Obstetrics/Gynecology 05/30/19 Group Therapist Relationship Specialty Start Date End Date Veda Philip MD PCP - General Family Medicine 01/23/17 Group Therapist Relationship Specialty Start Date End Date Veda Philip MD PCP - General Family Medicine 01/23/17 Group Therapist Relationship Specialty Start Date End Date Veda Philip MD [address] [place] [address], [place] [address] PCP - General Family Medicine 01/23/17 LarryMakayla cervantes, [facility] [address] [facility] [place] [address] Legal Billing Specialist Obstetrics/Gynecology 05/30/19 Group Therapist Relationship Specialty Start Date End Date Veda Philip MD PCP - General Family Medicine 01/23/17 Group Therapist Relationship Specialty Start Date End Date Veda Philip MD PCP - General Family Medicine 01/23/17 Group Therapist Relationship Specialty Start Date End Date Veda Philip MD [address] [place] [address] PCP - General Family Medicine 01/23/17 Makayla Juarez CNM [address] [place] [address] Legal Billing Specialist Obstetrics/Gynecology 05/30/19 Group Therapist Relationship Specialty Start Date End Date Veda Philip MD PCP - General Family Medicine 01/23/17 Group Therapist Relationship Specialty Start Date End Date Veda Philip MD [address] [place] [address] PCP - General Family [facility] 01/23/17 Makayla Juarez CNM [address] [place] [address] Legal Billing Specialist Obstetrics/Gynecology 05/30/19 FOR RECORDS PERTAINING TO PATIENTS [...] BE BASED ON THE PRIMARY CLINICAL RECORDS. [facility] [employer] [facility]. provides no warranty or guarantee of the accuracy or completeness of information in this document.
== END | disposition home or self-care (01) ==
PROVIDERS: PCP Family Medicine; Referring Provider Obstetrics & Gynecology; Visit Provider Obstetrics & Gynecology
DX: O99.210 Obesity complicating pregnancy, unspecified trimester (principal); Z3A.00 Weeks of gestation of pregnancy not specified
CPT/HCPCS: 76819

== ENCOUNTER → 2023-08-20 | Outpatient (CLI) | payer SELFPAY ==
--- NOTE | 2023-08-20 18:18 | US_ITS ---
STUDY: SECOND AND THIRD TRIMESTER OBSTETRICAL ULTRASOUND - LIMITED REASON FOR EXAM: Female, 28 years old GROWTH LMP: 12/12/2022 PRIOR ULTRASOUND: 07/23/2023 and 07/16/2023 TECHNIQUE: Transabdominal TECHNICAL QUALITY: Adequate. FINDINGS: There is a single intrauterine fetus. The fetus is in a cephalic presentation. There is demonstrated cardiac activity with a heart rate of 140 bpm. There is a normal amniotic fluid volume. The amniotic fluid index (ABE) is 18.3 cm. The placenta is anterior There are Grade 2 placental changes. Cervix not visualized. BIOMETRY: BIOMETRIC MEASUREMENTS: * HEAD CIRCUMFERENCE: 33.12 cm which corresponds to 37 weeks, 5 days. * BIPARIETAL DIAMETER: 8.75 cm which corresponds to 35 weeks, 2 days. * ABDOMINAL CIRCUMFERENCE: 32.74 cm which corresponds to 36 weeks, 5 days. * FEMORAL LENGTH: 6.87 cm which corresponds to 35 weeks, 2 days. * Estimated weight: 2869 g, which is the 59th percentile. Age by LMP: 35 weeks, 6 days. MARIANA by LMP: 09/18/2023. age by current US: 36 weeks, 4 days. MARIANA by current US: 09/13/2023. US/OB Limited With Biometrics IMPRESSION: * Single live intrauterine fetus with estimated gestational age by ultrasound of 36 weeks, 4 days. * Estimated weight of [address] the fetus in the 59th percentile. * No abnormalities. Electronically Signed: Ben Olmstead MD at 7:10 EST ,
== END | disposition home or self-care (01) ==
PROVIDERS: PCP Family Medicine; Visit Provider Obstetrics & Gynecology
DX: Z34.93 Encounter for supervision of normal pregnancy, unspecified, third trimester (principal)
CPT/HCPCS: 76816

== ENCOUNTER → 2023-08-23 | Outpatient (CLI) | payer OTHER, SELFPAY ==
--- NOTE | 2023-08-23 07:35 | US_ITS ---
STUDY: OBSTETRICAL ULTRASOUND - BIOPHYSICAL PROFILE REASON FOR EXAM: Female, 28 years old obesity affecting -- BMI 51 LMP: December 12, 2022. PRIOR ULTRASOUND: Comparison is made with prior study of August 20, 2023. TECHNIQUE: Transabdominal TECHNICAL QUALITY: Adequate. FINDINGS: There is a single intrauterine fetus. The fetus is in a cephalic presentation. There is demonstrated cardiac activity with a heart rate of 150 bpm. There is a normal amniotic fluid volume. The largest amniotic fluid pocket measures 7.1 cm. The amniotic fluid index (ABE) is 19.4 cm. The placenta is anterior in location and is not low lying. There are Grade 1 placental changes. Age by LMP: 36 weeks, 2 days. MARIANA by LMP: September 18, 2023. BIOPHYSICAL PROFILE: Breathing Movements (FBM): 2 Gross Body Movements (GBM): 2 Tone (FT): 2 Amniotic Fluid Volume (AFV): 2 TOTAL SCORE: 8 / 8 US/Biophysical Prof W/O Non Stres IMPRESSION: Normal biophysical profile of 8/8. Electronically Signed: Poncho Tony MD at 15:26 EST ,
--- OUTSIDE RECORDS SUMMARY | 2023-08-23 07:38 | XMS RPT_ITS | CCD ---
Author Name Unknown Address [address] [place] [address] Organization [facility] Care Team Providers Care Floor Finisher Name Role Phone Veda Philip Unavailable Prykhodko, Jeronimo O Unavailable Unavailable Markykhodko, Jeronimo O Unavailable Unavailable Veda Philip Primary Care Provider Unavaila Veda Escobar Primary Care Provider Veda Philip Primary Care Provider Veda Philip Primary Care Provider Larry, Makayla Heather Unavailable Veda Philip MD Primary Care Provider Larry KNIGHT, Makayla Heather Unavailable Veda Philip MD Primary Care Provider Larry KNIGHT, Makayla Heather Unavailable RHONDA QUICK Admitting Unavailab RHONDA Sow Referring Unavailab VEDA Graham Primary Care UnavailUMANG Brunson Attending Unavailable VEDA PHILIP Primary Care UnavailJEREMY Irizarry Attending Unavailenid Philip MD, Veda Zhu Primary Care Provider [phone] Veda Philip MD Primary Care Provider Larry HUGHES, Makayla Heather Unavailable VEDA PHILIP Primary Care Unavailabl e MESSI BLACKMAN Attending Unavailable Veda Philip MD Primary Care Provider [phone] Veda Philip MD Primary Care Provider Larry HUGHES Makayla Roemro Unavailable Veda Philip MD Primary Care Provider [phone] MYLA HOPPER Attending Unavailable MYLA HOPPER Referring Unavailable VEDA PHILIP Primary Care Unavailable MYLA HOPPER Admitting Unavailable SELF, SELF Referring Unavailable VEDA PHLIIP Primary Care Unavailable VEDA PHILIP Attending Unavailable MICHEL VEDARICARDO SEAMAN Primary [facility] Unavailabl e CHINYERE BEAULIEU Attending Unavail able MICHEL [facility] Unavailabl e ANTONIO GONSALES Attending Unavail able MICHEL [facility] Unavailabl e MYLA FALK. Attending Unavailable Allergies Allergy Classification Reported Allergen(s) Allergy Type Date of Onset Reaction(s) Facility Bee/Wasp/Ant Venom (4 sources) bee venom Substance Allergy Swelling [facility] (20 sources) BEE VENOM PROTEIN (HONEY BEE); Translations: [BEE VENOM PROTEIN (HONEY BEE)] Propensity to adverse reactions to drug Swelling [facility] Work Phone: Medications Current Medications Medication Drug Class(es) Dates Sig (Normalized) Sig (Original) [id number] 200 actuat albuterol 0.09 mg/actuat metered dose [...] 20:31-0500 Body height 162.6 cm Antonio Dru [facility] Work Phone: [facility] 07-21-2023 20:31-0500 Body mass index (BMI) [Ratio] 51.49 kg/m2 Antonio Gonsales [facility] Work Phone: [facility] 07-21-2023 20:31-0500 Body temperature 97.7 [degF] Antonio Gonsales [facility] Work Phone: [facility] 07-21-2023 20:31-0500 Body weight 136.08 kg Antonio Gonsales WILL CALL ORDER CLERK Work Phone: [facility] 07-21-2023 20:31-0500 Diastolic blood pressure 83 mm[Hg] Antonio Gonsales WILL CALL ORDER CLERK Work Phone: [facility] 07-21-2023 20:31-0500 Heart rate 98 /min Antonio Gonsales WILL CALL ORDER CLERK Work Phone: [facility] 07-21-2023 20:31-0500 Respiratory rate 18 /min Antonio Gonsales WILL CALL ORDER CLERK Work Phone: [facility] 07-21-2023 20:31-0500 SaO2% (BldA) [Mass fraction] 96 % Antonio Gonsales WILL CALL ORDER CLERK Work Phone: [facility] 07-21-2023 20:31-0500 Systolic blood pressure 120 mm[Hg] Antonio Gonsales WILL CALL ORDER CLERK Work Phone: [facility] 06-06-2023 01:40-0500 Body temperature 96.91 [degF] Myla Hopper MD Work Phone: [facility] 06-06-2023 01:40-0500 Diastolic blood pressure 70 mm[Hg] Myla Hopper MD Work Phone: [facility] 06-06-2023 01:40-0500 Heart rate 93 /min Myla Hopper MD Work Phone: [facility] 06-06-2023 01:40-0500 Respiratory rate 22 /min Myla Hopper MD Work Phone: [facility] 06-06-2023 01:40-0500 SaO2% (BldA) [Mass fraction] 98 % Myla Hopper MD Work Phone: [facility] 06-06-2023 01:40-0500 Systolic blood pressure 122 mm[Hg] Myla Hopper MD Work Phone: [facility] 06-06-2023 01:32-0500 Body height 160 cm Myla Hopper MD Work Phone: [facility] 06-06-2023 01:32-0500 Body mass index (BMI) [Ratio] 52.82 kg/m2 Myla Hopper MD Work Phone: [facility] 06-06-2023 01:32-0500 Body weight 135.26 kg Myla Hopper MD Work Phone: [facility] 06-03-2023 20:16-0500 Body height 162.6 cm Myla Falk DO Work Phone: [facility] 06-03-2023 20:16-0500 Body mass index (BMI) [Ratio] 50.64 kg/m2 Myla Falk DO Work Phone: [facility] 06-03-2023 20:16-0500 Body temperature 98.1 [degF] Myla Falk DO Work Phone: [facility] 06-03-2023 20:16-0500 Body weight 133.81 kg Myla Falk DO Work Phone: [facility] 06-03-2023 20:16-0500 Diastolic blood pressure 79 mm[Hg] Myla Falk DO Work Phone: [facility] 06-03-2023 20:16-0500 Heart rate 99 /min Myla Falk DO Work Phone: [facility] 06-03-2023 20:16-0500 Respiratory rate 18 /min Myla Falk DO Work Phone: [facility] 06-03-2023 20:16-0500 SaO2% (BldA) [Mass fraction] 98 % Myla Falk DO Work Phone: [facility] 06-03-2023 20:16-0500 Systolic blood pressure 116 mm[Hg] Myla Falk DO Work Phone: [facility] 04-03-2022 09:34-0400 Body height 160 cm Cathy PADILLA Work Phone: [facility] 04-03-2022 09:34-0400 Body mass index (BMI) [Ratio] 51 kg/m2 Cathy Gunderson CODE OFFICIAL-WILL CALL ORDER CLERK Work Phone: [facility] 04-03-2022 09:34-0400 Body weight 130.59 kg Cathy Gunderson CODE OFFICIAL-WILL CALL ORDER CLERK Work Phone: [facility] 04-03-2022 09:34-0400 Diastolic blood pressure 78 mm[Hg] Cathy Gunderson CODE OFFICIAL-WILL CALL ORDER CLERK Work Phone: [facility] 04-03-2022 09:34-0400 Heart rate 98 /min Cathy Gunderson CODE OFFICIAL-WILL CALL ORDER CLERK Work Phone: [facility] 04-03-2022 09:34-0400 Systolic blood pressure 114 mm[Hg] Cathy Gunderson APRN-WILL CALL ORDER CLERK Work Phone: [facility] 11-27-2021 16:30-0400 Body height 160 cm Myla Falk DO Work Phone: [facility] 11-27-2021 16:30-0400 Body mass index (BMI) [Ratio] 48.18 kg/m2 Myla Falk DO Work Phone: [facility] 11-27-2021 16:30-0400 Body temperature 98.4 [degF] Myla Falk DO Work Phone: [facility] 11-27-2021 16:30-0400 Body weight 123.38 kg Myla Falk DO Work Phone: [facility] 11-27-2021 16:30-0400 Diastolic blood pressure 87 mm[Hg] Myla Falk DO Work Phone: [facility] 11-27-2021 16:30-0400 Heart rate 95 /min Myla Falk DO Work Phone: [facility] 11-27-2021 16:30-0400 Respiratory rate 20 /min Myla Falk DO Work Phone: [facility] 11-27-2021 16:30-0400 SaO2% (BldA) [Mass fraction] 98 % Myla Adrian ARSHAD Work Phone: [facility] 11-27-2021 16:30-0400 Systolic blood pressure 121 mm[Hg] Myla Jiménezheriberto ARSHAD Work Phone: [facility] 08-25-2021 11:06-0500 Body mass index (BMI) [Ratio] 49.7 kg/m2 Veda Philip MD Work Phone: [facility] 08-25-2021 11:06-0500 Body weight 130.77 kg Veda Philip MD Work Phone: [facility] 08-25-2021 11:06-0500 Diastolic blood pressure 80 mm[Hg] Veda Philip MD Work Phone: [facility] 08-25-2021 11:06-0500 Heart rate 64 /min Veda Philip MD Work Phone: [facility] 08-25-2021 11:06-0500 SaO2% (BldA) [Mass fraction] 98 % Veda Philip MD Work Phone: [facility] 08-25-2021 11:06-0500 Systolic blood pressure 118 mm[Hg] Veda Philip MD Work Phone: [facility] 05-05-2021 09:55-0500 Body height 160 cm Germania Lamport PA-C Work Phone: [facility] 05-05-2021 09:55-0500 Body mass index (BMI) [Ratio] 51.37 kg/m2 Germania Lamport PA-C Work Phone: [facility] 05-05-2021 09:55-0500 Body temperature 97.59 [degF] Germania Lamport PA-C Work Phone: [facility] 05-05-2021 09:55-0500 Body weight 131.54 kg Germania Lamport PA-C Work Phone: [facility] 05-05-2021 09:55-0500 Diastolic blood pressure 85 mm[Hg] Germania Lamport PA-C Work Phone: [facility] 05-05-2021 09:55-0500 Heart rate 93 /min Germania Lamport PA-C Work Phone: [facility] 05-05-2021 09:55-0500 Respiratory rate 18 /min Germania Lamport PA-C Work Phone: [facility] 05-05-2021 09:55-0500 SaO2% (BldA) [Mass fraction] 98 % Germania Lamport PA-C Work Phone: [facility] 05-05-2021 09:55-0500 Systolic blood pressure 122 mm[Hg] Germania Lamport PA-C Work Phone: [facility] 02-04-2021 09:11-0400 Body mass index (BMI) [Ratio] 49.67 kg/m2 Veda Philip MD Work Phone: [facility] 02-04-2021 09:11-0400 Body weight 130.68 kg Veda Philip MD Work Phone: [facility] 02-04-2021 09:11-0400 Diastolic blood pressure 68 mm[Hg] Veda Philip MD Work Phone: [facility] 02-04-2021 09:11-0400 Heart rate 77 /min Veda Philip MD Work Phone: [facility] 02-04-2021 09:11-0400 SaO2% (BldA) [Mass fraction] 98 % Veda Philip MD Work Phone: [facility] 02-04-2021 09:11-0400 Systolic blood pressure 106 mm[Hg] Veda Philip MD Work Phone: [facility] 12-30-2020 11:00-0400 Body height 162.2 cm Pinky PADILLA Work Phone: [facility] 12-30-2020 11:00-0400 Body mass index (BMI) [Ratio] 48.48 kg/m2 Pinky Portillo CODE OFFICIAL-WILL CALL ORDER CLERK Work Phone: [facility] 12-30-2020 11:00-0400 Body weight 127.55 kg Pinky Portillo CODE OFFICIAL-WILL CALL ORDER CLERK Work Phone: [facility] 12-30-2020 11:00-0400 Diastolic blood pressure 74 mm[Hg] Pinky Portillo CODE OFFICIAL-WILL CALL ORDER CLERK Work Phone: [facility] 12-30-2020 11:00-0400 Heart rate 88 /min Pinky Portillo CODE OFFICIAL-WILL CALL ORDER CLERK Work Phone: [facility] 12-30-2020 11:00-0400 SaO2% (BldA) [Mass fraction] 98 % Pinky Portillo CODE OFFICIAL-WILL CALL ORDER CLERK Work Phone: [facility] 12-30-2020 11:00-0400 Systolic blood pressure 118 mm[Hg] Pinky Portillo APRN-WILL CALL ORDER CLERK Work Phone: [facility] 11-25-2020 09:32-0400 Body height 162.2 cm Veda Philip MD Work Phone: [facility] 11-25-2020 09:32-0400 Body mass index (BMI) [Ratio] 49.05 kg/m2 Veda Philip MD Work Phone: [facility] 11-25-2020 09:32-0400 Body weight 129.05 kg Veda Philip MD Work Phone: [facility] 11-25-2020 09:32-0400 Diastolic blood pressure 57 mm[Hg] Veda Philip MD Work Phone: [facility] 11-25-2020 09:32-0400 Heart rate 65 /min Veda Philip MD Work Phone: [facility] 11-25-2020 09:32-0400 Systolic blood pressure 99 mm[Hg] Veda Philip MD Work Phone: [facility] 08-20-2020 10:52-0500 BMI (Body Mass Index) 49.66 kg/m2 Veda [facility] 08-20-2020 10:52-0500 Body weight 131.23 kg Veda [facility] 08-20-2020 10:52-0500 BP Diastolic 77 mm[Hg] Veda [facility] 08-20-2020 10:52-0500 BP Systolic 122 mm[Hg] Veda [facility] 08-20-2020 10:52-0500 Height 162.6 cm Veda [facility] 08-20-2020 10:52-0500 Pulse (Heart Rate) 63 /min Veda [facility] 08-16-2020 21:22-0500 BMI (Body Mass Index) 48.75 kg/m2 [facility] 08-16-2020 21:22-0500 Body weight 128.82 kg [facility] 08-16-2020 21:22-0500 Height 162.6 cm [facility] 08-16-2020 21:19-0500 Body Temperature 98.1 [degF] [facility] 08-16-2020 21:19-0500 BP Diastolic 74 mm[Hg] [facility] 08-16-2020 21:19-0500 BP Systolic 171 mm[Hg] [facility] 08-16-2020 21:19-0500 Pulse (Heart Rate) 77 /min [facility] 08-16-2020 21:19-0500 Pulse Oximetry 97 % [facility] 08-16-2020 21:19-0500 Respiratory Rate 18 /min [facility] 05-17-2020 13:43-0500 BMI (Body Mass Index) 49.86 kg/m2 Veda [facility] 05-17-2020 13:43-0500 Body weight 131.77 kg Veda [facility] 05-17-2020 13:43-0500 BP Diastolic 78 mm[Hg] [facility] 05-17-2020 13:43-0500 BP Systolic 133 mm[Hg] [facility] 05-17-2020 13:43-0500 Height 162.6 cm [facility] 05-17-2020 13:43-0500 Pulse (Heart Rate) 71 /min [facility] 04-22-2020 13:14-0400 BMI (Body Mass Index) 49.74 kg/m2 [facility] 04-22-2020 13:14-0400 Body weight 131.45 kg [facility] 04-22-2020 13:14-0400 BP Diastolic 80 mm[Hg] [facility] 04-22-2020 13:14-0400 BP Systolic 125 mm[Hg] [facility] 04-22-2020 13:14-0400 Height 162.6 cm [facility] 04-22-2020 13:14-0400 Pulse (Heart Rate) 79 /min [facility] 12-23-2019 14:53-0400 BMI (Body Mass Index) 48.65 kg/m2 [facility] 12-23-2019 14:53-0400 Body weight 128.55 kg [facility] 12-23-2019 14:53-0400 BP Diastolic 61 mm[Hg] [facility] 12-23-2019 14:53-0400 BP Systolic 121 mm[Hg] [facility] 12-23-2019 14:53-0400 Height 162.6 cm [facility] 12-23-2019 14:53-0400 Pulse (Heart Rate) 78 /min [facility] 12-23-2019 14:53-0400 Pulse Oximetry 97 % [facility] 12-23-2019 14:53-0400 Respiratory Rate 18 /min [facility] 12-19-2019 13:20-0400 Body height 162.6 cm Veda Philip MD Work Phone: [employer] 12-19-2019 13:20-0400 Body mass index (BMI) [Ratio] 48.44 kg/m2 Veda Philip MD Work Phone: [employer] 12-19-2019 13:20-0400 Body weight 128 kg Veda Philip MD Work Phone: [employer] 12-19-2019 13:20-0400 Diastolic blood pressure 76 mm[Hg] Veda Philip MD Work Phone: [employer] 12-19-2019 13:20-0400 Heart rate 69 /min Veda Philip MD Work Phone: [employer] 12-19-2019 13:20-0400 Systolic blood pressure 108 mm[Hg] Veda Philip MD Work Phone: [employer] 08-04-2019 15:05-0500 Pulse (Heart Rate) 102 /min Agustina Simms [facility] Encounters Encounter Date Encounter Type Care Provider Facility Start: 07-21-2023 End: 07-21-2023 ambulatory VEDA PHILIP [facility] Start: 07-21-2023 End: 07-21-2023 Office outpatient visit 15 minutes Antonio Gonsales CNP Work Phone: [facility] [place] Procedures Date Procedure Procedure Detail Performing Clinician [...] Influenza virus A an tigen assay Agustina Adenikeitalia Simms Work Phone: Start: 03-30-2019 Ct [...] 2000 panel - Serum or Plasma Mike Loagn Work Phone: Start: 03-07-2019 D-dimer assay, quantitative [...] Logan Work Phone: Start: 01-20-2019 ULTRASOUND (OUTSIDE) Co patric Zhu Philip Work Phone: Start: 12-16-2018 [...] Start: 06-28-2033 Tetanus vaccination Tetanus: Every 10yrs [facility] Start: 09-29-2024 Tetanus vaccination [facility] Start: 09-28-2024 Tetanus vaccination [facility] Work Phone: Start: 02-23-2023 COVID-19 Vaccine () COVID-19 Vaccine () [facility] Start: 01-12-2023 Screening for malignant neoplasm of cervix Pap Smear [facility] Start: 09-12-2022 End: 09-12-2022 Patient encounter procedure 09/12/2022 Office Visit Family Medicine Veda Philip MD [address] [place] [id number] [facility] Start: 02-21-2022 End: 02-21-2022 Patient encounter procedure 02/21/2022 Office Visit Family Medicine Veda Philip MD [address] [place] [id number] [facility] Start: 12-20-2021 COVID-19 Vaccine (3 - Booster for Pfizer series) COVID-19 Vaccine (3 - Booster for Pfizer series) [facility] Start: 12-16-2021 Screening for malignant neoplasm of cervix PAP SMEAR [facility] Start: 11-25-2021 GONORRHEA SCREEN GONORRHEA SCREEN [facility] Start: 11-25-2021 History and physical examination, annual for health maintenance Wellness Visit [facility] Start: 11-25-2021 Screening for Chlamydia trachomatis CHLAMYDIA SCREEN [facility] Start: 11-19-2021 COVID-19 VACCINE (3 - Booster for Pfizer series) COVID-19 VACCINE (3 - Booster for Pfizer series) [facility] Start: 08-16-2021 COVID-19 VACCINE (3 - Booster for Pfizer series) COVID-19 VACCINE (3 - Booster for Pfizer series) [facility] Start: 06-21-2021 End: 06-21-2021 ambulatory 06/21/2021 Immunization [facility] [place] [address] [place] [id number] [facility] [place] [facility] Start: 06-18-2021 COVID-19 Vaccine (2 - Pfizer 2-dose series) COVID-19 Vaccine (2 - Pfizer 2-dose series) [facility] Start: 05-16-2021 End: 05-16-2021 Patient encounter procedure 05/16/2021 Office Visit Obstetrics and Gynecology Irais Rucker MD [address] [place] [phone] [facility] [employer]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 [facility] Start: 03-30-2021 End: 03-30-2021 Patient encounter procedure 03/30/2021 Office Visit Obstetrics and Gynecology Mike Logan MD [address] [facility] [address] [address] [facility] [employer]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 [facility] Start: 03-29-2021 End: 03-29-2021 Patient encounter procedure 03/29/2021 Office Visit Family Medicine Veda Philip MD [address] [place] [address] [facility] Start: 02-23-2021 Influenza vaccination [facility] Start: 01-12-2021 History and physical examination, annual for health maintenance Wellness Visit [facility] Start: 12-10-2020 End: 12-21-2020 POCT PPD READING POCT PPD READING Point of Care Testing Routine Need for tuberculosis vaccination Expected: 12/10/2020, Expires: 12/21/2020 [facility] Immunizations Immunization Date Immunization Notes Care Provider [facility] 03-20-2022 influenza, injectabl e, quadrivalent, preservative free Cathy Gunderson APRN-CHRISTEN Work Phone: [facility] 06-21-2021 Pfizer SARS-CoV-2 Vaccination Umang Thurman RN [facility] 05-28-2021 Pfizer SARS-CoV-2 Vaccination Jeremy Medina RN [facility] 03-29-2021 influenza, injectabl e, quadrivalent, contains preservative Myla Falk DO Work Phone: [facility] 03-29-2021 influenza, injectabl e, quadrivalent, preservative free Germania Vargas PA-C Work Phone: [facility] 12-08-2020 PPD (Mantoux Test) [facility] 12-08-2020 tuberculin skin test ; purified protein derivative solution, intradermal Germania Lamport PA-C Work Phone: [facility] 11-29-2020 PPD (Mantoux Test) [facility]ren [facility] 11-29-2020 tuberculin skin test ; purified protein derivative solution, intradermal Germania Lamport PA-C Work Phone: [facility] 04-22-2020 influenza, injectabl e, quadrivalent, contains preservative Myla Falk DO Work Phone: [facility] 04-22-2020 influenza, injectabl e, quadrivalent, preservative free [facility] 04-22-2020 influenza quad vacci ne 0.5 ML Suspension Prefilled Syringe [facility] 04-22-2020 influenza virus vaccine, unspecified formulation; Translations: [HC INFLUENZA VIRUS VACCINE QUADRIVALENT SPLIT VIRUS PRESERVATIVE FREE 3+ YEARS INTRAMUSCULAR] [facility] 03-23-2019 influenza, injectabl e, quadrivalent, preservative free [facility] 03-21-2019 varicella zoster imm une globulin [facility] 03-21-2019 diphtheria, tetanus toxoids and acellular pertussis vaccine, unspecified formulation [facility] 03-21-2019 measles, mumps and rubella virus vaccine [facility] 04-29-2015 influenza, injectabl e, quadrivalent, contains preservative [facility] Work Phone: 04-29-2015 influenza, injectabl e, quadrivalent, preservative free Agustina Mendez [facility] 04-29-2015 meningococcal ACWY vaccine, unspecified formulation Agustina Mendez [facility] 04-29-2015 influenza virus vaccine, unspecified formulation [facility] Work Phone: 09-29-2014 tetanus toxoid, redu charles diphtheria toxoid, and acellular pertussis vaccine, adsorbed Agustina Simms [facility] 09-28-2014 tetanus toxoid, redu charles diphtheria toxoid, and acellular pertussis vaccine, adsorbed Ronda Payan [facility] Payers Date Payer Category Payer Unknown [id number] 2022 Private Health Insurance [employer] AE[place]NA [id number] 2022-Present [address] [place] [address] [id number] 2022 Private Health Insurance [id number] 2021 Unknown [id number] 2018 Unknown [id number] 2018 Unknown [id number] 2018 Unknown [id number] 2018 Unknown [employer] xxxxxxxxxxxx 2018-Present xxxxxxxxxxxx [id number] 2017 Unknown xxxxxxxxx [id number] 2016 Unknown [id number] 3 1994 Unknown [id number] 1994 Unknown [id number] 1994 Unknown [id number] 1994 Unknown [id number] 1994 Unknown [id number] 1994 Unknown [id number] 1994 Unknown [id number] Unknown [id number] Social History Date Type Detail Facility Start: 10-10-2017 End: 11-27-2021 Tobacco smoking status NHIS Never smoker [facility] Work Phone: Start: 1995 Sex Assigned At Not on file [facility] Work Phone: Start: 07-03-2018 [facility] Start: 01-16-2017 Alcohol Comment Occasionally [employer] Start: 02-21-2019 End: 07-21-2023 Alcohol intake Ex-drinker (finding) [facility] Start: 06-20-2019 End: 06-06-2023 Alcohol intake Current drinker of alcohol (finding) [employer] Start: 04-22-2020 End: 11-27-2021 Tobacco use and exposure Never used [employer] Start: 08-15-2021 End: 04-03-2022 Exposure to SARS-CoV-2 (event) Not sure [facility] Start: 01-16-2017 Alcohol Comment Occasionally [employer] Start: 11-17-2021 End: 11-27-2021 Exposure to SARS-CoV-2 (event) Yes [facility] Start: 05-14-2019 End: 11-27-2021 Cigarette pack-years [facility] Start: 05-14-2019 End: 06-03-2023 Tobacco use panel [facility] PHQ-2 Score 23 [facility] Start: 01-15-2017 Gender identity Identifies as female gender (finding) [facility] Start: 08-27-2017 Sexual orientation Heterosexual (finding) [facility] Clinical Notes 12-19-2019 to 07-21-2023 Patient InstructionsAttachAntonio [...] attachments cannot be sent through Care Everywhere.Cough (Ghanaian)Metered-Dose Inhalers With a Spacer (Ghanaian)documented in this encounter [facility] 07-21-2023 History of Presen t illness Narrative Images from the original note were not included. Patient Name: [facility] Location: Vishal Child [address] [place] [id number] Date Of : Date Of Visit: 1995 07/21/2023 MRN# Provider: [id number] Antonio Gonsales CNP Chief Complaint Patient presents [...] symptoms as needed. documented in this encounter [facility] 06-06-2023 Miscellaneous Notes Formattin g of this [...] this encounter [facility] 06-06-2023 Nurse Note Pt and significant other ambulate off of unit, undelivered. [facility] 06-06-2023 Nurse Note Consult to urology placed. AVS printed and given to pt. Denies any questions at this time. [facility] 06-06-2023 Hospital Discharg e instructions Josué Mcginnis RN - 06/06/2023 2:38 AM EST Follow up with urology. Hydrate- LOTS OF WATER! Tylenol as needed. Consult to urology: Dr Pierre [phone] The following attachments cannot be sent through Care Everywhere.Preventing Kidney Stones ([facility]) (Ghanaian)Preventing Kidney Stones with Fluids and Citric Acid ([facility]) (Ghanaian)documented in this encounter [facility] 06-06-[address] Hopper called unit, updated on pt complaints and UA results. Dr Hopper states to have pt follow up with urology, take tylenol and hydrate with lots of water. Pt can be discharged at this time. [facility] 06-06-[address] Hopper called at this time. Left voicemail [facility] 06-06-2023 Nurse Note Heat packs provided for pt comfort [facility] 06-06-2023 Nurse Note Urine obtained via straight cath and sent to lab. [facility] 06-06-2023 Nurse Note Pt arrives to triage via wheelchair and significant other with complaints of back pain, difficulty urinating and burning with urination. Pt is experiencing nausea due to being in so much pain. Rating pain 9/10. Constant pain, nothing relieves pain. Pt states she has been taking mucinex for a week due to upper respiratory symptoms. [facility] 06-03-2023 Instructions Myla Falk DO - 06/03/2023 9:20 PM EST You may continue plain Mucinex and add dextromethorphan. Dextromethorphan can be found in isolated form and a product made by [employer]. Generics are also available. Make sure that you are not taking a combination product that contains phenylephrine or pseudoephedrine. The following attachments cannot be sent through Care Everywhere.URI (Upper Respiratory Infection) (Ghanaian)documented in this encounter [facility] 06-03-2023 History of Presen t illness Narrative PATIENT NAME: Vishal Child [facility] U[facility]ENT CARE: [address] [facility] [id number] DATE OF VISIT: 06/03/2023 DATE OF : [...] visit. Myla Falk documented in this encounter [facility] 04-03-2022 History of Presen t illness Narrative [...] tenderness or frontal sinus tenderness. Mouth/Throat: Lips: [place]. Mouth: Mucous membranes are moist. Pharynx: Oropharynx [...] this encounter [facility] 04-03-2022 Instructions RANDY Partida - 04/03/2022 [...] this encounter [facility] 11-27-2021 Instructions Myla Falk DO - 11/27/2021 [...] attachments cannot be sent through Care Everywhere.Bronchitis (Ghanaian)documented in this encounter [facility] 11-27-2021 History of Presen t illness Narrative PATIENT NAME: Vishal Child [facility] U[facility] CARE: [address] [facility] [id number] DATE OF VISIT: 11/27/2021 DATE OF : [...] 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 All of her exposures have been [...] visit. Myla Falk documented in this encounter [facility] 08-25-2021 History of Presen t illness Narrative [...] this encounter [facility] 05-05-2021 Instructions Germania Vargas PA-C - 05/05/2021 10:50 AM EST Vishal, Thank you for choosing [facility] for your healthcare needs today. [facility] COVID-19 Post-swabbing Instructions Your rapid [...] REPEAT TEST IN 3-5 DAYS [facility] WANTS A PCR. FOLLOW THEIR INSTRUCTIONS ON [...] results. - If you have an active [employer] account, and your COVID-19 test is negative (not detected), then you will be notified through your [employer] account. You should call the urgent care if you have any further questions. - If your COVID-19 test is positive (detected), you will receive a phone call to discuss your results and answer any questions you might have at that time. Please make sure [facility] has your updated phone number so we can contact you. [facility] will notify the [facility] of any positive results to comply [...] and warm water and/or alcohol based hand microchip specialist, scrubbing your hands for at least [...] therapy. To learn more, go to the [employer] website: [email or web address]. If you still have questions about monoclonal antibody infusion treatment, you can call , Sunday - Sunday 8 am - 4 pm. -400 Other COVID Questions? CDC - https://www.cdc.gov/coronavirus/v/index.html - https://www.cdc.gov/coronavirus/ncov/uq-mgv-pje-sick/quarantine .html [facility] - Website: https://coronavirus.[place].gov/wps/p ortal/gov/covid-19/home - Hotline: 544-0-AEU-ODH (004-009-4784) [facility]: [email or web address].[email or web address]/series /[email or web address]-toolkit/ documented in this encounter [facility] 05-05-2021 History of Presen t illness Narrative Images from the original note were not included. 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 Suspected COVID-19 virus infection COVID-19, Molecular 2. Lab test negative for COVID-19 virus 3. Acute nonintractable headache, unspecified headache type 4. Body aches 5. Fatigue, unspecified type 6. Loss of smell 7. Upper respiratory tract infection, unspecified type 8. Cough No follow-ups on file. Medical Decision Making POC COVID SUPPLY ASSISTANT - NEG Supportive care and treatment encouraged. Any worsening symptoms, return for recheck or go to the ER if we are closed. 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 No frontal sinus tenderness. Mouth/Throat: Lips: [place]. No lesions. Mouth: Mucous membranes are moist. [...] Patient Instructions Vishal, Thank you for choosing [facility] for your healthcare needs today. [facility] COVID-19 Post-swabbing Instructions Your rapid [...] REPEAT TEST IN 3-5 DAYS [facility] WANTS A PCR. FOLLOW THEIR INSTRUCTIONS ON [...] results. - If you have an active [employer] account, and your COVID-19 test is negative (not detected), then you will be notified through your [employer] account. You should call the urgent care if you have any further questions. - If your COVID-19 test is positive (detected), you will receive a phone call to discuss your results and answer any questions you might have at that time. Please make sure [facility] has your updated phone number so we can contact you. [facility] will notify the [facility] of any positive results to comply [...] and warm water and/or alcohol based hand microchip specialist, scrubbing your hands for at least [...] therapy. To learn more, go to the [facility] website: [email or web address]. If you still have questions about monoclonal antibody infusion treatment, you can call , Sunday - Sunday 8 am - 4 pm. -400 Other COVID Questions? 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 She is not reporting any symptoms. documented in this encounter [facility] 03-14-2021 History of Presen t illness Narrative COVID testing for job. 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 She is not reporting any symptoms. documented in this encounter [facility] 12-19-2019 History of Presen t illness Narrative Patient given one sample of Emgality 120mg/ml lot#[id number] exp 01/12. Chief Complaint Patient presents with [...] and are negative. documented in this encounter [facility] Encounter for well adult exam without abnormal findings- Primary [facility] Diagnosis Need for tuberculosis vaccination- Primary Need for prophylactic vaccination with tuberculosis (BCG) vaccine [facility] Diagnosis Need for tuberculosis vaccination- Primary Need for prophylactic vaccination with tuberculosis (BCG) vaccine [facility] Diagnosis Screening for viral disease- Primary Special screening examination for unspecified viral disease Shortness of breath [facility] Diagnosis Screening examination for infectious disease- Primary Screening examination for unspecified infectious disease [facility] Diagnosis Screening examination for infectious disease- Primary Screening examination for unspecified infectious disease [facility] Diagnosis Suspected COVID-19 virus infection- Primary Lab test negative for COVID-19 virus Acute nonintractable headache, unspecified headache type Body aches Generalized pain Fatigue, unspecified type Loss of smell Disturbances of sensation of smell and taste Upper respiratory tract infection, unspecified type Cough [facility]* Diagnosis Migraine without aura and without status migrainosus, not intractable Migraine without aura, without mention of intractable migraine without mention of status migrainosus documented in this encounter [facility] note* Diagnosis Generalized anxiety disorder Intractable migraine with aura with status migrainosus Migraine with aura, with intractable migraine, so stated, with status migrainosus [facility] 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, complicating , childbirth, or the puerperium, unspecified as to episode of care Intractable migraine with aura with status migrainosus Migraine with aura, with intractable migraine, so stated, with status migrainosus [facility]* Diagnosis Bronchitis- Primary Bronchitis, not specified as acute or chronic Suspected COVID-19 virus infection [facility] Diagnosis Right lower quadrant abdominal pain Abdominal pain, right lower quadrant [facility]* Diagnosis Right lower quadrant abdominal pain- Primary Abdominal pain, right lower quadrant Vitamin D deficiency Unspecified vitamin D deficiency Right lower quadrant abdominal pain Abdominal pain, right lower quadrant [facility] Diagnosis Acute nasopharyngitis- Primary Acute nasopharyngitis (common cold) Suspected COVID-19 virus infection Fever, unspecified fever cause [facility] Acute cough- Primary SOB (shortness of breath) Shortness of breath documented in this encounter [facility] Diagnosis S/P tonsillectomy and adenoi dectomy [...] living will and a durable power of real estate attorney for health care. Bring a copy [...] not apply lotions, perfumes, deodorants, or nail tunisian. Take off all jewelry and piercings. And [...] Log into your personal health record on [email or web address] and enter S633 in the Education box to learn more about Tonsillectomy: Before Your Surgery. Current as of: January 21, 2016 Content Version: 11.2 5851-3488 [employer]. Care instructions adapted under license by your healthcare professional. If you have questions about a medical condition or this instruction, always ask your healthcare professional. [employer] disclaims any warranty or liability for your [...] help loosen secretionsin the nose and lungs. Tybo-ont-cormnqd cold medicines will not shorten the length [...] due to throat pain Date Last Reviewed: 03/07/201519994335-1188 [employer]. [address] [place] [address], [place] [address]. All rights reserved. This information is not [...] living will and a durable power of real estate attorney for health care. Bring a copy [...] not apply lotions, perfumes, deodorants, or nail tunisian. Take off all jewelry and piercings. And [...] Log into your personal health record on [email or web address] and enter S633 in the Education box to learn more about Tonsillectomy: Before Your Surgery. Current as of: January 21, 2016 Content Version: 11.2 8874-1731 [employer]. Care instructions adapted under license by your healthcare professional. If you have questions about a medical condition or this instruction, always ask your healthcare professional. [employer] disclaims any warranty or liability for your [...] living will and a durable power of real estate attorney for health care. Bring a copy [...] not apply lotions, perfumes, deodorants, or nail tunisian. Take off all jewelry and piercings. And [...] Log into your personal health record on [email or web address] and enter S633 in the Education box to learn more about Tonsillectomy: Before Your Surgery. Current as of: January 21, 2016 Content Version: 11.2 6144-5543 [employer]. Care instructions adapted under license by your healthcare professional. If you have questions about a medical condition or this instruction, always ask your healthcare professional. [employer] disclaims any warranty or liability for your [...] amount of fluids you drink. Take an rfkj-ccy-zznasjw pain medicine if needed, such as acetaminophen [...] or plain hard candy. ? Take an iknc-lwm-ifduliu cough medicine that contains dextromethorphan to help [...] Log into your personal health record on [email or web address] and enter L652 in the Education box to learn more about Influenza (Flu): Care Instructions. Current as of: December 01, 2018 Content Version: 12.3 0053-6341 [employer]. Care instructions adapted under license by your healthcare professional. If you have questions about a medical condition or this instruction, always ask your healthcare professional. [employer] disclaims any warranty or liability for your [...] FoundDocuments on File Type Date Recorded Patient Donations Attendant Expl anation Advance Directives and Livin g Will 01/20/2019 3:56 PM Latest Code Status on File Code Status Date Activated Date Inactivated Comments Full Code 01/20/2019 3:53 PM Documents on File Type Date Recorded Patient Donations Attendant Expl anation Advance Directives and Livin g Will 02/21/2019 5:01 PM Latest Code Status on File Code Status Date Activated Date Inactivated Comments Full Code 01/20/2019 3:53 PM 02/21/2019 4:13 PM Documents on File Type Date Recorded Patient Donations Attendant Expl anation Advance Directives and Livin g Will 03/10/2019 5:09 PM Latest Code Status on File Code Status Date Activated Date Inactivated Comments Full Code 03/10/2019 4:56 PM Full Code 01/20/2019 3:53 PM 02/21/2019 4:13 PM Documents on File Type Date Recorded Patient Donations Attendant Expl anation Advance Directives and Livin g Will 03/29/2019 7:37 PM Latest Code Status on File Code Status Date Activated Date Inactivated Comments Full Code 03/21/2019 2:38 AM 03/29/2019 7:09 PM Full Code 03/20/2019 3:07 AM 03/21/2019 2:38 AM Full Code 03/19/2019 5:18 PM 03/20/2019 3:07 AM Full Code 03/10/2019 4:56 PM 03/19/2019 5:01 PM Documents on File Type Date Recorded Patient Donations Attendant Expl anation Advance Directives and Livin g Will 03/30/2019 9:20 PM Documents on File Type Date Recorded Patient Donations Attendant Expl anation Advance Directives and Livin g Will 08/16/2020 9:33 PM Documents on File Type Date Recorded Patient Donations Attendant Expl anation Advance Directives and Livin g Will 03/19/2019 5:14 PM Latest Code Status on File Code Status Date Activated Date Inactivated Comments Full Code 03/21/2019 2:38 AM Documents on File Type Date Recorded Patient Donations Attendant Expl anation Advance Directives and Livin g [...] History of Present Illness * Ronda Payan, WILL CALL ORDER CLERK - 07/15/2018 11:20 AM EST Formatting of [...] tonsils and snoring 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 SNOMED CT(R) 1. 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 SNOMED CT(R) 1. Chronic tonsillitis [...] post- depression, was started on Zoloft by quality compliance coordinator, having hallucinations, dizziness, Current treatment includes: Zoloft, has not been on anything else, she was referred for counseling.Seeing [facility]. Significant medical conditions: see problem [...] reviewed and are negative. * Cathy Gunderson, BIRD-WILL CALL ORDER CLERK - 07/16/2019 10:45 AM EST Chief Complaint [...] post- depression, was started on Zoloft by quality compliance coordinator, had hallucinations, dizziness. Current treatment includes: Pristiq at bedtime. Previous treatment: Zoloft, has not been on anything else, she was referred for counseling. Seeing [facility]. Significant medical conditions: see problem [...] 2:32 PM EST PATIENT NAME: Vishal Child [facility] [address] [facility] [phone] : 1995 DATE OF VISIT: 08/04/2019 #: [...] file Gets together: Not on file Attends caodaism service: Not on file Active member of [...] [employer] and hasn't made it over to [facility] Foot Injury Dropped a 5 lb weight on foot. ER doc wanted pt to see PCP to see if she can go back to work or if any f/u XR are needed Weight Gain Would like to go see a Electromechanisms Design Drafter. HPI: Migraines: she was getting samples of [...] month. She is interested in seeing a nuclear equipment test engineer, following an kenny on her phone, following calories, stopped caffeine, walking 1 mile three times per week. She is eating 2000 calories per day, most of the time she is more likely to do [id number]. 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 female patient of eVda Philip MD with a history of Right [...] Physician(s) Family Provider: Veda Philip MD, Address: [address] [place] [id number] Follow Up: Veda Philip MD [address] [place] [address] Additional Information: Pt's pain symptoms much improved [...] Vishal Seals Date of : 1995 Site: [facility] Provider: Veda Philip MD Admit Date: 03/19/2019 Discharge Date/Time: 03/23/19 Morning Disposition: Home Clinical Summary Hospital Course: Vsihal Seals is a 23 y.o. female patient [...] Physician(s) Family Provider: Veda Philip MD, Address: [address] [place] [id number] Follow Up: Irais Rucker MD [address] [facility] [address] [id number] Follow up in 1 week(s) Additional Information: instructions given regarding fever, incisional care, activity and bleeding.Rx given for Motrin and Edward. F/U 1 week for incision check Patient [...] through Care Everywhere. * Hydronephrosis: General Info (Ghanaian) documented in this encounter* Attachments The following attachments cannot be sent through Care Everywhere. * : Logan Chong Contractions (Ghanaian) * : Weeks 34 to 36 (Ghanaian) * : When to Call (After 20 Weeks): General Info (Ghanaian) documented in this encounter* Attachments The following attachments cannot be sent through Care Everywhere. * : High Blood Pressure (Ghanaian) * : Kick Counts (Ghanaian) * : Week 37 (Ghanaian) * : When to Call (After 20 Weeks): General Info (Ghanaian) documented in this encounter* Attachments The following attachments cannot be sent through Care Everywhere. * Cellulitis (Ghanaian) documented in this encounter* Attachments The following attachments cannot be sent through Care Everywhere. * Contusion (Ghanaian) * Toe Fracture (Ghanaian) documented in this encounter* Discharge Instr - [...] for at least 3 months - Use [id number] meds for pain. You may have been [...] be thoroughly driedand kept dry. Use a chairman ceo (on cool) after showing if necessary Call [...] through Care Everywhere. * : KICK COUNTS (HUNGARIAN) * : HIGH BLOOD PRESSURE (HUNGARIAN) documented in this encounter Additional Source Comments INFORMATION SOURCE (unrecogn ized section and content) DATE CREATED AUTHOR AUTHOR'S ORGANIZ ATION 09/15/2018 [facility] DATE CREATED AUTHOR AUTHOR'S ORGANIZ ATION 11/13/2018 [facility] DATE CREATED AUTHOR AUTHOR'S ORGANIZ ATION 06/21/2021 [facility] DATE CREATED AUTHOR AUTHOR'S ORGANIZ ATION 11/27/2021 [facility] DATE CREATED AUTHOR AUTHOR'S ORGANIZ ATION 06/12/2023 [facility] DATE CREATED AUTHOR AUTHOR'S ORGANIZ ATION 06/21/2023 [facility] DATE CREATED AUTHOR AUTHOR'S ORGANIZ ATION 07/22/2023 [facility] Reason for Visit (unrecogniz ed section and content) Reason Comments Sore Throat NEW PATIENT-enlarged tonsils and snoring Status Reason Specialty Diagnoses / Procedures Referred By Contact Referred To Contact Closed Otolaryngology Diagnoses Enlarged tonsils Snoring Veda Philip MD [address] [place] [address] Jeronimo Simeon MD [address] [place] [id number] Reason Comments Morning Sickness pt vomiting since [...] [employer] and hasn't made it over to [facility] Foot Injury Dropped a 5 lb weigh t on foot. ER doc wanted pt to see PCP to see if she can go back to work or if any f/u XR are needed Weight Gain Would like to go see a Electromechanisms Design Drafter. 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 [employer] Reason Comments Migraine States medication is not [...] Obstetrics Inpatient H&P 01/21/2019 Mike Logan MD [facility] Patient: Vishal Seals Date of : [...] file Gets together: Not on file Attends caodaism service: Not on file Active member of [...] PATIENT NAME: Vishal Seals : 1995 ADMITTED: [id number] CSN: [id number] REFERRING PROVIDER: Mike Logan MD PCP Veda [...] file Gets together: Not on file Attends caodaism service: Not on file Active member of [...] Date of Service: 03/20/2019 - 03/21/2019 CSN: [id number] Procedure(s): SECTION Pre-Operative Diagnoses: * Failure to progress in labor [O62.2] Post-Operative Diagnoses: * Failure to progress in labor [O62.2] Surgeon(s) and Role: * Irais Rucker MD - Primary * Alexander Lind MD LOAD MIXER: Kike Morgan CRNA Zoo Veterinarian: Dede Nuñez RN Scrub Person: Raquel Delgado [...] Problems: 39 weeks gestation of Codie Seals [[id number]] Delivery Anesthesia Method: Epidural Operative Delivery Forceps attempted?: No Cromwell Presentation Presentation: Vertex Information date/time: 03/20/19 2346 Gender: Male Delivery type: , Low Transverse Delivery location: OB Unit Initial disposition: NICU/SCN Details: categorization: Primary priority: Unscheduled Delivery Providers Delivering clinician: Irais Rucker MD Other personnel: Provider Role Covering Attending Resident Supervisor Contact Lens Delivery Nurse Registered Nurse Delivery Assist Nurse Practitioner Cord No data filed Placenta No data filed Cromwell Apgars No data filed Measurements Weight: 8 [...] collected per KHALIDA France, sent to lab [facility] ED Attending Note: NAME: Vishal Child 23 y.o. CSN: [id number] PCP: Veda Philip MD History: Chief Complaint: [...] no nausea vomiting or diarrhea, Called her SPAR MACHINE OPERATOR who recommended she come in for Steri-Strip [...] file Gets together: Not on file Attends caodaism service: Not on file Active member of [...] Yellow Clarity, Urine Hazy (A) Clear Specific [place] 1.023 1.005 - 1.025 pH, Urine 6.0 [...] be further evaluated with outpatient contrast-enhanced MRI. /Get-n-Post Workstation ID: [id number] ED Course / Medical [...] skin wound, initial encounter Hank Fowler MD [facility] Emergency Department (Please note that portions [...] TOLERATED WELL, STATED NEEDS MET, AT BEDSIDE [facility] EMERGENCY DEPARTMENT PCP - Veda Philip MD [...] file Gets together: Not on file Attends caodaism service: Not on file Active member of [...] to go home with per Dr. Fowler. [facility] ED Attending Note: NAME: Vishal Child 23 y.o. CSN: [id number] PCP: Veda Philip MD History: Chief Complaint: [...] draining serous bloody fluid. Spoke with patient's SPAR MACHINE OPERATOR Phan on-call who sent the patient in [...] file Gets together: Not on file Attends caodaism service: Not on file Active member of [...] to keep wound open per instructions from SPAR MACHINE OPERATOR, otherwise safe for discharge, will discharge home, abdominal pads given, she is to follow-up with her SPAR MACHINE OPERATOR tomorrow, they are expecting her Clinical Impression: 1. Wound drainage Hank Fowler MD [facility] Emergency Department (Please note that portions [...] Care Teams (unrecognized sec tion and content) Floor Finisher Relationship Specialty Start Date End Date Veda Philip MD [address] [place] [address] PCP - General Family Medicine 01/23/17 LarryMakayla espinoza [address] [place] [address] Supervisor Contact Lens Obstetrics/Gynecology 05/30/19 Floor Finisher Relationship Specialty Start Date End Date Veda Philip MD [address] [place] [address] PCP - General Family Medicine 8/1/17 Makayla Juarez, [facility] [address] [place] [address] Supervisor Contact Lens Obstetrics/Gynecology 05/30/19 Floor Finisher Relationship Specialty Start Date End Date Veda Philip MD [address] [place] [address], [place] [address] PCP - General Family Medicine 01/23/17 Makayla Juarez, [facility] [address] [place] [address] Supervisor Contact Lens Obstetrics/Gynecology 05/30/19 Floor Finisher Relationship Specialty Start Date End Date Veda Philip MD PCP - General Family Medicine 01/23/17 Floor Finisher Relationship Specialty Start Date End Date Veda Philip MD PCP - General Family Medicine 01/23/17 Floor Finisher Relationship Specialty Start Date End Date Veda Philip MD [address] [place] [address], [place] [address] PCP - General Family Medicine 01/23/17 LarryMakayla cervantes, [facility] [address] [place] [address] Supervisor Contact Lens Obstetrics/Gynecology 05/30/19 Floor Finisher Relationship Specialty Start Date End Date Veda Philip MD PCP - General Family Medicine 01/23/17 Floor Finisher Relationship Specialty Start Date End Date Veda Philip MD PCP - General Family Medicine 01/23/17 Floor Finisher Relationship Specialty Start Date End Date Veda Philip MD [address] [place] [address] PCP - General Family Medicine 01/23/17 Makayla Juarez CNM [address] [place] [address] Supervisor Contact Lens Obstetrics/Gynecology 05/30/19 Floor Finisher Relationship Specialty Start Date End Date Veda Philip MD PCP - General Family Medicine 01/23/17 Floor Finisher Relationship Specialty Start Date End Date Veda Philip MD [address] [place] [address] PCP - General Family [facility] 01/23/17 Makayla Juarez CNM [address] [place] [address] Supervisor Contact Lens Obstetrics/Gynecology 05/30/19 FOR RECORDS PERTAINING TO PATIENTS [...] BE BASED ON THE PRIMARY CLINICAL RECORDS. [facility] [employer] [facility]. provides no warranty or guarantee of the accuracy or completeness of information in this document.
== END | disposition home or self-care (01) ==
PROVIDERS: PCP Family Medicine; Referring Provider Obstetrics & Gynecology; Visit Provider Obstetrics & Gynecology
DX: O09.90 Supervision of high risk pregnancy, unspecified, unspecified trimester (principal); Z3A.00 Weeks of gestation of pregnancy not specified
CPT/HCPCS: 76819; 87077; 87081; 87186

== ENCOUNTER → 2023-08-30 | Outpatient (CLI) | payer OTHER, SELFPAY ==
--- NOTE | 2023-08-30 08:02 | US_ITS ---
STUDY: OBSTETRICAL ULTRASOUND - BIOPHYSICAL PROFILE REASON FOR EXAM: Female, 28 years old obesity affecting . LMP: 12/12/2022. PRIOR ULTRASOUND: 08/23/2023. TECHNIQUE: Transabdominal. TECHNICAL QUALITY: Adequate. FINDINGS: There is a single intrauterine fetus. The fetus is in a cephalic presentation. There is demonstrated cardiac activity with a heart rate of 153 bpm. There is a normal amniotic fluid volume. The largest amniotic fluid pocket measures 6.7 cm. The amniotic fluid index (ABE) is 19.40 cm. The placenta is anterior end not low-lying. There are Grade 1 placental changes. Age by LMP: 37 weeks, 2 days. MARIANA by LMP: 09/18/2023. Gender: Male. BIOPHYSICAL PROFILE: Breathing Movements (FBM): 2 Gross Body Movements (GBM): 2 Tone (FT): 2 Amniotic Fluid Volume (AFV): 2 TOTAL SCORE: 8 / 8 US/Biophysical Prof W/O Non Stres IMPRESSION: Normal biophysical profile of 8/ and without significant change when compared to 08/23/2023. Electronically Signed: Tereso Garcia MD at 11:16 EST ,
--- OUTSIDE RECORDS SUMMARY | 2023-08-30 08:18 | XMS RPT_ITS | CCD ---
Author Name Unknown Address [address] [place] [address] Organization [facility] Care Team Providers [employer] Name Role Phone Veda Philip Unavailable [phone] Prykhodko, Jeronimo O Unavailable Unavailable Markykhodko, Jeronimo O Unavailable Unavailable Veda Philip Primary Care Provider Unavaila Veda Escobar Primary Care Provider [phone] Veda Philip Primary Care Provider Veda Philip Primary Care Provider Larry, Makayla Heather Unavailable [phone] Veda Philip MD Primary Care Provider Larry KNIGHT, Makayla Heather Unavailable Vead Philip MD Primary Care Provider Larry KNIGHT, Makayla Heather Unavailable RHONDA QUICK Admitting Unavailab RHONDA Sow Referring Unavailab VEDA Graham Primary Care UnavailUMANG Brunson Attending Unavailable VEDA PHILIP Primary Care UnavailJEREMY Irizarry Attending Unavailenid Philip MD, Veda Zhu Primary Care Provider Veda Philip MD Primary Care Provider Larry HUGHES, Makayla Heather Unavailable VEDA PHILIP Primary Care Unavailabl e MESSI BLACKMAN Attending Unavailable Veda Philip MD Primary Care Provider [phone] Veda Philip MD Primary Care Provider Larry HUGHES Makayla Romero Unavailable Veda Philip MD Primary Care Provider MYLA HOPPER Attending Unavailable MYLA HOPPER Referring Unavailable VEDA PHILIP Primary Care Unavailable MYLA HOPPER Admitting Unavailable SELF, SELF Referring Unavailable VEDA PHILIP Primary Care Unavailable VEDA PHILIP Attending Unavailable MICHEL VEDARICARDO SEAMAN Primary [facility] Unavailabl e CHINYERE BEAULIEU Attending Unavail able [facility] Unavailabl e ANTONIO GONSALES Attending Unavail able [facility] Unavailabl e MYLA FALK. Attending Unavailable Allergies Allergy Classification Reported Allergen(s) Allergy Type Date of Onset Reaction(s) Facility Bee/Wasp/Ant Venom (4 sources) bee venom Substance Allergy Swelling [facility] (20 sources) BEE VENOM PROTEIN (HONEY BEE); Translations: [BEE VENOM PROTEIN (HONEY BEE)] Propensity to adverse reactions to drug Swelling [facility] Work Phone: Medications Current Medications Medication Drug Class(es) Dates Sig (Normalized) Sig (Original) [id number] 200 actuat albuterol 0.09 mg/actuat metered dose [...] Body height 162.6 cm Antonio Dru [facility] Work Phone: [facility] 07-21-2023 20:31-0500 Body mass index (BMI) [Ratio] 51.49 kg/m2 Antonio Gonsales [facility] Work Phone: [facility] 07-21-2023 20:31-0500 Body temperature 97.7 [degF] Antonio Gonsales [facility] Work Phone: [facility] 07-21-2023 20:31-0500 Body weight 136.08 kg Antonio Gonsales [employer] Work Phone: [facility] 07-21-2023 20:31-0500 Diastolic blood pressure 83 mm[Hg] Antonio Gonsales [employer] Work Phone: [facility] 07-21-2023 20:31-0500 Heart rate 98 /min Antonio Gonsales [employer] Work Phone: [facility] 07-21-2023 20:31-0500 Respiratory rate 18 /min Antonio Gonsales [employer] Work Phone: [facility] 07-21-2023 20:31-0500 SaO2% (BldA) [Mass fraction] 96 % Antonio Gonsales [employer] Work Phone: [facility] 07-21-2023 20:31-0500 Systolic blood pressure 120 mm[Hg] Antonio Gonsales [employer] Work Phone: [facility] 06-06-2023 01:40-0500 Body temperature 96.91 [degF] Myla Hopper [facility] 06-06-2023 01:40-0500 Diastolic blood pressure 70 mm[Hg] Myla Hopper MD [facility] 06-06-2023 01:40-0500 Heart rate 93 /min Myla Hopper MD [facility] 06-06-2023 01:40-0500 Respiratory rate 22 /min Myla Hopper MD [facility] 06-06-2023 01:40-0500 SaO2% (BldA) [Mass fraction] 98 % Myla Hopper MD [facility] 06-06-2023 01:40-0500 Systolic blood pressure 122 mm[Hg] Myla Hopper MD [facility] 06-06-2023 01:32-0500 Body height 160 cm Myla Hopper MD Work Phone: [facility] 06-06-2023 01:32-0500 Body mass index (BMI) [Ratio] 52.82 kg/m2 Myla Hopper MD Work Phone: [facility] 06-06-2023 01:32-0500 Body weight 135.26 kg Myla Hopper MD Work Phone: [facility] 06-03-2023 20:16-0500 Body height 162.6 cm Myla Falk DO Work Phone: [facility] 06-03-2023 20:16-0500 Body mass index (BMI) [Ratio] 50.64 kg/m2 Myla Falk DO Work Phone: [facility] 06-03-2023 20:16-0500 Body temperature 98.1 [degF] Myla Falk DO Work Phone: [facility] 06-03-2023 20:16-0500 Body weight 133.81 kg Myla Falk DO Work Phone: [facility] 06-03-2023 20:16-0500 Diastolic blood pressure 79 mm[Hg] Myla Falk DO Work Phone: [facility] 06-03-2023 20:16-0500 Heart rate 99 /min Myla Falk DO Work Phone: [facility] 06-03-2023 20:16-0500 Respiratory rate 18 /min Myla Falk DO Work Phone: [facility] 06-03-2023 20:16-0500 SaO2% (BldA) [Mass fraction] 98 % Myla Falk DO Work Phone: [facility] 06-03-2023 20:16-0500 Systolic blood pressure 116 mm[Hg] Myla Falk DO Work Phone: [facility] 04-03-2022 09:34-0400 Body height 160 cm Cathy PADILLA Work Phone: [facility] 04-03-2022 09:34-0400 Body mass index (BMI) [Ratio] 51 kg/m2 Cathy Gunderson PATIENT REGISTRATION SPECIALIST-TOP LIFT COMPRESSOR Work Phone: [facility] 04-03-2022 09:34-0400 Body weight 130.59 kg Cathy Gunderson PATIENT REGISTRATION SPECIALIST-TOP LIFT COMPRESSOR Work Phone: [facility] 04-03-2022 09:34-0400 Diastolic blood pressure 78 mm[Hg] Cathy Gunderson PATIENT REGISTRATION SPECIALIST-TOP LIFT COMPRESSOR Work Phone: [facility] 04-03-2022 09:34-0400 Heart rate 98 /min Cathy Gunderson PATIENT REGISTRATION SPECIALIST-TOP LIFT COMPRESSOR Work Phone: [facility] 04-03-2022 09:34-0400 Systolic blood pressure 114 mm[Hg] Cathy Gunderson APRN-TOP LIFT COMPRESSOR Work Phone: [facility] 11-27-2021 16:30-0400 Body height 160 cm Myla Falk DO Work Phone: [facility] 11-27-2021 16:30-0400 Body mass index (BMI) [Ratio] 48.18 kg/m2 Myla Falk DO Work Phone: [facility] 11-27-2021 16:30-0400 Body temperature 98.4 [degF] Myla Falk DO Work Phone: [facility] 11-27-2021 16:30-0400 Body weight 123.38 kg Myla Falk DO Work Phone: [facility] 11-27-2021 16:30-0400 Diastolic blood pressure 87 mm[Hg] Myla Falk DO Work Phone: [facility] 11-27-2021 16:30-0400 Heart rate 95 /min Myla Falk DO Work Phone: [facility] 11-27-2021 16:30-0400 Respiratory rate 20 /min Myla Falk DO Work Phone: [facility] 11-27-2021 16:30-0400 SaO2% (BldA) [Mass fraction] 98 % Myla Adrian ARSHAD Work Phone: [facility] 11-27-2021 16:30-0400 Systolic blood pressure 121 mm[Hg] Myla Jiménezheriberto ARSHAD Work Phone: [facility] 08-25-2021 11:06-0500 Body mass index (BMI) [Ratio] 49.7 kg/m2 Veda Philip MD Work Phone: [facility] 08-25-2021 11:06-0500 Body weight 130.77 kg Veda Philip MD Work Phone: [facility] [address] [facility] 08-25-2021 11:06-0500 Diastolic blood pressure 80 mm[Hg] Veda Philip MD Work Phone: [facility] 08-25-2021 11:06-0500 Heart rate 64 /min Veda Philip MD Work Phone: [facility] 08-25-2021 11:06-0500 SaO2% (BldA) [Mass fraction] 98 % Veda Philip MD [facility] 08-25-2021 11:06-0500 Systolic blood pressure 118 mm[Hg] Veda Philip MD Work Phone: [facility] 05-05-2021 09:55-0500 Body height 160 cm Germania Lamport PA-C Work Phone: [facility] 05-05-2021 09:55-0500 Body mass index (BMI) [Ratio] 51.37 kg/m2 Germania Lamport PA-C Work Phone: [facility] 05-05-2021 09:55-0500 Body temperature 97.59 [degF] Germania Lamport PA-C Work Phone: [facility] 05-05-2021 09:55-0500 Body weight 131.54 kg Germania Lamport PA-C Work Phone: [facility] 05-05-2021 09:55-0500 Diastolic blood pressure 85 mm[Hg] Germania Lamport PA-C Work Phone: [facility] 05-05-2021 09:55-0500 Heart rate 93 /min Germania Lamport PA-C Work Phone: [facility] 05-05-2021 09:55-0500 Respiratory rate 18 /min Germania Lamport PA-C Work Phone: [facility] 05-05-2021 09:55-0500 SaO2% (BldA) [Mass fraction] 98 % Germania Lamport PA-C Work Phone: [facility] 05-05-2021 09:55-0500 Systolic blood pressure 122 mm[Hg] Germania Lamport PA-C Work Phone: [facility] 02-04-2021 09:11-0400 Body mass index (BMI) [Ratio] 49.67 kg/m2 Veda Philip MD Work Phone: [facility] [facility] 02-04-2021 09:11-0400 Body weight 130.68 kg Veda Philip MD Work Phone: [facility] [facility] 02-04-2021 09:11-0400 Diastolic blood pressure 68 mm[Hg] Veda Philip MD Work Phone: [facility] [facility] 02-04-2021 09:11-0400 Heart rate 77 /min Veda Philip MD Work Phone: [facility] [facility] 02-04-2021 09:11-0400 SaO2% (BldA) [Mass fraction] 98 % Veda Philip MD Work Phone: [facility] 02-04-2021 09:11-0400 Systolic blood pressure 106 mm[Hg] Veda Philip MD Work Phone: [facility] [facility] 12-30-2020 11:00-0400 Body height 162.2 cm Pinky PADILLA Work Phone: [facility] 12-30-2020 11:00-0400 Body mass index (BMI) [Ratio] 48.48 kg/m2 Pinky Portillo PATIENT REGISTRATION SPECIALIST-TOP LIFT COMPRESSOR Work Phone: [facility] 12-30-2020 11:00-0400 Body weight 127.55 kg Pinky Portillo PATIENT REGISTRATION SPECIALIST-TOP LIFT COMPRESSOR Work Phone: [facility] 12-30-2020 11:00-0400 Diastolic blood pressure 74 mm[Hg] Pinky Portillo PATIENT REGISTRATION SPECIALIST-TOP LIFT COMPRESSOR Work Phone: [facility] 12-30-2020 11:00-0400 Heart rate 88 /min Pinky Portillo PATIENT REGISTRATION SPECIALIST-TOP LIFT COMPRESSOR Work Phone: [facility] 12-30-2020 11:00-0400 SaO2% (BldA) [Mass fraction] 98 % Pinky Portillo PATIENT REGISTRATION SPECIALIST-TOP LIFT COMPRESSOR Work Phone: [facility] 12-30-2020 11:00-0400 Systolic blood pressure 118 mm[Hg] Pinky Portillo APRN-TOP LIFT COMPRESSOR Work Phone: [facility] 11-25-2020 09:32-0400 Body height 162.2 cm Veda Philip MD Work Phone: [facility] 11-25-2020 09:32-0400 Body mass index (BMI) [Ratio] 49.05 kg/m2 Veda Philip MD Work Phone: [facility] 11-25-2020 09:32-0400 Body weight 129.05 kg Veda Philip MD Work Phone: [facility] 11-25-2020 09:32-0400 Diastolic blood pressure 57 mm[Hg] Veda Philip MD Work Phone: [facility] 11-25-2020 09:32-0400 Heart rate 65 /min Veda Philip MD Work Phone: [facility] 11-25-2020 09:32-0400 Systolic blood pressure 99 mm[Hg] Veda Philip MD Work Phone: [facility] 08-20-2020 10:52-0500 BMI (Body Mass Index) 49.66 kg/m2 Veda [facility] 08-20-2020 10:52-0500 Body weight 131.23 kg Veda [facility] 08-20-2020 10:52-0500 BP Diastolic 77 mm[Hg] Veda [facility] 08-20-2020 10:52-0500 BP Systolic 122 mm[Hg] Veda [facility] 08-20-2020 10:52-0500 Height 162.6 cm Veda [facility] 08-20-2020 10:52-0500 Pulse (Heart Rate) 63 /min Veda [facility] 08-16-2020 21:22-0500 BMI (Body Mass Index) 48.75 kg/m2 [facility] 08-16-2020 21:22-0500 Body weight 128.82 kg [facility] 08-16-2020 21:22-0500 Height 162.6 cm [facility] 08-16-2020 21:19-0500 Body Temperature 98.1 [degF] [facility] 08-16-2020 21:19-0500 BP Diastolic 74 mm[Hg] [facility] 08-16-2020 21:19-0500 BP Systolic 171 mm[Hg] [facility] 08-16-2020 21:19-0500 Pulse (Heart Rate) 77 /min [facility] 08-16-2020 21:19-0500 Pulse Oximetry 97 % [facility] 08-16-2020 21:19-0500 Respiratory Rate 18 /min [facility] 05-17-2020 13:43-0500 BMI (Body Mass Index) 49.86 kg/m2 Veda [facility] 05-17-2020 13:43-0500 Body weight 131.77 kg Veda [facility] 05-17-2020 13:43-0500 BP Diastolic 78 mm[Hg] [facility] 05-17-2020 13:43-0500 BP Systolic 133 mm[Hg] [facility] 05-17-2020 13:43-0500 Height 162.6 cm [facility] 05-17-2020 13:43-0500 Pulse (Heart Rate) 71 /min [facility] 04-22-2020 13:14-0400 BMI (Body Mass Index) 49.74 kg/m2 [facility] 04-22-2020 13:14-0400 Body weight 131.45 kg [facility] 04-22-2020 13:14-0400 BP Diastolic 80 mm[Hg] [facility] 04-22-2020 13:14-0400 BP Systolic 125 mm[Hg] [facility] 04-22-2020 13:14-0400 Height 162.6 cm [facility] 04-22-2020 13:14-0400 Pulse (Heart Rate) 79 /min [facility] 12-23-2019 14:53-0400 BMI (Body Mass Index) 48.65 kg/m2 [facility] 12-23-2019 14:53-0400 Body weight 128.55 kg [facility] 12-23-2019 14:53-0400 BP Diastolic 61 mm[Hg] [facility] 12-23-2019 14:53-0400 BP Systolic 121 mm[Hg] [facility] 12-23-2019 14:53-0400 Height 162.6 cm [facility] 12-23-2019 14:53-0400 Pulse (Heart Rate) 78 /min [facility] 12-23-2019 14:53-0400 Pulse Oximetry 97 % [facility] 12-23-2019 14:53-0400 Respiratory Rate 18 /min [facility] 12-19-2019 13:20-0400 Body height 162.6 cm Veda Philip MD Work Phone: [facility] 12-19-2019 13:20-0400 Body mass index (BMI) [Ratio] 48.44 kg/m2 Veda Philip MD Work Phone: [facility] 12-19-2019 13:20-0400 Body weight 128 kg Veda Philip MD Work Phone: [facility] 12-19-2019 13:20-0400 Diastolic blood pressure 76 mm[Hg] Veda Philip MD Work Phone: [facility] 12-19-2019 13:20-0400 Heart rate 69 /min Veda Philip MD Work Phone: [facility] 12-19-2019 13:20-0400 Systolic blood pressure 108 mm[Hg] Veda Philip MD Work Phone: [facility] 08-04-2019 15:05-0500 Pulse (Heart Rate) 102 /min Agustina Simms [facility] Encounters Encounter Date Encounter Type Care Provider Facility Start: 07-21-2023 End: 07-21-2023 ambulatory VEDA PHILIP [facility] Start: 07-21-2023 End: 07-21-2023 Office outpatient visit 15 minutes Antonio Gonsales CNP Work Phone: [facility] Procedures Date Procedure Procedure Detail Performing Clinician [...] Logan Work Phone: Start: 01-20-2019 ULTRASOUND (OUTSIDE) Pr patric Zhu Philip Work Phone: Start: 12-16-2018 [...] Start: 06-28-2033 Tetanus vaccination Tetanus: Every 10yrs [facility] Start: 09-29-2024 Tetanus vaccination [facility] Start: 09-28-2024 Tetanus vaccination [facility] Work Phone: Start: 02-23-2023 COVID-19 Vaccine () COVID-19 Vaccine () [facility] Start: 01-12-2023 Screening for malignant neoplasm of cervix Pap Smear [facility] Start: 09-12-2022 End: 09-12-2022 Patient encounter procedure 09/12/2022 Office Visit Family Medicine Veda Philip MD [address] [place] [id number] [facility] Start: 02-21-2022 End: 02-21-2022 Patient encounter procedure 02/21/2022 Office Visit Family Medicine Veda Philip MD [address] [place] [id number] [facility] Start: 12-20-2021 COVID-19 Vaccine (3 - Booster for Pfizer series) COVID-19 Vaccine (3 - Booster for Pfizer series) [facility] Start: 12-16-2021 Screening for malignant neoplasm of cervix PAP SMEAR [facility] Start: 11-25-2021 GONORRHEA SCREEN GONORRHEA SCREEN [facility] Start: 11-25-2021 History and physical examination, annual for health maintenance Wellness Visit [facility] Start: 11-25-2021 Screening for Chlamydia trachomatis CHLAMYDIA SCREEN [facility] Start: 11-19-2021 COVID-19 VACCINE (3 - Booster for Pfizer series) COVID-19 VACCINE (3 - Booster for Pfizer series) [facility] Start: 08-16-2021 COVID-19 VACCINE (3 - Booster for Pfizer series) COVID-19 VACCINE (3 - Booster for Pfizer series) [facility] Start: 06-21-2021 End: 06-21-2021 ambulatory 06/21/2021 Immunization Primary Care ArnettRhonda MD [address] [place] [id number] [facility] Start: 06-18-2021 COVID-19 Vaccine (2 - Pfizer 2-dose series) COVID-19 Vaccine (2 - Pfizer 2-dose series) [facility] Start: 05-16-2021 End: 05-16-2021 Patient encounter procedure 05/16/2021 Office Visit Obstetrics and Gynecology Irais Rucker MD [address] [place] [phone] [facility] Start: 03-30-2021 End: 03-30-2021 Patient encounter procedure 03/30/2021 Office Visit Obstetrics and Gynecology Mike Logan MD [address] [facility] [address] [address] [facility] Start: 03-29-2021 End: 03-29-2021 Patient encounter procedure 03/29/2021 Office Visit Family Medicine Veda Philip MD [address] [place] [address] [facility] Start: 02-23-2021 Influenza vaccination [facility] Start: 01-12-2021 History and physical examination, annual for health maintenance Wellness Visit [facility] Start: 12-10-2020 End: 12-21-2020 POCT PPD READING POCT PPD READING Point of Care Testing Routine Need for tuberculosis vaccination Expected: 12/10/2020, Expires: 12/21/[address] [facility] Immunizations Immunization Date Immunization Notes Care Provider Mary [facility] 03-20-2022 influenza, injectabl e, quadrivalent, preservative free Cathy Gunderson APRN-CHRISTEN Work Phone: [facility] 06-21-2021 Pfizer SARS-CoV-2 Vaccination Umang Thurman RN [facility] 05-28-2021 Pfizer SARS-CoV-2 Vaccination Jeremy Medina RN [facility] 03-29-2021 influenza, injectabl e, quadrivalent, contains preservative Myla Falk DO Work Phone: [facility] 03-29-2021 influenza, injectabl e, quadrivalent, preservative free Germania Vargas PA-C Work Phone: [facility] 12-08-2020 PPD (Mantoux Test) [facility]ren [facility] 12-08-2020 tuberculin skin test ; purified protein derivative solution, intradermal Germania Lamport PA-C Work Phone: [facility] 11-29-2020 PPD (Mantoux Test) Darren Philip [facility] 11-29-2020 tuberculin skin test ; purified protein derivative solution, intradermal Germania Lamport PA-C Work Phone: [facility] 04-22-2020 influenza, injectabl e, quadrivalent, contains preservative Myla Falk DO Work Phone: [facility] 04-22-2020 influenza, injectabl e, quadrivalent, preservative free [facility] 04-22-2020 influenza quad vacci ne 0.5 ML Suspension Prefilled Syringe [facility] 04-22-2020 influenza virus vaccine, unspecified formulation; Translations: [HC INFLUENZA VIRUS VACCINE QUADRIVALENT SPLIT VIRUS PRESERVATIVE FREE 3+ YEARS INTRAMUSCULAR] [facility] 03-23-2019 influenza, injectabl e, quadrivalent, preservative free [facility] 03-21-2019 varicella zoster imm une globulin [facility] 03-21-2019 diphtheria, tetanus toxoids and acellular pertussis vaccine, unspecified formulation [facility] 03-21-2019 measles, mumps and rubella virus vaccine [facility] 04-29-2015 influenza, injectabl e, quadrivalent, [facility] 04-29-2015 influenza, injectabl e, quadrivalent, preservative free Agustina Mendez [facility] 04-29-2015 meningococcal ACWY vaccine, unspecified formulation Agustina Mendez [facility] 04-29-2015 influenza virus vaccine, unspecified formulation [facility] Work Phone: 09-29-2014 tetanus toxoid, redu charles diphtheria toxoid, and acellular pertussis vaccine, adsorbed Agustina Simms [facility] 09-28-2014 tetanus toxoid, redu charles diphtheria toxoid, and acellular pertussis vaccine, adsorbed Ronda Payan [facility] Payers Date Payer Category Payer Unknown [id number] 2022 Private Health Insurance [employer] AE[place]NA [id number] 2022-Present [address] [place] [address] [id number] 2022 Private Health Insurance [id number] 2021 Unknown [id number] 2018 Unknown [id number] 2018 Unknown [id number] 2018 Unknown [id number] 2018 Unknown [employer] M [employer] xxxxxxxxxxxx 2018-Present [id number] 2017 Unknown xxxxxxxxx [id number] 2016 Unknown [id number] 3 1994 Unknown [id number] 1994 Unknown [id number] 1994 Unknown [id number] 1994 Unknown [id number] 1994 Unknown [id number] 1994 Unknown [id number] 1994 Unknown [id number] Unknown [id number] Social History Date Type Detail Facility Start: 10-10-2017 End: 11-27-2021 Tobacco smoking status NHIS Never smoker [facility] Work Phone: Start: 1995 Sex Assigned At Not on file [facility] Work Phone: Start: 07-03-2018 [facility] Start: 01-16-2017 Alcohol Comment Occasionally [facility] Start: 02-21-2019 End: 07-21-2023 Alcohol intake Ex-drinker (finding) [facility] Start: 06-20-2019 End: 06-06-2023 Alcohol intake Current drinker of alcohol (finding) [facility] Start: 04-22-2020 End: 11-27-2021 Tobacco use and exposure Never used [facility] Start: 08-15-2021 End: 04-03-2022 Exposure [facility] SARS-CoV-2 (event) [facility] Start: 01-16-2017 Alcohol Comment Occasionally [facility] Start: 11-17-2021 End: 11-27-2021 Exposure to SARS-CoV-2 (event) Yes [facility] Start: 05-14-2019 End: 11-27-2021 Cigarette pack-years [facility] Start: 05-14-2019 End: 06-03-2023 Tobacco use panel [facility] PHQ-2 Score 23 [facility] Start: 01-15-2017 Gender identity Identifies as female gender (finding) [facility] Start: 08-27-2017 Sexual orientation Heterosexual (finding) [facility] Clinical Notes 12-19-2019 to 07-21-2023 Patient [...] attachments cannot be sent through Care Everywhere.Cough (Djiboutian)Metered-Dose Inhalers With a Spacer (Djiboutian)documented in this encounter [facility] 07-21-2023 History of Presen t illness Narrative Images from the original note were not included. Patient Name: [facility] Location: Vishal Child [address] [place] [id number] Date Of : Date Of Visit: 1995 07/21/2023 MRN# Provider: [id number] Antonio Gonsales CNP Chief Complaint Patient presents [...] symptoms as needed. documented in this encounter [facility] 06-06-2023 Miscellaneous Notes Formattin g of [...] upper respiratory symptoms. documented in this encounter [facility] 06-06-2023 Nurse Note Pt and significant other ambulate off of unit, undelivered. [facility] 06-06-2023 Nurse Note Consult to urology placed. AVS printed and given to pt. Denies any questions at this time. [facility] 06-06-2023 Hospital Discharg e instructions Josué Mcginnis RN - 06/06/2023 2:38 AM EST Follow up with urology. Hydrate- LOTS OF WATER! Tylenol as needed. Consult to urology: Dr Pierre [phone] The following attachments cannot be sent through Care Everywhere.Preventing Kidney Stones ([facility]) (Djiboutian)Preventing Kidney Stones with Fluids and Citric Acid ([facility]) (Djiboutian)documented in this encounter [facility] 06-06-[address] Hopper called unit, updated on pt complaints and UA results. Dr Hopper states to have pt follow up with urology, take tylenol and hydrate with lots of water. Pt can be discharged at this time. [facility] 06-06-[address] Hopper called at this time. Left voicemail [facility] 06-06-2023 Nurse Note Heat packs provided for pt comfort [facility] 06-06-2023 Nurse Note Urine obtained via straight cath and sent to lab. [facility] 06-06-2023 Nurse Note Pt arrives to triage via wheelchair and significant other with complaints of back pain, difficulty urinating and burning with urination. Pt is experiencing nausea due to being in so much pain. Rating pain 9/10. Constant pain, nothing relieves pain. Pt states she has been taking mucinex for a week due to upper respiratory symptoms. [facility] 06-03-2023 Instructions Myla Falk DO - 06/03/2023 9:20 PM EST You may continue plain Mucinex and add dextromethorphan. Dextromethorphan can be found in isolated form and a product made by [employer]. Generics are also available. Make sure that you are not taking a combination product that contains phenylephrine or pseudoephedrine. The following attachments cannot be sent through Care Everywhere.URI (Upper Respiratory Infection) (Djiboutian)documented in this encounter [facility] 06-03-2023 History of Presen t illness Narrative PATIENT NAME: Vishal Child [facility]: [address] [facility] [id number] DATE OF VISIT: 06/03/2023 DATE OF : [...] visit. Myla Falk documented in this encounter [facility] 04-03-2022 History of Presen t illness [...] tenderness or frontal sinus tenderness. Mouth/Throat: Lips: Hastings. Mouth: Mucous membranes are moist. Pharynx: Oropharynx [...] RANDY Partida 04/03/2022 documented in this encounter [facility] 04-03-2022 Instructions RANDY Partida - 04/03/2022 [...] proceed with plan. documented in this encounter 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 All of her exposures have been [...] visit. Myla Falk documented in this encounter [facility] 08-25-2021 History of Presen t illness [...] and are negative. documented in this encounter [facility] 05-05-2021 Instructions Germania Vargas PA-C - 05/05/2021 10:50 AM EST Vishal, Thank you for choosing [facility] for your healthcare needs today. [facility] COVID-19 Post-swabbing Instructions Your [...] AND REPEAT TEST IN 3-5 DAYS [facility] WANTS A PCR. FOLLOW THEIR INSTRUCTIONS [...] results. - If you have an active [employer] account, and your COVID-19 test is negative (not detected), then you will be notified through your [employer] account. You should call the urgent care if you have any further questions. - If your COVID-19 test is positive (detected), you will receive a phone call to discuss your results and answer any questions you might have at that time. Please make sure [facility] has your updated phone number so we can contact you. [facility] will notify the [facility] of any positive results to comply [...] and warm water and/or alcohol based hand occupational ther, scrubbing your hands for at least 20 [...] therapy. To learn more, go to the [employer] website: DoubleDutch/covidinfusion. If you still have questions about monoclonal antibody infusion treatment, you can call , Sunday - Sunday 8 am - 4 pm. -400 Other COVID Questions? CDC - https://www.cdc.gov/coronavirus/v/index.html - https://www.cdc.gov/coronavirus/ncov/sw-spj-hxn-sick/quarantine .html [facility] - Website: https://coronavirus.[place].gov/wps/p ortal/gov/covid-19/home - Hotline: 389-0-OZC-ODH (652-029-7321) [facility]: https://blog.[employer]/series /bidmr-30-vuuclaeixha-toolkit/ documented in this encounter [facility] 05-05-2021 History of Presen t illness Narrative Images from the original note were not included. 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 Suspected COVID-19 virus infection COVID-19, Molecular 2. Lab test negative for COVID-19 virus 3. Acute nonintractable headache, unspecified headache type 4. Body aches 5. Fatigue, unspecified type 6. Loss of smell 7. Upper respiratory tract infection, unspecified type 8. Cough No follow-ups on file. 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 Any worsening symptoms, return for recheck or go to the ER if we are closed. 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 No frontal sinus tenderness. Mouth/Throat: Lips: Hastings. No lesions. Mouth: Mucous membranes are moist. [...] Patient Instructions Vishal, Thank you for choosing [facility] for your healthcare needs today. [facility] COVID-19 Post-swabbing Instructions Your [...] AND REPEAT TEST IN 3-5 DAYS [facility] WANTS A PCR. FOLLOW THEIR INSTRUCTIONS [...] results. - If you have an active [employer] account, and your COVID-19 test is negative (not detected), then you will be notified through your [employer] account. You should call the urgent care if you have any further questions. - If your COVID-19 test is positive (detected), you will receive a phone call to discuss your results and answer any questions you might have at that time. Please make sure [facility] has your updated phone number so we can contact you. [facility] will notify the [facility] of any positive results to comply [...] and warm water and/or alcohol based hand occupational ther, scrubbing your hands for at least 20 [...] therapy. To learn more, go to the [facility] website: [employer]/covidinfusion. If you still have questions about monoclonal antibody infusion treatment, you can call , Sunday - Sunday 8 am - 4 pm. -400 Other COVID Questions? 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 She is not reporting any symptoms. documented in this encounter [facility] 03-14-2021 History of Presen t illness Narrative COVID testing for job. documented in this encounter [facility] 02-04-2021 History of Presen t illness [...] and are negative. documented in this encounter [facility] 12-30-2020 History of Presen t illness [...] and are negative. documented in this encounter [facility] 11-25-2020 History of Presen t illness [...] and are negative. documented in this encounter 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 She is not reporting any symptoms. documented in this encounter [facility] 12-19-2019 History of Presen t illness Narrative Patient given one sample of Emgality 120mg/ml lot#[id number] exp 01/12. Chief Complaint Patient presents with [...] and are negative. documented in this encounter [facility] Encounter for well adult exam without abnormal findings- Primary [facility] Diagnosis Need for tuberculosis vaccination- Primary Need for prophylactic vaccination with tuberculosis (BCG) vaccine [facility] Diagnosis Need for tuberculosis vaccination- Primary Need for prophylactic vaccination with tuberculosis (BCG) vaccine [facility] Diagnosis Screening for viral disease- Primary Special screening examination for unspecified viral disease Shortness of breath [facility] Diagnosis Screening examination for infectious disease- Primary Screening examination for unspecified infectious disease [facility] Diagnosis Screening examination for infectious disease- Primary Screening examination for unspecified infectious disease [facility] Diagnosis Suspected COVID-19 virus infection- Primary Lab test negative for COVID-19 virus Acute nonintractable headache, unspecified headache type Body aches Generalized pain Fatigue, unspecified type Loss of smell Disturbances of sensation of smell and taste Upper respiratory tract infection, unspecified type Cough [facility] Diagnosis Migraine without aura and without status migrainosus, not intractable Migraine without aura, without mention of intractable migraine without mention of status migrainosus documented in this encounter [facility] note* Diagnosis Generalized anxiety disorder Intractable migraine with aura with status migrainosus Migraine with aura, with intractable migraine, so stated, with status migrainosus [facility] 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, complicating , childbirth, or the puerperium, unspecified as to episode of care Intractable migraine with aura with status migrainosus Migraine with aura, with intractable migraine, so stated, with status migrainosus [facility]* Diagnosis Bronchitis- Primary Bronchitis, not specified as acute or chronic Suspected COVID-19 virus infection [facility] Diagnosis Right lower quadrant abdominal pain Abdominal pain, right lower quadrant [facility] Diagnosis Right lower quadrant abdominal pain- Primary Abdominal pain, right lower quadrant Vitamin D deficiency Unspecified vitamin D deficiency Right lower quadrant abdominal pain Abdominal pain, right lower quadrant [facility] Diagnosis Acute nasopharyngitis- Primary Acute nasopharyngitis (common cold) Suspected COVID-19 virus infection Fever, unspecified fever cause [facility] Acute cough- Primary SOB (shortness of breath) Shortness of breath documented in this encounter [facility] Diagnosis S/P tonsillectomy and adenoi dectomy [...] living will and a durable power of mergers and acquisitions attorney for health care. Bring a copy [...] not apply lotions, perfumes, deodorants, or nail canadian. Take off all jewelry and piercings. And [...] Log into your personal health record on [email or web address] and enter S633 in the Education box to learn more about Tonsillectomy: Before Your Surgery. Current as of: January 21, 2016 Content Version: 11.2 8763-5305 [employer]. Care instructions adapted under license by your healthcare professional. If you have questions about a medical condition or this instruction, always ask your healthcare professional. [employer] disclaims any warranty or liability for your [...] help loosen secretionsin the nose and lungs. Byvy-set-xonazjb cold medicines will not shorten the length [...] due to throat pain Date Last Reviewed: 03/07/201519992977-6290 [employer]. [address] [place] [address], [place] [address]. All rights reserved. This information is not [...] living will and a durable power of mergers and acquisitions attorney for health care. Bring a copy [...] not apply lotions, perfumes, deodorants, or nail canadian. Take off all jewelry and piercings. And [...] Log into your personal health record on [email or web address] and enter S633 in the Education box to learn more about Tonsillectomy: Before Your Surgery. Current as of: January 21, 2016 Content Version: 11.2 6147-0485 [employer]. Care instructions adapted under license by your healthcare professional. If you have questions about a medical condition or this instruction, always ask your healthcare professional. [employer] disclaims any warranty or liability for your [...] living will and a durable power of mergers and acquisitions attorney for health care. Bring a copy [...] not apply lotions, perfumes, deodorants, or nail canadian. Take off all jewelry and piercings. And [...] Log into your personal health record on [email or web address] and enter S633 in the Education box to learn more about Tonsillectomy: Before Your Surgery. Current as of: January 21, 2016 Content Version: 11.2 9089-9361 [employer]. Care instructions adapted under license by your healthcare professional. If you have questions about a medical condition or this instruction, always ask your healthcare professional. [employer] disclaims any warranty or liability for your [...] amount of fluids you drink. Take an gpdh-ems-gfqgtel pain medicine if needed, such as acetaminophen [...] or plain hard candy. ? Take an swpd-tcu-eglueqc cough medicine that contains dextromethorphan to help [...] Log into your personal health record on [email or web address]://[email or web address] and enter L652 in the Education box to learn more about Influenza (Flu): Care Instructions. Current as of: December 01, 2018 Content Version: 12.3 4776-9919 [employer]. Care instructions adapted under license by your healthcare professional. If you have questions about a medical condition or this instruction, always ask your healthcare professional. [employer] disclaims any warranty or liability for your [...] FoundDocuments on File Type Date Recorded Patient Boring And Filling Machine Operator Expl anation Advance Directives and Livin g Will 01/20/2019 3:56 PM Latest Code Status on File Code Status Date Activated Date Inactivated Comments Full Code 01/20/2019 3:53 PM Documents on File Type Date Recorded Patient Boring And Filling Machine Operator Expl anation Advance Directives and Livin g Will 02/21/2019 5:01 PM Latest Code Status on File Code Status Date Activated Date Inactivated Comments Full Code 01/20/2019 3:53 PM 02/21/2019 4:13 PM Documents on File Type Date Recorded Patient Boring And Filling Machine Operator Expl anation Advance Directives and Livin g Will 03/10/2019 5:09 PM Latest Code Status on File Code Status Date Activated Date Inactivated Comments Full Code 03/10/2019 4:56 PM Full Code 01/20/2019 3:53 PM 02/21/2019 4:13 PM Documents on File Type Date Recorded Patient Boring And Filling Machine Operator Expl anation Advance Directives and Livin g Will 03/29/2019 7:37 PM Latest Code Status on File Code Status Date Activated Date Inactivated Comments Full Code 03/21/2019 2:38 AM 03/29/2019 7:09 PM Full Code 03/20/2019 3:07 AM 03/21/2019 2:38 AM Full Code 03/19/2019 5:18 PM 03/20/2019 3:07 AM Full Code 03/10/2019 4:56 PM 03/19/2019 5:01 PM Documents on File Type Date Recorded Patient Boring And Filling Machine Operator Expl anation Advance Directives and Livin g Will 03/30/2019 9:20 PM Documents on File Type Date Recorded Patient Boring And Filling Machine Operator Expl anation Advance Directives and Livin g Will 08/16/2020 9:33 PM Documents on File Type Date Recorded Patient Boring And Filling Machine Operator Expl anation Advance Directives and Livin g Will 03/19/2019 5:14 PM Latest Code Status on File Code Status Date Activated Date Inactivated Comments Full Code 03/21/2019 2:38 AM Documents on File Type Date Recorded Patient Boring And Filling Machine Operator Expl anation Advance Directives and Livin g [...] History of Present Illness * Ronda Payan, TOP LIFT COMPRESSOR - 07/15/2018 11:20 AM EST Formatting of [...] tonsils and snoring 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 SNOMED CT(R) 1. 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 SNOMED CT(R) 1. Chronic tonsillitis [...] post- depression, was started on Zoloft by smoke control supervisor, having hallucinations, dizziness, Current treatment includes: Zoloft, has not been on anything else, she was referred for counseling.Seeing [facility]. Significant medical conditions: see problem [...] reviewed and are negative. * Cathy Gunderson, BIRD-TOP LIFT COMPRESSOR - 07/16/2019 10:45 AM EST Chief Complaint [...] post- depression, was started on Zoloft by smoke control supervisor, had hallucinations, dizziness. Current treatment includes: Pristiq at bedtime. Previous treatment: Zoloft, has not been on anything else, she was referred for counseling. Seeing [facility]. Significant medical conditions: see problem [...] 2:32 PM EST PATIENT NAME: Vishal Child [facility] [address] [facility] [id number] : 1995 DATE OF VISIT: 08/04/2019 #: [...] file Gets together: Not on file Attends gnosticist service: Not on file Active member of [...] [employer] and hasn't made it over to [place] [facility] Foot Injury Dropped a 5 lb weight on foot. ER doc wanted pt to see PCP to see if she can go back to work or if any f/u XR are needed Weight Gain Would like to go see a Wildland Fire Fighter Specialist. HPI: Migraines: she was getting samples of [...] month. She is interested in seeing a cytogenetics laboratory manager, following an kenny on her phone, following calories, stopped caffeine, walking 1 mile three times per week. She is eating 2000 calories per day, most of the time she is more likely to do [id number]. 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 Baby 9 months old Sleep:not very [...] file Gets together: Not on file Attends gnosticist service: Not on file Active member of [...] Enlarged tonsils Snoring Veda Philip MD [address] [place] [address] Jeronimo Simeon MD [address] [address] Hospital Course * Lucho Tamayo MD - 01/22/2019 9:02 AM EDT DISCHARGE SUMMARY Patient: Vishal Seals Date of : 1995 Site: [facility] Family Provider: Veda Philip MD Admit Date: [...] Physician(s) Family Provider: Veda Philip MD, Address: [address] [place] [phone] Follow Up: Veda Philip MD [address] [place] [address] Additional Information: Pt's pain symptoms much improved [...] Date of : 1995 Site: [facility] Provider: Veda Philip MD Admit Date: 03/19/2019 [...] Physician(s) Family Provider: Veda Philip MD, Address: [address] [place] [id number] Follow Up: Irais Rucker MD [address] [facility] [address] [id number] Follow up in 1 week(s) Additional Information: instructions given regarding fever, incisional care, activity and bleeding.Rx given for Motrin and [place]. F/U 1 week for incision check Patient [...] through Care Everywhere. * Hydronephrosis: General Info (Djiboutian) documented in this encounter* Attachments The following attachments cannot be sent through Care Everywhere. * : Logan Chong Contractions (Djiboutian) * : Weeks 34 to 36 (Djiboutian) * : When to Call (After 20 Weeks): General Info (Djiboutian) documented in this encounter* Attachments The following attachments cannot be sent through Care Everywhere. * : High Blood Pressure (Djiboutian) * : Kick Counts (Djiboutian) * : Week 37 (Djiboutian) * : When to Call (After 20 Weeks): General Info (Djiboutian) documented in this encounter* Attachments The following attachments cannot be sent through Care Everywhere. * Cellulitis (Djiboutian) documented in this encounter* Attachments The following attachments cannot be sent through Care Everywhere. * Contusion (Djiboutian) * Toe Fracture (Djiboutian) documented in this encounter* Discharge Instr - [...] for at least 3 months - Use wtye-rwp-esoiwpd meds for pain. You may have been [...] be thoroughly driedand kept dry. Use a agriculture department chair (on cool) after showing if [...] through Care Everywhere. * : KICK COUNTS (UZBEK) * : HIGH BLOOD PRESSURE (UZBEK) documented in this encounter Additional Source Comments INFORMATION SOURCE (unrecogn ized section and content) DATE CREATED AUTHOR AUTHOR'S ORGANIZ ATION 09/15/2018 [facility] DATE CREATED AUTHOR AUTHOR'S ORGANIZ ATION 11/13/2018 [facility] DATE CREATED AUTHOR AUTHOR'S ORGANIZ ATION 06/21/2021 [facility] DATE CREATED AUTHOR AUTHOR'S ORGANIZ ATION 11/27/2021 [facility] DATE CREATED AUTHOR AUTHOR'S ORGANIZ ATION 06/12/2023 [facility] DATE CREATED AUTHOR AUTHOR'S ORGANIZ ATION 06/21/2023 [facility] DATE CREATED AUTHOR AUTHOR'S ORGANIZ ATION 07/22/2023 [facility] Reason for Visit (unrecogniz ed section and content) Reason Comments Sore Throat NEW PATIENT-enlarged tonsils and snoring Status Reason Specialty Diagnoses / Procedures Referred By Contact Referred To Contact Closed Otolaryngology Diagnoses Enlarged tonsils Snoring Veda Philip MD [address] [place] [address] Jeronimo Simeon MD [address] [place] [id number] Reason Comments Morning Sickness pt vomiting since [...] [employer] and hasn't made it over to [place] [facility] Foot Injury Dropped a 5 lb weigh t on foot. ER doc wanted pt to see PCP to see if she can go back to work or if any f/u XR are needed Weight Gain Would like to go see a [employer] Fire Fighter Specialist. 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 . Infant and self teaching ongoing. PO motrin and [...] Date of Service: 03/20/2019 - 03/21/2019 CSN: [id number] Procedure(s): SECTION Pre-Operative Diagnoses: * Failure to progress in labor [O62.2] Post-Operative Diagnoses: * Failure to progress in labor [O62.2] Surgeon(s) and Role: * Irais Rucker MD - Primary * Alexander Lind MD SOLID DIE CUTTER: Kike Morgan CRNA Welding Machine Operator Helper Arc: Dede Nuñez RN Scrub Person: Raquel Delgado [...] Problems: 39 weeks gestation of Codie Seals [[id number]] Delivery Anesthesia Method: Epidural Operative Delivery Forceps attempted?: No [facility] Presentation Presentation: Vertex Information date/time: 03/20/19 2346 Gender: Male Delivery type: , Low Transverse Delivery location: OB Unit Initial disposition: NICU/SCN Details: categorization: Primary priority: Unscheduled Delivery Providers Delivering clinician: Irais Rucker MD Other personnel: Provider Role Covering Attending Resident Smt Machine Operator Delivery Nurse Registered Nurse Delivery Assist Nurse Practitioner Cord No data filed Placenta No data filed Apgars No data filed Measurements Weight: 8 [...] KHALIDA [place], sent to lab [facility] ED Attending Note: NAME: Vishal Child 23 y.o. CSN: [id number] PCP: Veda Philip MD History: Chief Complaint: [...] no nausea vomiting or diarrhea, Called her LABORER who recommended she come in for Steri-Strip [...] file Gets together: Not on file Attends gnosticist service: Not on file Active member of [...] Yellow Clarity, Urine Hazy (A) Clear Specific [place] 1.023 1.005 - 1.025 pH, Urine 6.0 [...] be further evaluated with outpatient contrast-enhanced MRI. /[employer] Workstation ID: [id number] ED Course / Medical [...] skin wound, initial encounter Hank Fowler MD [facility] Emergency Department (Please note that portions of [...] TOLERATED WELL, STATED NEEDS MET, AT BEDSIDE [facility] EM[facility]GENCY [facility]MENT PCP - Veda Philip [...] file Gets together: Not on file Attends gnosticist service: Not on file Active member of [...] home with per Dr. Fowler. [facility] ED Attending Note: NAME: Vishal Child 23 y.o. CSN: [id number] PCP: Veda Philip MD History: Chief Complaint: [...] draining serous bloody fluid. Spoke with patient's LABORER Phan on-call who sent the patient in [...] file Gets together: Not on file Attends gnosticist service: Not on file Active member of [...] to keep wound open per instructions from LABORER, otherwise safe for discharge, will discharge home, abdominal pads given, she is to follow-up with her LABORER tomorrow, they are expecting her Clinical Impression: 1. Wound drainage Hank Fowler MD [facility] Emergency Department (Please note that portions of [...] Care Teams (unrecognized sec tion and content) [employer] Computer [employer] Teacher Relationship Specialty Start Date End Date Veda Philip MD [address] [place] [id number] PCP - General Family Medicine 01/23/17 LarryMakayla espinoza [address] [place] [address] Smt Machine Operator Obstetrics/Gynecology 05/30/19 [employer] Computer [employer] Teacher Relationship Specialty Start Date End Date Veda Philip MD [address] [place] [id number] PCP - General Family Medicine 8/1/17 Makayla Juarez, [facility] [address] [place] [address] Smt Machine Operator Obstetrics/Gynecology 05/30/19 [employer] Computer [employer] Teacher Relationship Specialty Start Date End Date Veda Philip MD [address] [place] [address], [place] [address] PCP - General Family Medicine 01/23/17 Makayla Juarez, [facility] [address] [place] [address] Smt Machine Operator Obstetrics/Gynecology 05/30/19 [employer] Computer Science Teacher Relationship Specialty Start Date End Date Veda Philip MD PCP - General Family Medicine 01/23/17 [employer] Computer Science Teacher Relationship Specialty Start Date End Date Veda Philip MD PCP - General Family Medicine 01/23/17 [employer] Computer Science Teacher Relationship Specialty Start Date End Date Veda Philip MD [address] [place] [address], [place] [address] PCP - General Family Medicine 01/23/17 LarryMakayla cervantes, [facility] [address] [facility] [place] [address] Smt Machine Operator Obstetrics/Gynecology 05/30/19 [employer] Computer Science Teacher Relationship Specialty Start Date End Date Veda Philip MD PCP - General Family Medicine 01/23/17 [employer] Computer Science Teacher Relationship Specialty Start Date End Date Veda Philip MD PCP - General Family Medicine 01/23/17 [employer] Computer Science Teacher Relationship Specialty Start Date End Date Veda Philip MD [address] [place] [address] PCP - General Family Medicine 01/23/17 Makayla Juarez CNM [address] [place] [address] Smt Machine Operator Obstetrics/Gynecology 05/30/19 [employer] Computer Science Teacher Relationship Specialty Start Date End Date Veda Philip MD PCP - General Family Medicine 01/23/17 [employer] Computer Science Teacher Relationship Specialty Start Date End Date Veda Philip MD [address] [place] [address] PCP - General Family [facility] 01/23/17 Makayla Juarez CNM [address] [place] [id number] Smt 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 [facility]. provides no warranty or guarantee of the accuracy or completeness of information in this document.
== END | disposition home or self-care (01) ==
LOC: US 08:01
PROVIDERS: PCP Family Medicine; Referring Provider Obstetrics & Gynecology; Visit Provider Obstetrics & Gynecology
DX: O99.210 Obesity complicating pregnancy, unspecified trimester (principal); Z3A.00 Weeks of gestation of pregnancy not specified
CPT/HCPCS: 76819

== ENCOUNTER 2023-09-06 11:11 | Inpatient (IN) | payer OTHER, SELFPAY ==
[2023-09-06] VITALS (34 sets, daily range): BP systolic 117–149; BP diastolic 56–88; PULSE 34–100; RESP 16–20; TEMP 35.7–36.7; O2SAT 82–100; BMI 52.0
[2023-09-06] MEDS: 0.9% Saline Lock 10 ML Syringe IV ×2 (10:14→22:35)
[2023-09-06 10:27] LABS: Hemoglobin 10.7 g/dL (12.0-15.0); Mean Corp Hgb Conc 31.5 g/dL (32-36); Mean Corpuscular Hgb 26.2 pg (27.0-32.0); Mean Corpuscular Volume 83.1 fL (81-99); Mean Platelet Vol. 10.6 fl (6.2-12.0); Platelet Count 241 K/mm3 (150-450); RBC Distribution Width CV 13.9 % (11.6-14.6); RBC Distribution Width SD 42.1 fl (35.1-43.9); Red Blood Count 4.09 M/mm3 (4.2-5.4); White Blood Count 9.7 K/mm3 (4.4-11.0)
[2023-09-06 10:45] LABS: AST(SGOT) 17 U/L (15-37); Alanine Aminotransfer ALT/SGPT 17 U/L (13-56); Creatinine, Serum 0.56 mg/dL (0.55-1.02); EST Glomerular Filtration Rate 135 mL/min (>60); Est Glom Filt Rate - Afr Amer 163 mL/min (>60); Uric Acid 5.6 mg/dL (2.6-6.0)
[2023-09-06 10:46] LABS: Protein:Creat Ratio 479 mg/g CRE (0-200)
--- NOTE | 2023-09-06 11:19 | HP.PCM.OB_ITS ---
HPI - General General Date of Admission: 09/06/23 HPI Narrative VISHAL NUNN, is a 28 F who presents with elevated bps and proteinuria new onset preeclampsia, intermittent HOLT. rest of labs WNL. Maternal Data Information MARIANA Calculator Estimated Delivery Date Method Current WG Current Estimate 09/18/23 LMP (Certain) 38w 2d [facility] Medical History (Updated 09/06/23 @ 20:[address] Annette Ware MD) Anesthesia complication section wound complication Depression with anxiety Family history of breast cancer Headache Polyhydramnios Pre-eclampsia Home Medications PNV 153-FA 400 mcg-om3 35 mg-dha 25 mg-epa 5 mg-fish oil chew tablet 2 tab PO DAILY 01/30/23 [History Last Taken 09/05/23 20:00 2 tabs] buspirone 5 mg tablet 5 mg PO BID #60 tabs 02/12/23 [Rx Last Taken 09/06/23 06:30 5 mg] citalopram 20 mg tablet 20 mg PO DAILY #30 tabs 03/16/23 [Rx Last Taken 09/05/23 08:00 20 mg] acetaminophen 500 mg tablet (Acetaminophen Extra Strength) 1,000 mg PO QHS vaginal swelling 09/06/23 [History Last Taken 09/05/23 20:00 1,000 mg] ondansetron HCl 4 mg tablet 4 mg PO Q4H PRN nausea and vomiting 09/06/23 [History Last Taken 09/06/23 06:30 4 mg] Allergy/AdvReac Type Severity Reaction Status Date / Time bee venom protein (honey bee) AdvReac Severe Anaphylaxis Verified 09/06/23 09:43 Family History Grandmother Breast cancer, Onset Age: 63 Maternal Diabetes Maternal & Paternal Type 2 Aunt Breast cancer, Onset Age: 45 maternal Uncle Cancer of kidney, Onset Age: 53 maternal Grandfather Diabetes Paternal Type 2 Mother Active Meniere's disease Benign brain tumor, Onset Age: 34 Surgical History H/O section History of cholecystectomy History of tonsillectomy [place] teeth extracted Social History adopted: No household members: spouse and children number of children: 1 current occupational status: employed 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 pets and animals: Yes (Not managing litterbox) pets and animals: cat(s) history of recent travel: Yes ([employer] in October) out of state: Yes out of country: Yes sexually active: Yes Smoking Status: Never smoker alcohol intake: never substance use type: does not use well-balanced diet: daily or most days caffeine: Yes Type: tea Number of servings: 2 during the past year weight has: increased > 10 lbs what type of physical activity do you participate in: walking frequency: daily duration: 15-30 minutes/day fadi/anabaptist: None seatbelt use: always do you feel safe at home: Yes 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 Date Name GA/Weeks Outcome Route Bth Weight Gen Labor Lgth Anesthesia Del [facility] Provider FOB 03/20/19 Lalo live - full term 8# 15oz Male epidural Med [facility] [employer] [facility] Dr. Irais Brewster Delivery Date: 03/20/19 Last Updated by: Bessy Kincaid IOL head stuck, c section Visit Details Expected Delivery Route/Plan RLTCS Plans Covid status: discussed Flu vaccine: discussed Tdap vaccine: done Rhogam: na LARC form signed: yes movement and labor precautions reviewed. Problem list reviewed and updated with the most current plan of care details and appropriate orders placed. Relevant counseling for the gestational age provided. Continue routine care and follow up unless otherwise noted in visit notes/problem list details OB Flowsheet Initial Weight: Not Recorded Date -?-?-?-?-?-?-?-?-?-?-?-?- EGA Weight BP Urine Prot -?-?-?-?-?-?-?-?-?-?-?-?- Glucose FHR FuHt Pres Dilation -?-?-?-?-?-?-?-?-?-?-?-?- Effaced St Visit Note 02/12/23 -?-?-?-?-?-?-?-?-?-?-?-?- 8w 6d 294 lb 2 oz 122/72 -?-?-?-?-?-?-?-?-?-?-?-?- 160 -?-?-?-?-?-?-?-?-?-?-?-?- SM- CRL 1.9 cm c ons with LMP ordered zofrna for nausea and buspar for anxiety, has been on 03/16/23 -?-?-?-?-?-?-?-?-?-?-?-?- 13w 3d 296 lb 8 oz 119/81 Nega tive -?-?-?-?-?-?-?-?-?-?-?-?- Negative 150 -?-?-?-?-?-?-?-?-?-?-?-?- SM- no vb crampi ng nausea improving, mood worsening- start celexa encouraged counseling. didn't tolerate zoloft in the past 04/16/23 -?-?-?-?-?-?-?-?-?-?-?-?- 17w 6d 296 lb 2 oz 123/85 Nega tive -?-?-?-?-?-?-?-?-?-?-?-?- Negative 140 -?-?-?-?-?-?-?-?-?-?-?-?- LC- no vb/crampi ng. mood improved with celexa. LC- no vb/cramping. mood imp roved with celexa. will schedule anatomy scan. declines afp. 05/14/23 -?-?-?-?-?-?-?-?-?-?-?-?- 21w 6d 296 lb 4 oz 123/84 Nega tive -?-?-?-?-?-?-?-?-?-?-?-?- Negative 145 -?-?-?-?-?-?-?-?-?-?-?-?- LC- no vb/ctx/lo f. feeling movement. unable to see all of spine on anatomy. afp ordered. 06/12/23 -?-?-?-?-?-?-?-?-?-?-?-?- 26w 0d 300 lb 2 oz 126/72 Trac e -?-?-?--?-?-?-?-?-?-?-?-?- Negative 141 -?-?-?-?-?-?-?-?-?-?-?-?- MH-No VB, LOF. G orachel FM. Seen last week at [facility] and passed 3 kidney stones. No further workup done. Told needed to see PCP. Still some back pain but improved. Urine culture, kidney US ordered. 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 good fm. 28 week labs reviewed. R C/S scheduled with . KW-no vb/lof/cramping. good fm. 28 week labs reviewed. Tdap today. R C/S scheduled with . KW-no vb/lof/cramping. good fm. 28 week labs reviewed. Tdap today. NSTs at 34 weeks. R C/S scheduled with . 07/13/23 -?-?-?-?-?-?-?-?-?-?-?-?- 30w 3d 301 lb 138/80 Trace -?-?-?-?-?-?-?-?-?-?-?-?- Negative 145 31 -?-?-?-?-?-?-?-?-?-?-?-?- SM- no vb lof go od fm no regular ctx 07/27/23 -?-?-?-?-?-?-?-?-?-?-?-?- 32w 3d 32 lb 302 lb 134/82 Negative -?-?-?-?-?-?-?-?-?-?-?-?- Negative 150 34 -?-?-?-?-?-?-?-?-?-?-?-?- SM- no vb lof go od fm no regular ctx had blood in urine- culture sent 08/09/23 -?-?-?-?-?-?-?-?-?-?-?-?- 34w 2d 296 lb 122/82 Trace -?-?-?-?-?-?-?-?-?-?-?-?- Negative 150 34 -?-?-?-?-?-?-?-?-?-?-?-?- SM- no vb lof go od fm SM- no vb lof good fm no reg ular ctx 08/23/23 -?-?-?-?-?-?-?-?-?-?-?-?- 36w 2d 305 lb 132/82 Trace -?-?-?-?-?-?-?-?-?-?-?-?- Negative 140 0 -?-?-?-?-?-?-?-?-?-?-?-?- SM- bpp today. n o vb lof good fm no regular ctx co increassed swelling and pressure, reveiwed pree precautions. 08/30/23 -?-?-?-?-?-?-?-?-?-?-?-?- 37w 2d 301 lb 123/87 Negative -?-?-?-?-?-?-?-?-?-?-?-?- Negative 150 -?-?-?-?-?-?-?-?-?-?-?-?- SM- no vb lof go od fm no regular ctx 09/06/23 -?-?-?-?-?-?-?-?-?-?-?-?- 38w 2d 303 lb 130/90 137/97 145/98 1+ -?-?-?-?-?-?-?-?-?-?-?-?- Negative -?-?-?-?-?-?-?-?-?-?-?-?- SM- having inte rmittnet HOLT NST FHR Rate Baby A Baseline: 140 Variability:: Moderate Accelerations:: 15 x 15 Decelerations:: None NST Reactive:: Yes FHR Category:: Category I Uterine Activity:: q3-5 ROS Constitutional Constitutional: Reports systems reviewed and no addt'l complaints, except as documented ENT HEENT: Reports systems reviewed and no addt'l complaints, except as documented Cardiovascular Cardiovascular: Reports systems reviewed and no addt'l complaints, except as documented Respiratory/Chest Respiratory/Chest: Reports systems reviewed and no addt'l complaints, except as documented Gastrointestinal Gastrointestinal: Reports systems reviewed and no addt'l complaints, except as documented and nausea; Denies abdominal pain Genitourinary Genitourinary: Reports systems reviewed and no addt'l complaints, except as documented, contractions Details: present and frequency (regular ) and movement Details: present Musculoskeletal Musculoskeletal: Reports systems reviewed and no addt'l complaints, except as documented Integumentary Integumentary: Reports as per HPI Neurologic Neurologic: Reports systems reviewed and no addt'l complaints, except as documented Endocrine Endocrinology: Reports systems reviewed and no addt'l complaints, except as documented Vital Signs Vital Signs Vital Signs: 09/06/23 09:28 09/06/23 09:28 09/06/23 09:33 Temperature Temperature Source Pulse Rate 88 92 Respiratory Rate Blood Pressure BP Systolic BP Diastolic Pulse Ox 98 09/06/23 09:33 09/06/23 09:38 09/06/23 09:38 Temperature Temperature Source Pulse Rate 94 Respiratory Rate Blood Pressure BP Systolic BP Diastolic Pulse Ox 98 98 09/06/23 09:30 09/06/23 09:30 09/06/23 09:30 Temperature 98.0 F Temperature Source Temporal Pulse Rate Respiratory Rate 20 H Blood Pressure BP Systolic BP Diastolic Pulse Ox 09/06/23 09:41 09/06/23 09:41 09/06/23 09:43 Temperature Temperature Source Pulse Rate 83 86 Respiratory Rate Blood Pressure 149/83 H BP Systolic 149 BP Diastolic 83 Pulse Ox 09/06/23 09:43 09/06/23 09:48 09/06/23 09:48 Temperature Temperature Source Pulse Rate 93 Respiratory Rate Blood Pressure BP Systolic BP Diastolic Pulse Ox 98 98 09/06/23 09:53 09/06/23 09:53 09/06/23 09:57 Temperature Temperature Source Pulse Rate 93 Respiratory Rate Blood Pressure 134/88 H BP Systolic 134 BP Diastolic 88 Pulse Ox 98 09/06/23 09:57 09/06/23 09:58 09/06/23 09:58 Temperature Temperature Source Pulse Rate 98 94 Respiratory Rate Blood Pressure BP Systolic BP Diastolic Pulse Ox 97 09/06/23 10:03 09/06/23 10:03 09/06/23 10:16 Temperature Temperature Source Pulse Rate 98 Respiratory Rate Blood Pressure 126/69 H BP Systolic 126 BP Diastolic 69 Pulse Ox 97 09/06/23 10:16 09/06/23 10:31 09/06/23 10:31 Temperature Temperature Source Pulse Rate 86 75 Respiratory Rate Blood Pressure 131/68 H BP Systolic 131 BP Diastolic 68 Pulse Ox 09/06/23 10:46 09/06/23 10:46 09/06/23 11:01 Temperature Temperature Source Pulse Rate 89 Respiratory Rate Blood Pressure 133/68 H 130/71 H BP Systolic 133 130 BP Diastolic 68 71 Pulse Ox 09/06/23 11:01 09/06/23 11:16 09/06/23 11:16 Temperature Temperature Source Pulse Rate 74 71 Respiratory Rate Blood Pressure 129/67 H BP Systolic 129 BP Diastolic 67 Pulse Ox Weight Weight: 303 lb 5.697 oz Body Mass Index (BMI) 52.0 Physical Exam Const alert, oriented x3 and healthy appearing Constitutional Narrative: uncomfortable with contractions HEENT normocephalic and moist oral mucous membranes Head and Scalp: atraumatic Neck full ROM, no lymphadenopathy, supple and thyroid normal General: trachea midline Thyroid: thyroid normal Lymph Lymphatic: no lymphadenopathy noted Chest inspection of chest normal Resp normal respiratory effort Cardio regular rate GI normal to inspection, nondistended, normoactive bowel sounds, soft to palpation and non-tender Inspection: gravid external exam normal Bimanual Exam - Vag & Uterus: uterus non-tender Manual OB Exam: estimated gestational size appropriate, presentation cephalic, dilated, effaced and station Extremity normal to inspection General Extremity: Negative for edema Skin no rashes or lesions noted Neuro deep tendon reflexes 2+ bilaterally Motor Exam: strength 5/5 throughout and clonus absent Psych mental status grossly normal Labs Labs Labs: Blood Type O POSITIVE Antibody Screen NEGATIVE Hct 34.0 % (37-47) L Hgb 10.7 g/dL (12.0-15.0) L Pap Smear Negative Obstetrics Ultrasound Syphilis Total Ab Non-reactive Rubella IgG Antibody Reactive (Nonreactive) Hep Bs Antigen Non-Reactive (Nonreactive) Hepatitis C Antibody Non-Reactive (Nonreactive) Chlamydia DNA (TONYA) Negative (Negative) N.gonorrhoeae DNA (TONYA) Negative (Negative) HIV 1&2 Antibody Non-Reactive (Nonreactive) Glucose 1 Hr 50 gm 117 mg/dL (70-140) Rhogam given: No Miscellaneous Test Assessment & Plan (1) Pre-eclampsia affecting puerperium: COMMENT: proceed with delivery (2) Positive GBS test: COMMENT: tx in labor (3) Polyhydramnios affecting : COMMENT: weekly BPP (4) Kidney stone complicating : QUALIFIERS: Trimester: second trimester Qualified Code(s): O26.832 - related renal disease, second trimester; N20.0 - Calculus of kidney COMMENT: Wk of 06/04: [facility], passed 3 stones. ref to OB for follow up. Urine culture, kidney US ordered (5) Obesity affecting : QUALIFIERS: Trimester: third trimester Obesity type affecting : unspecified obesity Qualified Code(s): O99.213 - Obesity complicating , third trimester COMMENT: 1 TM GCT WNL. encouraged healthy weight gain (6) Anxiety during : COMMENT: buspar, counseling encouraged, celexa: stable (7) Previous delivery affecting : COMMENT: plan RLTCS. Scheduled for 09/10 @ 7:15 with (8) Supervision of high-risk : QUALIFIERS: Trimester: second trimester Qualified Code(s): O09.92 - Supervision of high risk , unspecified, second trimester COMMENT: PRR , MARIANA 09/17/22, boy [facility] Lalo, Ney (9) : QUALIFIERS: Weeks of gestation: 38 weeks Qualified Code(s): Z3A.38 - 38 weeks gestation of COMMENT: GBS+urine, Growth US 32 wk:65% declined afp genetic & carrier testing. nl anatomy PLAN: Plan admit for RLTCS with SM
[2023-09-06] MEDS: Lactated Ringers 1,000 ML 150 ML IV (12:20)
[2023-09-06] MEDS: Lactated Ringers 1,000 ML 999 ML IV ×2 (12:45→22:33)
[2023-09-06 13:29] LABS: Syphilis Antibodies Non-reactive
[2023-09-06] MEDS: Acetaminophen 500 MG Tablet 1000 MG PO ×2 (13:54→19:46)
[2023-09-06] MEDS: Sodium Citrate/Citric Acid 30 ML UDC PO (13:54)
[2023-09-06] MEDS: Cefazolin 3 GM in 0.9% Normal Saline (100mL Bag) 100 ML IV (14:02)
[2023-09-06] MEDS: Oxytocin 15 Units/NS 250ml 15 UNITS/250 ML IV.SOLN 83 UNITS IV (15:45)
--- NOTE | 2023-09-06 16:15 | OP.PCM_ITS ---
Assessment & Plan (1) Positive GBS test: COMMENT: tx in labor (2) Polyhydramnios affecting : COMMENT: weekly BPP (3) Kidney stone complicating : QUALIFIERS: Trimester: second trimester Qualified Code(s): O 26.832 - related renal disease, second trimester; N20.0 - Calculus of kidney COMMENT: Wk of 06/04: [facility], passed 3 stones. ref to OB for follow up. Urine culture, kidney US ordered (4) Obesity affecting : QUALIFIERS: Trimester: third trimester Obesity type affecting pre gnancy: unspecified obesity Qualified Code(s): O99.213 - Obesity complicating , third trimester COMMENT: 1 TM GCT WNL. encouraged healthy weight gain (5) Anxiety during : COMMENT: buspar, counseling encouraged, celexa: stable (6) Previous delivery affecting : COMMENT: plan RLTCS. Scheduled for 09/10 @ 7:15 with (7) Supervision of high-risk : QUALIFIERS: Trimester: second trimester Qualified Code(s): O09.92 - Supervision of high risk , unspecified, second trimester COMMENT: PRR , MARIANA 09/17/22, boy Shante May, Ney (8) : QUALIFIERS: Weeks of gestation: 38 weeks Qualified Code(s): Z3A.38 - 38 weeks gestation of COMMENT: GBS+urine, Growth US 32 wk:65% declined afp genetic & carrier testing. 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 Velez catheter was placed. The patient was placed in the dorsal supine position with leftward tilt. Patient was prepped and draped in the normal sterile fashion. Pfannenstiel skin incision was made with the scalpel and carried through to the underlying layer of fascia with the scalpel. Fascia was nicked in the midline and the incision extended laterally. The rectus bellies were dissected off superiorly and inferiorly with out complication both sharply and bluntly. additional sutures were needed for hemostasis on the muscle due to bleeding. The peritoneum was entered digitally. The incision was stretched and a low transverse uterine incision was made with the scalpel. some scar tissue encountered. small omental to abdominal wall adhesion taken down. The 's head was delivered atraumatically and nc x 1 noted and delivered through, followed by the anterior and posterior shoulders without complication the rest of the delivered. The cord was clamped and cut and the was handed off to awaiting nurse. The placenta was delivered spontaneously immediately following and was noted to be intact and have a three-vessel cord. The uterus was exteriorized cleared of all clots and debris, and the incision was closed in a single layer closure using #1 Monocryl with an additional suture in the midline for hemostasis. The ovaries and fallopian tubes were noted to be within normal limits. The uterus was returned to the maternal abdomen and gutters were cleared of all clots and debris. hemoblast applied for hemostasis. The peritoneum was closed with 3-0 Monocryl in a running fashion. additional sutures used on the muscle for hemostasis in several areas. Fascia was closed with 0 PDS in a running fashion. Subcutaneous tissue was copiously irrigated and the skin was closed with 3-0 Monocryl in a subcuticular fashion. Mepilex dressing was applied without complication. Patient was taken to recovery in stable condition. It was discussed with the patient that based on the clinical information obtained during this encounter, combined with her history, at this time I would recommend cesareans for future deliveries if further pregnancies are desired. Amniotic Membrane Rupture Type: Artificial Amniotic Fluid Description: Clear Placenta Disposition: [facility] Cord Vessel Description: 3 Vessels Delayed Cord Clamping: Yes Complications Risks of Surgery Discussed w/Patient: Bleeding, Infection, Need for Future C-Sections and Injury to surrounding structure(s) including bowel and bladder Vaginal Delivery Complication Complications: None Admit VTE Documentation VTE Present on Admission: No VTE Mechan Device Prophylaxis: SCD's Procedures Urinary/Genital [id number]: [id number] Delivery global pkg
[2023-09-06] MEDS: HYDROmorphone 1 MG/ML Syringe IV ×3 (16:39→22:34)
[2023-09-06] MEDS: Ketorolac 30 MG/ML Syringe IV ×2 (16:39→23:41)
[2023-09-06] MEDS: Lactated Ringers 1,000 ML 100 ML IV (19:26)
--- NOTE | 2023-09-06 20:17 | DCINST_ITS ---
Discharge Instructions Diet Discharge Diet: No restrictions Activity Discharge Activity: May Not Drive (for 2 weeks or while taking narcotic pain medications.), May Shower and May Take a Tub Bath (in 7 days) May shower in (days): 0 May resume sexual activity in: 4-6 weeks Weight Bearing Status: Full weight bearing Lifting Restrictions: 20 pounds Dressing / Incision Call your doctor if your incision/area has: Continuous Slow Oozing, Sudden Increased Bleeding, Increased Pain/ Swelling, Increased Redness and Foul Smelling Discharge Call your doctor if you observe: Fever of 101 or Higher and Using more than 1 pad per hour (for 2 hours) Suture Line Care: Avoid Pulling/Pushing and Avoid Pinching/Bending Cleanse incision/area with: Soap & Water and Keep Dressing Clean & Dry Follow Up Care Please Follow Up With: Annette Ware MD When: Call [phone] to make an appointment for an incision check in 1-2 weeks. Test Results: Test results from this visit will be discussed in further detail at your follow- up appointment, if applicable. Discharge Plan Admission Admit Date/Time: 09/06/23 11:11 Attending Provider: Annette Ware Primary Care Provider: Veda Philip Discharge Orders/Prescriptions Prescriptions: New oxycodone-acetaminophen [Percocet] 5-325 mg tablet 1 tab PO Q6H PRN (Reason: pain) 7 Days Qty: 20 0RF naproxen [naproxen] 500 mg tablet 500 mg PO BID PRN PRN (Reason: Pain) Qty: 30 1RF Continued PNV [id number] 400 mcg-35 mg- 25 mg-5 mg tablet,chewable 2 tab PO DAILY buspirone 5 mg tablet 5 mg PO BID Qty: 60 12RF citalopram 20 mg tablet 20 mg PO DAILY Qty: 30 12RF acetaminophen [Acetaminophen Extra Strength] 500 mg tablet 1,000 mg PO QHS ondansetron HCl 4 mg tablet 4 mg PO Q4H PRN (Reason: nausea and vomiting) Referrals / Follow Up: Veda Philip MD [Primary Care Provider] - Disposition Disposition (needs filled in before D/C Order can be placed): Home, Self Care
[2023-09-06 20:26] LABS: Absolute Lymphocyte Count 2.71 X10^3/uL (0.83-4.51); Absolute Neutrophil Count 13.5 X10^3/uL (2.0-7.7); Basophil# 0.06 X10^3/uL; Basophil% 0.3 % (0-1); Eosinophil# 0.01 X10^3/uL; Eosinophils% 0.1 % (0-5); Hematocrit 32.4 % (37-47); Lymphocyte # 2.71 X10^3/ul (0.83-4.51); Lymphocyte % 15.7 % (19-41); Mean Corp Hgb Conc 30.9 g/dL (32-36); Mean Corpuscular Hgb 25.8 pg (27.0-32.0); Mean Corpuscular Volume 83.5 fL (81-99); Mean Platelet Vol. 10.5 fl (6.2-12.0); Monocyte# 0.91 X10^3/uL; Monocyte% 5.3 % (0-10); NRBC Flagged by Analyzer 0 % (0-5); Neutrophil # 13.49 X10^3/uL (2.7-7.7); Neutrophil % 78.1 % (47-70); Platelet Count 229 K/mm3 (150-450); RBC Distribution Width SD 42.5 fl (35.1-43.9); Red Blood Count 3.88 M/mm3 (4.2-5.4); White Blood Count 17.3 K/mm3 (4.4-11.0)
[2023-09-06] MEDS: busPIRone 5 MG Tablet PO (22:14)
[2023-09-06] MEDS: Ondansetron 4 MG/2 ML Vial IV (22:15)
[2023-09-06] MEDS: Citalopram 20 MG Tablet PO (22:15)
[2023-09-07] MEDS: Acetaminophen 500 MG Tablet 1000 MG PO ×4 (02:11→20:26)
[2023-09-07 03:25] VITALS: BP 117/86; PULSE 78; RESP 18; TEMP 36; O2SAT 97
[2023-09-07] MEDS: Enoxaparin 40 MG/0.4 ML Syringe SC ×2 (03:39→17:24)
[2023-09-07] MEDS: Ketorolac 30 MG/ML Syringe IV ×2 (05:38→11:33)
[2023-09-07] MEDS: 0.9% Saline Lock 10 ML Syringe IV ×2 (05:39→11:32)
[2023-09-07 06:00] LABS: Hematocrit 27.7 % (37-47); Hemoglobin 8.7 g/dL (12.0-15.0); Mean Corp Hgb Conc 31.4 g/dL (32-36); Mean Corpuscular Hgb 26.2 pg (27.0-32.0); Mean Corpuscular Volume 83.4 fL (81-99); Mean Platelet Vol. 10.5 fl (6.2-12.0); Platelet Count 192 K/mm3 (150-450); RBC Distribution Width CV 14.2 % (11.6-14.6); RBC Distribution Width SD 42.6 fl (35.1-43.9); Red Blood Count 3.32 M/mm3 (4.2-5.4); White Blood Count 11.2 K/mm3 (4.4-11.0)
[2023-09-07 08:00] VITALS: BP 121/71; PULSE 78; RESP 14; TEMP 36.2; O2SAT 98
[2023-09-07] MEDS: Senna/Docusate Sodium 1 Tablet PO (10:15)
[2023-09-07] MEDS: busPIRone 5 MG Tablet PO ×2 (10:15→21:59)
--- NOTE | 2023-09-07 10:15 | PCM.PN.OB ---
Subjective Subjective Patient doing well without complaints. Tolerating PO. Ambulating and voiding without difficulty. feeding well. Denies chest pain, shortness of breath, calf pain/swelling, fevers, chills, lightheadedness. Objective Data Objective Data Vital Signs: Vital Signs Temp Pulse Resp BP Pulse Ox O2 Del Method 97.2 F L 78 14 121/71 H 98 Room Air 09/07/23 08:00 09/07/23 08:00 09/07/23 08:00 09/07/23 08:00 09/07/23 08:00 09/07/23 08:00 Oxygen Delivery Method Room Air Weight: 303 lb 5.697 oz Body Mass Index (BMI) 52.0 Intake & Output: Intake and Output for Last 24 Hours 09/05/23 09/06/23 09/07/23 23:59 23:59 23:59 Intake Total 3033.33 / 3033.33 416.67 / 416.67 Output Total 1320 / 1320 300 / 300 Balance 1713.33 / 1713.33 116.67 / 116.67 Lab / Micro Data 09/07/23 05:47 09/06/23 10:14 Labs: Laboratory Results - last 24 hr 09/06/23 10:14: WBC 9.7, RBC 4.09 L, Hgb 10.7 L, Hct 34.0 L, MCV 83.1, MCH 26.2 L, MCHC 31.5 L, RDW Std Deviation 42.1, RDW Coeff of Edie 13.9, Plt Count 241, MPV 10.6, Creatinine 0.56, Estim Creat Clear Calc 205.60, Est GFR (MDRD) Af Amer 163, Est GFR (MDRD) Non-Af 135, Uric Acid 5.6, AST 17, ALT 17, U Random Total Protein 57.0 H, Urine Creatinine 119.00, Protein/Creatinin Ratio 479 H, Syphilis Total Ab Non-reactive, Blood Type O POSITIVE, Antibody Screen NEGATIVE 09/06/23 20:15: WBC 17.3 H, RBC 3.88 L, Hgb 10.0 L, Hct 32.4 L, MCV 83.5, MCH 25.8 L, MCHC 30.9 L, RDW Std Deviation 42.5, RDW Coeff of Edie 14.0, Plt Count 229, MPV 10.5, Immature Gran % (Auto) 0.500, Neut % (Auto) 78.1 H, Lymph % (Auto) 15.7 L, [place] % (Auto) 5.3, Eos % (Auto) 0.1, Baso % (Auto) 0.3, Absolute Neuts (auto) 13.5 H, Absolute Lymphs (auto) 2.71, Nucleated RBC % 0 09/07/23 05:47: WBC 11.2 H, RBC 3.32 L, Hgb 8.7 L, Hct 27.7 L, MCV 83.4, MCH 26.2 L, MCHC 31.4 L, RDW Std Deviation 42.6, RDW Coeff of Edie 14.2, Plt Count 192, MPV 10.5 ROS Constitutional Constitutional: Reports systems reviewed and no addt'l complaints, except as documented Cardiovascular Cardiovascular: Reports systems reviewed and no addt'l complaints, except as documented Respiratory/Chest Respiratory/Chest: Reports systems reviewed and no addt'l complaints, except as documented Gastrointestinal Gastrointestinal: Reports systems reviewed and no addt'l complaints, except as documented Physical Exam Const alert, oriented x3 and no apparent distress HEENT Head and Scalp: atraumatic Resp normal respiratory effort GI soft to palpation and non-tender Inspection: incision intact, healing well and drainage (none) Bimanual Exam - Vag & Uterus: uterus non-tender Uterus Palpation: uterus fundus firm (below Umbilicus) Assessment & Plan (1) delivery delivered: COMMENT: RLTCS boy Frey 37 preeclampsia (2) Pre-eclampsia affecting puerperium: COMMENT: proceed with delivery PLAN: Plan s/p LTCS PPD # 1 1. routine post care 2. breast feeding- support given 3. rh positive 4. rubella immune
--- NOTE | 2023-09-07 11:20 | CASEMGMT ---
Social Work Assessment Labor and Delivery Unit Patient Address: [facility] [address] [place] [id number] Phone number: [phone] Date of Referral: 09/07/23 Time of Referral:?[id number] Referred By: Annette Ware Date of Intervention: ??09/07/23 Time of Intervention:? 1000 Reason for Referral:? hx of anxiety and depression Adriano completed chart review and acknowledges social work consult due to maternal history of anxiety and depression. Sw introduced self to mother of baby (NOEMI- Jojo) and father of baby (FOB- Ney). Sw explained role during hospitalization and completed psychosocial assessment. Sw provided MOB with list of resources, literature and asked MOB to complete Strat[place] Depression Scale. History obtained from: medical records, MOB and FOB Household composition: Currently residing in the home is BERTHA FRANKLIN, their 4 year old son: Lalo and now baby when ready for discharge. Parents deny any issues or concerns with housing at this time. Patient's parent/guardian status:? ?NOEMI states that she and BERTHA met through a mutual friend and have been together for 10 years, for 5. MOB denies any issues or concerns of domestic violence or intimate partner violence. baby is second baby for both parents. NOEMI states that BERTHA is a big support for her and would be able to recognize if she were struggling with symptoms of baby blues or depression, and would know how to help and support her. Medical History: ?NOEMI is 28 year old female who is 2, para 1- now 2 following labor and delivery of . NOEMI received routine care during with [facility]. NOEMI presented for scheduled appointment, and was discovered to be pre-eclamptic and required unscheduled repeat . Baby boy, named Eduin Ellis, was born on 09/06/23 via repeat . Baby was born weighing 7lb 9oz and his apgars were 8 and 9 at one and five minutes of life, respectfully. NOEMI states that she tried to breast feed her first baby, but struggled with supply, which directly impacted her mental health- so NOEMI is bottle feeding baby and states that it is going well. Baby will be followed by Dr. Hall for pediatrics. Educational Status:? Both parents graduated from high school. MOB also obtained her Bachelors degree in nursing, FOLizeth obtained an associates degree. Parents deny issues with reading, learning or comprehension. Financial Status: Both parents are gainfully employed outside of the home. 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 Infant Supplies:?? Parents have obtained all necessary baby supplies, including: car seat, safe sleep space, clothes, diapers and wipes. NOEMI states that she has all necessary baby feeding supplies. Childcare/Caregiver(s):?NOEMI reports that her mother will provide childcare to when she and BERTHA are working. Transportation:?? Both parents have their drivers license and reliable means of transportation. No barriers at this time. Programs/Agencies Involved: ??Parents are not connected to any beneficial community resources that provide financial assistance. Both parents were engaged in outpatient counseling services after the delivery of NOEMI's first baby. Parents state that they are no longer in counseling, but receptive to getting re-engaged if necessary during this period. ? Children Services/Legal Issues:???No history of involvement, no issues or concerns warranting referral to be made at this time. Behavioral Health Issues: ??Mental Health History:?BERTHA states that he has been diagnosed with anxiety, depression, ADHD and has tendencies of OCD. BERTHA also states that he has a history of having anger issues as well, but is now on appropriate mental health medications. BERTHA states that in 2020 he also required an inpatient hospitalization due to having thoughts of hurting himself multiple times a day. ?BERTHA states that he used to suppress his feelings, and this would end up turning into rage. NOEMI states that BERTHA has never hit her or their son, but has been loud and yells. BERTHA states that this no longer happens as he has learned healthy and appropriate ways to manage his anger and mental health symptoms. NOEMI states that she has been diagnosed with anxiety and did experience depression. NOEMI states that her first delivery did not go as expected- she required an emergency and struggled to breast feed when she was really set on it. NOEMI states that her incision split open and she had to have it packed for 8 weeks. NOEMI states that there was a time when she did have suicidal thoughts during her period. ? Substance Use History: Both parents deny substance use and substance use histroy. ? Family History:???NOEMI states that she has several family members who have history of meth use, one of them being a cousin that she was extremely close to. NOEMI states that both of these family members are clean at this time and doing well- neither of them are considered to be a caregiver to baby. ?? Drug Screens: No drug screens observed in chart review. ?? Family/Social Stressors:? NOEMI and BERTHA express history of mental health diagnoses and struggles over the past several years. Both parents have worked on these issues and feel more prepared and ready following this delivery. Support Systems: NOEMI states that her parents and paternal brother and his are their biggest supports at this time. Depression/Shaken Baby/Safe Sleeping:? Sw educated parents on signs and symptoms of baby blues and depression and anxiety to be on the lookout for. Parents express and understanding. NOEMI completed Stratford Depression Scale- her score was a 5. Sw provided education and support. Sw educated parents on shaken baby prevention and ABCs of safe sleep space. Parents express understanding and importance of also educating their 4 year old son on safe sleep and keeping space clean of extra blankets, pillows and stuffed animals. ASSESSMENT:? MOB and baby admitted following labor and delivery. MOB and FOB both with mental health history positive for SI, without plan or intent. Both parents sought mental health services and are on psychotropic medications to help manage their mental health symptoms. Parents have increased and improved their communication and feel emotionally and mentally prepared for baby at this time. Both parents are open and receptive to reengaging with mental health services should MOB's journey be difficult. Parents have obtained all necessary baby supplies and have natural supports in place. Both parents were extremely talkative and chatty during completion of psychosocial assessment. Both parents made and maintained eye contact and were receptive to sw involvement and support. PLAN:? MOB and baby to be discharged when medically ready. ?No other services requested or indicated. Mary Gallegos, CAKE WASHER, FINE DINING SERVER
[2023-09-07 11:42] VITALS: BP 138/81; PULSE 94; RESP 16; TEMP 36.5; O2SAT 97
[2023-09-07 15:18] VITALS: BP 127/72; PULSE 89; RESP 14; TEMP 36.2; O2SAT 99
[2023-09-07] MEDS: Naproxen 500 MG Tablet PO (17:24)
[2023-09-07 20:28] VITALS: BP 136/78; PULSE 86; RESP 16; TEMP 36.3; O2SAT 98
[2023-09-07] MEDS: Citalopram 20 MG Tablet PO (21:59)
[2023-09-08] MEDS: Naproxen 500 MG Tablet PO ×2 (01:50→08:25)
[2023-09-08 01:52] VITALS: BP 139/73; PULSE 100; RESP 16; TEMP 36.1; O2SAT 99
[2023-09-08] MEDS: Acetaminophen 500 MG Tablet 1000 MG PO ×2 (03:01→09:55)
[2023-09-08] MEDS: Enoxaparin 40 MG/0.4 ML Syringe SC (04:21)
[2023-09-08 08:15] VITALS: BP 133/85; PULSE 90; RESP 16; TEMP 36.4; O2SAT 97
--- NOTE | 2023-09-08 09:53 | PCM.PN.OB ---
Subjective Subjective Patient doing well without complaints. Tolerating PO. Ambulating and voiding without difficulty. Feeding well. Denies chest pain, shortness of breath, calf pain/swelling, fevers, chills, lightheadedness. Objective Data Objective Data Vital Signs: Vital Signs Temp Pulse Resp BP Pulse Ox O2 Del Method 97.6 F L 90 16 133/85 H 97 Room Air 09/08/23 08:15 09/08/23 08:15 09/08/23 08:15 09/08/23 08:15 09/08/23 08:15 09/08/23 01:52 Oxygen Delivery Method Room Air Weight: 303 lb 5.697 oz Body Mass Index (BMI) 52.0 Intake & Output: Intake and Output for Last 24 Hours 09/06/23 09/07/23 09/08/23 23:59 23:59 23:59 Intake Total 3033.33 / 3033.33 416.67 / 416.67 Output Total 1320 / 1320 1150 / 1150 Balance 1713.33 / 1713.33 -733.33 / -733.33 Lab / Micro Data 09/07/23 05:47 09/06/23 10:14 ROS Constitutional Constitutional: Denies chills, fatigue, fever(s), poor appetite or weakness Eyes Eyes: Denies blurry vision, change in vision, seeing flashes or spots in vision ENT HEENT: Denies dizziness, headache(s), loss taste/smell or sore throat Cardiovascular Cardiovascular: Denies chest pain, dizziness, dyspnea, irregular heart rhythm, palpitations or rapid heart rate Respiratory/Chest Respiratory/Chest: Denies chest tightness, cough, dyspnea or breast pain Gastrointestinal Gastrointestinal: Denies abdominal pain, constipation or vomiting Genitourinary Genitourinary: Denies dysuria or flank pain Musculoskeletal Musculoskeletal: Denies difficulty walking, joint pain, limited range of motion or numbness Neurologic Neurologic: Denies abnormal movements, abnormal speech, dizziness, numbness, seizure-like activity or syncope Psychiatric Psychiatric: Denies anxiety, behavioral changes, change in appetite, confusion, depression or suicidal thoughts Physical Exam Const alert, oriented x3 and no apparent distress General Appearance: cooperative and comfortable Resp normal respiratory effort Cardio regular rate GI normal to inspection, nondistended, normoactive bowel sounds GI Narrative: uterus is firm below umbilicus. incision is clean, dry, intact Palpation: soft Back/Spine no CVA tenderness and thoraco-lumbar ROM normal Extremity normal to inspection, no clubbing, cyanosis or edema, no calf tenderness and no pedal edema Psych mental status grossly normal, thought process normal, cooperative, affect normal, speech normal, activity/motor behavior normal, denies homicidal ideation and denies suicidal ideation Assessment & Plan (1) delivery delivered: COMMENT: RLTCS boy Frey 38 preeclampsia PLAN: s/p LTCS PPD # 2 1. routine post care 2. breast feeding- support given 3. rh positive 4. rubella immune 5. rto in one week for incision check. 6. anemia- rx for iron sent to pharmacy. rpt cbc in 4 weeks. pt is asymptomatic (2) Pre-eclampsia affecting puerperium: COMMENT: proceed with delivery (3) Anxiety during : COMMENT: royer, counseling encouraged, celexa: stable
[2023-09-08] MEDS: Senna/Docusate Sodium 1 Tablet PO (09:55)
[2023-09-08] MEDS: busPIRone 5 MG Tablet PO (09:56)
[2023-09-08 11:45] VITALS: BP 137/87; PULSE 99; RESP 16; TEMP 36.4; O2SAT 98
--- NOTE | 2023-09-13 16:02 | NURSING ---
Follow up questions asked by BIRD Corral, SAMPLER RADIOACTIVE WASTE at in-person visit 09/09/23 at 1500. Pt. denied any s+s, and is doing well. Enjoyed stay in , didn't have her first child here but states she would have 10 more babies here because the experience is amazing.
== END 2023-09-08 13:40 | disposition home or self-care (01) | DRG 788 ==
LOC: WPOUT 11:17 → WP 11:17
PROVIDERS: Admitting Provider Obstetrics & Gynecology; PCP Family Medicine; Referring Provider Obstetrics & Gynecology; Visit Provider Obstetrics & Gynecology
DX: O34.211 Maternal care for low transverse scar from previous cesarean delivery (principal); O14.94 Unspecified pre-eclampsia, complicating childbirth; O99.214 Obesity complicating childbirth; O40.3XX0 Polyhydramnios, third trimester, not applicable or unspecified; F41.9 Anxiety disorder, unspecified; Z37.0 Single live birth; O99.824 Streptococcus B carrier state complicating childbirth; O99.344 Other mental disorders complicating childbirth; O69.81X0 Labor and delivery complicated by cord around neck, without compression, not applicable or unspecified; O90.81 Anemia of the puerperium; Z3A.38 38 weeks gestation of pregnancy; Z79.899 Other long term (current) drug therapy; Z87.59 Personal history of other complications of pregnancy, childbirth and the puerperium
CPT/HCPCS: 59025; 59050; 82565; 82570; 84156; 84450; 84460; 84550; 85025; 85027; 86780; 86850; 86900; 86901; 99221; J7120; A4216; G0378; J2405

== ENCOUNTER → 2023-09-06 | Outpatient (CLI) | payer OTHER, SELFPAY ==
--- NOTE | 2023-09-06 07:33 | US_ITS ---
STUDY: OBSTETRICAL ULTRASOUND - BIOPHYSICAL PROFILE REASON FOR EXAM: Female, 28 years old obesity affecting LMP: December 12, 2022. PRIOR ULTRASOUND: Comparison is made with prior study August 30, 2023. TECHNIQUE: Transabdominal TECHNICAL QUALITY: Adequate. FINDINGS: There is a single intrauterine fetus. The fetus is in a cephalic presentation. There is demonstrated cardiac activity with a heart rate of 132 bpm. There is a normal amniotic fluid volume. The largest amniotic fluid pocket measures 6.2 cm. The amniotic fluid index (ABE) is 20.5 cm. The placenta is anterior in location and is not low lying. There are Grade 2 placental changes. Age by LMP: 38 weeks, 2 days. MARIANA by LMP: September 18, 2023. BIOPHYSICAL PROFILE: Breathing Movements (FBM): 2 Gross Body Movements (GBM): 2 Tone (FT): 2 Amniotic Fluid Volume (AFV): 2 TOTAL SCORE: 8 / 8 US/Biophysical Prof W/O Non Stres IMPRESSION: Normal biophysical profile of 01/30. Electronically Signed: Poncho Tony MD at 9:18 EDT ,
--- OUTSIDE RECORDS SUMMARY | 2023-09-06 07:37 | XMS RPT_ITS | CCD ---
Author Name Unknown Address [address] [place] [address] Organization [facility] Care Team Providers Care Special Effects Specialist Name Role Phone Veda Philip Unavailable [phone] Prykhodko, Jeronimo O Unavailable Unavailable Markykhodko, Jeronimo O Unavailable Unavailable Veda Philip Primary Care Provider Unavaila Veda Escobar Primary Care Provider Veda Philip Primary Care Provider Veda Philip Primary Care Provider Larry, Makayla Heather Unavailable Veda Philip MD Primary Care Provider Larry KNIGHT, Makayla Heather Unavailable Veda Philip MD Primary Care Provider [phone] Larry KNIGHT, Makayla Heather Unavailable RHONDA QUICK Admitting Unavailab RHONDA Sow Referring Unavailab VEDA Graham Primary Care UnavailUMANG Brunson Attending Unavailable VEDA PHILIP Primary Care UnavailJEREMY Irizarry Attending Unavailenid Philip MD, Veda Zhu Primary Care Provider [phone] Veda Philip MD Primary Care Provider Larry HUGHES, Makayla Heather Unavailable VEDA PHILIP Primary Care Unavailabl e MESSI BLACKMAN Attending Unavailable Veda Philip MD Primary Care Provider Veda Philip MD Primary Care Provider Larry HUGHES Makayla Romero Unavailable Veda Philip MD Primary Care Provider [phone] MYLA HOPPER Attending Unavailable MYLA HOPPER Referring Unavailable VEDA PHILIP Primary Care Unavailable MYLA HOPPER Admitting Unavailable SELF, SELF Referring Unavailable VEDA PHILIP Primary Care Unavailable VEDA PHILIP Attending Unavailable MICHEL VEDARICARDO SEAMAN Primary [facility] Unavailabl e CHINYERE BEAULIEU Attending Unavail able MICHEL [place] Unavailabl e ANTONIO GONSALES Attending Unavail able MICHEL [place] Unavailabl e MYLA FALK. Attending Unavailable Allergies Allergy Classification Reported Allergen(s) Allergy Type Date of Onset Reaction(s) Facility Bee/Wasp/Ant Venom (4 sources) bee venom Substance Allergy Swelling [facility] (20 sources) BEE VENOM PROTEIN (HONEY BEE); Translations: [BEE VENOM PROTEIN (HONEY BEE)] Propensity to adverse reactions to drug Swelling [facility] Work Phone: Medications Current Medications Medication Drug Class(es) Dates Sig (Normalized) Sig (Original) [id number] 200 actuat albuterol 0.09 mg/actuat metered dose [...] 20:31-0500 Body height 162.6 cm Antonio Dru [facility] Work Phone: [facility] 07-21-2023 20:31-0500 Body mass index (BMI) [Ratio] 51.49 kg/m2 Antonio Gonsales [facility] Work Phone: [facility] 07-21-2023 20:31-0500 Body temperature 97.7 [degF] Antonio Gonsales [facility] Work Phone: [facility] 07-21-2023 20:31-0500 Body weight 136.08 kg Antonio Gonsales LICENSED VOCATIONAL NURSE Work Phone: [facility] 07-21-2023 20:31-0500 Diastolic blood pressure 83 mm[Hg] Antonio Gonsales LICENSED VOCATIONAL NURSE Work Phone: [facility] 07-21-2023 20:31-0500 Heart rate 98 /min Antonio Gonsales LICENSED VOCATIONAL NURSE Work Phone: [facility] 07-21-2023 20:31-0500 Respiratory rate 18 /min Antonio Gonsales LICENSED VOCATIONAL NURSE Work Phone: [facility] 07-21-2023 20:31-0500 SaO2% (BldA) [Mass fraction] 96 % Antonio Gonsales LICENSED VOCATIONAL NURSE Work Phone: [facility] 07-21-2023 20:31-0500 Systolic blood pressure 120 mm[Hg] Antonio Gonsales LICENSED VOCATIONAL NURSE Work Phone: [facility] 06-06-2023 01:40-0500 Body temperature 96.91 [degF] Myla Hopper MD Work Phone: [facility] 06-06-2023 01:40-0500 Diastolic blood pressure 70 mm[Hg] Myla Hopper MD Work Phone: [facility] 06-06-2023 01:40-0500 Heart rate 93 /min Myla Hopper MD Work Phone: [facility] 06-06-2023 01:40-0500 Respiratory rate 22 /min Myla Hopper MD Work Phone: [facility] 06-06-2023 01:40-0500 SaO2% (BldA) [Mass fraction] 98 % Myla Hopper MD Work Phone: [facility] 06-06-2023 01:40-0500 Systolic blood pressure 122 mm[Hg] Myla Hopper MD Work Phone: [facility] 06-06-2023 01:32-0500 Body height 160 cm Myla Hopper MD Work Phone: [facility] 06-06-2023 01:32-0500 Body mass index (BMI) [Ratio] 52.82 kg/m2 Myla Hopper MD Work Phone: [facility] 06-06-2023 01:32-0500 Body weight 135.26 kg Myla Hopper MD Work Phone: [facility] 06-03-2023 20:16-0500 Body height 162.6 cm Myla Falk DO Work Phone: [facility] 06-03-2023 20:16-0500 Body mass index (BMI) [Ratio] 50.64 kg/m2 Myla Falk DO Work Phone: [facility] 06-03-2023 20:16-0500 Body temperature 98.1 [degF] Myla Falk DO Work Phone: [facility] 06-03-2023 20:16-0500 Body weight 133.81 kg Myla Falk DO Work Phone: [facility] 06-03-2023 20:16-0500 Diastolic blood pressure 79 mm[Hg] Myla Falk DO Work Phone: [facility] 06-03-2023 20:16-0500 Heart rate 99 /min Myla Falk DO Work Phone: [facility] 06-03-2023 20:16-0500 Respiratory rate 18 /min Myla Falk DO Work Phone: [facility] 06-03-2023 20:16-0500 SaO2% (BldA) [Mass fraction] 98 % Myla Falk DO Work Phone: [facility] 06-03-2023 20:16-0500 Systolic blood pressure 116 mm[Hg] Myla Falk DO Work Phone: [facility] 04-03-2022 09:34-0400 Body height 160 cm Cathy PADILLA Work Phone: [facility] 04-03-2022 09:34-0400 Body mass index (BMI) [Ratio] 51 kg/m2 Cathy Gunderson COMMUNITY REINVESTMENT ACT OFFICER-LICENSED VOCATIONAL NURSE Work Phone: [facility] 04-03-2022 09:34-0400 Body weight 130.59 kg Cathy Gunderson COMMUNITY REINVESTMENT ACT OFFICER-LICENSED VOCATIONAL NURSE Work Phone: [facility] 04-03-2022 09:34-0400 Diastolic blood pressure 78 mm[Hg] Cathy Gunderson COMMUNITY REINVESTMENT ACT OFFICER-LICENSED VOCATIONAL NURSE Work Phone: [facility] 04-03-2022 09:34-0400 Heart rate 98 /min Cathy Gunderson COMMUNITY REINVESTMENT ACT OFFICER-LICENSED VOCATIONAL NURSE Work Phone: [facility] 04-03-2022 09:34-0400 Systolic blood pressure 114 mm[Hg] Cathy Gunderson APRN-LICENSED VOCATIONAL NURSE Work Phone: [facility] 11-27-2021 16:30-0400 Body height 160 cm Myla Falk DO Work Phone: [facility] 11-27-2021 16:30-0400 Body mass index (BMI) [Ratio] 48.18 kg/m2 Myla Falk DO Work Phone: [facility] 11-27-2021 16:30-0400 Body temperature 98.4 [degF] Myla Falk DO Work Phone: [facility] 11-27-2021 16:30-0400 Body weight 123.38 kg Myla Falk DO Work Phone: [facility] 11-27-2021 16:30-0400 Diastolic blood pressure 87 mm[Hg] Myla Falk DO Work Phone: [facility] 11-27-2021 16:30-0400 Heart rate 95 /min Myla Falk DO Work Phone: [facility] 11-27-2021 16:30-0400 Respiratory rate 20 /min Myla Falk DO Work Phone: [facility] 11-27-2021 16:30-0400 SaO2% (BldA) [Mass fraction] 98 % Myla Adrian ARSHAD Work Phone: [facility] 11-27-2021 16:30-0400 Systolic blood pressure 121 mm[Hg] Myla Jiménezheriberto ARSHAD Work Phone: [facility] 08-25-2021 11:06-0500 Body mass index (BMI) [Ratio] 49.7 kg/m2 Veda Philip MD Work Phone: [facility] 08-25-2021 11:06-0500 Body weight 130.77 kg Veda Philip MD Work Phone: [facility] 08-25-2021 11:06-0500 Diastolic blood pressure 80 mm[Hg] Veda Philip MD Work Phone: [facility] 08-25-2021 11:06-0500 Heart rate 64 /min Veda Philip MD Work Phone: [facility] 08-25-2021 11:06-0500 SaO2% (BldA) [Mass fraction] 98 % Veda Philip MD Work Phone: [facility] 08-25-2021 11:06-0500 Systolic blood pressure 118 mm[Hg] Veda Philip MD Work Phone: [facility] 05-05-2021 09:55-0500 Body height 160 cm Germania Lamport PA-C Work Phone: [facility] 05-05-2021 09:55-0500 Body mass index (BMI) [Ratio] 51.37 kg/m2 Germania Lamport PA-C Work Phone: [facility] 05-05-2021 09:55-0500 Body temperature 97.59 [degF] Germania Lamport PA-C Work Phone: [facility] 05-05-2021 09:55-0500 Body weight 131.54 kg Germania Lamport PA-C Work Phone: [facility] 05-05-2021 09:55-0500 Diastolic blood pressure 85 mm[Hg] Germania Lamport PA-C Work Phone: [facility] 05-05-2021 09:55-0500 Heart rate 93 /min Germania Lamport PA-C Work Phone: [facility] 05-05-2021 09:55-0500 Respiratory rate 18 /min Germania Lamport PA-C Work Phone: [facility] 05-05-2021 09:55-0500 SaO2% (BldA) [Mass fraction] 98 % Germania Lamport PA-C Work Phone: [facility] 05-05-2021 09:55-0500 Systolic blood pressure 122 mm[Hg] Germania Lamport PA-C Work Phone: [facility] 02-04-2021 09:11-0400 Body mass index (BMI) [Ratio] 49.67 kg/m2 Veda Philip MD Work Phone: [facility] 02-04-2021 09:11-0400 Body weight 130.68 kg Veda Philip MD Work Phone: [facility] 02-04-2021 09:11-0400 Diastolic blood pressure 68 mm[Hg] Veda Philip MD Work Phone: [facility] 02-04-2021 09:11-0400 Heart rate 77 /min Veda Philip MD Work Phone: [facility] 02-04-2021 09:11-0400 SaO2% (BldA) [Mass fraction] 98 % Veda Philip MD Work Phone: [facility] 02-04-2021 09:11-0400 Systolic blood pressure 106 mm[Hg] Veda Philip MD Work Phone: [facility] 12-30-2020 11:00-0400 Body height 162.2 cm Pinky PADILLA Work Phone: [facility] 12-30-2020 11:00-0400 Body mass index (BMI) [Ratio] 48.48 kg/m2 Pinky Portillo COMMUNITY REINVESTMENT ACT OFFICER-LICENSED VOCATIONAL NURSE Work Phone: [facility] 12-30-2020 11:00-0400 Body weight 127.55 kg Pinky Portillo COMMUNITY REINVESTMENT ACT OFFICER-LICENSED VOCATIONAL NURSE Work Phone: [facility] 12-30-2020 11:00-0400 Diastolic blood pressure 74 mm[Hg] Pinky Portillo COMMUNITY REINVESTMENT ACT OFFICER-LICENSED VOCATIONAL NURSE Work Phone: [facility] 12-30-2020 11:00-0400 Heart rate 88 /min Pinky Portillo COMMUNITY REINVESTMENT ACT OFFICER-LICENSED VOCATIONAL NURSE Work Phone: [facility] 12-30-2020 11:00-0400 SaO2% (BldA) [Mass fraction] 98 % Pinky Portilol COMMUNITY REINVESTMENT ACT OFFICER-LICENSED VOCATIONAL NURSE Work Phone: [facility] 12-30-2020 11:00-0400 Systolic blood pressure 118 mm[Hg] Pinky Portillo APRN-LICENSED VOCATIONAL NURSE Work Phone: [facility] 11-25-2020 09:32-0400 Body height 162.2 cm Veda Philip MD Work Phone: [facility] 11-25-2020 09:32-0400 Body mass index (BMI) [Ratio] 49.05 kg/m2 Veda Philip MD Work Phone: [facility] 11-25-2020 09:32-0400 Body weight 129.05 kg Veda Philip MD Work Phone: [facility] 11-25-2020 09:32-0400 Diastolic blood pressure 57 mm[Hg] Veda Philip MD Work Phone: [facility] 11-25-2020 09:32-0400 Heart rate 65 /min Veda Philip MD Work Phone: [facility] 11-25-2020 09:32-0400 Systolic blood pressure 99 mm[Hg] Veda Philip MD Work Phone: [facility] 08-20-2020 10:52-0500 BMI (Body Mass Index) 49.66 kg/m2 Veda [facility] 08-20-2020 10:52-0500 Body weight 131.23 kg Veda [facility] 08-20-2020 10:52-0500 BP Diastolic 77 mm[Hg] Veda [facility] 08-20-2020 10:52-0500 BP Systolic 122 mm[Hg] Veda [facility] 08-20-2020 10:52-0500 Height 162.6 cm Veda [facility] 08-20-2020 10:52-0500 Pulse (Heart Rate) 63 /min Veda [facility] 08-16-2020 21:22-0500 BMI (Body Mass Index) 48.75 kg/m2 [facility] 08-16-2020 21:22-0500 Body weight 128.82 kg [facility] 08-16-2020 21:22-0500 Height 162.6 cm [facility] 08-16-2020 21:19-0500 Body Temperature 98.1 [degF] [facility] 08-16-2020 21:19-0500 BP Diastolic 74 mm[Hg] [facility] 08-16-2020 21:19-0500 BP Systolic 171 mm[Hg] [facility] 08-16-2020 21:19-0500 Pulse (Heart Rate) 77 /min [facility] 08-16-2020 21:19-0500 Pulse Oximetry 97 % [facility] 08-16-2020 21:19-0500 Respiratory Rate 18 /min [facility] 05-17-2020 13:43-0500 BMI (Body Mass Index) 49.86 kg/m2 Veda [facility] 05-17-2020 13:43-0500 Body weight 131.77 kg Veda [facility] 05-17-2020 13:43-0500 BP Diastolic 78 mm[Hg] [facility] 05-17-2020 13:43-0500 BP Systolic 133 mm[Hg] [facility] 05-17-2020 13:43-0500 Height 162.6 cm [facility] 05-17-2020 13:43-0500 Pulse (Heart Rate) 71 /min [facility] 04-22-2020 13:14-0400 BMI (Body Mass Index) 49.74 kg/m2 [facility] 04-22-2020 13:14-0400 Body weight 131.45 kg [facility] 04-22-2020 13:14-0400 BP Diastolic 80 mm[Hg] [facility] 04-22-2020 13:14-0400 BP Systolic 125 mm[Hg] [facility] 04-22-2020 13:14-0400 Height 162.6 cm [facility] 04-22-2020 13:14-0400 Pulse (Heart Rate) 79 /min [facility] 12-23-2019 14:53-0400 BMI (Body Mass Index) 48.65 kg/m2 [facility] 12-23-2019 14:53-0400 Body weight 128.55 kg [facility] 12-23-2019 14:53-0400 BP Diastolic 61 mm[Hg] [facility] 12-23-2019 14:53-0400 BP Systolic 121 mm[Hg] [facility] 12-23-2019 14:53-0400 Height 162.6 cm [facility] 12-23-2019 14:53-0400 Pulse (Heart Rate) 78 /min [facility] 12-23-2019 14:53-0400 Pulse Oximetry 97 % [facility] 12-23-2019 14:53-0400 Respiratory Rate 18 /min [facility] 12-19-2019 13:20-0400 Body height 162.6 cm Veda Philip MD Work Phone: [facility] 12-19-2019 13:20-0400 Body mass index (BMI) [Ratio] 48.44 kg/m2 Veda Philip MD Work Phone: [facility] 12-19-2019 13:20-0400 Body weight 128 kg Veda Philip MD Work Phone: [facility] 12-19-2019 13:20-0400 Diastolic blood pressure 76 mm[Hg] Veda Philip MD Work Phone: [facility] 12-19-2019 13:20-0400 Heart rate 69 /min Veda Philip MD Work Phone: [facility] 12-19-2019 13:20-0400 Systolic blood pressure 108 mm[Hg] Veda Philip MD Work Phone: [facility] 08-04-2019 15:05-0500 Pulse (Heart Rate) 102 /min Agustina Simms [facility] Encounters Encounter Date Encounter Type Care Provider Facility Start: 07-21-2023 End: 07-21-2023 ambulatory VEDA PHILIP [facility] Start: 07-21-2023 End: 07-21-2023 Office outpatient visit 15 minutes Antonio Gonsales CNP Work Phone: [facility] [place] Procedures Date Procedure Procedure Detail Performing Clinician [...] Logan Work Phone: Start: 01-20-2019 ULTRASOUND (OUTSIDE) Az patric Zhu Philip Work Phone: Start: 12-16-2018 [...] Start: 06-28-2033 Tetanus vaccination Tetanus: Every 10yrs [facility] Start: 09-29-2024 Tetanus vaccination [facility] Start: 09-28-2024 Tetanus vaccination [facility] Work Phone: Start: 02-23-2023 COVID-19 Vaccine () COVID-19 Vaccine () [facility] Start: 01-12-2023 Screening for malignant neoplasm of cervix Pap Smear [facility] Start: 09-12-2022 End: 09-12-2022 Patient encounter procedure 09/12/2022 Office Visit Family Medicine Veda Philip MD [address] [place] [id number] [facility] Start: 02-21-2022 End: 02-21-2022 Patient encounter procedure 02/21/2022 Office Visit Family Medicine Veda Philip MD [address] [place] [id number] [facility] Start: 12-20-2021 COVID-19 Vaccine (3 - Booster for Pfizer series) COVID-19 Vaccine (3 - Booster for Pfizer series) [facility] Start: 12-16-2021 Screening for malignant neoplasm of cervix PAP SMEAR [facility] Start: 11-25-2021 GONORRHEA SCREEN GONORRHEA SCREEN [facility] Start: 11-25-2021 History and physical examination, annual for health maintenance Wellness Visit [facility] Start: 11-25-2021 Screening for Chlamydia trachomatis CHLAMYDIA SCREEN [facility] Start: 11-19-2021 COVID-19 VACCINE (3 - Booster for Pfizer series) COVID-19 VACCINE (3 - Booster for Pfizer series) [facility] Start: 08-16-2021 COVID-19 VACCINE (3 - Booster for Pfizer series) COVID-19 VACCINE (3 - Booster for Pfizer series) [facility] Start: 06-21-2021 End: 06-21-2021 ambulatory 06/21/2021 Immunization Primary Care Crescent BarRhonda MD [address] [place] [id number] [facility] [place] [facility] Start: 06-18-2021 COVID-19 Vaccine (2 - Pfizer 2-dose series) COVID-19 Vaccine (2 - Pfizer 2-dose series) [facility] Start: 05-16-2021 End: 05-16-2021 Patient encounter procedure 05/16/2021 Office Visit Obstetrics and Gynecology Irais Rucker MD [address] [place] [phone] [facility] 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[employer] [facility] Start: 03-30-2021 End: 03-30-2021 Patient encounter procedure 03/30/2021 Office Visit Obstetrics and Gynecology Mike Logan MD [address] [facility] [address] [address] [facility] 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[employer] - [facility] Start: 03-29-2021 End: 03-29-2021 Patient encounter procedure 03/29/2021 Office Visit Family Medicine Veda Philip MD [address] [place] [phone] [facility] Start: 02-23-2021 Influenza vaccination [facility] Start: 01-12-2021 History and physical examination, annual for health maintenance Wellness Visit [facility] Start: 12-10-2020 End: 12-21-2020 POCT PPD READING POCT PPD READING Point of Care Testing Routine Need for tuberculosis vaccination Expected: 12/10/2020, Expires: 12/21/2020 [facility] Immunizations Immunization Date Immunization Notes Care Provider [facility] 03-20-2022 influenza, injectabl e, quadrivalent, preservative free Cathy Gunderson APRN-CHRISTEN Work Phone: [facility] 06-21-2021 Pfizer SARS-CoV-2 Vaccination Umang Thurman RN [facility] 05-28-2021 Pfizer SARS-CoV-2 Vaccination Jeremy Medina RN [facility] 03-29-2021 influenza, injectabl e, quadrivalent, contains preservative Myla Falk DO Work Phone: [facility] 03-29-2021 influenza, injectabl e, quadrivalent, preservative free Germania Vargas PA-C Work Phone: [facility] 12-08-2020 PPD (Mantoux Test) Darren [facility] 12-08-2020 tuberculin skin test ; purified protein derivative solution, intradermal Germania Lamport PA-C Work Phone: [facility] 11-29-2020 PPD (Mantoux Test) Darren Philip [facility] 11-29-2020 tuberculin skin test ; purified protein derivative solution, intradermal Germania Lamport PA-C Work Phone: [facility] 04-22-2020 influenza, injectabl e, quadrivalent, contains preservative Myla Falk DO Work Phone: [facility] 04-22-2020 influenza, injectabl e, quadrivalent, preservative free [facility] 04-22-2020 influenza quad vacci ne 0.5 ML Suspension Prefilled Syringe [facility] 04-22-2020 influenza virus vaccine, unspecified formulation; Translations: [HC INFLUENZA VIRUS VACCINE QUADRIVALENT SPLIT VIRUS PRESERVATIVE FREE 3+ YEARS INTRAMUSCULAR] [facility] 03-23-2019 influenza, injectabl e, quadrivalent, preservative free [facility] 03-21-2019 varicella zoster imm une globulin [facility] 03-21-2019 diphtheria, tetanus toxoids and acellular pertussis vaccine, unspecified formulation [facility] 03-21-2019 measles, mumps and rubella virus vaccine [facility] 04-29-2015 influenza, injectabl e, quadrivalent, contains preserv[facility]: 04-29-2015 influenza, injectabl e, quadrivalent, preservative free Agustina Mendez [facility] 04-29-2015 meningococcal ACWY vaccine, unspecified formulation Agustina Mendez [facility] 04-29-2015 influenza virus vaccine, unspecified formulation [facility] Work Phone: 09-29-2014 tetanus toxoid, redu charles diphtheria toxoid, and acellular pertussis vaccine, adsorbed Agustina Simms [facility] 09-28-2014 tetanus toxoid, redu charles diphtheria toxoid, and acellular pertussis vaccine, adsorbed Ronda Payan [facility] Payers Date Payer Category Payer Unknown [id number] 2022 Private Health Insurance [employer] AE[place]NA [id number] 2022-Present [address] [place] [address] [id number] 2022 Private Health Insurance [id number] 2021 Unknown [id number] 2018 Unknown [id number] 2018 Unknown [id number] 2018 Unknown [id number] 2018 Unknown [employer] M [employer] xxxxxxxxxxxx 2018-Present xxxxxxxxxxxx [id number] 2017 Unknown xxxxxxxxx [id number] 2016 Unknown [id number] 3 1994 Unknown [id number] 1994 Unknown [id number] 1994 Unknown [id number] 1994 Unknown [id number] 1994 Unknown [id number] 1994 Unknown [id number] 1994 Unknown [id number] Unknown [id number] Social History Date Type Detail Facility Start: 10-10-2017 End: 11-27-2021 Tobacco smoking status NHIS Never smoker [facility] Work Phone: Start: 1995 Sex Assigned At Not on file [facility] Work Phone: Start: 07-03-2018 [facility] Start: 01-16-2017 Alcohol Comment Occasionally [facility] Start: 02-21-2019 End: 07-21-2023 Alcohol intake Ex-drinker (finding) [facility] Start: 06-20-2019 End: 06-06-2023 Alcohol intake Current drinker of alcohol (finding) [facility] Start: 04-22-2020 End: 11-27-2021 Tobacco use and exposure Never used [facility] Start: 08-15-2021 End: 04-03-2022 Exposure to SARS-CoV-2 (event) [facility] Start: 01-16-2017 Alcohol Comment Occasionally [facility] Start: 11-17-2021 End: 11-27-2021 Exposure to SARS-CoV-2 (event) Yes [facility] Start: 05-14-2019 End: 11-27-2021 Cigarette pack-years [facility] Start: 05-14-2019 End: 06-03-2023 Tobacco use panel [facility] PHQ-2 Score 23 [facility] Start: 01-15-2017 Gender identity Identifies as female gender (finding) [facility] Start: 08-27-2017 Sexual orientation Heterosexual (finding) [facility] Clinical Notes 12-19-2019 to 07-21-2023 Patient InstructionsAttachAntonio [...] attachments cannot be sent through Care Everywhere.Cough (Tanzanian)Metered-Dose Inhalers With a Spacer (Tanzanian)documented in this encounter [facility] 07-21-2023 History of Presen t illness Narrative Images from the original note were not included. Patient Name: [facility] Location: [facility] [address] [place] [phone] Date Of : Date Of Visit: 1995 07/21/2023 MRN# Provider: [id number] Antonio Gonsales CNP Chief Complaint Patient presents [...] symptoms as needed. documented in this encounter [facility] 06-06-2023 Miscellaneous Notes Formattin g of this [...] upper respiratory symptoms. documented in this encounter [facility] 06-06-2023 Nurse Note Pt and significant other ambulate off of unit, undelivered. [facility] 06-06-2023 Nurse Note Consult to urology placed. AVS printed and given to pt. Denies any questions at this time. [facility] 06-06-2023 Hospital Discharg e instructions Josué Mcginnis RN - 06/06/2023 2:38 AM EST Follow up with urology. Hydrate- LOTS OF WATER! Tylenol as needed. Consult to urology: Dr Pierre [phone] The following attachments cannot be sent through Care Everywhere.Preventing Kidney Stones ([facility]) (Tanzanian)Preventing Kidney Stones with Fluids and Citric Acid ([facility]) (Tanzanian)documented in this encounter [facility] 06-06-[address] Hopper called unit, updated on pt complaints and UA results. Dr Hopper states to have pt follow up with urology, take tylenol and hydrate with lots of water. Pt can be discharged at this time. [facility] 06-06-[address] Hopper called at this time. Left voicemail [facility] 06-06-2023 Nurse Note Heat packs provided for pt comfort [facility] 06-06-2023 Nurse Note Urine obtained via straight cath and sent to lab. [facility] 06-06-2023 Nurse Note Pt arrives to triage via wheelchair and significant other with complaints of back pain, difficulty urinating and burning with urination. Pt is experiencing nausea due to being in so much pain. Rating pain 9/10. Constant pain, nothing relieves pain. Pt states she has been taking mucinex for a week due to upper respiratory symptoms. [facility] 06-03-2023 Instructions Myla Falk DO - 06/03/2023 9:20 PM EST You may continue plain Mucinex and add dextromethorphan. Dextromethorphan can be found in isolated form and a product made by [employer]. Generics are also available. Make sure that you are not taking a combination product that contains phenylephrine or pseudoephedrine. The following attachments cannot be sent through Care Everywhere.URI (Upper Respiratory Infection) (Tanzanian)documented in this encounter [facility] 06-03-2023 History of Presen t illness Narrative PATIENT NAME: Vishal Child [facility]: [address] [facility] [id number] DATE OF VISIT: 06/03/2023 DATE OF : [...] visit. Myla Falk documented in this encounter [facility] 04-03-2022 History of Presen t illness Narrative [...] tenderness or frontal sinus tenderness. Mouth/Throat: Lips: Imlay. Mouth: Mucous membranes are moist. Pharynx: Oropharynx [...] RANDY Partida 04/03/2022 documented in this encounter [facility] 04-03-2022 Instructions RANDY Partida - 04/03/2022 9:20 [...] proceed with plan. 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 All of her exposures have been [...] visit. Myla Falk documented in this encounter [facility] 08-25-2021 History of Presen t illness Narrative [...] and are negative. documented in this encounter [facility] 05-05-2021 Instructions Germania Vargas PA-C - 05/05/2021 10:50 AM EST Vishal, Thank you for choosing [facility] for your healthcare needs today. [facility] COVID-19 Post-swabbing Instructions Your rapid [...] AND REPEAT TEST IN 3-5 DAYS UNL[facility] WANTS A PCR. FOLLOW THEIR INSTRUCTIONS [...] results. - If you have an active Ge[employer] account, and your COVID-19 test is negative (not detected), then you will be notified through your [employer] account. You should call the urgent care if you have any further questions. - If your COVID-19 test is positive (detected), you will receive a phone call to discuss your results and answer any questions you might have at that time. Please make sure [facility] has your updated phone number so we can contact you. [facility] will notify the [facility] of any positive results to comply with [...] and warm water and/or alcohol based hand electronic typesetting machine operator, scrubbing your hands for at least 20 [...] therapy. To learn more, go to the [facility] website: [employer]/covidinfusion. If you still have questions about monoclonal antibody infusion treatment, you can call , Sunday - Sunday 8 am - 4 pm. -400 Other COVID Questions? CDC - https://www.cdc.gov/coronavirus/v/index.html - https://www.cdc.gov/coronavirus/ncov/ul-atz-bsg-sick/quarantine .html [facility] - Website: https://coronavirus.[place].gov/wps/p ortal/gov/covid-19/home - Hotline: 118-7-TEA-ODH (473-279-5273) [facility]: https://blog.[employer]/series /[email or web address]-toolkit/ documented in this encounter [facility] 05-05-2021 History of Presen t illness Narrative Images from the original note were not included. 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 Suspected COVID-19 virus infection COVID-19, Molecular 2. Lab test negative for COVID-19 virus 3. Acute nonintractable headache, unspecified headache type 4. Body aches 5. Fatigue, unspecified type 6. Loss of smell 7. Upper respiratory tract infection, unspecified type 8. Cough No follow-ups on file. Medical Decision Making POC COVID X RAY OPERATOR - NEG Supportive care and treatment encouraged. Any worsening symptoms, return for recheck or go to the ER if we are closed. 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 No frontal sinus tenderness. Mouth/Throat: Lips: Imlay. No lesions. Mouth: Mucous membranes are moist. [...] Patient Instructions Vishal, Thank you for choosing [facility] for your healthcare needs today. [facility] COVID-19 Post-swabbing Instructions Your rapid [...] AND REPEAT TEST IN 3-5 DAYS [facility] WANTS A PCR. FOLLOW THEIR INSTRUCTIONS [...] results. - If you have an active [employer] account, and your COVID-19 test is negative (not detected), then you will be notified through your [employer] account. You should call the urgent care if you have any further questions. - If your COVID-19 test is positive (detected), you will receive a phone call to discuss your results and answer any questions you might have at that time. Please make sure [facility] has your updated phone number so we can contact you. [facility] will notify the [facility] of any positive results to comply with [...] and warm water and/or alcohol based hand electronic typesetting machine operator, scrubbing your hands for at least 20 [...] therapy. To learn more, go to the [facility] website: [employer]/covidinfusion. If you still have questions about monoclonal antibody infusion treatment, you can call , Sunday - Sunday 8 am - 4 pm. -400 Other COVID Questions? 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 She is not reporting any symptoms. documented in this encounter [facility] 03-14-2021 History of Presen t illness Narrative COVID testing for job. documented in this encounter [facility] 02-04-2021 History of Presen t illness Narrative [...] and are negative. documented in this encounter [facility] 12-30-2020 History of Presen t illness Narrative [...] and are negative. documented in this encounter [facility] 11-25-2020 History of Presen t illness Narrative [...] and are negative. 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 She is not reporting any symptoms. documented in this encounter [facility] 12-19-2019 History of Presen t illness Narrative Patient given one sample of Emgality 120mg/ml lot#[id number] exp 01/12. Chief Complaint Patient presents with [...] and are negative. documented in this encounter [facility] Diagnosis Encounter for well adult exam without abnormal findings- Primary [facility] Need for tuberculosis vaccination- Primary Need for prophylactic vaccination with tuberculosis (BCG) vaccine [facility] Diagnosis Need for tuberculosis vaccination- Primary Need for prophylactic vaccination with tuberculosis (BCG) vaccine [facility] Screening for viral disease- Primary Special screening examination for unspecified viral disease Shortness of breath [facility] Diagnosis Screening examination for infectious disease- Primary Screening examination for unspecified infectious disease documented [facility] this [facility] Diagnosis Screening examination for infectious disease- Primary Screening examination for unspecified infectious disease documented in this encounter [facility] Diagnosis Suspected COVID-19 virus infection- Primary Lab test negative for COVID-19 virus Acute nonintractable headache, unspecified headache type Body aches Generalized pain Fatigue, unspecified type Loss of smell Disturbances of sensation of smell and taste Upper respiratory tract infection, unspecified type Cough documented [facility] this encounter [facility]* Diagnosis Migraine without aura and without status migrainosus, not intractable Migraine without aura, without mention of intractable migraine without mention of status migrainosus documented in this encounter [facility] note* Diagnosis Generalized anxiety disorder Intractable migraine with aura with status migrainosus Migraine with aura, with intractable migraine, so stated, with status migrainosus [facility] 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, complicating , childbirth, or the puerperium, unspecified as to episode of care Intractable migraine with aura with status migrainosus Migraine with aura, with intractable migraine, so stated, with status migrainosus [facility]* Diagnosis Bronchitis- Primary Bronchitis, not specified as acute or chronic Suspected COVID-19 virus infection documented [facility] this encounter [facility]* Diagnosis Right lower quadrant abdominal pain Abdominal pain, right lower quadrant [facility]* Diagnosis Right lower quadrant abdominal pain- Primary Abdominal pain, right lower quadrant Vitamin D deficiency Unspecified vitamin D deficiency Right lower quadrant abdominal pain Abdominal pain, right lower quadrant [facility]* Diagnosis Acute nasopharyngitis- Primary Acute nasopharyngitis (common cold) Suspected COVID-19 virus infection Fever, unspecified fever cause [facility] Diagnosis Acute cough- Primary SOB (shortness of breath) Shortness of breath documented in this encounter [facility] Diagnosis S/P tonsillectomy and adenoi dectomy [...] living will and a durable power of defense attorney for health care. Bring a copy [...] not apply lotions, perfumes, deodorants, or nail afghan. Take off all jewelry and piercings. And [...] Log into your personal health record on [email or web address] Systems and enter S633 in the Education box to learn more about Tonsillectomy: Before Your Surgery. Current as of: January 21, 2016 Content Version: 11.2 9441-7295 [employer] Care instructions adapted under license by your healthcare professional. If you have questions about a medical condition or this instruction, always ask your healthcare professional. [employer] disclaims any warranty or liability for your [...] help loosen secretionsin the nose and lungs. Civo-wed-ijzisop cold medicines will not shorten the length [...] due to throat pain Date Last Reviewed: 03/07/201519997357-3576 [employer]. [address] [place] [address], [place] [address]. All rights reserved. This information is not [...] living will and a durable power of defense attorney for health care. Bring a copy [...] not apply lotions, perfumes, deodorants, or nail afghan. Take off all jewelry and piercings. And [...] Log into your personal health record on [email or web address] and enter S633 in the Education box to learn more about Tonsillectomy: Before Your Surgery. Current as of: January 21, 2016 Content Version: 11.2 5214-7407 [employer] Care instructions adapted under license by your healthcare professional. If you have questions about a medical condition or this instruction, always ask your healthcare professional. [employer] disclaims any warranty or liability for your [...] living will and a durable power of defense attorney for health care. Bring a copy [...] not apply lotions, perfumes, deodorants, or nail afghan. Take off all jewelry and piercings. And [...] Log into your personal health record on [email or web address] and enter S633 in the Education box to learn more about Tonsillectomy: Before Your Surgery. Current as of: January 21, 2016 Content Version: 11.2 7805-1617 [employer] Care instructions adapted under license by your healthcare professional. If you have questions about a medical condition or this instruction, always ask your healthcare professional. [employer] disclaims any warranty or liability for your [...] amount of fluids you drink. Take an wrnx-uxl-kyzztgi pain medicine if needed, such as acetaminophen [...] or plain hard candy. ? Take an aviu-uvo-rylplnj cough medicine that contains dextromethorphan to help [...] Log into your personal health record on [email or web address]://[email or web address].[employer] and enter L652 in the Education box to learn more about Influenza (Flu): Care Instructions. Current as of: December 01, 2018 Content Version: 12.3 2432-6473 [employer] Care instructions adapted under license by your healthcare professional. If you have questions about a medical condition or this instruction, always ask your healthcare professional. [employer] disclaims any warranty or liability for your [...] FoundDocuments on File Type Date Recorded Patient Commissary Officer Expl anation Advance Directives and Livin g Will 01/20/2019 3:56 PM Latest Code Status on File Code Status Date Activated Date Inactivated Comments Full Code 01/20/2019 3:53 PM Documents on File Type Date Recorded Patient Commissary Officer Expl anation Advance Directives and Livin g Will 02/21/2019 5:01 PM Latest Code Status on File Code Status Date Activated Date Inactivated Comments Full Code 01/20/2019 3:53 PM 02/21/2019 4:13 PM Documents on File Type Date Recorded Patient Commissary Officer Expl anation Advance Directives and Livin g Will 03/10/2019 5:09 PM Latest Code Status on File Code Status Date Activated Date Inactivated Comments Full Code 03/10/2019 4:56 PM Full Code 01/20/2019 3:53 PM 02/21/2019 4:13 PM Documents on File Type Date Recorded Patient Commissary Officer Expl anation Advance Directives and Livin g Will 03/29/2019 7:37 PM Latest Code Status on File Code Status Date Activated Date Inactivated Comments Full Code 03/21/2019 2:38 AM 03/29/2019 7:09 PM Full Code 03/20/2019 3:07 AM 03/21/2019 2:38 AM Full Code 03/19/2019 5:18 PM 03/20/2019 3:07 AM Full Code 03/10/2019 4:56 PM 03/19/2019 5:01 PM Documents on File Type Date Recorded Patient Commissary Officer Expl anation Advance Directives and Livin g Will 03/30/2019 9:20 PM Documents on File Type Date Recorded Patient Commissary Officer Expl anation Advance Directives and Livin g Will 08/16/2020 9:33 PM Documents on File Type Date Recorded Patient Commissary Officer Expl anation Advance Directives and Livin g Will 03/19/2019 5:14 PM Latest Code Status on File Code Status Date Activated Date Inactivated Comments Full Code 03/21/2019 2:38 AM Documents on File Type Date Recorded Patient Commissary Officer Expl anation Advance Directives and Livin g [...] History of Present Illness * Ronda Payan, LICENSED VOCATIONAL NURSE - 07/15/2018 11:20 AM EST Formatting of [...] tonsils and snoring 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 SNOMED CT(R) 1. 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 SNOMED CT(R) 1. Chronic tonsillitis [...] post- depression, was started on Zoloft by lead technician, having hallucinations, dizziness, Current treatment includes: Zoloft, has not been on anything else, she was referred for counseling.Seeing [facility]. Significant medical conditions: see problem list Headaches: [...] reviewed and are negative. * Cathy Gunderson, BIRD-LICENSED VOCATIONAL NURSE - 07/16/2019 10:45 AM EST Chief Complaint [...] post- depression, was started on Zoloft by lead technician, had hallucinations, dizziness. Current treatment includes: Pristiq at bedtime. Previous treatment: Zoloft, has not been on anything else, she was referred for counseling. Seeing [facility]. Significant medical conditions: see problem list Headaches: [...] 2:32 PM EST PATIENT NAME: Vishal Child [facility] [address] [facility] [id number] : 1995 DATE OF VISIT: 08/04/2019 #: [...] file Gets together: Not on file Attends christianity service: Not on file Active member of [...] [employer] and hasn't made it over to [facility] Foot Injury Dropped a 5 lb weight on foot. ER doc wanted pt to see PCP to see if she can go back to work or if any f/u XR are needed Weight Gain Would like to go see a Formulator Compounder. HPI: Migraines: she was getting samples of [...] month. She is interested in seeing a director of player personnel, following an kenny on her phone, following calories, stopped caffeine, walking 1 mile three times per week. She is eating 2000 calories per day, most of the time she is more likely to do [id number]. 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 Sleep:not very [...] file Gets together: Not on file Attends christianity service: Not on file Active member of [...] Enlarged tonsils Snoring Veda Philip MD [address] [place] [address] Jeronimo Simeon MD [address] [address] Hospital Course * Lucho Tamayo MD - 01/22/2019 9:02 AM EDT DISCHARGE SUMMARY Patient: Vishal Seals Date of : 1995 Site: [facility] Family Provider: Veda Philip MD Admit [...] Physician(s) Family Provider: Veda Philip MD, Address: [address] [place] [id number] Follow Up: Veda Philip MD [address] [place] [address] Additional Information: Pt's pain symptoms much improved [...] Vishal Seals Date of : 1995 Site: [facility] Provider: Veda Philip MD Admit Date: 03/19/2019 [...] Physician(s) Family Provider: Veda Philip MD, Address: [address] [place] [id number] Follow Up: Irais Rucker MD [address] [facility] [address] [id number] Follow up in 1 week(s) Additional Information: instructions given regarding fever, incisional care, activity and bleeding.Rx given for Motrin and [place]. F/U 1 week for incision check Patient [...] through Care Everywhere. * Hydronephrosis: General Info (Tanzanian) documented in this encounter* Attachments The following attachments cannot be sent through Care Everywhere. * : Logan Chong Contractions (Tanzanian) * : Weeks 34 to 36 (Tanzanian) * : When to Call (After 20 Weeks): General Info (Tanzanian) documented in this encounter* Attachments The following attachments cannot be sent through Care Everywhere. * : High Blood Pressure (Tanzanian) * : Kick Counts (Tanzanian) * : Week 37 (Tanzanian) * : When to Call (After 20 Weeks): General Info (Tanzanian) documented in this encounter* Attachments The following attachments cannot be sent through Care Everywhere. * Cellulitis (Tanzanian) documented in this encounter* Attachments The following attachments cannot be sent through Care Everywhere. * Contusion (Tanzanian) * Toe Fracture (Tanzanian) documented in this encounter* Discharge Instr - [...] for at least 3 months - Use mkke-vcp-mgkiluc meds for pain. You may have been [...] be thoroughly driedand kept dry. Use a instructor hairspring (on cool) after showing if necessary Call [...] through Care Everywhere. * : KICK COUNTS (AFGHAN) * : HIGH BLOOD PRESSURE (AFGHAN) documented in this encounter Additional Source Comments INFORMATION SOURCE (unrecogn ized section and content) DATE CREATED AUTHOR AUTHOR'S ORGANIZ ATION 09/15/2018 [facility] [place] DATE CREATED AUTHOR AUTHOR'S ORGANIZ ATION 11/13/2018 [facility] DATE CREATED AUTHOR AUTHOR'S ORGANIZ ATION 06/21/2021 [facility] DATE CREATED AUTHOR AUTHOR'S ORGANIZ ATION 11/27/2021 [facility] [facility] DATE CREATED AUTHOR AUTHOR'S ORGANIZ ATION 06/12/2023 [facility] DATE CREATED AUTHOR AUTHOR'S ORGANIZ ATION 06/21/2023 [facility] DATE CREATED AUTHOR AUTHOR'S ORGANIZ ATION 07/22/2023 [facility] Reason for Visit (unrecogniz ed section and content) Reason Comments Sore Throat NEW PATIENT-enlarged tonsils and snoring Status Reason Specialty Diagnoses / Procedures Referred By Contact Referred To Contact Closed Otolaryngology Diagnoses Enlarged tonsils Snoring Veda Philip MD [address] [place] [address] Jeronimo Simeon MD [address] [place] [id number] Reason Comments Morning Sickness pt vomiting since [...] [employer] and hasn't made it over to [facility] Foot Injury Dropped a 5 lb weigh t on foot. ER doc wanted pt to see PCP to see if she can go back to work or if any f/u XR are needed Weight Gain Would like to go see a Formulator Compounder. 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 [employer] Reason Comments Migraine States medication is not [...] H&P 01/21/2019 Mike Logan MD [facility] Patient: Vishal Seals Date of : [...] file Gets together: Not on file Attends christianity service: Not on file Active member of [...] PATIENT NAME: Vishal Seals : 1995 ADMITTED: [id number] CSN: [id number] REFERRING PROVIDER: Mike Logan MD PCP Veda [...] file Gets together: Not on file Attends christianity service: Not on file Active member of [...] Date of Service: 03/20/2019 - 03/21/2019 CSN: [id number] Procedure(s): SECTION Pre-Operative Diagnoses: * Failure to progress in labor [O62.2] Post-Operative Diagnoses: * Failure to progress in labor [O62.2] Surgeon(s) and Role: * Irais Rucker MD - Primary * Alexander Lind MD BLOCKER AND POLISHER GOLD WHEEL: Kike Morgan CRNA Web Development Manager: Dede Nuñez RN Scrub Person: Raquel Delgado [...] Problems: 39 weeks gestation of Codie Seals [[id number]] Delivery Anesthesia Method: Epidural Operative Delivery Forceps attempted?: No Coronado Presentation Presentation: Vertex Information date/time: 03/20/19 2346 Gender: Male Delivery type: , Low Transverse Delivery location: OB Unit Initial disposition: NICU/SCN Details: categorization: Primary priority: Unscheduled Delivery Providers Delivering clinician: Irais Rucker MD Other personnel: Provider Role Covering Attending Resident Underground Roof Bolter Delivery Nurse Registered Nurse Delivery Assist Nurse [...] collected per KHALIDA France, sent to lab [facility] ED Attending Note: NAME: Vishal Child 23 y.o. CSN: [id number] PCP: Veda Philip MD History: Chief Complaint: [...] no nausea vomiting or diarrhea, Called her 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POULTRY who recommended she come in for Steri-Strip [...] file Gets together: Not on file Attends christianity service: Not on file Active member of [...] Yellow Clarity, Urine Hazy (A) Clear Specific [place] 1.023 1.005 - 1.025 pH, Urine 6.0 [...] be further evaluated with outpatient contrast-enhanced MRI. /[employer] Workstation ID: [id number] ED Course / Medical [...] skin wound, initial encounter Hank Fowler MD [facility] Emergency Department (Please note that portions [...] TOLERATED WELL, STATED NEEDS MET, AT BEDSIDE [facility] EMERGENCY DEPARTMENT PCP - Veda Philip [...] file Gets together: Not on file Attends christianity service: Not on file Active member of [...] to go home with per Dr. Fowler. [facility] ED Attending Note: NAME: Vishal Child 23 y.o. CSN: [id number] PCP: Veda Philip MD History: Chief Complaint: [...] draining serous bloody fluid. Spoke with patient's 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POULTRY Phan on-call who sent the patient in [...] file Gets together: Not on file Attends christianity service: Not on file Active member of [...] to keep wound open per instructions from 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POULTRY, otherwise safe for discharge, will discharge home, abdominal pads given, she is to follow-up with her 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POULTRY tomorrow, they are expecting her Clinical Impression: 1. Wound drainage Hank Fowler MD [facility] Emergency Department (Please note that portions [...] Care Teams (unrecognized sec tion and content) Special Effects Specialist Relationship Specialty Start Date End Date Veda Philip MD [address] [place] [id number] PCP - General Family Medicine 01/23/17 LarryMakayla espinoza [address] [place] [address] Underground Roof Bolter Obstetrics/Gynecology 05/30/19 Special Effects Specialist Relationship Specialty Start Date End Date Veda Philip MD [address] [place] [address] PCP - General Family Medicine 8/1/17 Makayla Juarez, [facility] [address] [place] [address] Underground Roof Bolter Obstetrics/Gynecology 05/30/19 Special Effects Specialist Relationship Specialty Start Date End Date Veda Philip MD [address] [place] [address], [place] [address] PCP - General Family Medicine 01/23/17 Makayla Juarez, [facility] [address] [place] [address] Underground Roof Bolter Obstetrics/Gynecology 05/30/19 Special Effects Specialist Relationship Specialty Start Date End Date Veda Philip MD PCP - General Family Medicine 01/23/17 Special Effects Specialist Relationship Specialty Start Date End Date Veda Philip MD PCP - General Family Medicine 01/23/17 Special Effects Specialist Relationship Specialty Start Date End Date Veda Philip MD [address] [place] [address], [place] [address] PCP - General Family Medicine 01/23/17 LarryMakayla cervantes, [facility] [address] [place] [address] Underground Roof Bolter Obstetrics/Gynecology 05/30/19 Special Effects Specialist Relationship Specialty Start Date End Date Veda Philip MD PCP - General Family Medicine 01/23/17 Special Effects Specialist Relationship Specialty Start Date End Date Veda Philip MD PCP - General Family Medicine 01/23/17 Special Effects Specialist Relationship Specialty Start Date End Date Veda Philip MD [address] [place] [address] PCP - General Family Medicine 01/23/17 Makayla Juarez CNM [address] [place] [address] Underground Roof Bolter Obstetrics/Gynecology 05/30/19 Special Effects Specialist Relationship Specialty Start Date End Date Veda Philip MD PCP - General Family Medicine 01/23/17 Special Effects Specialist Relationship Specialty Start Date End Date Veda Philip MD [address] [place] [address] PCP - General Family [facility] 01/23/17 Makayla Juarez CNM [address] [place] [address] Underground Roof Bolter Obstetrics/Gynecology 05/30/19 FOR RECORDS PERTAINING TO PATIENTS [...] BE BASED ON THE PRIMARY CLINICAL RECORDS. [facility] [employer] [facility]. provides no warranty or guarantee of the accuracy or completeness of information in this document.
== END | disposition home or self-care (01) ==
LOC: US 07:32
PROVIDERS: PCP Family Medicine; Referring Provider Obstetrics & Gynecology; Visit Provider Obstetrics & Gynecology
DX: O99.210 Obesity complicating pregnancy, unspecified trimester (principal); Z3A.00 Weeks of gestation of pregnancy not specified
CPT/HCPCS: 76819; J2405

== ENCOUNTER → 2023-09-13 | Outpatient (CLI) | payer OTHER, SELFPAY ==
[2023-09-13 16:12] LABS: Absolute Lymphocyte Count 2.39 X10^3/uL (0.83-4.51); Absolute Neutrophil Count 8.9 X10^3/uL (2.0-7.7); Basophil# 0.05 X10^3/uL; Basophil% 0.4 % (0-1); Eosinophil# 0.16 X10^3/uL; Eosinophils% 1.3 % (0-5); Hematocrit 36.6 % (37-47); Hemoglobin 11.1 g/dL (12.0-15.0); Lymphocyte # 2.39 X10^3/ul (0.83-4.51); Lymphocyte % 19.1 % (19-41); Mean Corp Hgb Conc 30.3 g/dL (32-36); Mean Corpuscular Hgb 25.8 pg (27.0-32.0); Mean Corpuscular Volume 84.9 fL (81-99); Mean Platelet Vol. 9.2 fl (6.2-12.0); Monocyte# 0.85 X10^3/uL; Monocyte% 6.8 % (0-10); NRBC Flagged by Analyzer 0 % (0-5); Neutrophil # 8.94 X10^3/uL (2.7-7.7); Neutrophil % 71.5 % (47-70); Platelet Count 380 K/mm3 (150-450); RBC Distribution Width CV 14.2 % (11.6-14.6); Red Blood Count 4.31 M/mm3 (4.2-5.4); White Blood Count 12.5 K/mm3 (4.4-11.0)
[2023-09-13 16:30] LABS: ALB/GLOB Ratio 0.6 RATIO (0.9-2.4); AST(SGOT) 24 U/L (15-37); Alanine Aminotransfer ALT/SGPT 23 U/L (13-56); Albumin, Serum 2.6 g/dL (3.2-5.0); Alkaline Phosphatase 131 U/L (45-117); Anion Gap 7 (5-15); BUN 16 mg/dL (7-18); BUN/Creat Ratio 24.1 RATIO (10-20); Chloride 106 mmol/L (98-107); Creatinine, Serum 0.66 mg/dL (0.55-1.02); EST Glomerular Filtration Rate 112 mL/min (>60); Est Glom Filt Rate - Afr Amer 135 mL/min (>60); Globulin 4.1 g/dL (2.2-4.2); Glucose 94 mg/dL (74-106); Potassium 4.1 mmol/L (3.5-5.1); Protein, Total 6.7 g/dL (6.4-8.2); Sodium Level 139 mmol/L (136-145)
== END | disposition home or self-care (01) ==
LOC: PAVLAB 15:55
PROVIDERS: PCP Family Medicine; Referring Provider Obstetrics & Gynecology; Visit Provider Obstetrics & Gynecology
DX: O14.95 Unspecified pre-eclampsia, complicating the puerperium (principal); Z3A.00 Weeks of gestation of pregnancy not specified
CPT/HCPCS: 36415; 80053; 85025